=== PATIENT | male | born 1960 | race Caucasian/White ===

== ENCOUNTER 2021-06-02 09:05 | Emergency (ER) | payer OTHER, SELFPAY ==
[2021-06-02 09:35] VITALS: BP 129/78; PULSE 74; RESP 18; TEMP 37.1; O2SAT 99; BMI 26.1
[2021-06-02 09:57] LABS: UTC Strep Screen (Rapid) Positive (Negative)
--- NOTE | 2021-06-02 10:06 | HMH.EDUTC ---
[facility] [place] Clinical Impression: Strep throat Disposition: Home, Self-Care Condition on Discharge: Good Instructions: DI for Strep Throat, Strep Throat, Amoxicillin Additional Instructions: *Monitor Temp, Over the counter Motrin or Tylenol as directed/as needed Tylenol every 4 hours and Motrin every 6 hours (as long as your family doctor has told you that you can take it) for fever or pain. and straight to ER if unable to lower temp less than 101.0 after medication given *Warm salt water gargles may help to soothe the throat *Throat Lozenges *Warm fluids like tea with honey may help to soothe the throat *Sleep elevated *Humidifier/Vaporizer *If you did not take Penicillin shot or was unable to, start taking antibiotic immediately and make sure that you take it for the FULL length of time although you should start to feel better in 24-48 hours *change toothbrush and toothpaste 24-48 hours after starting to take antibiotics so you do not reinfect yourself Monitor Temp. Tylenol and/or Ibuprofen as needed. ER if fever is no less than 101 despite alternating Tylenol and Ibuprofen * Encourage fluids, water, Gatorade, powerade, pedialyte if /toddler/or child *Cold fluids, popsicles and ice cream may feel good on his throat Follow up IMMEDIATELY for new or worsening symptoms or no Noticeable improvement over the next 48-72 hours. 911 for difficulty breathing or swallowing Prescriptions: Amoxicillin [Amoxicillin 500mg Cap] 500 mg PO TID #30 cap Transmission Status: Pending to [facility] #[id number] Referrals: Provider,Referral, [Primary Care Provider] - As needed Time of Disposition: 10:14 Medical Decision Making - Constantin Inquiry Pt receiving controlled substance: No Constantin was queried for this patient: No Vital Signs: 06/02/21 09:35 Temperature 98.7 F Temperature Source Oral Pulse Rate [Right Brachial] 74 Respiratory Rate 18 Blood Pressure [Right Arm] 129/78 Blood Pressure Mean [Right Arm] 95 Blood Pressure Source [Right Arm] Automatic Cuff Blood Pressure Position [Right Arm] Sitting 02 Sat by Pulse Oximetry 99 Oxygen Delivery Method Room Air - Lab Data Lab results reviewed: Yes: I reviewed the patient's lab results. Lab Results 06/02/21 09:38: Strep Scn Rapid Clinic Positive A [facility] [place] HPI - General Stated complaint: possible strep throat Time Seen by Provider: 06/02/21 10:06 Mode of Arrival: Ambulatory Source of Information: Patient Limitations: No Limitations Description of Symptoms (Recalled from Triage Doc. by RN): PATIENT C/O SORE THROAT SINCE SATURDAY HEENT Symptoms (Recalled from RN notes): Yes Resp Symptoms (Recalled from RN notes): No Skin Symptoms (Recalled from RN notes): No MS Symptoms (Recalled from RN notes): No Functional Status (Recalled from RN notes): WNL - History of Present Illness Provider Complaint: Patient states that he has been having sore throat for several days State that he feels like he may have strep throat States that his throat hurts when he swallows and feels scratchy so he came in to get checked - Related Data Home Medications Medication Instructions Recorded Confirmed benazepril 40 mg tablet 40 mg PO ONCE 06/01/17 metformin 500 mg tablet 500 mg PO BID 06/01/17 ropinirole 0.25 mg tablet 0.25 mg PO TID 06/01/17 rosuvastatin 5 mg tablet 5 mg PO ONCE 06/01/17 sitagliptin 25 mg tablet 25 mg PO ONCE 06/01/17 Previous Rx's Medication Instructions Recorded azithromycin 250 mg tablet 250 mg PO QDAY #6 tab 06/01/17 benzonatate 100 mg capsule 100 mg PO TID PRN #30 cap 06/01/17 Amoxicillin [Amoxicillin 500mg 500 mg PO TID #30 cap 06/02/21 Cap] Allergies Allergy/AdvReac Type Severity Reaction Status Date / Time morphine [MORPHINE] Allergy Mild Verified 06/01/17 13:30 - Worker's Comp Is this a Worker's Comp case?: No [facility] History - Hepatitis A Screen Drug use history?: No High risk sexual behaviors?: No H
[2021-06-02 10:18] VITALS: BP 129/78; PULSE 74; RESP 18; TEMP 37.1; O2SAT 99
== END 2021-06-02 10:19 | disposition home or self-care (01) ==
PROVIDERS: Emergency Provider Nurse Practitioner
DX: J02.0 Streptococcal pharyngitis (principal); E11.9 Type 2 diabetes mellitus without complications; I10 Essential (primary) hypertension
CPT/HCPCS: 87880; 99202; G0463

== ENCOUNTER → 2022-06-06 13:54 | Outpatient (CLI) | payer OTHER, SELFPAY ==
--- NOTE | 2022-06-06 13:56 | XR_ITS ---
FINAL REPORT CLINICAL HISTORY: CHEST CONGESTION COMPARISON: none FINDINGS: Two views of the chest were obtained. The heart size and pulmonary vascularity are within normal limits. The mediastinum is normal. There is mild right basilar atelectasis or pneumonia. There is no pneumothorax. The bony thorax is intact. IMPRESSION: Mild right basilar atelectasis or pneumonia. Reviewed, Interpreted and Dictated by Santino Helton III, MD Transcribed by Clarita Kong Authenticated and [facility]
== END ==
PROVIDERS: PCP Nurse Practitioner Family; Visit Provider Nurse Practitioner Family
DX: R06.00 Dyspnea, unspecified (principal); R06.2 Wheezing
CPT/HCPCS: 71046

== ENCOUNTER → 2022-06-06 14:30 | Outpatient (CLI) | payer OTHER, SELFPAY ==
[2022-06-06 14:47] LABS: Adenovirus,PCR Not Detected (NotDetected); Bordetella Pertussis Not Detected (NotDetected); Chlamydophila Pneumoniae, PCR Not Detected (NotDetected); Coronavirus 19, PCR Not Detected (NotDetected); Coronavirus 229E Not Detected (NotDetected); Coronavirus NL63 Not Detected (NotDetected); Coronavirus OC43 Not Detected (NotDetected); Coronovirus HKU1,PCR Not Detected (NotDetected); Influenza A, PCR Not Detected (NotDetected); Influenza AH1, 2009 Not Detected (NotDetected); Influenza AH1, PCR Not Detected (NotDetected); Influenza AH3,PCR Not Detected (NotDetected); Influenza B, PCR Not Detected (NotDetected); Mycoplasma Pneumoniae, PCR Not Detected (NotDetected); Parainfluenza 1, PCR Not Detected (NotDetected); Parainfluenza 2, PCR Not Detected (NotDetected); Parainfluenza 3, PCR Not Detected (NotDetected); Parainfluenza 4, PCR Not Detected (NotDetected); Respiratory Syncytial Virus Not Detected (NotDetected); Rhinovirus/Enterovirus Not Detected (NotDetected)
[2022-06-06 18:18] LABS: Human Metapneumovirus Detected (NotDetected)
== END ==
PROVIDERS: PCP Nurse Practitioner Family; Visit Provider Nurse Practitioner Family
DX: J22 Unspecified acute lower respiratory infection (principal); R06.2 Wheezing; B97.81 Human metapneumovirus as the cause of diseases classified elsewhere
CPT/HCPCS: 87581; 87632; 87798; C9803; U0003; U0005

== ENCOUNTER → 2022-11-08 12:17 | Outpatient (CLI) | payer OTHER, SELFPAY ==
[2022-11-08 12:50] LABS: Alanine Aminotransferase 29 U/L (12-78); Albumin Level 4.7 g/dl (3.5-5.0); Albumin/Globulin Ratio 2.1 (1.1-1.8); Alkaline Phosphatase 114 U/L (38-126); Anion Gap 15.4 mEq/L (5-15); Aspartate Amino Transferase 29 U/L (17-59); Bilirubin,Total 0.6 mg/dl (0.2-1.3); Blood Urea Nitrogen 20 mg/dl (9-20); Calcium 9.4 mg/dl (8.4-10.2); Carbon Dioxide 26 mmol/L (22.0-30.0); Chloride 104 mmol/L (98-107); Estimated Glomerular Filt Rate 114 ml/min (>60); GFR (African American) 138 ML/MIN (>60); Globulin 2.2 g/dL (1.3-3.2); Glucose 133 mg/dl (74-100); Magnesium 1.5 mg/dl (1.6-2.3); Potassium 4.4 mmoL/L (3.5-5.1); Sodium 141 mmol/L (136-145); Total Protein,Serum 6.9 g/dl (6.3-8.2)
== END ==
PROVIDERS: PCP Nurse Practitioner Family; Visit Provider Nurse Practitioner Family
DX: R25.2 Cramp and spasm (principal)
CPT/HCPCS: 80053; 83735

== ENCOUNTER 2023-12-16 11:19 | Outpatient (CLI) | payer OTHER, SELFPAY ==
--- NOTE | 2023-12-16 11:29 | XR_ITS ---
FINAL REPORT CLINICAL HISTORY: Acute cough and congestion FINDINGS: Vague opacities within the left upper lobe are compatible with pneumonia. The right lung is clear. There is no evidence of effusion or other pleural disease. The mediastinum has a normal appearance. The cardiac silhouette is unremarkable. IMPRESSION: Probable left lung pneumonia. Reviewed, Interpreted and Dictated by Reggie Owusu MD Transcribed by Erika Salinas Authenticated and [facility]
[2023-12-16 12:15] LABS: Adenovirus,PCR Not Detected (NotDetected); Bordetella Pertussis Not Detected (NotDetected); Chlamydophila Pneumoniae, PCR Not Detected (NotDetected); Coronavirus 19, PCR Not Detected (NotDetected); Coronavirus 229E Not Detected (NotDetected); Coronavirus NL63 Not Detected (NotDetected); Coronavirus OC43 Not Detected (NotDetected); Coronovirus HKU1,PCR Not Detected (NotDetected); Human Metapneumovirus Not Detected (NotDetected); Influenza A, PCR Not Detected (NotDetected); Influenza AH1, 2009 Not Detected (NotDetected); Influenza AH1, PCR Not Detected (NotDetected); Influenza AH3,PCR Not Detected (NotDetected); Influenza B, PCR Not Detected (NotDetected); Mycoplasma Pneumoniae, PCR Not Detected (NotDetected); Parainfluenza 1, PCR Not Detected (NotDetected); Parainfluenza 2, PCR Not Detected (NotDetected); Parainfluenza 3, PCR Not Detected (NotDetected); Parainfluenza 4, PCR Not Detected (NotDetected); Respiratory Syncytial Virus Not Detected (NotDetected); Rhinovirus/Enterovirus Not Detected (NotDetected)
[2023-12-16 12:35] LABS: Basophils % 0.4 % (0.1-2.0); Eosinophils # 0.1 K/mm3 (0.0-0.4); Eosinophils % 1.3 % (0.1-12.0); Hematocrit 41.4 % (42.0-52.0); Lymphocytes # 1.9 K/mm3 (0.7-4.5); Lymphocytes % 24.4 % (10-50); Mean Corpuscular HGB Conc 33.9 g/dL (31.8-35.4); Mean Corpuscular Hemoglobin 30.5 pg (27.0-31.2); Mean Corpuscular Volume 89.9 fl (80-94); Mean Platelet Volume 8.1 fl (7.4-10.4); Monocytes # 0.4 K/mm3 (0.1-1.0); Monocytes % 5.1 % (1.7-9.3); Neutrophils # 5.5 K/mm3 (1.8-7.8); Neutrophils % 68.8 % (37.0-80.0); Platelet Count 217 K/mm3 (142-424); Red Cell Distribution Width 15.2 % (11.5-17.5)
[2023-12-16 12:56] LABS: Hemoglobin A1C 6.5 % (4.0-6.0)
[2023-12-16 12:58] LABS: Alanine Aminotransferase 29 U/L (12-78); Albumin Level 3.9 g/dl (3.5-5.0); Albumin/Globulin Ratio 1.8 (1.1-1.8); Alkaline Phosphatase 88 U/L (38-126); Anion Gap 15.1 mEq/L (5-15); Aspartate Amino Transferase 28 U/L (17-59); Blood Urea Nitrogen 20 mg/dl (9-20); Calcium 9.6 mg/dl (8.4-10.2); Carbon Dioxide 21 mmol/L (22.0-30.0); Chloride 100 mmol/L (98-107); Estimated Glomerular Filt Rate 114 ml/min (>60); GFR (African American) 137 ML/MIN (>60); Globulin 2.2 g/dL (1.3-3.2); Glucose 262 mg/dl (74-100); Potassium 4.1 mmoL/L (3.5-5.1); Sodium 132 mmol/L (136-145); Total Protein,Serum 6.1 g/dl (6.3-8.2)
== END 2023-12-16 23:59 | disposition home or self-care (01) ==
LOC: RAD 11:20
PROVIDERS: PCP Nurse Practitioner Family; Visit Provider Nurse Practitioner Family
DX: J06.9 Acute upper respiratory infection, unspecified (principal); R41.3 Other amnesia; R53.83 Other fatigue; E11.9 Type 2 diabetes mellitus without complications; Z79.84 Long term (current) use of oral hypoglycemic drugs
CPT/HCPCS: 71046; 80053; 83036; 85025; 87581; 87632; 87635; 87798

== ENCOUNTER 2024-01-10 11:35 | Outpatient (CLI) | payer OTHER, SELFPAY ==
[2024-01-10 17:53] LABS: Basophils # 0.1 K/mm3 (0-0.2); Basophils % 0.4 % (0.1-2.0); Eosinophils # 0.1 K/mm3 (0.0-0.4); Eosinophils % 0.9 % (0.1-12.0); Lymphocytes # 2.4 K/mm3 (0.7-4.5); Lymphocytes % 18.4 % (10-50); Mean Corpuscular HGB Conc 32.6 g/dL (31.8-35.4); Mean Corpuscular Hemoglobin 29.8 pg (27.0-31.2); Mean Corpuscular Volume 91.6 fl (80-94); Monocytes # 0.5 K/mm3 (0.1-1.0); Monocytes % 3.8 % (1.7-9.3); Neutrophils % 76.5 % (37.0-80.0); Platelet Count 187 K/mm3 (142-424); Red Blood Count 4.37 M/mm3 (4.60-6.20); Red Cell Distribution Width 15.6 % (11.5-17.5); White Blood Count 13.1 K/mm3 (4.8-10.8)
[2024-01-10 18:30] LABS: Alanine Aminotransferase 21 U/L (12-78); Albumin/Globulin Ratio 1.7 (1.1-1.8); Alkaline Phosphatase 77 U/L (38-126); Anion Gap 14.1 mEq/L (5-15); Aspartate Amino Transferase 20 U/L (17-59); Bilirubin,Total 1.8 mg/dl (0.2-1.3); Blood Urea Nitrogen 16 mg/dl (9-20); Calcium 9.3 mg/dl (8.4-10.2); Carbon Dioxide 20 mmol/L (22.0-30.0); Chloride 103 mmol/L (98-107); Estimated Glomerular Filt Rate 85 ml/min (>60); GFR (African American) 103 ML/MIN (>60); Globulin 2.3 g/dL (1.3-3.2); Glucose 213 mg/dl (74-100); Potassium 4.1 mmoL/L (3.5-5.1); Sodium 133 mmol/L (136-145); Total Protein,Serum 6.3 g/dl (6.3-8.2)
[2024-01-10 19:01] LABS: Prostate Specific Ag Screen 10.9 ng/ml (0.0-4.0)
== END 2024-01-10 23:59 | disposition home or self-care (01) ==
LOC: LAB.DROPOF 01-13 11:35
PROVIDERS: PCP Student in an Organized Health Care Education/Training Program; Visit Provider Student in an Organized Health Care Education/Training Program
DX: N39.0 Urinary tract infection, site not specified (principal); R39.198 Other difficulties with micturition; B96.89 Other specified bacterial agents as the cause of diseases classified elsewhere
CPT/HCPCS: 80053; 85025; 87086; 87088; 87186; G0103

== ENCOUNTER 2024-01-20 07:41 | Outpatient (CLI) | payer OTHER, SELFPAY ==
--- NOTE | 2024-01-20 07:42 | US_ITS ---
FINAL REPORT TECHNIQUE: Ultrasound images of the kidneys and bladder were obtained. CLINICAL HISTORY: .uti COMPARISON: None FINDINGS: The right kidney measures 12 cm in length. It is normal in echogenicity. There is no hydronephrosis. The left kidney measures 12.7 cm in length. It is normal in echogenicity. There is no hydronephrosis. There is a small 1.2 cm hypoechoic focus in the midportion of the left kidney, consistent with a small renal cyst. IMPRESSION: Small 1.2 cm hypoechoic focus midportion of the left kidney consistent with a small cyst. Otherwise unremarkable renal ultrasound. Reviewed, Interpreted and Dictated by Jesse Crews MD Transcribed by Maggie Casanova Authenticated and [facility]
--- NOTE | 2024-01-20 07:42 | US_ITS ---
FINAL REPORT CLINICAL HISTORY: UTI COMPARISON: None FINDINGS: ULTRASOUND PELVIS: Ultrasound examination of the pelvis was performed pre and post voiding. The bladder volume prior to voiding measured 8.23 cc. Postvoid there is a small residual, 13 cc left in the bladder. No definite focal bladder mass is identified. The prostate is prominent, measuring 5 cm in diameter with calcifications present. IMPRESSION: Small postvoid residual identified in the bladder. Enlarged prostate with calcifications present. Reviewed, Interpreted and Dictated by Jesse Crews MD Transcribed by Maggie Casanova Authenticated and [facility]
--- NOTE | 2024-01-20 07:42 | US_ITS ---
FINAL REPORT TECHNIQUE: Ultrasound images of the testicles were obtained bilaterally. Color Doppler images were obtained. CLINICAL HISTORY: .uti COMPARISON: None FINDINGS: The right testicle is normal in size and echotexture, measuring 5.9 cm in length. The left testicle has been surgically resected. Arterial flow is identified. There are several small hypoechoic foci in the epididymis on the right side that may represent spermatoceles versus epididymal cysts. A small hydrocele is present. IMPRESSION: No evidence of right testicular mass or torsion. The left testicle has been surgically resected. Reviewed, Interpreted and Dictated by Jesse Crews MD Transcribed by Maggie Casanova Authenticated and [facility]
--- NOTE | 2024-01-20 08:33 | XR_ITS ---
FINAL REPORT CLINICAL HISTORY: UTI COMPARISON: None FINDINGS: SINGLE VIEW ABDOMEN A single view of the abdomen was obtained. There is a nonobstructive bowel gas pattern. There are no abnormally dilated loops of small bowel. No abnormal calcifications are identified. IMPRESSION: Nonobstructive bowel gas pattern. Reviewed, Interpreted and Dictated by Jesse Crews MD Transcribed by Clarita Kong Authenticated and [facility]
[2024-01-20 12:53] LABS: Microscopic, Urine URINE MICROSCOPIC (MICROSCOPIC)
[2024-01-20 13:06] LABS: Appearance,Urine CLEAR (Clear); Bilirubin,Urine Negative (Negative); Blood, Urine Negative (Negative); Color,Urine YELLOW (Yellow); Glucose,Urine (UA) TRACE (Negative); Ketones,Urine Negative (Negative); Leukocyte Esterase,Urine Negative (Negative); Nitrate,Urine Negative (Negative); PH,Urine 6.5 (5.0-8.5); Protein,Urine Negative (Negative)
[2024-01-20 13:32] LABS: Squamous Epithelial Cell,Urine Occasional #/hpf (0-5)
[2024-01-20 14:34] LABS: Blood Urea Nitrogen 22 mg/dl (9-20); Estimated Glomerular Filt Rate 97 ml/min (>60); GFR (African American) 118 ML/MIN (>60)
[2024-01-22 12:15] LABS: Prostate Specific Ag 10.8 ng/mL (0.0-4.0)
== END 2024-01-20 23:59 | disposition home or self-care (01) ==
LOC: RAD 07:42
PROVIDERS: PCP Nurse Practitioner Family; Visit Provider Urology
DX: R97.20 Elevated prostate specific antigen [PSA] (principal); N40.1 Benign prostatic hyperplasia with lower urinary tract symptoms; N40.2 Nodular prostate without lower urinary tract symptoms; N39.0 Urinary tract infection, site not specified; R31.9 Hematuria, unspecified; R35.1 Nocturia
CPT/HCPCS: 36415; 74018; 76770; 76857; 76870; 81001; 82565; 84153; 84154; 84520; 87086

== ENCOUNTER 2024-02-10 09:00 | Outpatient (CLI) | payer OTHER, SELFPAY ==
[2024-02-10 15:39] LABS: Microscopic, Urine URINE MICROSCOPIC (MICROSCOPIC)
[2024-02-10 16:06] LABS: Appearance,Urine CLEAR (Clear); Bilirubin,Urine Negative (Negative); Blood, Urine 3+ (Negative); Color,Urine YELLOW (Yellow); Glucose,Urine (UA) 1+ (Negative); Ketones,Urine Negative (Negative); Leukocyte Esterase,Urine 1+ (Negative); Nitrate,Urine POSITIVE (Negative); Protein,Urine 1+ (Negative); Specific Gravity, Urine 1.025 (1.005-1.030); Urobilinogen,Urine 0.2 EU/dl (0.2)
[2024-02-10 16:54] LABS: WBC,Urine 20-50 #/hpf (0-3)
[2024-02-10 16:55] LABS: Bacteria,Urine 2+ /lpf
== END 2024-02-10 23:59 | disposition home or self-care (01) ==
LOC: LAB.DROPOF 02-11 10:14
PROVIDERS: PCP Urology; Visit Provider Urology
DX: R97.20 Elevated prostate specific antigen [PSA] (principal); N40.2 Nodular prostate without lower urinary tract symptoms; N39.0 Urinary tract infection, site not specified; B96.20 Unspecified Escherichia coli [E. coli] as the cause of diseases classified elsewhere
CPT/HCPCS: 81001; 87086; 87088; 87186

== ENCOUNTER 2024-02-25 07:14 | Outpatient (CLI) | payer OTHER, SELFPAY ==
--- NOTE | 2024-02-25 07:14 | CT_ITS ---
FINAL REPORT TECHNIQUE: Axial CT images of the abdomen and pelvis were obtained before and after the administration of IV contrast. This study was performed with techniques to keep radiation doses as low as reasonably achievable (ALARA). Individualized dose reduction techniques using automated exposure control or adjustment of mA and/or kV according to the patient'' size were employed. CLINICAL HISTORY: Elevated PSA, recent uti's COMPARISON: None FINDINGS: Abdomen: A small hiatal hernia is present. The lung bases are clear. The heart is normal in size. The liver has an unremarkable appearance, without evidence of mass or biliary duct dilatation. . The spleen is unremarkable. No adrenal masses present. The pancreas has an unremarkable appearance. The kidneys enhance normally. The aorta is normal in caliber. There is no free fluid or adenopathy. No mass or abnormal fluid collection is seen. Precontrast images demonstrate no evidence of nephrolithiasis. Pelvis: The appendix is not well visualized. The bladder is incompletely distended. No inflammatory process is seen. There is no evidence of mass or adenopathy. There is no evidence of bowel obstruction. There is a left inguinal hernia containing fat. IMPRESSION: No evidence of acute intra-abdominal process. Reviewed, Interpreted and Dictated by Jesse Crews MD Transcribed by Maggie Casanova Authenticated and [facility]
[2024-02-25 07:32] LABS: Microscopic, Urine URINE MICROSCOPIC (MICROSCOPIC)
[2024-02-25 07:52] LABS: Blood Urea Nitrogen 22 mg/dl (9-20); Estimated Glomerular Filt Rate 75 ml/min (>60); GFR (African American) 91 ML/MIN (>60)
[2024-02-25 07:59] LABS: Appearance,Urine CLEAR (Clear); Bilirubin,Urine Negative (Negative); Blood, Urine Negative (Negative); Color,Urine YELLOW (Yellow); Glucose,Urine (UA) Negative (Negative); Ketones,Urine Negative (Negative); Leukocyte Esterase,Urine Negative (Negative); Nitrate,Urine Negative (Negative); Protein,Urine Negative (Negative); Urobilinogen,Urine 0.2 EU/dl (0.2)
[2024-02-25 08:06] LABS: Bacteria,Urine Trace /lpf; Squamous Epithelial Cell,Urine Occasional #/hpf (0-5)
[2024-02-25] MEDS: IOPAMIDOL-370 (76%);100ML BOTTLE 75 ML IV (08:40)
[2024-02-25] MEDS: SODIUM CHLORIDE 0.9% 10ML SYR (RAD ONLY) 10 ML IV (08:40)
[2024-02-26 13:27] LABS: PSA, Free 0.51 ng/mL; Prostate Specific Ag 4.2 ng/mL (0.0-4.0)
== END 2024-02-25 23:59 | disposition home or self-care (01) ==
LOC: RAD 07:14
PROVIDERS: PCP Nurse Practitioner Family; Visit Provider Urology
DX: N39.0 Urinary tract infection, site not specified (principal); R97.20 Elevated prostate specific antigen [PSA]
CPT/HCPCS: 36415; 74178; 81001; 82565; 84153; 84154; 84520; 87086; Q9967

== ENCOUNTER 2024-10-22 12:29 | Outpatient (CLI) | payer MEDICARE, SELFPAY ==
[2024-10-22 13:27] LABS: Basophils # 0.1 K/mm3 (0-0.2); Basophils % 0.4 % (0.1-2.0); Eosinophils # 0.1 Kmm3 (0.0-0.4); Eosinophils % 0.8 % (0.1-12.0); Hemoglobin 11.7 g/dL (14.1-18.0); Immature Granulocytes # 0.15 10^3uL; Immature Granulocytes % 0.9 %; Lymphocytes # 4.3 K/mm3 (0.7-4.5); Lymphocytes % 25.8 % (10-50); Mean Corpuscular HGB Conc 33.4 g/dL (31.8-35.4); Mean Corpuscular Hemoglobin 28.5 pg (27.0-31.2); Mean Corpuscular Volume 85.2 fl (80-94); Monocytes # 0.8 K/mm3 (0.1-1.0); Monocytes % 4.6 % (1.7-9.3); Neutrophils # 11.2 K/mm3 (1.8-7.8); Neutrophils % 67.5 % (37.0-80.0); Nucleated Red Blood Cells # 0 10^3/uL; Nucleated Red Blood Cells % 0 %; Platelet Count 465 K/mm3 (142-424); Red Blood Count 4.11 M/mm3 (4.60-6.20); Red Cell Distribution Width 13.5 % (11.5-17.5); Red Cell Distribution Width-SD 41.9 fL; White Blood Count 16.6 K/mm3 (4.8-10.8)
[2024-10-22 13:52] LABS: Albumin Level 3.7 g/dl (3.5-5.0); Chloride 106 mmol/L (98-107); Potassium 4.7 mmoL/L (3.5-5.1); Sodium 139 mmol/L (136-145)
[2024-10-22 13:55] LABS: Alanine Aminotransferase 18 U/L (12-78); Albumin/Globulin Ratio 1.8 (1.1-1.8); Alkaline Phosphatase 103 U/L (38-126); Amylase 62 U/L (30-110); Anion Gap 15.7 mEq/L (5-15); Aspartate Amino Transferase 17 U/L (17-59); Bilirubin,Total 0.4 mg/dl (0.2-1.3); Blood Urea Nitrogen 20 mg/dl (9-20); Calcium 9.6 mg/dl (8.4-10.2); Carbon Dioxide 22 mmol/L (22.0-30.0); Estimated Glomerular Filt Rate 75 ml/min (>60); GFR (African American) 91 ML/MIN (>60); Globulin 2.1 g/dL (1.3-3.2); Glucose 182 mg/dl (74-100); Iron 28 ug/dL (49-181); Lipase 169 U/L (23-300); Total Protein,Serum 5.8 g/dl (6.3-8.2)
[2024-10-22 14:02] LABS: C-Reactive Protein 54.6 mg/L (0-4)
[2024-10-22 14:05] LABS: Total Iron Binding Capacity 293 ug/dL (261-462)
[2024-10-22 14:07] LABS: Erythrocyte Sedimentation Rate 102 mm/hr (0-20)
[2024-10-22 14:12] LABS: 25-OH Vitamin D, Total 26.1 ng/mL (30-100)
[2024-10-22 14:14] LABS: Free T4 (Free Thyroxine) 1.02 ng/dl (0.78-2.19)
[2024-10-22 14:34] LABS: Ferritin 113 ng/ml (17.9-464)
[2024-10-22 14:38] LABS: HIV Combo NEGATIVE (Negative)
[2024-10-22 14:41] LABS: Hemoglobin A1C 7.3 % (4.0-6.0)
[2024-10-22 14:47] LABS: Hepatitis C Ab Qual. W/ RFX NEGATIVE (Negative)
[2024-10-22 14:57] LABS: Uric Acid 4.4 mg/dl (3.5-8.5)
[2024-10-22 15:46] LABS: Vitamin B12 297 pg/mL (239-931)
[2024-10-23 12:13] LABS: Anti-Centromere B Antibodies <0.2 AI (0.0-0.9); Anti-DNA (DS) Ab Qn <1 IU/mL (0-9); Anti-Jo-1 <0.2 AI (0.0-0.9); Anti-Smith Antibody <0.2 AI (0.0-0.9); Antichromatin Antibodies <0.2 AI (0.0-0.9); Antiscleroderma-70 Antibodies <0.2 AI (0.0-0.9); Endomysial IgA Antibody Negative (Negative); RNP Antibodies <0.2 AI (0.0-0.9); Sjogren's Anti-SS-A <0.2 AI (0.0-0.9); Sjogren's Anti-SS-B <0.2 AI (0.0-0.9)
[2024-10-23 16:45] LABS: Deamidated Gliadin Abs, IgA 3 units (0-19); Deamidated Gliadin Abs, IgG 1 units (0-19); Tissue Transglutaminase IgA Ab <2 U/mL (0-3); Tissue Transglutaminase IgG Ab <2 U/mL (0-5)
[2024-10-24 09:17] LABS: Reticulin IgA Antibody Negative titer (Neg:<1:2.5)
[2024-10-27 15:17] LABS: Saccharomyces cerevisiae, IgA <20.0 Units (0.0-24.9); Saccharomyces cerevisiae, IgG 25.3 Units (0.0-24.9)
== END 2024-10-22 23:59 | disposition home or self-care (01) ==
LOC: LAB 12:30
PROVIDERS: PCP Nurse Practitioner Family; Visit Provider Nurse Practitioner Family
DX: D51.9 Vitamin B12 deficiency anemia, unspecified (principal); R53.83 Other fatigue; E11.9 Type 2 diabetes mellitus without complications
CPT/HCPCS: 36415; 80053; 82150; 82306; 82607; 82728; 83036; 83516; 83540; 83550; 83690; 83735; 84439; 84443; 84550; 85025; 85651; 86140; 86225; 86235; 86255; 86256; 86671; 86803; 87389

== ENCOUNTER 2024-10-22 16:24 | Emergency (ER) | payer MEDICARE, SELFPAY ==
--- NOTE | 2024-10-22 16:35 | CT_ITS ---
PROCEDURE INFORMATION: Exam: CT Abdomen And Pelvis With Contrast Exam date and time: 10/22/2024 4:54 PM Age: 64 years old Clinical indication: Abdominal pain; Epigastric; Additional info: Epigastric discomfort TECHNIQUE: Imaging protocol: Computed tomography of the abdomen and pelvis with contrast. Radiation optimization: All CT scans at this facility use at least one of these dose optimization techniques: automated exposure control; mA and/or kV adjustment per patient size (includes targeted exams where dose is matched to clinical indication); or iterative reconstruction. Contrast material: ISOVUE; Contrast volume: 75 ml; Contrast route: IV; COMPARISON: CR XR CHEST 2V 10/22/2024 4:46 PM FINDINGS: Lungs: Evidence for calcified lung granuloma in the right chest. Multifocal alveolar consolidation opacities within the lingula and left lower lobe. Linear interstitial and alveolar opacity to a lesser extent in the right lower lobe. Coronary arteries: Coronary arterial calcifications are demonstrated. Diaphragm: Questionable hiatal hernia identified. Liver: Indeterminate incidental hepatic lesion identified. Hepatic lesion measurement and location: Ill-defined heterogeneous hypodensity in the left hepatic lobe measures 10 mm on axial image 38. Gallbladder and biliary ducts: Unremarkable. No calcified stones. No ductal dilation. Pancreas: Unremarkable. Spleen: Unremarkable. No splenomegaly. Adrenal glands: Normal. No mass. Kidneys and ureters: Unremarkable. No hydronephrosis or calculi. Stomach and bowel: Slightly prominent fluid identified within the bowel, proximal colon, suggesting potential early developing diarrheal state. Possible nonspecific infectious or inflammatory gastroenteritis. The bowel appears otherwise unremarkable. Appendix: The visualized appendix appears unremarkable. Intraperitoneal space: No free air. No significant fluid collection. Vasculature: Mild atherosclerotic calcification demonstrated within the aorta. Mild atherosclerotic arterial vascular wall calcifications are demonstrated. Lymph nodes: No enlarged lymph nodes. Urinary bladder: Urinary bladder appears small in size, limiting further assessment. Reproductive: Unremarkable as visualized. Bones/joints: Mild to moderate generalized bony degenerative changes. Moderate to severe bony degenerative changes involving the posterior facet articulations of the lower lumbar spine and lumbar sacral junction. Disc and osteophyte complexes with moderate to severe central canal and foraminal narrowing within the lower lumbar spine and lumbar sacral junction. Bony structures appear otherwise unremarkable. Soft tissues: Unremarkable. Other findings: Limited study with motion artifact. IMPRESSION: 1. Bilateral pneumonia within the lower lungs, worse on the left side. Recommend close imaging followup until complete resolution. 2. Questionable early developing diarrheal state, possible nonspecific infectious or inflammatory gastroenteritis. See above details. 3. Indeterminate hepatic lesion, as described above. 4. Chronic findings.
--- NOTE | 2024-10-22 16:47 | XR_ITS ---
PROCEDURE INFORMATION: Exam: XR Chest Exam date and time: 10/22/2024 4:46 PM Age: 64 years old Clinical indication: Pain; Other: Tightness; Additional info: Chest tightness TECHNIQUE: Imaging protocol: Radiologic exam of the chest. Views: 2 views. PA and Lateral COMPARISON: No relevant prior studies available. FINDINGS: Tubes, catheters and devices: None. Lungs: Bilateral pulmonary linear interstitial and alveolar opacities are demonstrated within the lungs. The pulmonary opacities are demonstrated within bilateral upper and lower lungs. The pulmonary alveolar consolidation opacities are most prominent within left perihilar and basilar lung. Pleural spaces: No pleural effusion. No pneumothorax. Heart/Mediastinum: Mediastinum and rodney appear unremarkable. Bones/joints: No acute bony abnormality identified. IMPRESSION: Extensive bilateral pneumonia which appears most severe in the left mid to lower lung. Recommend close imaging followup until complete resolution.
--- NOTE | 2024-10-22 16:49 | HMH.EDGENADL ---
Discharge Plan Disposition Patient Disposition: Home, Self-Care Prescriptions Prescriptions: New amoxicillin-pot clavulanate 875-125 mg tablet 1 tab PO BID 7 Days Qty: 14 0RF azithromycin 250 mg tablet 250 mg PO DAILY 4 Days Qty: 4 0RF magnesium oxide 500 mg capsule 500 mg PO DAILY Qty: 30 0RF No Action amlodipine 10 mg tablet 10 mg PO DAILY Patient Comments: TAKE 1 TABLET BY MOUTH EVERY DAY IN THE MORNING glipizide 2.5 mg tablet extended release 24hr 5 mg PO DAILY Patient Comments: TAKE 2 TABLETS BY MOUTH EVERY DAY metformin 1,000 mg tablet 2,000 mg PO DAILY ezetimibe 10 mg tablet 10 mg PO DAILY Patient Comments: TAKE 1 TABLET BY MOUTH EVERY DAY pioglitazone 30 mg tablet 30 mg PO DAILY Patient Comments: TAKE 1 TABLET BY MOUTH EVERY DAY benazepril 40 mg tablet See Rx Instructions .ROUTE .COMPLEX Qty: 30 0RF Dose Instruction: TAKE 1 TABLET BY MOUTH DAILY Rx Instructions: TAKE 1 TABLET BY MOUTH DAILY allopurinol 300 mg tablet See Rx Instructions .ROUTE .COMPLEX Qty: 90 3RF Dose Instruction: TAKE 1 TABLET BY MOUTH DAILY Rx Instructions: TAKE 1 TABLET BY MOUTH DAILY Referrals Follow up/Referrals: Elvia Centeno APRN [Primary Care Provider, Family Practice] - See instructions Activity Restrictions/Add. Instructions Additional Instructions/Restrictions: Take magnesium supplement as prescribed. Take antibiotics for treatment of pneumonia. Follow-up with primary care doctor in the next 2 to 3 days. Please return to the ER with any new, concerning, worsening symptoms. Clinical Impressions Clinical Impression: Hypomagnesemia Bilateral pneumonia Qualifiers: Pneumonia type: due to unspecified organism Lung location: unspecified part of lung Qualified Code(s): J18.9 - Pneumonia, unspecified organism Print Language Print Language: Maltese Discharge ED Provider: Andreas Britt General Adult HPI General Chief complaint: Shortness of Breath/Dyspnea Stated complaint: Sent from Elvia Centeno's office Time Seen by Provider: 10/22/24 16:26 Mode of Arrival: Ambulatory Source of Information: Patient Limitations: No Limitations History of Present Illness HPI narrative: This is a 64-year-old male who presents from clinic with abnormal labs. States that he has had some epigastric discomfort going on for the last 2 weeks. Has also had an unintentional 10 pound weight loss despite eating and drinking a normal amount. States that he still has an appetite. States that he has had a lot of gas, bloating and flatulence. States that he presented to clinic and got laboratory workup today and got a call while he was mowing the lawn that he needed to present to the ER immediately due to some abnormal labs. States that he is now feeling anxious and having some chest tightness and shortness of breath which has been going on all day. Related Data Home Medications ?Medication ?Instructions ?Recorded ?Confirmed amlodipine 10 mg tablet 10 mg PO DAILY 06/06/22 10/22/24 ezetimibe 10 mg tablet 10 mg PO DAILY 08/23/22 10/22/24 glipizide 2.5 mg tablet, extended 5 mg PO DAILY 08/23/22 10/22/24 release 24 hr metformin 1,000 mg tablet 2,000 mg PO DAILY 11/08/22 10/22/24 pioglitazone 30 mg tablet 30 mg PO DAILY 05/11/24 10/22/24 Previous Rx's ?Medication ?Instructions ?Recorded benazepril 40 mg tablet See Rx Instructions .Route 11/17/23 .COMPLEX #30 tabs allopurinol 300 mg tablet See Rx Instructions .Route 12/16/23 .COMPLEX #90 tabs amoxicillin 875 mg-potassium 1 tab PO BID 7 days #14 tabs 10/22/24 clavulanate 125 mg tablet azithromycin 250 mg tablet 250 mg PO DAILY 4 days #4 tabs 10/22/24 magnesium oxide 500 mg capsule 500 mg PO DAILY #30 caps 10/22/24 Allergies Allergy/AdvReac Type Severity Reaction Status Date / Time morphine (MORPHINE) Allergy Mild Verified 10/22/24 08:54 rosuvastatin (From Crestor) Allergy Mild Verified 10/22/24 08:54 [facility] Disclaimer: The information contained in this section may have been updated after the patient was seen, as this information can be updated by other users. Medical History Muscle cramps URI (upper respiratory infection) Left lower lobe pneumonia UTI (urinary tract infection) Right lower lobe pneumonia Establishing care with new doctor, encounter for Injury of left shoulder previous work related injury in 2022, established with Dr. Garza @ 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 Jang) Surgical History H/O right knee surgery right meniscus repair, 2020, with Dr. Espinoza @ [facility] S/P ORIF (open reduction internal fixation) fracture right femur S/P rotator cuff repair right shoulder, 2014, Dr. Adi Gentile @ [facility] History of surgical removal of testicle left, age 12 Hx of tonsillectomy ~age 8 Family History Father Coronary artery disease Hyperlipidemia Mother Hyperlipidemia Diabetes Grandmother Coronary artery disease Hyperlipidemia Diabetes Social History Smoking Status: Never smoker alcohol intake: current alcohol intake frequency: holidays/special occasions only substance use type: denies use current occupational status: other Travel in the last 8 weeks?: None Have you lived/traveled outside [place] in past 30 days?: No Contact w/someone who lives/traveled outside [place] past 30 days?: No Exposure to someone with infectious disease in past 14 days?: No Do you have a fever (greater than 100.4 F or 38 C)?: No Have you tested positive for COVID-19?: No Exposed to someone with COVID-19 in past 14 days?: No Do you have a sore throat?: No Do you have a cough?: No Do you have any weakness?: No Do you have any diarrhea?: No Are you experiencing any unusual bleeding?: No Do you have any muscle aches/pain?: No Do you have any abdominal pain?: No Are you experiencing loss of taste or smell?: No Other Medical History Have you received the Flu Vaccine for this season: Yes Have you received the Pneumonia Vaccine: No ROS Obtained: Yes All systems reviewed & no additional complaints except as documented Physical Exam General General appearance: alert and in no apparent distress Head Head exam: atraumatic Eye Eye exam: Present normal appearance, PERRL and EOMI Neck Neck exam: Present normal inspection and full ROM Chest Chest inspection: Present symmetric chest wall rise Respiratory Respiratory exam: Present normal lung sounds bilaterally; Absent respiratory distress Cardiovascular Cardiovascular exam: Present regular rate and normal rhythm Abdominal Exam Abdominal exam: Present soft; Absent distention Extremities Exam Extremities exam: Present normal inspection Neurological Exam Neurological exam: Present alert and oriented X3 Psychiatric Psychiatric exam: Present normal affect and normal mood Skin Skin exam: Present warm and dry Medical Decision Making Medical Records Medical records reviewed: Yes I reviewed the patient's medical records. Screening: Per USPSTF and CDC recommendations, given the prevalence of disease in our region, it is our hospital?s policy to screen for HIV and viral Hepatitis for all patients aged 18 and over and those with ongoing risk factors. MR Comment: Outpatient laboratory workup that was performed this morning notable for white blood cell count of 16, hemoglobin of 11.7 with low iron, ESR of 102, CRP of 54, low magnesium at 1.0 [place] Inquiry Pt receiving controlled substance: No Vital Signs: 10/22/24 16:56 10/22/24 17:15 10/22/24 17:30 Temperature 98.1 F Temperature Source Oral Pulse Rate 84 76 Pulse Rate [Right] 95 H Respiratory Rate 16 Blood Pressure 135/83 143/85 H Blood Pressure [Right Arm] 132/86 Blood Pressure Mean 97 94 Blood Pressure Mean [Right Arm] 101 Blood Pressure Source [Right Arm] Automatic Cuff Blood Pressure Position [Right Arm] Sitting 02 Sat by Pulse Oximetry 95 94 L 94 L Oxygen Delivery Method Room Air Lab Data Lab Results 10/22/24 16:50: Troponin I < 0.01 Orders (Tests/Meds): ED MEDICATIONS Generic Name Dose Route Start Last Admin Trade Name Freq PRN Reason Stop Dose Admin Magnesium Oxide 400 mg 10/22/24 18:00 Magnesium Oxide 400mg Tablet PO 10/22/24 18:01 ONCE ONE Discontinued Medications Generic Name Dose Route Start Last Admin Trade Name Freq PRN Reason Stop Dose Admin Amoxicillin/Clavulanate Potassium 1 each 10/22/24 17:36 Amoxicillin/Clavulanate Potassium 875/125mg Tablet PO 10/22/24 17:37 ONCE ONE Azithromycin 500 mg 10/22/24 17:36 Azithromycin 250mg Tablet PO 10/22/24 17:37 ONCE ONE Lactated Ringer's 1,000 mls @ 999 mls/hr 10/22/24 16:35 10/22/24 17:12 Lactated Ringer's 1000 Ml Bag IV 10/22/24 17:35 999 mls/hr .Q1H1M ONE Administration Iopamidol 75 ml 10/22/24 17:00 10/22/24 17:00 Iopamidol-370 (76%);100ml Bottle IV 10/22/24 17:01 75 ml ONCE ONE Administration Sodium Chloride 10 ml 10/22/24 17:00 10/22/24 17:00 Sodium Chloride 0.9% 10ml Syr (Rad Only) IV 10/22/24 17:01 10 ml ONCE ONE Administration ORDERS Category Date Time Status CT abdomen pelvis w con Stat Cat Scan 10/22/24 16:35 Completed Chest XR 2 view (NOT portable) [XR chest 2V] Stat Exams 10/22/24 16:47 Completed Troponin I Q3H Lab 10/22/24 20:00 Ordered Troponin I Q3H Lab 10/22/24 23:00 Ordered Troponin I Stat Lab 10/22/24 16:50 Completed Blood Culture Stat Micro 10/22/24 17:54 Received ECG Data Tracing #1: I reviewed this ECG and interpreted as documented below: Normal sinus rhythm at a rate of 90, QTc 409, normal axis, right bundle branch block, no STEMI Medical Decision Narrative: In summary, this 64-year-old male with a past medical history of diabetes and hypertension presents to the emergency department today with abnormal labs and epigastric discomfort with an unintentional 10 pound weight loss over the last 2 weeks. On initial evaluation patient is afebrile, hemodynamically stable, nontoxic-appearing. No significant abdominal tenderness. Differential diagnosis includes but is not limited to electrolyte abnormality, malignancy, pancreatitis, ACS, pneumonia. Based on these concerns, I ordered EKG, troponin, lipase, chest x-ray, CT abdomen pelvis with IV contrast. No need to repeat CBC and CMP which were performed earlier.. ECG personally interpreted as noted above. Patient received 1 L of lactated Ringer's and magnesium for treatment. Labs personally reviewed demonstrate undetectable troponin, []. XR personally interpreted demonstrates patchy opacities in the bilateral lung sharif concerning for pneumonia. CT imaging personally interpreted demonstrates bilateral lower lobe pneumonia as demonstrated on chest x-ray and possible developing gastroenteritis however patient does not have any symptoms at this. PSI score 65 suggesting the patient should be amenable to outpatient management. Patient was not requiring oxygen and in no acute distress. Administered patient's initial doses of Augmentin and azithromycin here and wrote outpatient prescription. On reassessment was in no acute distress and in stable condition appropriate for outpatient management. Considered hospitalization. He is to follow-up with PCP over the next 2 to 3 days. Critical Care Critical Care Time Critical Care Time: No
[2024-10-22 16:56] VITALS: BP 132/86; PULSE 95; RESP 16; TEMP 36.7; O2SAT 95; BMI 26.5
[2024-10-22] MEDS: IOPAMIDOL-370 (76%);100ML BOTTLE 75 ML IV (17:00)
[2024-10-22] MEDS: SODIUM CHLORIDE 0.9% 10ML SYR (RAD ONLY) 10 ML IV (17:00)
--- NOTE | 2024-10-22 17:00 | ECG_ITS ---
APPROVED REPORT Exam: Resting ECG HR:90 bpm ECG Measurements Heart Rate 90 AXES IL 181 P 41 QRSd 157 QRS 60 QT 362 T 12 QTc 409 Conclusion SINUS RHYTHM RIGHT BUNDLE BRANCH BLOCK [120+ ms QRS DURATION, UPRIGHT V1, 40+ ms S IN I/aVL/V4/V5/V6] ABNORMAL ECG Electronically signed by : ARCELIA CHEW, 10/24/2024 12:40:24
[2024-10-22] MEDS: LACTATED RINGERS 1000ML 1,000 ML 999 ML IV (17:12)
[2024-10-22 17:15] VITALS: BP 135/83; PULSE 84; O2SAT 94
[2024-10-22 17:25] LABS: Troponin I < 0.01 ng/ml (0.00-0.034)
[2024-10-22 17:30] VITALS: BP 143/85; PULSE 76; O2SAT 94
[2024-10-22 17:45] VITALS: BP 142/79; PULSE 72; O2SAT 96
[2024-10-22 18:00] VITALS: BP 146/83; PULSE 73; O2SAT 94
[2024-10-22] MEDS: AMOXICILLIN/CLAVULANATE POTASSIUM 875/125MG TABLET 1 EACH PO (18:04)
[2024-10-22] MEDS: AZITHROMYCIN 250MG TABLET 500 MG PO (18:05)
[2024-10-22] MEDS: MAGNESIUM OXIDE 400MG TABLET 400 MG PO (18:07)
[2024-10-22 18:22] VITALS: BP 146/83; PULSE 68; RESP 16; TEMP 36.7; O2SAT 98
== END 2024-10-22 18:26 | disposition home or self-care (01) ==
PROVIDERS: Emergency Provider Student in an Organized Health Care Education/Training Program; PCP Nurse Practitioner Family
DX: J18.9 Pneumonia, unspecified organism (principal); E83.42 Hypomagnesemia; I10 Essential (primary) hypertension; E78.5 Hyperlipidemia, unspecified; D50.9 Iron deficiency anemia, unspecified
CPT/HCPCS: 71046; 74177; 84484; 87040; 93005; 96361; 96365; 99285; J7120; Q9967

== ENCOUNTER 2024-10-26 07:59 | Emergency (ER) | payer MEDICARE, SELFPAY ==
[2024-10-26] VITALS (12 sets, daily range): BP systolic 128–162; BP diastolic 70–89; PULSE 62–95; RESP 16–20; TEMP 36.6–36.7; O2SAT 90–96; BMI 25.6
--- NOTE | 2024-10-26 08:06 | ECG_ITS ---
APPROVED REPORT Exam: Resting ECG HR:95 bpm ECG Measurements Heart Rate 95 AXES MI 171 P 53 QRSd 148 QRS 133 QT 368 T 15 QTc 421 Conclusion ELECTRONIC VENTRICULAR PACEMAKER ABNORMAL RHYTHM ECG Electronically signed by : DOV WASHINGTON, 10/31/2024 03:59:39
--- NOTE | 2024-10-26 08:14 | XR_ITS ---
FINAL REPORT CLINICAL HISTORY: pneumonia, worsening weakness soa COMPARISON: 12/16/2023 FINDINGS: PA and lateral views of the chest were obtained. The cardiac and mediastinal silhouettes are within normal limits. Worsening patchy, left greater than right, airspace opacities are most consistent with pneumonia. There is no pleural effusion or pneumothorax. No acute osseous abnormality is identified. IMPRESSION: Worsening pneumonia Reviewed, Interpreted and Dictated by Zoe Alvarado MD Transcribed by Clarita Kong Authenticated and . [facility]
--- NOTE | 2024-10-26 08:17 | ED_ITS ---
Discharge Plan Disposition Patient Disposition: Home, Self-Care Prescriptions Prescriptions: No Action amlodipine 10 mg tablet 10 mg PO DAILY Patient Comments: TAKE 1 TABLET BY MOUTH EVERY DAY IN THE MORNING glipizide 2.5 mg tablet extended release 24hr 5 mg PO DAILY Patient Comments: TAKE 2 TABLETS BY MOUTH EVERY DAY metformin 1,000 mg tablet 2,000 mg PO DAILY ezetimibe 10 mg tablet 10 mg PO DAILY Patient Comments: TAKE 1 TABLET BY MOUTH EVERY DAY pioglitazone 30 mg tablet 30 mg PO DAILY Patient Comments: TAKE 1 TABLET BY MOUTH EVERY DAY benazepril 40 mg tablet See Rx Instructions .ROUTE .COMPLEX Qty: 30 0RF Dose Instruction: TAKE 1 TABLET BY MOUTH DAILY Rx Instructions: TAKE 1 TABLET BY MOUTH DAILY allopurinol 300 mg tablet See Rx Instructions .ROUTE .COMPLEX Qty: 90 3RF Dose Instruction: TAKE 1 TABLET BY MOUTH DAILY Rx Instructions: TAKE 1 TABLET BY MOUTH DAILY amoxicillin-pot clavulanate 875-125 mg tablet 1 tab PO BID 7 Days Qty: 14 0RF azithromycin 250 mg tablet 250 mg PO DAILY 4 Days Qty: 4 0RF magnesium oxide 500 mg capsule 500 mg PO DAILY Qty: 30 0RF Referrals Follow up/Referrals: Elvia Centeno APRN [Primary Care Provider, Family Practice] - See instructions Activity Restrictions/Add. Instructions Additional Instructions/Restrictions: At this time it was felt you are safe to be discharged home. If new or worsening symptoms please do not hesitate to return the emergency department. Please keep taking your antibiotics as they were originally prescribed. With respect to your ezetimibe please discontinue this. With respect to your metformin please hold it for 1 day, then subsequently take 500 mg once daily for 2 days followed by 500 mg twice daily for 2 days if symptoms are stable. At this point you should have followed up with your family doctor to see how they want to manage this over the long-term or change medications entirely. With respect to magnesium please take it at night as it can have more possible time to absorb and will also aid in sleep. Please follow-up with your family doctor before this weekend if at all possible so we can keep a close eye on all of this. Clinical Impressions Clinical Impression: Pneumonia, Hypomagnesemia, Diarrhea Print Language Print Language: Malay Discharge ED Provider: Samir Monae General Chief Complaint: Shortness of Breath/Dyspnea Stated Complaint: pnuemonia getting worse Time Seen by Provider: 06/02/25 08:02 Mode of Arrival: Ambulatory Source of Information: Patient Description of Symptoms (Recalled from ER Triage Doc. by RN): Pt presents to the ED with shortness of breathing and dizziness that started this morning around 05:00. pt was seen on 10/22 and was diagnosed with pneumonia. pt reports that when he got up to go to the bathroom this morning he felt like he had a drowning feeling and the room was spinning. no pain or nausea or vomiting noted. History of Present Illness HPI narrative: Patient is a 64-year-old male with past medical history of xlm-[id number] diabetes, epigastric discomfort pending outpatient evaluation, hyperlipidemia, hypertension who presents emergency department for evaluation of continued shortness of breath and weakness in the setting of recently diagnosed pneumonia. He has felt weak over the last 4 weeks however over the last 1 week he has had shortness of breath and cough and recently over the last 48 hours after he was diagnosed with pneumonia and sent home with double coverage therapy with Augmentin and azithromycin he felt like he had a drowning feeling causing him to come here for continued evaluation. Please note that above description of symptoms, in this electronic medical record under categorization of recalled from ER triage doctor by RN are reflective of an initial nursing assessment, however, is not reflective of my full history and physical exam that was personally taken and clarified. Consequentially, this preceding description of symptoms, which may include the patient's categorized chief complaint in the EMR, do not reflect my personal clinical impression, and the ultimate description of history of present illness and patient stated complaints should be deferred to this section of the note. Unless stated otherwise or congruent with this section of the note, additional signs, symptoms, or incongruence should be interpreted as inaccurate with my clinical impression. Related Data Home Medications ?Medication ?Instructions ?Recorded ?Confirmed amlodipine 10 mg tablet 10 mg PO DAILY 06/06/2209/25 ezetimibe 10 mg tablet 10 mg PO DAILY 08/23/2209/25 glipizide 2.5 mg tablet, extended 5 mg PO DAILY 10/22/24 release 24 hr metformin 1,000 mg tablet 2,000 mg PO DAILY 11/08/22 0 10/22/24 pioglitazone 30 mg tablet 30 mg PO DAILY 12/16/24 05/2 9/25 Previous Rx's ?Medication ?Instructions ?Recorded benazepril 40 mg tablet See Rx Instructions .Route 0 11/17/23 .COMPLEX #30 tabs allopurinol 300 mg tablet See Rx Instructions .Route 0 12/16/23 .COMPLEX #90 tabs amoxicillin 875 mg-potassium 1 tab PO BID 7 days #14 t abs 10/22/24 clavulanate 125 mg tablet azithromycin 250 mg tablet 250 mg PO DAILY 4 days #4 t abs 10/22/24 magnesium oxide 500 mg capsule 500 mg PO DAILY #30 cap s 10/22/24 Allergies Allergy/AdvReac Type Severity Reaction Status Date / Time morphine (MORPHINE) Allergy Mild Verified 10/22/24 08:54 rosuvastatin (From Crestor) Allergy Mild Verified 10/22/24 08:54 [facility] Disclaimer: The information contained in this section may have been updated after the patient was seen, as this information can be updated by other users. Medical History Muscle cramps URI (upper respiratory infection) Left lower lobe pneumonia UTI (urinary tract infection) Right lower lobe pneumonia Establishing care with new doctor, encounter for Injury of left shoulder previous work related injury in 2022, established with Dr. Garza @ [facility] BMI 27.0-27.9,adult BMI 26.0-26.9,adult Gout Diabetes mellitus Established with cpr ambulance driver @ [facility] (Dr. Chappell) Lower respiratory tract infection Wheezing Dyspnea HTN (hypertension) Established with consumer marketing manager @ [facility] (Dr. Jang) Surgical History H/O right knee surgery right meniscus repair, 2020, with Dr. Espinoza @ [facility] S/P ORIF (open reduction internal fixation) fracture right femur S/P rotator cuff repair right shoulder, 2014, Dr. Adi Gentile @ [facility] History of surgical removal of testicle left, age 12 Hx of tonsillectomy ~age 8 Family History Father Coronary artery disease Hyperlipidemia Mother Hyperlipidemia Diabetes Grandmother Coronary artery disease Hyperlipidemia Diabetes Social History Smoking Status: Never smoker alcohol intake: current alcohol intake frequency: holidays/special occasions only substance use type: denies use current occupational status: other Travel in the last 8 weeks?: None Have you lived/traveled outside US in past 30 days?: No Contact w/someone who lives/traveled outside US past 30 days?: No Exposure to someone with infectious disease in past 14 days?: No Do you have a fever (greater than 100.4 F or 38 C)?: No Have you tested positive for COVID-19?: No Exposed to someone with COVID-19 in past 14 days?: No Do you have a sore throat?: No Do you have a cough?: Yes Do you have any weakness?: Yes Do you have any diarrhea?: No Are you experiencing any unusual bleeding?: No Do you have any muscle aches/pain?: Yes Do you have any abdominal pain?: No Are you experiencing loss of taste or smell?: No Other Medical History Have you received the Flu Vaccine for this season: Yes Have you received the Pneumonia Vaccine: No ROS Obtained: Yes Systems reviewed as appropriate & no additional complaints except as documented Physical Exam General General appearance: alert and in no apparent distress Head Head exam: atraumatic and normocephalic Eye Eye exam: Present PERRL and EOMI ENT ENT exam: Present mucous membranes moist Neck Neck exam: Present normal inspection Chest Chest inspection: Present normal inspection and symmetric chest wall rise Respiratory Respiratory exam: Present normal lung sounds bilaterally and other (Mild tachypnea); Absent respiratory distress Cardiovascular Cardiovascular exam: Present regular rate and normal rhythm Abdominal Exam Abdominal exam: Present soft; Absent tenderness Extremities Exam Extremities exam: Present normal inspection Neurological Exam Neurological exam: Present alert; Absent motor sensory deficit Psychiatric Psychiatric exam: Present normal affect Skin Skin exam: Present warm and dry HEART Score HEART Score HEART Score assessment performed?: Yes History (anamnesis): Slightly suspicious ECG: Non-specific disturbance Age: 45-65 years Risk factors: 1-2 risk factors Troponin: </= normal limit HEART Score: 3 Critical Care Critical Care Time Critical Care Time: No Medical Decision Making Constantin Inquiry Pt receiving controlled substance: No Vital Signs Vital Signs: 10/26/24 08:09 10/26/24 08:16 10/26/24 08:46 Temperature 97.8 F 97.8 F Temperature Source Oral Oral Pulse Rate 95 H 71 Pulse Rate [Right] 95 H Respiratory Rate 20 20 Blood Pressure 162/87 H 128/70 Blood Pressure [Right Arm] 162/87 H Blood Pressure Mean [Right Arm] 112 Blood Pressure Source Automatic Cuff Blood Pressure Source [Right Arm] Automatic Cuff Blood Pressure Position Supine Blood Pressure Position [Right Arm] Supine 02 Sat by Pulse Oximetry 96 96 95 Oxygen Delivery Method Room Air Room Air Room Air 10/26/24 08:46 10/26/24 09:00 10/26/24 09:01 Temperature Temperature Source Pulse Rate 64 67 71 Pulse Rate [Right] Respiratory Rate 19 20 Blood Pressure 128/70 139/72 139/72 Blood Pressure [Right Arm] Blood Pressure Mean [Right Arm] Blood Pressure Source Automatic Cuff Automatic Cuff Blood Pressure Source [Right Arm] Blood Pressure Position Supine Supine Blood Pressure Position [Right Arm] 02 Sat by Pulse Oximetry 94 L 94 L 95 Oxygen Delivery Method Room Air Room Air Room Air 10/26/24 09:30 10/26/24 09:31 10/26/24 10:01 Temperature Temperature Source Pulse Rate 62 69 68 Pulse Rate [Right] Respiratory Rate 20 Blood Pressure 142/79 H 142/79 H 137/82 Blood Pressure [Right Arm] Blood Pressure Mean [Right Arm] Blood Pressure Source Automatic Cuff Blood Pressure Source [Right Arm] Blood Pressure Position Supine Blood Pressure Position [Right Arm] 02 Sat by Pulse Oximetry 93 L 95 95 Oxygen Delivery Method Room Air Room Air Room Air 10/26/24 10:31 Temperature Temperature Source Pulse Rate 75 Pulse Rate [Right] Respiratory Rate Blood Pressure 135/74 Blood Pressure [Right Arm] Blood Pressure Mean [Right Arm] Blood Pressure Source Blood Pressure Source [Right Arm] Blood Pressure Position Blood Pressure Position [Right Arm] 02 Sat by Pulse Oximetry 94 L Oxygen Delivery Method Room Air Lab Data Labs: Lab Results 10/26/24 08:14: VBG pH 7.40, VBG pCO2 36.6, VBG pO2 40.5 H, VBG HCO3 21.9 L, VBG Total CO2 23.0, VBG O2 Saturation 74.1 H, VBG Base Excess -3.0 L, VBG Lactic Acid 1.8 10/26/24 08:17: Chlamy pneumoniae PCR Not detected, Adenovirus (PCR) Not detected, B. pertussis DNA (PCR) Not detected, Coronavirus OC43 (PCR) Not detected, Coronavirus HKU1 (PCR) Not detected, Coronavirus 229E (PCR) Not detected, SARS-CoV-2 (PCR) Not detected, Coronavirus NL63 (PCR) Not detected, Human Metapneumovir PCR Not detected, Influenza A (H1) PCR Not detected, Influ A (H1N1/09) PCR Not detected, Influenza A (H3) PCR Not detected, Influenza Type A (PCR) Not detected, Influenza Type B (PCR) Not detected, M. pneumoniae (PCR) Not detected, Parainfluenza 1 (PCR) Not detected, Parainfluenza 2 (PCR) Not detected, Parainfluenza 3 (PCR) Not detected, Parainfluenza 4 (PCR) Not detected, RSV (PCR) Not detected, Entero/Rhino (PCR) Not detected 10/26/24 : WBC 17.6 H, RBC 4.30 L, Hgb 12.2 L, Hct 36.2 L, MCV 84.2, MCH 28.4, MCHC 33.7, RDW 13.5, Plt Count 506 H, MPV 9.1, Neut % (Auto) 66.9, Lymph % (Auto) 26.2, Kingfisher % (Auto) 4.1, Eos % (Auto) 1.5, Baso % (Auto) 0.4, Neut # (Auto) 11.8 H, Lymph # (Auto) 4.6 H, Kingfisher # (Auto) 0.7, Eos # (Auto) 0.3, Baso # (Auto) 0.1, Sodium 136, Potassium 4.2, Chloride 102, Carbon Dioxide 25, Anion Gap 13.2, BUN 16, Creatinine 0.90, Estimated Creat Clear 92, Estimated GFR 85, Est GFR ( Amer) 102, Glucose 276 H, Calcium 9.7, Magnesium 1.1 L, Total Bilirubin 0.8, AST 21, ALT 19, Alkaline Phosphatase 116, Troponin I < 0.01, NT-Pro-B Natriuret Pep 22.9, Total Protein 7.2, Albumin 4.3, Globulin 2.9, Albumin/Globulin Ratio 1.5 10/26/24 Unknown 10/26/24 Unknown Response Orders (Tests/Meds): ED MEDICATIONS Generic Name Dose Route Start Last Admin Trade Name Freq PRN Reason Stop Dose Admin Ceftriaxone Sodium 1 gm/ 50 mls @ 100 mls/hr 10/26/24 08:15 10/26/24 08:45 Sodium Chloride IV 11/05/24 08:14 100 mls/hr Q24H HENRIETTA Administration Discontinued Medications Generic Name Dose Route Start Last Admin Trade Name Bessie GRIDERN Reason Stop Dose Admin Dexamethasone Sodium Phosphate 10 mg 10/26/24 10:21 10/26/24 11:01 Dexamethasone 4mg/Ml 1ml Vial IV 10/26/24 10:22 10 mg ONCE ONE Administration Lactated Ringer's 1,000 mls @ 999 mls/hr 10/26/24 08:27 10/26/24 08:45 Lactated Ringer's 1000 Ml Bag IV 10/26/24 09:27 999 mls/hr .Q1H1M ONE Administration Magnesium Sulfate 2 gm in 50 mls @ 50 mls/hr 10/26/24 08:41 10/26/24 08:45 Magnesium Sulfate 2gm/50ml Premix IV 10/26/24 09:40 50 mls/hr ONCE ONE Administration Sodium Chloride 25 ml 10/26/24 11:04 10/26/24 11:05 Sodium Chloride 0.9% 25ml Bag IV 10/26/24 11:05 25 ml ONCE ONE Administration ORDERS Category Date Time Status CXR 2 view (NOT portable) [XR chest 2V] Stat Exams 10/26/24 08:14 Completed POCUS Point of Care (ER Only) Stat Exams 10/26/24 08:17 Completed BNP [NT Pro Brain Natriuretic Pep.] Stat Lab 10/26/24 Completed CBC w/Auto Diff [Complete Blood Count Auto Diff] Stat Lab 10/26/24 Completed CMP [Comprehensive Metabolic Panel] Stat Lab 10/26/24 Completed Full Resp Panel w/COVID ([facility]) Routine Lab 10/26/24 08:17 Completed MG [Magnesium] Stat Lab 10/26/24 Completed Trop I [Troponin I] Stat Lab 10/26/24 Completed Troponin I Q3H Lab 10/26/24 11:15 Ordered Troponin I Q3H Lab 10/26/24 14:15 Ordered Blood Culture Stat Micro 10/26/24 08:40 Received VBG [Venous Blood Gas] Stat RT 10/26/24 08:37 Ordered ECG Data Tracing #1: ECG Narrative: Independently interpreted by me rate is 95, rhythm is regular, axis is borderline, no ST elevation in anatomical contiguous leads, QTc 421, right bundle branch block. MDM Narrative Medical Decision Narrative: In summary patient is a 64-year-old male with past medical history described above who presents emergency department for evaluation of refractory weakness and shortness of breath in the setting of recently diagnosed pneumonia. Patient is hemodynamically stable and nontoxic-appearing upon arrival, afebrile. Clear to auscultation but appears dyspneic laying in bed. Differential includes worsening pneumonia, metabolic derangement, atypical ACS, among others. Workup will be conducted with hematologic labs, two-view chest x-ray, EKG, troponin, VBG. Initial inventions include IV ceftriaxone. Full respiratory panel will be obtained. He has taken his azithromycin this morning for atypical coverage already. Initial workup reviewed by me, leukocytosis of 17.6, platelet count 506, no transfusable anemia, compensated acid-base status, no LINDA or critical electrolyte abnormality glucose 276 likely reactive there is persistent hypomagnesemia which will be repleted IV 2 g magnesium sulfate. Initial troponin undetectably low BNP normal. X-ray informally interpreted by me, largely stable with slight worsening of interstitial opacities, formal read does show worsening opacities without pleural effusion. His hypomagnesemia is likely due to his chronic diarrhea secondary to metformin and ezetimibe. On multiple repeat evaluations he does not have an oxygen requirement no significant tachycardia, oxygen saturation in the mid 90s no significant tachypnea or respiratory distress. He was ambulatory at bedside in his evaluation. I had shared decision-making discussion with patient, at bedside as to the utility of admission versus outpatient management with expedited follow-up. I feel that both are reasonable. Discussed case with hospital medicine regarding management given that I feel his hypomagnesemia will not resolve over the long- term if he has persistent chronic diarrhea. Dr. Azevedo agrees with this and recommended medication modifications to stopping ezetimibe, holding metformin for 1 day and slowly ramping up to a modified dose as well as taking magnesium at night. After their discussion they elected to try outpatient management at this time. Medication modifications were made in discharge instructions and patient will follow-up with PCP this week to ensure things are headed in the right direction was given multiple return precautions. Procedure: Procedure performed was cardiac ultrasound performed by Samir Monae. Using the phased array probe parasternal long and apical four-chamber views were identified, no large pericardial effusion, normal ejection fraction, grossly normal cardiac function. Images were technically adequate and saved to a permanent archive and did not necessitate further imaging.
--- NOTE | 2024-10-26 08:17 | PC.NURSE ---
respiratory called for VBG. lab called and notified of VBG.
--- NOTE | 2024-10-26 08:21 | PC.NURSE ---
pt to ct via wheelchair
[2024-10-26 08:23] LABS: Adenovirus,PCR Not Detected (NotDetected); Bordetella Pertussis Not Detected (NotDetected); Chlamydophila Pneumoniae, PCR Not Detected (NotDetected); Coronavirus 19, PCR Not Detected (NotDetected); Coronavirus 229E Not Detected (NotDetected); Coronavirus NL63 Not Detected (NotDetected); Coronavirus OC43 Not Detected (NotDetected); Coronovirus HKU1,PCR Not Detected (NotDetected); Human Metapneumovirus Not Detected (NotDetected); Influenza A, PCR Not Detected (NotDetected); Influenza AH1, 2009 Not Detected (NotDetected); Influenza AH1, PCR Not Detected (NotDetected); Influenza AH3,PCR Not Detected (NotDetected); Influenza B, PCR Not Detected (NotDetected); Mycoplasma Pneumoniae, PCR Not Detected (NotDetected); Parainfluenza 1, PCR Not Detected (NotDetected); Parainfluenza 2, PCR Not Detected (NotDetected); Parainfluenza 3, PCR Not Detected (NotDetected); Parainfluenza 4, PCR Not Detected (NotDetected); Respiratory Syncytial Virus Not Detected (NotDetected); Rhinovirus/Enterovirus Not Detected (NotDetected)
--- NOTE | 2024-10-26 08:23 | PC.NURSE ---
pt to room via wheelchair
[2024-10-26 08:24] LABS: Lactate Venous 1.8 mmol/L (0.4-2.0); VBG HCO3 21.9 mmol/L (23-30); VBG Oxygen Saturation 74.1 % (50-70); VBG PCO2 36.6 mmol/L (35-51); VBG PO2 40.5 mmol/L (28-40)
[2024-10-26 08:26] LABS: Basophils # 0.1 K/mm3 (0-0.2); Basophils % 0.4 % (0.1-2.0); Eosinophils # 0.3 Kmm3 (0.0-0.4); Eosinophils % 1.5 % (0.1-12.0); Hematocrit 36.2 % (42.0-52.0); Hemoglobin 12.2 g/dL (14.1-18.0); Immature Granulocytes # 0.16 10^3uL; Immature Granulocytes % 0.9 %; Lymphocytes # 4.6 K/mm3 (0.7-4.5); Lymphocytes % 26.2 % (10-50); Mean Corpuscular HGB Conc 33.7 g/dL (31.8-35.4); Mean Corpuscular Hemoglobin 28.4 pg (27.0-31.2); Mean Corpuscular Volume 84.2 fl (80-94); Mean Platelet Volume 9.1 fl (7.4-10.4); Monocytes # 0.7 K/mm3 (0.1-1.0); Monocytes % 4.1 % (1.7-9.3); Neutrophils # 11.8 K/mm3 (1.8-7.8); Neutrophils % 66.9 % (37.0-80.0); Nucleated Red Blood Cells # 0 10^3/uL; Nucleated Red Blood Cells % 0 %; Platelet Count 506 K/mm3 (142-424); Red Cell Distribution Width 13.5 % (11.5-17.5); Red Cell Distribution Width-SD 41.1 fL; White Blood Count 17.6 K/mm3 (4.8-10.8)
[2024-10-26 08:27] LABS: Albumin Level 4.3 g/dl (3.5-5.0); Chloride 102 mmol/L (98-107); Potassium 4.2 mmoL/L (3.5-5.1); Sodium 136 mmol/L (136-145)
[2024-10-26 08:30] LABS: Alanine Aminotransferase 19 U/L (12-78); Albumin/Globulin Ratio 1.5 (1.1-1.8); Alkaline Phosphatase 116 U/L (38-126); Anion Gap 13.2 mEq/L (5-15); Aspartate Amino Transferase 21 U/L (17-59); Bilirubin,Total 0.8 mg/dl (0.2-1.3); Blood Urea Nitrogen 16 mg/dl (9-20); Calcium 9.7 mg/dl (8.4-10.2); Carbon Dioxide 25 mmol/L (22.0-30.0); Creatinine Clearance Estimated 92 mL/min (50-200); Estimated Glomerular Filt Rate 85 ml/min (>60); GFR (African American) 102 ML/MIN (>60); Globulin 2.9 g/dL (1.3-3.2); Glucose 276 mg/dl (74-100); Total Protein,Serum 7.2 g/dl (6.3-8.2)
[2024-10-26 08:31] LABS: Magnesium 1.1 mg/dl (1.6-2.3)
[2024-10-26 08:40] LABS: NT Pro Brain Natriuretic Pep. 22.9 pg/mL (0-125)
[2024-10-26 08:44] LABS: Troponin I < 0.01 ng/ml (0.00-0.034)
[2024-10-26] MEDS: LACTATED RINGERS 1000ML 1,000 ML 999 ML IV (08:45)
[2024-10-26] MEDS: CEFTRIAXONE 1 GM 1 GM in 0.9 % SODIUM CHLORIDE 50 ML IV (08:45)
[2024-10-26] MEDS: MAGNESIUM SULFATE IN WATER 2 GM/50 ML PIGGYBACK IV (08:45)
--- NOTE | 2024-10-26 09:50 | PC.NURSE ---
pt asked for saltines at this time. paged cafe for some
--- NOTE | 2024-10-26 10:21 | PC.NURSE ---
rounded on patient at this time. no complaints noted and updated on care plan.
[2024-10-26] MEDS: DEXAMETHASONE 4MG/ML 1ML VIAL 10 MG IV (11:01)
[2024-10-26] MEDS: SODIUM CHLORIDE 0.9% 25ML BAG 25 ML IV (11:05)
== END 2024-10-26 11:59 | disposition home or self-care (01) ==
PROVIDERS: Emergency Provider Emergency Medicine; PCP Nurse Practitioner Family
DX: R06.02 Shortness of breath (principal); J18.9 Pneumonia, unspecified organism; E83.42 Hypomagnesemia; I45.10 Unspecified right bundle-branch block; R19.7 Diarrhea, unspecified
CPT/HCPCS: 0223U; 71046; 80053; 82803; 83735; 83880; 84484; 85025; 87040; 87633; 93005; 96365; 96367; 96375; 99285; J0696; J1100; J3475; J7120

== ENCOUNTER 2024-11-09 09:57 | Day surgery (SDC) | payer MEDICARE, SELFPAY ==
[2024-11-06 11:05] VITALS: BMI 25.2
[2024-11-09 10:43] VITALS: BP 136/76; PULSE 84; RESP 16; TEMP 36.6; O2SAT 95; BMI 25.2
[2024-11-09] MEDS: LACTATED RINGERS 1000ML 1,000 ML 50 ML IV (11:01)
--- NOTE | 2024-11-09 11:07 | P.PNANES_ITS ---
[facility] Disclaimer: The information contained in this section may have been updated after the patient was seen, as this information can be updated by other users. Medical History Right lower lobe pneumonia UTI (urinary tract infection) Left lower lobe pneumonia URI (upper respiratory infection) Muscle cramps Injury of left shoulder Establishing care with new doctor, encounter for BMI 27.0-27.9,adult BMI 26.0-26.9,adult Gout Diabetes mellitus Lower respiratory tract infection Wheezing Dyspnea HTN (hypertension) Surgical History H/O cystoscopy H/O right knee surgery S/P ORIF (open reduction internal fixation) fracture S/P rotator cuff repair History of surgical removal of testicle Hx of tonsillectomy Family History Father Coronary artery disease Hyperlipidemia Mother Hyperlipidemia Diabetes Grandmother Coronary artery disease Hyperlipidemia Diabetes Social History (Updated 11/06/24 @ 11:03 by Caryn Ellington RN) Smoking Status: Never smoker alcohol intake: never substance use type: denies use current occupational status: retired Travel in the last 8 weeks?: None Have you lived/traveled outside US in past 30 days?: No Contact w/someone who lives/traveled outside US past 30 days?: No Exposure to someone with infectious disease in past 14 days?: No Do you have a fever (greater than 100.4 F or 38 C)?: No Have you tested positive for COVID-19?: No Exposed to someone with COVID-19 in past 14 days?: No Do you have a sore throat?: No Do you have a cough?: No Do you have any weakness?: No Are you experiencing any nausea/vomitting?: No Do you have any diarrhea?: No Are you experiencing any unusual bleeding?: No Do you have any muscle aches/pain?: No Do you have any abdominal pain?: No Are you experiencing loss of taste or smell?: No [facility] Anesthesia Checklist Patient Identification Patient Identification: Arm Band and Verbal (Name & ) Structural Data Admitted From: Home Planned Operative Procedure/s: EGD/Colonoscopy Verified Documents: Surgical Consent NPO Status Verified Time NPO: 00:00 Chart Verification Results Verified: ECG Additional verifications Anesthesia Reactions: No Airway Assessment Mallampati Score:: Class II TMJ Mobility Assessed: Yes Dentition: Good Dentition Neurological Assessment Level of Consciousness: Awake, Alert and Appropriate Hx Seizures: No Numbness or tingling in extremities: No Anesthesia Plan Anesthesia Risk discussed: Yes Anesthesia Plan: Verified ASA Class: II Anesthesia Type: MAC
--- NOTE | 2024-11-09 11:28 | EXP.HP ---
History of Present Illness *Admission Date: 11/09/24 *Reason for visit:: Unintentional weight loss *History of present illness: Mr. Amado is a 64-year-old gentleman who is here for diagnostic EGD and colonoscopy. The patient has had unintentional weight loss of 25 to 30 pounds in the last 5 weeks. He does report fullness, early satiety, epigastric abdominal discomfort, nausea and belching. The examination is deemed medically necessary for diagnostic EGD and colonoscopy. The patient has been seen, interviewed and examined prior to the procedure by both myself and the anesthesia provider. [facility] Disclaimer: The information contained in this section may have been updated after the patient was seen, as this information can be updated by other users. Medical History (Updated 11/09/24 @ 11:45 by Jevon Singleton II, MD) Right lower lobe pneumonia UTI (urinary tract infection) Left lower lobe pneumonia URI (upper respiratory infection) Muscle cramps Injury of left shoulder Establishing care with new doctor, encounter for BMI 27.0-27.9,adult BMI 26.0-26.9,adult Gout Diabetes mellitus Lower respiratory tract infection Wheezing Dyspnea HTN (hypertension) Surgical History H/O cystoscopy H/O right knee surgery S/P ORIF (open reduction internal fixation) fracture S/P rotator cuff repair History of surgical removal of testicle Hx of tonsillectomy Family History Father Coronary artery disease Hyperlipidemia Mother Hyperlipidemia Diabetes Grandmother Coronary artery disease Hyperlipidemia Diabetes Social History (Updated 11/06/24 @ 11:03 by Caryn Ellington RN) Smoking Status: Never smoker alcohol intake: never substance use type: denies use current occupational status: retired Travel in the last 8 weeks?: None Have you lived/traveled outside US in past 30 days?: No Contact w/someone who lives/traveled outside US past 30 days?: No Exposure to someone with infectious disease in past 14 days?: No Do you have a fever (greater than 100.4 F or 38 C)?: No Have you tested positive for COVID-19?: No Exposed to someone with COVID-19 in past 14 days?: No Do you have a sore throat?: No Do you have a cough?: No Do you have any weakness?: No Are you experiencing any nausea/vomitting?: No Do you have any diarrhea?: No Are you experiencing any unusual bleeding?: No Do you have any muscle aches/pain?: No Do you have any abdominal pain?: No Are you experiencing loss of taste or smell?: No Other Medical History Have you received the Flu Vaccine for this season: Yes Have you received the Pneumonia Vaccine: No Review of Systems Review of Systems Review of systems (narrative): Negative *Cardiovascular Comments: Negative *Gastrointestinal Comments: Negative *Genitourinary Comments: Negative *Musculoskeletal Comments: Negative *Neurologic Comments: Negative Meds Home Medications and Allergies Home Medications ?Medication ?Instructions ?Recorded ?Confirmed ?Type amlodipine 10 mg tablet 10 mg PO DAILY 06/06/22 11/09/24 History ezetimibe 10 mg tablet 10 mg PO DAILY 08/23/22 11/06/24 History glipizide 2.5 mg tablet, extended 10 mg PO BID 08/23/22 11/09/24 History release 24 hr metformin 1,000 mg tablet 1,000 mg PO BID 11/08/22 11/09/24 History benazepril 40 mg tablet See Rx Instructions .Route 11/17/23 11/09/24 Rx .COMPLEX #30 tabs allopurinol 300 mg tablet See Rx Instructions .Route 12/16/23 11/09/24 Rx .COMPLEX #90 tabs pioglitazone 30 mg tablet 30 mg PO DAILY 05/11/24 11/09/24 History magnesium oxide 500 mg capsule 500 mg PO DAILY #30 caps 10/22/24 11/09/24 Rx sodium,potassium,mag sulfates 17.5 See Rx Instructions PO .COMPLEX 10/30/24 11/09/24 Rx gram-3.13 gram-1.6 gram oral soln #354 mL (Suprep Bowel Prep Kit) sodium sul 1.479 gram-potas ch See Rx Instructions PO PER PKG DIR 11/04/24 11/09/24 Rx 0.188 gram-magnes sul 0.225 gram colonscopy #24 tabs tablet (Sutab) New Prescriptions to Start Prescriptions: Allergies Allergy/AdvReac Type Severity Reaction Status Date / Time morphine (MORPHINE) Allergy Mild Unknown Verified 11/06/24 10:56 allergy reaction rosuvastatin (From Crestor) Allergy Mild LEG CRAMPS Verified 11/06/24 10:56 Exam Data for Last 24 hours Vital signs and Labs for Last 24 Hours: Temp Pulse Resp BP Pulse Ox O2 Del Method 97.9 F 84 16 136/76 95 Room Air 11/09/24 10:43 11/09/24 10:43 11/09/24 10:43 11/09/24 10:43 11/09/24 10:43 11/09/24 10:43 I & O for Last 24 hours: Intake & Output 11/06/24 11/07/24 11/08/24 11/09/24 23:59 23:59 23:59 23:59 Weight 191 lb 191 lb *Routine HEENT Exam Head: Present normocephalic Eye: Present EOMI and PERRL ENT: Present mucous membranes moist *Routine Neck Exam Neck: Present supple *Routine Respiratory Exam Respiratory: Present CTA bilaterally *Routine Cardiovascular Exam Cardiovascular: Present RRR *Routine Abdominal Exam Abdominal: Present soft and normoactive bowel sounds; Absent tenderness *Routine Rectal Exam Rectal:: deferred *Routine Genitalia Exam Genitalia:: deferred *Routine Extremities Exam Extremities: Absent cyanosis, clubbing or edema *Routine Skin Exam Skin: Present warm; Absent rash *Routine Neurological Exam Neurological: Present alert and oriented X3 Assessment and Plan *Assessment and plan (1) Unintentional weight loss: Status: Acute Category: Medical Code(s): R63.4 - Abnormal weight loss (2) Epigastric discomfort: Status: Acute Category: Medical Code(s): R10.13 - Epigastric pain (3) Belching: Status: Acute Category: Medical Code(s): R14.2 - Eructation (4) Early satiety: Status: Acute Category: Medical Code(s): R68.81 - Early satiety (5) Nausea: Status: Acute Category: Medical Code(s): R11.0 - Nausea Plan A/P: 1. Epigastric abdominal discomfort, early satiety, belching, nausea and unintentional weight loss of 25 to 30 pounds is the preprocedural diagnosis. The patient will be anesthetized/sedated using MAC sedation. The patient has been seen and examined. Cardiac and lung assessment prior to the examination is stable. Proceed with planned diagnostic EGD and colonoscopy.
--- NOTE | 2024-11-09 11:46 | P.PCN_ITS ---
[facility] Procedure Note Date: 11/09/24 Time: 11:54 Procedure Note:: Upper Endoscopy Procedure Report: Esophagogastroduodenoscopy with cold biopsies Endoscopost: Jevon Singleton II, MD Referring Physician: KYLE Agustin Date of Procedure: November 09, 2024 Equipment: Olympus GIF 190 standard upper endoscope Sedation: MAC sedation Indications: Mr. Amado is a 64-year-old gentleman who is here for diagnostic EGD and colonoscopy secondary to unintentional weight loss of 25 to 30 pounds in the last 4 to 6 weeks. He reports a good appetite but does report moderate early satiety. He does get epigastric abdominal discomfort and intermittent nausea. He has had a lot of gassiness and belching. He reports no heartburn, reflux or dysphagia. Lab work in the ED recently showed hemoglobin and hematocrit decline of 12.2 and 36.2. The patient's liver and pancreatic chemistries were normal. His B12 level was 297. His vitamin D level was 26.1. His celiac testing was normal. He did have CT imaging and his CAT scan showed bilateral pneumonia. There was also slightly prominent fluid identified within the bowel suggestive of diarrheal state. He reports regular bowel function presently. He reports no melena, hematochezia or bright red blood per rectum. He reports no family history of esophageal, gastric or colon cancer. He has never had a colonoscopy (or upper endoscopy) and had a normal Cologuard test 3 years ago. Procedure: Prior to the procedure, a history and physical exam was performed, and patient's medications and allergies were reviewed. The risks, benefits and alternatives of the sedation and procedure were discussed with the patient. All questions were answered and informed consent was obtained. The patient was brought to the procedure room. Patient identification and proposed procedure were verified by the physician and the nurse. The patient was placed in a left lateral decubitus position and the scope was passed under direct vision. Throughout the procedure, the patient's blood pressure, pulse, and oxygen saturations were monitored continuously. The upper GI endoscopy was accomplished without difficulty. The patient tolerated the procedure well. Findings: The scope was passed directly into the upper esophagus and advanced to the fourth portion of duodenum and proximal jejunum. A cold biopsy was taken from the proximal jejunum for disaccharidase assay. The proximal jejunum, post bulbar duodenum, ampulla and duodenal bulb were normal with normal mucosa and conniventes. The scope was withdrawn through a normal duodenal bulb and pylorus into the stomach. There was bile reflux with mild linear reactive gastropathy of the antrum. Cold biopsies were taken from the antrum. The body and fundus of the stomach were grossly normal. Upon retroflexion there was a 3 cm hiatal hernia. The scope was then withdrawn into the esophagus. There were 3 short tongues of salmon-colored mucosa that were biopsied to rule out intestinal metaplasia/Marr's. There was no evidence of reflux esophagitis and the remainder of the esophageal mucosa was normal. Impression: 1. Nonerosive GERD with 3 cm hiatal hernia 2. Bile reflux with mild linear antral reactive gastropathy Plan: I will follow-up the biopsies and discussed the findings with the patient and family. Most of his symptoms of dyspepsia, belching and early satiety are related to and driven by lower intestinal gas pressure gradients/high gas pressure buildup resulting in backflow of bile and peptic fluid from the duodenum into the stomach (duodenal reflux). This gas production (carbon dioxide, hydrogen, methane, etc.) from the lower intestinal tract is the byproduct of colonic bacterial fermentation. This colonic fermentation occurs when there is more carbohydrate (dietary starches, sugars and high residue plant fiber) substrate that does not get digested (in the middle or small intestine) or occurs when there is colonic fecal buildup and colonic bacterial overgrowth. This indeed leads to bloating and the gas pressure buildup with gas pressure gradients that do drive backflow and dyspepsia.
--- NOTE | 2024-11-09 11:56 | HMH.PROCNOTE ---
[facility] Procedure Note Date: 11/09/24 Time: 12:11 Procedure Note:: Colonoscopy Procedure Report: Colonoscopy with cold snare polypectomy Endoscopist: Jevon Singleton II, MD Referring physician: KYLE Agustin Date of Procedure: November 09, 2024 Equipment: Olympus 190 variable stiffness pediatric colonoscope Sedation: MAC sedation Indication: Mr. Amado is a 64-year-old gentleman who is here for diagnostic EGD and colonoscopy secondary to unintentional weight loss of 25 to 30 pounds in the last 4 to 6 weeks. He reports a good appetite but does report moderate early satiety. He does get epigastric abdominal discomfort and intermittent nausea. He has had a lot of gassiness and belching. He reports no heartburn, reflux or dysphagia. Lab work in the ED recently showed hemoglobin and hematocrit decline of 12.2 and 36.2. The patient's liver and pancreatic chemistries were normal. His B12 level was 297. His vitamin D level was 26.1. His celiac testing was normal. He did have CT imaging and his CAT scan showed bilateral pneumonia. There was also slightly prominent fluid identified within the bowel suggestive of diarrheal state. He reports regular bowel function presently. He reports no melena, hematochezia or bright red blood per rectum. He reports no family history of esophageal, gastric or colon cancer. He has never had a colonoscopy (or upper endoscopy) and had a normal Cologuard test 3 years ago. Procedure: Prior to the procedure, a history and physical exam was performed, and patient's medications and allergies were reviewed. The risks, benefits and alternatives of the sedation and procedure were discussed with the patient. All questions were answered and informed consent was obtained. The patient was brought to the procedure room. Patient identification and proposed procedure were verified by the physician and the nurse. The patient was placed in a left lateral decubitus position and the scope was passed under direct vision. Throughout the procedure, the patient's blood pressure, pulse, and oxygen saturations were monitored continuously. The colonoscopy was accomplished without difficulty. The patient tolerated the procedure well. Findings: On digital rectal examination there was normal rectal tone. There were no external hemorrhoids. The prostate was 2+, smooth, soft, symmetric without nodules. The colonoscope was introduced through the anal canal to the rectum and advanced to the cecum. The ileocecal valve and appendiceal orifice were identified. The scope was advanced a short distance into the ileum which appeared grossly normal. There was a small nodule in the ileum removed via cold biopsy. The scope was then withdrawn into the colon. There was a single 3 to 4 mm sigmoid polyp removed via cold snare polypectomy. The remaining cecum, ascending, transverse, descending, sigmoid and rectum were grossly normal. There were no other mucosal abnormalities identified. Upon retroflexion within the rectum there were grade 2 internal hemorrhoids. The preparation was excellent throughout with Decker Preparation Score of 9. The cecal time was 12 minutes. Impression: 1. Diminutive 3 to 4 mm sigmoid polyp Plan: I will follow-up the biopsy and polyp histology. There was no clear source for his dyspepsia and weight loss. On review of his scan, there was abundant stool burden. We will discuss additional diagnostic and treatment options.
[2024-11-09 12:16] VITALS: BP 99/55; PULSE 61; RESP 20; TEMP 36.9; O2SAT 94
[2024-11-09 12:26] VITALS: BP 113/61; PULSE 58; RESP 20; O2SAT 93
[2024-11-09 12:36] VITALS: BP 113/68; PULSE 67; RESP 20; O2SAT 94
[2024-11-09 12:46] VITALS: BP 114/67; PULSE 61; RESP 18; O2SAT 94
[2024-11-11 10:10] LABS: POC Glucose,Bedside 170 (70-110)
[2024-11-13 14:11] LABS: Disclaimer Notes (.); Interpretation Notes (.); Lactase 142.01 (>/= 14.0); Maltase 264.8 (>/= 110.0); Palatinase 42.95 (>/= 8.5); Reference Notes (.); Sucrase 184.02 (>/= 25.0)
== END 2024-11-09 12:57 | disposition home or self-care (01) ==
PROVIDERS: PCP Nurse Practitioner Family; Visit Provider Internal Medicine Gastroenterology
PROC: 0DJ08ZZ Inspection of Upper Intestinal Tract, Via Natural or Artificial Opening Endoscopic (ICD-10-PCS; CPT 45378; principal; 2024-11-09 11:30)
DX: K63.5 Polyp of colon (principal); K21.9 Gastro-esophageal reflux disease without esophagitis; K44.9 Diaphragmatic hernia without obstruction or gangrene; K31.9 Disease of stomach and duodenum, unspecified; I10 Essential (primary) hypertension; E11.9 Type 2 diabetes mellitus without complications; Z88.5 Allergy status to narcotic agent; Z88.8 Allergy status to other drugs, medicaments and biological substances; Z79.899 Other long term (current) drug therapy; Z79.84 Long term (current) use of oral hypoglycemic drugs
CPT/HCPCS: 43239; 45385; 82657; 82962; J2003; J2704; J7120

== ENCOUNTER 2024-11-19 10:59 | Outpatient (CLI) | payer MEDICARE, SELFPAY ==
--- NOTE | 2024-11-19 11:01 | XR_ITS ---
FINAL REPORT CLINICAL HISTORY: Shortness of breath COMPARISON: 10/26/2024 FINDINGS: PA and lateral views of the chest were obtained. There are multifocal airspace opacities which are improved on the left and worse in the right perihilar region. There is no evidence of effusion or other pleural disease. The mediastinum has a normal appearance. The cardiac silhouette is unremarkable. IMPRESSION: Mixed response with improved left lung pneumonia but worsening right lung pneumonia. Continued follow-up recommended. Reviewed, Interpreted and Dictated by Reggie Owusu MD Transcribed by Clarita Kong Authenticated and [facility]
--- OUTSIDE RECORDS SUMMARY | 2024-11-19 11:10 | XMS_ITS | Encounter Summary ---
Author Organization [employer] Address [address] [address] Care Team Providers Care [employer] Name Role Phone Unavailable Primary Care Provider Unavailabl e Encounter Details Date Type Department Care Team (Late st Contact Info) Description 12/02/2019 Transcribed Document [facility] [address] [place] [address] Provider, patel Naranjo MD Social History Tobacco Use Types Packs/Day Years Used Date Smoking Tobacco: Never Assessed Sex and Gender Information Value Date Recorded Sex Assigned at Not on file Legal Sex Male 7:33 PM CDT Gender Identity Not on file Sexual Orientation Not on file documented as of this encounter Miscellaneous Notes * Cerner Conversion Note - [facility] Jose A Reese MD - 12/02/2019 12:08 PM EDT ANTOINE Main OR PostOp Summary Primary Physician: JACKELIN SELF JR, JR, MD-ORT Finalized Date/Time: 12/02/19 13:24:35 Pt. Name: JEFF CARSON.O.B./Sex: 1960 Male Med Rec #: [id number] Physician: JACKELIN SELF JR, JR, MD-ORT Financial #: [id number] Pt. Type: O Room/Bed: Admit/Disch: 12/02/19 09:17:00 - Institution: [facility] [place] [facility] Main OR PostOp Case Times Entry 1 In PACU II 12/02/19 12:50:00 Ready for PACU II 12/02/19 13:19:00 Discharge Discharge from PACU 12/02/19 13:19:00 II Last Modified By: Carli Palomo RN 12/02/19 13:24:26 [facility] Main OR PostOp Case Times Audit 12/02/19 13:24:26 [place] Measurer: SXPOWERS Modifier: SXPOWERS <+> 1 Ready for PACU II Discharge <+> 1 Discharge from PACU II Finalized By: Carli Palomo RN Document Signatures Signed By: Carli Palomo RN 12/02/19 13:24 documented in this encounter Plan of Treatment Not on file documented as of this encounter Visit Diagnoses Not on filedocumented in this encounter
--- OUTSIDE RECORDS SUMMARY | 2024-11-19 11:10 | XMS_ITS | Encounter Summary ---
Author Organization [employer] Address [address] [address] Care Team Providers Care Creative Writing Professor Name Role Phone Unavailable Primary Care Provider Unavailabl e Encounter Details Date Type Department Care Team (Late st Contact Info) Description 12/02/2019 Transcribed Document [facility] [address] [place] [address] Provider, patel Naranjo MD Social History Tobacco Use Types Packs/Day Years Used Date Smoking Tobacco: Never Assessed Sex and Gender Information Value Date Recorded Sex Assigned at Not on file Legal Sex Male 7:33 PM CDT Gender Identity Not on file Sexual Orientation Not on file documented as of this encounter Miscellaneous Notes * Cerner Conversion Note - [facility] Jose A ProviderMD - 12/02/2019 12:08 PM EDT Jillian Main OR PACU Summary Primary Physician: JACKELIN SELF JR, JR, MD-ORT Finalized Date/Time: 12/02/19 12:51:19 Pt. Name: JEFF CARSONO.B./Sex: 1960 Male Med Rec #: [id number] Physician: JACKELIN SELF JR, JR, MD-ORT Financial #: [id number] Pt. Type: O Room/Bed: Admit/Disch: 12/02/19 09:17:00 - Institution: [facility] [place] [place] Main OR PACU Case Times Entry 1 In PACU I 12/02/19 11:38:00 Ready for PACU 12/02/19 12:45:00 Discharge Discharge from PACU 12/02/19 12:45:00 I Last Modified By: EARL Berger 12/02/19 12:51:10 [facility] Main OR PACU Case Times Audit 12/02/19 12:51:10 Family Engagement Specialist: SHABNAM Modifier: SHABNAM 1 <*> Ready for PACU Discharge 12/02/19 12:08:00 1 <+> Discharge from PACU I Finalized By: EARL Berger Document Signatures Signed By: EARL Berger 12/02/19 12:51 documented in this encounter Plan of Treatment Not on file documented as of this encounter Visit Diagnoses Not on filedocumented in this encounter
--- OUTSIDE RECORDS SUMMARY | 2024-11-19 11:10 | XMS_ITS | Encounter Summary ---
Author Organization [employer] Address [address] [address] Care Team Providers Care Spray Unit Feeder Name Role Phone Unavailable Primary Care Provider Unavailabl e Reason for Referral * MRI (Routine) - New Request Specialty Diagnoses / Procedures Referred By Contac t Referred To Contact Radiology Diagnoses Elevated prostate specific antigen (PSA) Procedures MR pelvis without & with IV contrast Rosas, Provider Not In The System, [place] [address] Referral ID Status Reason Start Date Expiration Date V isits Requested Visits Authorized [id number] New Request 01/22/2024 01/21/2025 1 1 Encounter Details Date Type Department Care Team (Late st Contact Info) Description 01/22/2024 Outside Orders [facility] Central Scheduling [address] [place] [id number] Rosas, Provider Not In The System, [place] [address] Elevated prostate specific antigen (PSA) (Primary Dx) Social History Tobacco Use Types Packs/Day Years Used Date Smoking Tobacco: Never Assessed Interpersonal Safety Answer Date Record ed Family or friends hurt you Not on file 01/22 Family or friends insult you Not on file Family or friends threaten you Not on file 0 01/23/2024 Family or friends scream or curse at you Not on file 01/23/2024 Food Insecurity Answer Date Recorded Food run out past 12 months Not on file 12/26 Food did not last past 12 months Not on file 01/23/2024 Employment Answer Date Recorded Help finding and keeping a job Not on file 0 01/23/2024 Family and Community Support Answer Percy e Recorded Help with Day to Day Activities Not on file 01/23/2024 Feeling Lonely or Isolated Not on file 01/22 Educational Attainment Answer Date Scott rded Speak language other than Divehi at home Not on file 01/23/2024 Want help with school or training Not on file 01/23/2024 Depression Answer Date Recorded PHQ-2 Risk Not on file 01/23/2024 Disabilities Answer Date Recorded Difficulty concentrating Not on file 024 Difficulty doing errands alone Not on file 0 01/23/2024 Substance Use Answer Date Recorded Used prescription meds for non-medical reasons N ot on file 01/23/2024 Used illegal drugs past 12 months Not on file 01/23/2024 Sex and Gender Information Value Date Recorded Sex Assigned at Not on file Legal Sex Male 7:33 PM CDT Gender Identity Not on file Sexual Orientation Not on file documented as of this encounter Plan of Treatment Scheduled Orders Name Type Priority Associated Diagnoses Orde r Schedule MR pelvis without & with IV contrast Imaging Routine Elevated prostate specific antigen (PSA) Expected: 01/22/2024, Expires: 02/21/2025 documented as of this encounter Visit Diagnoses Diagnosis Elevated prostate specific antigen (PSA)- Primary documented in this encounter
--- OUTSIDE RECORDS SUMMARY | 2024-11-19 11:10 | XMS_ITS | Encounter Summary ---
Author Organization [employer] Address [address] [place] [address] Care Team Providers Care Certified Solid Waste Facility Operator Name Role Phone Unavailable Primary Care Provider Unavailabl e Encounter Details Date Type Department Care Team (Late st Contact Info) Description 12/02/2019 Transcribed Document [facility] [address] [place] [address] Provider, Rosas Naranjo MD Social History Tobacco Use Types Packs/Day Years Used Date Smoking Tobacco: Never Assessed Sex and Gender Information Value Date Recorded Sex Assigned at Not on file Legal Sex Male 7:33 PM CDT Gender Identity Not on file Sexual Orientation Not on file documented as of this encounter Miscellaneous Notes * Cerner Conversion Note - Rosas Reese MD - 12/02/2019 1:56 PM EDT Patient Education Materials Follows: General Anesthesia, Adult, Care After This sheet gives you information about how to care for yourself after your procedure. Your health care provider may also give you more specific instructions. If you have problems or questions, contact your health care provider. What can I expect after the procedure? After the procedure, the following side effects are common: ??? Pain or discomfort at the IV site. ??? Nausea. ??? Vomiting. ??? Sore throat. ??? Trouble concentrating. ??? Feeling cold or chills. ??? Weak or tired. ??? Sleepiness and fatigue. ??? Soreness and body aches. These side effects can affect parts of the body that were not involved in surgery. Follow these instructions at home: For at least 24 hours after the procedure: ??? Have a responsible adult stay with you. It is important to have someone help care for you until you are awake and alert. ??? Rest as needed. ??? Do not: ? Participate in activities in which you could fall or become injured. ? Drive. ? Use heavy machinery. ? Drink alcohol. ? Take sleeping pills or medicines that cause drowsiness. ? Make important decisions or sign legal documents. ? Take care of children on your own. Eating and drinking ??? Follow any instructions from your health care provider about eating or drinking restrictions. ??? When you feel hungry, start by eating small amounts of foods that are soft and easy to digest (bland), such as toast. Gradually return to your regular diet. ??? Drink enough fluid to keep your urine pale yellow. ??? If you vomit, rehydrate by drinking water, juice, or clear broth. General instructions ??? If you have sleep apnea, surgery and certain medicines can increase your risk for breathing problems. Follow instructions from your health care provider about wearing your sleep device: ? Anytime you are sleeping, including during daytime naps. ? While taking prescription pain medicines, sleeping medicines, or medicines that make you drowsy. ??? Return to your normal activities as told by your health care provider. Ask your health care provider what activities are safe for you. ??? Take aybb-gej-qlunnqq and prescription medicines only as told by your health care provider. ??? If you smoke, do not smoke without supervision. ??? Keep all follow-up visits as told by your health care provider. This is important. Contact a health care provider if: ??? You have nausea or vomiting that does not get better with medicine. ??? You cannot eat or drink without vomiting. ??? You have pain that does not get better with medicine. ??? You are unable to pass urine. ??? You develop a skin rash. ??? You have a fever. ??? You have redness around your IV site that gets worse. Get help right away if: ??? You have difficulty breathing. ??? You have chest pain. ??? You have blood in your urine or stool, or you vomit blood. Summary ??? After the procedure, it is common to have a sore throat or nausea. It is also common to feel tired. ??? Have a responsible adult stay with you for the first 24 hours after general anesthesia. It is important to have someone help care for you until you are awake and alert. ??? When you feel hungry, start by eating small amounts of foods that are soft and easy to digest (bland), such as toast. Gradually return to your regular diet. ??? Drink enough fluid to keep your urine pale yellow. ??? Return to your normal activities as told by your health care provider. Ask your health care provider what activities are safe for you. This information is not intended to replace advice given to you by your health care provider. Make sure you discuss any questions you have with your health care provider. Document Released: 08/19/2001 Document Revised: 12/27/2017 Document Reviewed: 12/27/2017 [employer] Patient Education ? 2020 [employer]. General Anesthesia, Adult, Care After This sheet gives you information about how to care for yourself after your procedure. Your health care provider may also give you more specific instructions. If you have problems or questions, contact your health care provider. What can I expect after the procedure? After the procedure, the following side effects are common: ??? Pain or discomfort at the IV site. ??? Nausea. ??? Vomiting. ??? Sore throat. ??? Trouble concentrating. ??? Feeling cold or chills. ??? Weak or tired. ??? Sleepiness and fatigue. ??? Soreness and body aches. These side effects can affect parts of the body that were not involved in surgery. Follow these instructions at home: For at least 24 hours after the procedure: ??? Have a responsible adult stay with you. It is important to have someone help care for you until you are awake and alert. ??? Rest as needed. ??? Do not: ? Participate in activities in which you could fall or become injured. ? Drive. ? Use heavy machinery. ? Drink alcohol. ? Take sleeping pills or medicines that cause drowsiness. ? Make important decisions or sign legal documents. ? Take care of children on your own. Eating and drinking ??? Follow any instructions from your health care provider about eating or drinking restrictions. ??? When you feel hungry, start by eating small amounts of foods that are soft and easy to digest (bland), such as toast. Gradually return to your regular diet. ??? Drink enough fluid to keep your urine pale yellow. ??? If you vomit, rehydrate by drinking water, juice, or clear broth. General instructions ??? If you have sleep apnea, surgery and certain medicines can increase your risk for breathing problems. Follow instructions from your health care provider about wearing your sleep device: ? Anytime you are sleeping, including during daytime naps. ? While taking prescription pain medicines, sleeping medicines, or medicines that make you drowsy. ??? Return to your normal activities as told by your health care provider. Ask your health care provider what activities are safe for you. ??? Take udey-lcc-oaalhfq and prescription medicines only as told by your health care provider. ??? If you smoke, do not smoke without supervision. ??? Keep all follow-up visits as told by your health care provider. This is important. Contact a health care provider if: ??? You have nausea or vomiting that does not get better with medicine. ??? You cannot eat or drink without vomiting. ??? You have pain that does not get better with medicine. ??? You are unable to pass urine. ??? You develop a skin rash. ??? You have a fever. ??? You have redness around your IV site that gets worse. Get help right away if: ??? You have difficulty breathing. ??? You have chest pain. ??? You have blood in your urine or stool, or you vomit blood. Summary ??? After the procedure, it is common to have a sore throat or nausea. It is also common to feel tired. ??? Have a responsible adult stay with you for the first 24 hours after general anesthesia. It is important to have someone help care for you until you are awake and alert. ??? When you feel hungry, start by eating small amounts of foods that are soft and easy to digest (bland), such as toast. Gradually return to your regular diet. ??? Drink enough fluid to keep your urine pale yellow. ??? Return to your normal activities as told by your health care provider. Ask your health care provider what activities are safe for you. This information is not intended to replace advice given to you by your health care provider. Make sure you discuss any questions you have with your health care provider. Document Released: 08/19/2001 Document Revised: 12/27/2017 Document Reviewed: 12/27/2017 [employer] Patient Education ? 2020 [employer]. Knee Arthroscopy, Care After This sheet gives you information about how to care for yourself after your procedure. Your health care provider may also give you more specific instructions. If you have problems or questions, contact your health care provider. What can I expect after the procedure? After the procedure, it is common to have: ??? Soreness. ??? Swelling. ??? Pain that can be relieved by taking pain medicine. Follow these instructions at home: Incision care ??? Follow instructions from your health care provider about how to take care of your incisions. Make sure you: ? Wash your hands with soap and water before you change your bandage (dressing). If soap and water are not available, use hand blade worker. ? Change your dressing as told by your health care provider. ? Leave stitches (sutures), pepe, skin glue, or adhesive strips in place. These skin closures may need to stay in place for 2 weeks or longer. If adhesive strip edges start to loosen and curl up, you may trim the loose edges. Do not remove adhesive strips completely unless your health care provider tells you to do that. ??? Check your incision areas every day for signs of infection. Check for: ? Redness. ? More swelling or pain. ? Fluid or blood. ? Warmth. ? Pus or a bad smell. Bathing ??? Do not take baths, swim, or use a hot tub until your health care provider approves. Ask your health care provider if you may take showers. You may only be allowed to take sponge baths. Activity ??? Do not use your knee to support your body weight until your health care provider says that you can. Follow weight-bearing restrictions as told. Use crutches or other devices to help you move around (assistive devices) as directed. ??? Ask your health care provider what activities are safe for you during recovery, and what activities you need to avoid. ??? If physical therapy was prescribed, do exercises as directed. Doing exercises may help improve knee movement and flexibility (range of motion). ??? Do not lift anything that is heavier than 10 lb (4.5 kg), or the limit that you are told, until your health care provider says that it is safe. Driving ??? Do not drive until your health care provider approves. You may be able to drive after 1?3 weeks. ??? Do not drive or use heavy machinery while taking prescription pain medicine. Managing pain, stiffness, and swelling ??? If directed, put ice on the injured area: ? Put ice in a plastic bag or use the icing device (cold therapy unit) that you were given. Follow instructions from your health care provider about how to use the icing device. ? Place a towel between your skin and the bag or between your skin and the icing device. ? Leave the ice on for 20 minutes, 2?3 times a day. ??? Move your toes often to avoid stiffness and to lessen swelling. ??? Raise (elevate) the injured area above the level of your heart while you are sitting or lying down. If you are taking blood thinners: ??? Before you take any medicines that contain aspirin or NSAIDs, talk with your health care provider. These medicines increase your risk for dangerous bleeding. ??? Take your medicine exactly as told, at the same time every day. ??? Avoid activities that could cause injury or bruising, and follow instructions about how to prevent falls. ??? Wear a medical alert bracelet or carry a card that lists what medicines you take. General instructions ??? Take mosa-vug-nzvzdhv and prescription medicines only as told by your health care provider. ??? If you are taking prescription pain medicine, take actions to prevent or treat constipation. Your health care provider may recommend that you: ? Drink enough fluid to keep your urine pale yellow. ? Eat foods that are high in fiber, such as fresh fruits and vegetables, whole grains, and beans. ? Limit foods that are high in fat and processed sugars, such as fried or sweet foods. ? Take an jjao-btk-rebvhnf or prescription medicines for constipation. ??? Do not use any products that contain nicotine or tobacco, such as cigarettes and e-cigarettes. These can delay incision or bone healing. If you need help quitting, ask your health care provider. ??? Wear compression stockings as told by your health care provider. These stockings help to prevent blood clots and reduce swelling in your legs. ??? Keep all follow-up visits as told by your health care provider. This is important. Contact a health care provider if you: ??? Have a fever. ??? Have severe pain. ??? Have redness around an incision. ??? Have more swelling. ??? Have fluid or blood coming from an incision. ??? Notice that an incision feels warm to the touch. ??? Notice pus or a bad smell coming from an incision. ??? Notice that an incision opens up. ??? Develop a rash. Get help right away if you: ??? Have difficulty breathing. ??? Have shortness of breath. ??? Have chest pain. ??? Develop pain in your lower leg or at the back of your knee. ??? Have numbness or tingling in your lower leg or your foot. Summary ??? Raise (elevate) the injured area above the level of your heart while you are sitting or lying down. ??? To help relieve pain and swelling, put ice on your leg for 20 minutes at a time, 2?3 times a day. ??? If you were prescribed a blood thinner, avoid activities that could cause injury or bruising, and follow instructions about how to prevent falls. ??? If physical therapy was prescribed, do exercises as directed. Doing exercises may help improve range of motion. This information is not intended to replace advice given to you by your health care provider. Make sure you discuss any questions you have with your health care provider. Document Released: 11/30/2005 Document Revised: 03/26/2018 Document Reviewed: 03/26/2018 [employer] Patient Education ? 2020 [employer]. documented in this encounter Plan of Treatment Not on file documented as of this encounter Visit Diagnoses Not on filedocumented in this encounter
--- OUTSIDE RECORDS SUMMARY | 2024-11-19 11:10 | XMS_ITS | Encounter Summary ---
Author Organization [employer] Address [address] [place] [address] Care Team Providers Care Marketing And Public Relations Manager Name Role Phone Unavailable Primary Care Provider Unavailabl e Encounter Details Date Type Department Care Team (Late st Contact Info) Description 12/02/2019 Transcribed Document [facility] [address] [place] [address] Provider, patel Naranjo MD Social History Tobacco Use Types Packs/Day Years Used Date Smoking Tobacco: Never Assessed Sex and Gender Information Value Date Recorded Sex Assigned at Not on file Legal Sex Male 7:33 PM CDT Gender Identity Not on file Sexual Orientation Not on file documented as of this encounter Miscellaneous Notes * Cerner Conversion Note - [facility] Jose A Reese MD - 12/02/2019 12:08 PM EDT [facility] Main OR PreOp Summary Primary Physician: JACKELIN SELF JR, JR, MD-ORT Finalized Date/Time: 12/03/19 10:55:36 Pt. Name: JEFF CARSON.O.B./Sex: 1960 Male Med Rec #: [id number] Physician: JACKELIN SELF JR, JR, MD-ORT Financial #: [id number] Pt. Type: O Room/Bed: Admit/Disch: 12/02/19 09:17:00 - 12/02/19 13:19:00 Institution: [facility] PreOp Case Times Entry 1 In Preop 12/02/19 09:30:00 Ready for Holding n/a Room Patient Ready for 12/02/19 10:14:00 Surgery Patient Out of Preop 12/02/19 10:50:00 Patient Out of n/a Holding Room Last Modified By: OLVIN SYED 12/03/19 10:55:35 ANTOINE PreOp Case Times Audit 12/03/19 10:55:35 Circuit Breaker Supervisor: [id number] Modifier: [email or web address] <+> 1 Patient Out of Preop Finalized By: OLVIN SYED Document Signatures Signed By: OLVIN SYED 12/03/19 10:55 documented in this encounter Plan of Treatment Not on file documented as of this encounter Visit Diagnoses Not on filedocumented in this encounter
--- OUTSIDE RECORDS SUMMARY | 2024-11-19 11:10 | XMS_ITS | Encounter Summary ---
Author Organization [employer] Address [address] [place] [address] Care Team Providers Care Slider Assembler Name Role Phone Unavailable Primary Care Provider Unavailabl e Reason for Referral * MRI (Routine) - Closed Specialty Diagnoses / Procedures Referred By Waldo bell Referred To Contact Radiology Diagnoses Elevated prostate specific antigen (PSA) Procedures MR prostate without & with IV contrast Aurelio Herrera MD [address] [place] [address] Phone: tel: fax: Referral ID Status Reason Start Date Expiration Date Visits Re quested Visits Authorized [id number] Closed 01/23/2024 01/22/2025 1 1 Encounter Details Date Type Department Care Team (Late st Contact Info) Description 01/23/2024 Outside Orders [facility] Central Scheduling [address] [place] [address] Aurelio Herrera MD [address] [place] [address] Elevated prostate specific antigen (PSA) (Primary Dx) [...] Date Scott rded Speak language other than Greenlandic at home Not on file 01/23/2024 Want [...] as of this encounter Plan of Treatment Not on file documented as of this encounter Results * MR prostate without & with IV contrast (02/03/2024 11:10 AM EDT) Anatomical Region Laterality Modality Magnetic Resonan ce (MRI) 02/03/2024 5:05 PM EDT Impressions 02/03/2024 5:08 PM EDT Enlarged prostate with BPH. Indeterminate foci in the bilateral posterior peripheral zone and anterior transition zone at the mid gland. PI-RADS 3 - Intermediate (the presence of clinically significant cancer is equivocal). Images reviewed, interpreted, and dictated by Santino Helton MD Narrative 02/03/2024 5:08 PM EDT MR PELVIS WITHOUT AND WITH CONTRAST HISTORY: Elevated PSA COMPARISON: None FINDINGS: Multiplanar MR imaging of the pelvis was performed without and with contrast using the prostate MRI protocol. The images were reviewed on the [employer] CAD workstation. The prostate measures 5.2 x 3.9 x 3.9 cm. This corresponds to a volume of 39 cc. PERIPHERAL ZONE: Multiple wedge-shaped areas of decreased T2 signal are seen in the peripheral zone consistent with sequela of prostatitis. There is an 18 x 6 mm focus of decreased T2 signal in the right posterior peripheral zone at the mid gland with moderate restricted diffusion. There is also an 18 x 8 mm focus of decreased T2 signal in the left posterior peripheral zone at the mid gland with moderate restricted diffusion. These are both consistent with PI-RADS 3 lesions and were localized on the [employer] CAD software. TRANSITION ZONE: The transition zone is nodular consistent with BPH. There is a 10 x 6 mm focus of decreased T2 signal in the anterior transition zone at the mid gland with significant restricted diffusion. This is consistent with a PI-RADS 3 lesion and was localized on the [employer] CAD software. Review of the remainder of the pelvis reveals no evidence of mass or adenopathy. No abnormal fluid collection is seen. A left inguinal hernia is seen containing fat only. Procedure Note Santino Helton MD - 02/03/2024 MR PELVIS WITHOUT AND WITH CONTRAST HISTORY: Elevated PSA COMPARISON: None FINDINGS: Multiplanar MR imaging of the pelvis was performed without and with contrast using the prostate MRI protocol. The images were reviewed on the [employer] CAD workstation. The prostate measures 5.2 x 3.9 x 3.9 cm. This corresponds to a volume of 39 cc. PERIPHERAL ZONE: Multiple wedge-shaped areas of decreased T2 signal are seen in the peripheral zone consistent with sequela of prostatitis. There is an 18 x 6 mm focus of decreased T2 signal in the right posterior peripheral zone at the mid gland with moderate restricted diffusion. There is also an 18 x 8 mm focus of decreased T2 signal in the left posterior peripheral zone at the mid gland with moderate restricted diffusion. These are both consistent with PI-RADS 3 lesions and were localized on the [employer] CAD software. TRANSITION ZONE: The transition zone is nodular consistent with BPH. There is a 10 x 6 mm focus of decreased T2 signal in the anterior transition zone at the mid gland with significant restricted diffusion. This is consistent with a PI-RADS 3 lesion and was localized on the [employer] CAD software. Review of the remainder of the pelvis reveals no evidence of mass or adenopathy. No abnormal fluid collection is seen. A left inguinal hernia is seen containing fat only. IMPRESSION: Enlarged prostate with BPH. Indeterminate foci in the bilateral posterior peripheral zone and anterior transition zone at the mid gland. PI-RADS 3 - Intermediate (the presence of clinically significant cancer is equivocal). Images reviewed, interpreted, and dictated by Santino Helton MD us Aurelio Herrera MD IMG MRI ORDERABLES Final Result documented in this encounter Visit Diagnoses Diagnosis Elevated prostate specific antigen (PSA)- Primary Elevated prostate specific antigen (PSA) documented in this encounter
--- OUTSIDE RECORDS SUMMARY | 2024-11-19 11:10 | XMS_ITS | Referral Summary ---
Author Organization [employer] Address [address] [address] Care Team Providers Care Swinging Cut Off Saw Operator Name Role Phone Unavailable Primary Care Provider Unavailabl e Allergies No known active allergies Social History Tobacco Use Types Packs/Day Years [...] Date Scott rded Speak language other than Bulgarian at home Not on file 01/23/2024 Want [...] on file Sexual Orientation Not on file Plan of Treatment Not on file Insurance [facility] CHOICE PLUS
--- OUTSIDE RECORDS SUMMARY | 2024-11-19 11:10 | XMS_ITS | Encounter Summary ---
Author Organization [employer] Address [address] [place] [address] Care Team Providers Care [employer] Name Role Phone Unavailable Primary Care Provider Unavailabl e Encounter Details Date Type Department Care Team (Late st Contact Info) Description 12/02/2019 Transcribed Document [facility] [address] [place] [address] Provider, [facility] MD Jose A Social History Tobacco Use Types Packs/Day Years Used Date Smoking Tobacco: Never Assessed Sex and Gender Information Value Date Recorded Sex Assigned at Not on file Legal Sex Male 7:33 PM CDT Gender Identity Not on file Sexual Orientation Not on file documented as of this encounter Miscellaneous Notes * Cerner Conversion Note - [facility] Jose A Reese MD - 12/02/2019 1:54 PM EDT [address] [address] JEFF CARSON :1960 Visit Time:12/02/2019 What to do next Your Diagnosis Other tear of medial meniscus, current injury, right knee, initial encounter, Other tear of medial meniscus, current injury, right knee, initial encounter Instructions From Your Care Team May shower 3 days post op Do not get surgical site wet If covered with a mepilex, leave on for 7 days, then open to air Regular diet as tolerated Weight bearing as tolerated and use walker if needed Discharge Follow Up Instructions: F/U in office in 7 to 10 days or call office Follow-Up Appointments Follow Up with JACKELIN SELF JR, JR, MD-ORT When 12/15/2019 09:45 AM EDT Comments follow up in [place] office Where: [facility] Medications What How Much When Instructions Next Dose benazepril (benazepril 20 mg oral tablet) 1 Tablet(s) Oral Every Day fenofibrate (fenofibrate 145 mg oral tablet) 1 Tablet(s) Oral At Bedtime fexofenadine (Salud) 15 Milligram(s) Oral metFORMIN (metFORMIN 500 mg oral tablet, extended release) 1 Tablet(s) Oral At Bedtime naproxen 500 Milligram(s) Oral Two Times A Day pioglitazone (pioglitazone 15 mg oral tablet) 1 Tablet(s) Oral At Bedtime rOPINIRole (rOPINIRole 0.25 mg oral tablet) 3 Tablet(s) Oral At Bedtime as needed for as needed rosuvastatin (Crestor) 10 Milligram(s) Oral At Bedtime sitaGLIPtin (Januvia 25 mg oral tablet) 1 Tablet(s) Oral Every Day oxycodone 5mg - 1 tablet every 4 hours as needed; May take next dose of pain medication at 5pm today ultram 50mg 1-2 tablets every 4-6 hours as needed Take your medications faithfully. Do NOT skip medication. Do NOT stop taking medications without the direction of a physician. Carry a list of your medications with you at all times, and take this medication list with you to your first follow up visit. Report any side effects. Avoid herbal remedies unless discussed with your physician. As part of your treatment plan, your physician may have prescribed a limited course of a controlled substance. This medication may be given to help people with moderate or severe pain or for other medical conditions, but there are risks involved with treatment. Common side effects may include nausea, constipation, drowsiness, sweating, itching, dry mouth, and rash. More serious side effects may include cognitive and motor impairment, like problems with thinking, concentrating, alertness, and movement (e.g. slowed reflexes), and driving and operating heavy machinery can be dangerous. It is important for you to talk to your physician if you have these side effects or questions. These controlled substances can produce physical dependence and be habit-forming if taken for an extended period of time, which means that the body has gotten used to them and may experience withdrawal symptoms if they are abruptly stopped. Withdrawal symptoms can include runny nose, sweating, goose bumps, diarrhea, abdominal cramping, rapid heartbeat, difficulty sleeping, and nervousness. Please dispose of unused and medications per pharmacy guidance. Education Materials General Anesthesia, Adult, Care After This sheet [...] activities are safe for you. ??? Take zjor-ngs-ecsdlmh and prescription medicines only as told by [...] 08/19/2001 Document Revised: 12/27/2017 Document Reviewed: 12/27/2017 [email or web address] Interactive Patient Education ?? 2020 [employer]. General Anesthesia, Adult, Care After This sheet [...] activities are safe for you. ??? Take ctfr-tzx-niywikw and prescription medicines only as told by [...] 08/19/2001 Document Revised: 12/27/2017 Document Reviewed: 12/27/2017 [email or web address] Interactive Patient Education ?? 2020 [employer]. Knee Arthroscopy, Care After This sheet gives [...] and water are not available, use hand indexer. ? Change your dressing as told by [...] You may be able to drive after 1???3 weeks. ??? Do not drive or use [...] Leave the ice on for 20 minutes, 2???3 times a day. ??? Move your toes [...] medicines you take. General instructions ??? Take hehh-hih-xgngmjd and prescription medicines only as told by [...] fried or sweet foods. ? Take an toaz-yng-mcyqrph or prescription medicines for constipation. ??? Do [...] leg for 20 minutes at a time, 2???3 times a day. ??? If you were [...] 11/30/2005 Document Revised: 03/26/2018 Document Reviewed: 03/26/2018 [email or web address] Interactive Patient Education ?? 2020 [employer]. tramadol (TRAM a dol) Ness, Ultram, Ultram ER What is the most important information I should know about tramadol? MISUSE OF THIS MEDICINE CAN CAUSE ADDICTION, OVERDOSE, OR . Keep the medication in a place where others cannot get to it. Tramadol should not be given to a child younger than 12 years old. Ultram ER should not be given to anyone younger than 18 years old. Taking tramadol during may cause life-threatening withdrawal symptoms in the . Fatal side effects can occur if you use tramadol with alcohol, or with other drugs that cause drowsiness or slow your breathing. What is tramadol? Tramadol is an pain medicine similar to an opioid (sometimes called, a narcotic). Tramadol is used to treat moderate to severe pain. The extended-release form of this medicine is for admynf-vtc-woapl treatment of pain. This form of tramadol is not for use on an as-needed basis for pain. Tramadol may also be used for purposes not listed in this medication guide. What should I discuss with my healthcare provider before taking tramadol? You should not take tramadol if you are allergic to it, or if you have: ?? severe asthma or breathing problems; ?? a blockage in your stomach or intestines; ?? if you have recently used alcohol, sedatives, tranquilizers, or narcotic medications; or ?? if you have used an MAO inhibitor in the past 14 days (such as isocarboxazid, linezolid, methylene blue injection, phenelzine, rasagiline, selegiline, or tranylcypromine). Tramadol should not be given to a child younger than 12 years old. Ultram ER should not be given to anyone younger than 18 years old. Do not give tramadol to anyone younger than 18 years old who recently had surgery to remove the tonsils or adenoids. Seizures have occurred in some people taking tramadol. Talk with your doctor about your seizure risk, which may be higher if you have ever had: ?? a head injury, epilepsy or other seizure disorder; ?? drug or alcohol addiction; or ?? a metabolic disorder. Tell your doctor if you have ever had: ?? breathing problems, sleep apnea; ?? liver or kidney disease; ?? urination problems; ?? problems with your gallbladder, pancreas, or thyroid; ?? a stomach disorder; or ?? mental illness, or suicide attempt. If you use tramadol while you are , your baby could become dependent on the drug. This can cause life-threatening withdrawal symptoms in the baby after it is born. Babies born dependent on habit-forming medicine may need medical treatment for several weeks. Do not breast-feed. Tramadol can pass into breast milk and cause drowsiness, breathing problems, or in a nursing baby. How should I take tramadol? Follow the directions on your prescription label and read all medication guides. Never use tramadol in larger amounts, or for longer than prescribed. Tell your doctor if you feel an increased urge to take more of this medicine. Never share this medicine with another person, especially someone with a history of drug abuse or addiction. MISUSE CAN CAUSE ADDICTION, OVERDOSE, OR . Keep the medicine in a place where others cannot get to it. Selling or giving away tramadol is against the law. Stop taking all other nddrat-xgz-uqbkt narcotic pain medications when you start taking tramadol. Tramadol can be taken with or without food, but take it the same way each time. Swallow the capsule or tablet whole to avoid exposure to a potentially fatal overdose. Do not crush, chew, break, open, or dissolve. Never crush or break a tramadol pill to inhale the powder or mix it into a liquid to inject the drug into your vein. This practice has resulted in . Do not stop using tramadol suddenly, or you could have unpleasant withdrawal symptoms. Ask your doctor how to safely stop using tramadol. Store at room temperature away from moisture and heat. Keep track of your medicine. You should be aware if anyone is using it improperly or without a prescription. Do not keep leftover opioid medication. Just one dose can cause in someone using this medicine accidentally or improperly. Ask your pharmacist where to locate a drug take-back disposal program. If there is no take-back program, mix the leftover medicine with cat litter or coffee grounds in a sealed plastic bag throw the bag in the trash. What happens if I miss a dose? Since tramadol is used for pain, you are not likely to miss a dose. Skip any missed dose if it is almost time for your next dose. Do not use two doses at one time. What happens if I overdose? Seek emergency medical attention or call the Poison Help line at . A tramadol overdose can be fatal, especially in a child or other person using the medicine without a prescription. Overdose symptoms may include slow heart rate, severe drowsiness, cold and clammy skin, very slow breathing, or coma. What should I avoid while taking tramadol? Do not drink alcohol. Dangerous side effects or could occur. Avoid driving or hazardous activity until you know how this medicine will affect you. Dizziness or drowsiness can cause falls, accidents, or severe injuries. What are the possible side effects of tramadol? Get emergency medical help if you have signs of an allergic reaction (hives, difficult breathing, swelling in your face or throat) or a severe skin reaction (fever, sore throat, burning in your eyes, skin pain, red or purple skin rash that spreads and causes blistering and peeling). This medicine can slow or stop your breathing, and may occur. A person caring for you should seek emergency medical attention if you have slow breathing with long pauses, blue colored lips, or if you are hard to wake up. Call your doctor at once if you have: ?? noisy breathing, sighing, shallow breathing, breathing that stops during sleep; ?? a slow heart rate or weak pulse; ?? a light-headed feeling, like you might pass out; ?? seizure (convulsions); or ?? low cortisol levels--nausea, vomiting, loss of appetite, dizziness, worsening tiredness or weakness. Seek medical attention right away if you have symptoms of serotonin syndrome, such as: agitation, hallucinations, fever, sweating, shivering, fast heart rate, muscle stiffness, twitching, loss of coordination, nausea, vomiting, or diarrhea. Serious side effects may be more likely in older adults and those who are overweight, malnourished, or debilitated. Long-term use of opioid medication may affect fertility (ability to have children) in men or women. It is not known whether opioid effects on fertility are permanent. Common side effects may include: ?? constipation, nausea, vomiting, stomach pain; ?? dizziness, drowsiness, tiredness; ?? headache; or ?? itching. This is not a complete list of side effects and others may occur. Call your doctor for medical advice about side effects. You may report side effects to FDA at 2-589-MQI-9130. What other drugs will affect tramadol? You may have breathing problems or withdrawal symptoms if you start or stop taking certain other medicines. Tell your doctor if you also use an antibiotic, antifungal medication, heart or blood pressure medication, seizure medication, or medicine to treat HIV or hepatitis C. Opioid medication can interact with many other drugs and cause dangerous side effects or . Be sure your doctor knows if you also use: ?? cold or allergy medicines, bronchodilator asthma/COPD medication, or a diuretic ('water pill'); ?? medicines for motion sickness, irritable bowel syndrome, or overactive bladder; ?? other narcotic medications--opioid pain medicine or prescription cough medicine; ?? a sedative like Valium--diazepam, alprazolam, lorazepam, Xanax, Klonopin, Versed, and others; ?? drugs that make you sleepy or slow your breathing--a sleeping pill, muscle relaxer, medicine to treat mood disorders or mental illness; or ?? drugs that affect serotonin levels in your body--a stimulant, or medicine for depression, Parkinson's disease, migraine headaches, serious infections, or nausea and vomiting. This list is not complete and many other drugs may affect tramadol. This includes prescription and kqzr-uiz-qtbadgf medicines, vitamins, and herbal products. Not all possible drug interactions are listed here. Where can I get more information? Your doctor or pharmacist can provide more information about tramadol. Remember, keep this and all other medicines out of the reach of children, never share your medicines with others, and use this medication only for the indication prescribed. Every effort has been made to ensure that the information provided by [employer] is accurate, up-to-date, and complete, but no guarantee is made to that effect. Drug information contained herein may be time sensitive. [employer] information has been compiled for use by healthcare practitioners and consumers in the [place] and therefore [employer] does not warrant that uses outside of the [place] are appropriate, unless specifically indicated otherwise. [employer] drug information does not endorse drugs, diagnose patients or recommend therapy. [employer] drug information is an informational resource designed to assist licensed healthcare practitioners in caring for their patients and/or to serve consumers viewing this service as a supplement to, and not a substitute for, the expertise, skill, knowledge and judgment of healthcare practitioners. The absence of a warning for a given drug or drug combination in no way should be construed to indicate that the drug or drug combination is safe, effective or appropriate for any given patient. [facility] does not assume any responsibility for any aspect of healthcare administered with the aid of information [employer] provides. The information contained herein is not intended to cover all possible uses, directions, precautions, warnings, drug interactions, allergic reactions, or adverse effects. If you have questions about the drugs you are taking, check with your doctor, nurse or pharmacist. Copyright 50[address] [facility]. Version: 20.03. Revision Date: 07/10/2019. oxycodone (ox i KOE done) Oxaydo, OxyCONTIN, Oxyfast, Roxicodone, Xtampza ER What is the most important information I should know about oxycodone? MISUSE OF OPIOID MEDICINE CAN CAUSE ADDICTION, OVERDOSE, OR . Keep the medication in a place where others cannot get to it. Taking opioid medicine during may cause life-threatening withdrawal symptoms in the . Fatal side effects can occur if you use opioid medicine with alcohol, or with other drugs that cause drowsiness or slow your breathing. What is oxycodone? Oxycodone is an opioid pain medication used to treat moderate to severe pain. The extended-release form of oxycodone is for trmwdb-cwb-mfjou treatment of pain and should not be used on an as-needed basis for pain. Oxycodone may also be used for purposes not listed in this medication guide. What should I discuss with my healthcare provider before using oxycodone? You should not use oxycodone if you are allergic to it, or if you have: ?? severe asthma or breathing problems; or ?? a blockage in your stomach or intestines. You should not use oxycodone unless you are already using a similar opioid medicine and are tolerant to it. Most brands of oxycodone are not approved for use in people under 18. OxyContin should not be given to a child younger than 11 years old. Tell your doctor if you have ever had: ?? breathing problems, sleep apnea; ?? a head injury, or seizures; ?? drug or alcohol addiction, or mental illness; ?? liver or kidney disease; ?? urination problems; or ?? problems with your gallbladder, pancreas, or thyroid. If you use opioid medicine while you are , your baby could become dependent on the drug. This can cause life-threatening withdrawal symptoms in the baby after it is born. Babies born dependent on opioids may need medical treatment for several weeks. Do not breast-feed. Oxycodone can pass into breast milk and may cause drowsiness, breathing problems, or in a nursing baby. How should I use oxycodone? Follow the directions on your prescription label and read all medication guides. Never use oxycodone in larger amounts, or for longer than prescribed. Tell your doctor if you feel an increased urge to take more of this medicine. Never share opioid medicine with another person, especially someone with a history of drug abuse or addiction. MISUSE CAN CAUSE ADDICTION, OVERDOSE, OR . Keep the medication in a place where others cannot get to it. Selling or giving away opioid medicine is against the law. Stop taking all other udgqun-stu-oaqks narcotic pain medicines when you start taking extended-release oxycodone. Take oxycodone with food. Swallow the capsule or tablet whole to avoid exposure to a potentially fatal overdose. Do not crush, chew, break, open, or dissolve. Never crush or break an oxycodone pill to inhale the powder or mix it into a liquid to inject the drug into your vein. This can cause in . Measure liquid medicine carefully. Use the dosing syringe provided, or use a medicine dose-measuring device (not a kitchen spoon). You should not stop using oxycodone suddenly. Follow your doctor's instructions about tapering your dose. Store at room temperature, away from heat, moisture, and light. Keep track of your medicine. Oxycodone is a drug of abuse and you should be aware if anyone is using your medicine improperly or without a prescription. Do not keep leftover opioid medication. Just one dose can cause in someone using this medicine accidentally or improperly. Ask your pharmacist where to locate a drug take-back disposal program. If there is no take-back program, flush the unused medicine down the toilet. What happens if I miss a dose? Since oxycodone is used for pain, you are not likely to miss a dose. Skip any missed dose if it is almost time for your next dose. Do not use two doses at one time. What happens if I overdose? Seek emergency medical attention or call the Poison Help line at . An oxycodone overdose can be fatal, especially in a child or other person using the medicine without a prescription. Overdose can cause severe muscle weakness, pinpoint pupils, very slow breathing, extreme drowsiness, or coma. What should I avoid while using oxycodone? Do not drink alcohol. Dangerous side effects or could occur. Avoid driving or operating machinery until you know how oxycodone will affect you. Dizziness or severe drowsiness can cause falls or other accidents. Avoid medication errors. Always check the brand and strength of oxycodone you get from the pharmacy. What are the possible side effects of oxycodone? Get emergency medical help if you have signs of an allergic reaction: hives; difficult breathing; swelling of your face, lips, tongue, or throat. Opioid medicine can slow or stop your breathing, and may occur. A person caring for you should seek emergency medical attention if you have slow breathing with long pauses, blue colored lips, or if you are hard to wake up. Call your doctor at once if you have: ?? noisy breathing, sighing, shallow breathing, breathing that stops during sleep; ?? a slow heart rate or weak pulse; ?? a light-headed feeling, like you might pass out; ?? confusion, unusual thoughts or behavior; ?? seizure (convulsions); or ?? low cortisol levels-- nausea, vomiting, loss of appetite, dizziness, worsening tiredness or weakness. Seek medical attention right away if you have symptoms of serotonin syndrome, such as: agitation, confusion, fever, sweating, fast heart rate, chest pain, feeling short of breath, muscle stiffness, trouble walking, or feeling faint. Serious side effects may be more likely in older adults and those who are malnourished or debilitated. Long-term use of opioid medication may affect fertility (ability to have children) in men or women. It is not known whether opioid effects on fertility are permanent. Common side effects may include: ?? drowsiness, headache, dizziness, tiredness; or ?? constipation, stomach pain, nausea, vomiting. This is not a complete list of side effects and others may occur. Call your doctor for medical advice about side effects. You may report side effects to FDA at 8-642-HMW-8114. What other drugs will affect oxycodone? You may have breathing problems or withdrawal symptoms if you start or stop taking certain other medicines. Tell your doctor if you also use an antibiotic, antifungal medication, heart or blood pressure medication, seizure medication, or medicine to treat HIV or hepatitis C. Opioid medication can interact with many other drugs and cause dangerous side effects or . Be sure your doctor knows if you also use: ?? cold or allergy medicines, bronchodilator asthma/COPD medication, or a diuretic ('water pill'); ?? medicines for motion sickness, irritable bowel syndrome, or overactive bladder; ?? other narcotic medications--opioid pain medicine or prescription cough medicine; ?? a sedative like Valium--diazepam, alprazolam, lorazepam, Xanax, Klonopin, Versed, and others; ?? drugs that make you sleepy or slow your breathing--a sleeping pill, muscle relaxer, medicine to treat mood disorders or mental illness; or ?? drugs that affect serotonin levels in your body--a stimulant, or medicine for depression, Parkinson's disease, migraine headaches, serious infections, or nausea and vomiting. This list is not complete and many other drugs may affect oxycodone. This includes prescription and orct-vyx-ujdgkfm medicines, vitamins, and herbal products. Not all possible drug interactions are listed here. Where can I get more information? Your pharmacist can provide more information about oxycodone. Remember, keep this and all other medicines out of the reach of children, never share your medicines with others, and use this medication only for the indication prescribed. Every effort has been made to ensure that the information provided by [employer] is accurate, up-to-date, and complete, but no guarantee is made to that effect. Drug information contained herein may be time sensitive. [employer] information has been compiled for use by healthcare practitioners and consumers in the [place] and therefore [employer] does not warrant that uses outside of the [place] are appropriate, unless specifically indicated otherwise. [employer] drug information does not endorse drugs, diagnose patients or recommend therapy. [employer] drug information is an informational resource designed to assist licensed healthcare practitioners in caring for their patients and/or to serve consumers viewing this service as a supplement to, and not a substitute for, the expertise, skill, knowledge and judgment of healthcare practitioners. The absence of a warning for a given drug or drug combination in no way should be construed to indicate that the drug or drug combination is safe, effective or appropriate for any given patient. [employer] does not assume any responsibility for any aspect of healthcare administered with the aid of information [employer] provides. The information contained herein is not intended to cover all possible uses, directions, precautions, warnings, drug interactions, allergic reactions, or adverse effects. If you have questions about the drugs you are taking, check with your doctor, nurse or pharmacist. Copyright 4873-9189 [employer] Version: 13.03. Revision Date: 03/09/2019. oxycodone (ox i KOE done) Oxaydo, OxyCONTIN, Oxyfast, Roxicodone, Xtampza ER What is the most important information I should know about oxycodone? MISUSE OF OPIOID MEDICINE CAN CAUSE ADDICTION, OVERDOSE, OR . Keep the medication in a place where others cannot get to it. Taking opioid medicine during may cause life-threatening withdrawal symptoms in the . Fatal side effects can occur if you use opioid medicine with alcohol, or with other drugs that cause drowsiness or slow your breathing. What is oxycodone? Oxycodone is an opioid pain medication used to treat moderate to severe pain. The extended-release form of oxycodone is for yrgbnj-zcz-dzwmv treatment of pain and should not be used on an as-needed basis for pain. Oxycodone may also be used for purposes not listed in this medication guide. What should I discuss with my healthcare provider before using oxycodone? You should not use oxycodone if you are allergic to it, or if you have: ?? severe asthma or breathing problems; or ?? a blockage in your stomach or intestines. You should not use oxycodone unless you are already using a similar opioid medicine and are tolerant to it. Most brands of oxycodone are not approved for use in people under 18. OxyContin should not be given to a child younger than 11 years old. Tell your doctor if you have ever had: ?? breathing problems, sleep apnea; ?? a head injury, or seizures; ?? drug or alcohol addiction, or mental illness; ?? liver or kidney disease; ?? urination problems; or ?? problems with your gallbladder, pancreas, or thyroid. If you use opioid medicine while you are , your baby could become dependent on the drug. This can cause life-threatening withdrawal symptoms in the baby after it is born. Babies born dependent on opioids may need medical treatment for several weeks. Do not breast-feed. Oxycodone can pass into breast milk and may cause drowsiness, breathing problems, or in a nursing baby. How should I use oxycodone? Follow the directions on your prescription label and read all medication guides. Never use oxycodone in larger amounts, or for longer than prescribed. Tell your doctor if you feel an increased urge to take more of this medicine. Never share opioid medicine with another person, especially someone with a history of drug abuse or addiction. MISUSE CAN CAUSE ADDICTION, OVERDOSE, OR . Keep the medication in a place where others cannot get to it. Selling or giving away opioid medicine is against the law. Stop taking all other yxacws-cnx-xevlq narcotic pain medicines when you start taking extended-release oxycodone. Take oxycodone with food. Swallow the capsule or tablet whole to avoid exposure to a potentially fatal overdose. Do not crush, chew, break, open, or dissolve. Never crush or break an oxycodone pill to inhale the powder or mix it into a liquid to inject the drug into your vein. This can cause in . Measure liquid medicine carefully. Use the dosing syringe provided, or use a medicine dose-measuring device (not a kitchen spoon). You should not stop using oxycodone suddenly. Follow your doctor's instructions about tapering your dose. Store at room temperature, away from heat, moisture, and light. Keep track of your medicine. Oxycodone is a drug of abuse and you should be aware if anyone is using your medicine improperly or without a prescription. Do not keep leftover opioid medication. Just one dose can cause in someone using this medicine accidentally or improperly. Ask your pharmacist where to locate a drug take-back disposal program. If there is no take-back program, flush the unused medicine down the toilet. What happens if I miss a dose? Since oxycodone is used for pain, you are not likely to miss a dose. Skip any missed dose if it is almost time for your next dose. Do not use two doses at one time. What happens if I overdose? Seek emergency medical attention or call the Poison Help line at . An oxycodone overdose can be fatal, especially in a child or other person using the medicine without a prescription. Overdose can cause severe muscle weakness, pinpoint pupils, very slow breathing, extreme drowsiness, or coma. What should I avoid while using oxycodone? Do not drink alcohol. Dangerous side effects or could occur. Avoid driving or operating machinery until you know how oxycodone will affect you. Dizziness or severe drowsiness can cause falls or other accidents. Avoid medication errors. Always check the brand and strength of oxycodone you get from the pharmacy. What are the possible side effects of oxycodone? Get emergency medical help if you have signs of an allergic reaction: hives; difficult breathing; swelling of your face, lips, tongue, or throat. Opioid medicine can slow or stop your breathing, and may occur. A person caring for you should seek emergency medical attention if you have slow breathing with long pauses, blue colored lips, or if you are hard to wake up. Call your doctor at once if you have: ?? noisy breathing, sighing, shallow breathing, breathing that stops during sleep; ?? a slow heart rate or weak pulse; ?? a light-headed feeling, like you might pass out; ?? confusion, unusual thoughts or behavior; ?? seizure (convulsions); or ?? low cortisol levels-- nausea, vomiting, loss of appetite, dizziness, worsening tiredness or weakness. Seek medical attention right away if you have symptoms of serotonin syndrome, such as: agitation, confusion, fever, sweating, fast heart rate, chest pain, feeling short of breath, muscle stiffness, trouble walking, or feeling faint. Serious side effects may be more likely in older adults and those who are malnourished or debilitated. Long-term use of opioid medication may affect fertility (ability to have children) in men or women. It is not known whether opioid effects on fertility are permanent. Common side effects may include: ?? drowsiness, headache, dizziness, tiredness; or ?? constipation, stomach pain, nausea, vomiting. This is not a complete list of side effects and others may occur. Call your doctor for medical advice about side effects. You may report side effects to FDA at 3-587-SBE-2941. What other drugs will affect oxycodone? You may have breathing problems or withdrawal symptoms if you start or stop taking certain other medicines. Tell your doctor if you also use an antibiotic, antifungal medication, heart or blood pressure medication, seizure medication, or medicine to treat HIV or hepatitis C. Opioid medication can interact with many other drugs and cause dangerous side effects or . Be sure your doctor knows if you also use: ?? cold or allergy medicines, bronchodilator asthma/COPD medication, or a diuretic ('water pill'); ?? medicines for motion sickness, irritable bowel syndrome, or overactive bladder; ?? other narcotic medications--opioid pain medicine or prescription cough medicine; ?? a sedative like Valium--diazepam, alprazolam, lorazepam, Xanax, Klonopin, Versed, and others; ?? drugs that make you sleepy or slow your breathing--a sleeping pill, muscle relaxer, medicine to treat mood disorders or mental illness; or ?? drugs that affect serotonin levels in your body--a stimulant, or medicine for depression, Parkinson's disease, migraine headaches, serious infections, or nausea and vomiting. This list is not complete and many other drugs may affect oxycodone. This includes prescription and agak-mxx-ajjuzlb medicines, vitamins, and herbal products. Not all possible drug interactions are listed here. Where can I get more information? Your pharmacist can provide more information about oxycodone. Remember, keep this and all other medicines out of the reach of children, never share your medicines with others, and use this medication only for the indication prescribed. Every effort has been made to ensure that the information provided by [employer] is accurate, up-to-date, and complete, but no guarantee is made to that effect. Drug information contained herein may be time sensitive. [employer] information has been compiled for use by healthcare practitioners and consumers in the [place] and therefore [employer] does not warrant that uses outside of the [place] are appropriate, unless specifically indicated otherwise. [employer] drug information does not endorse drugs, diagnose patients or recommend therapy. [employer] drug information is an informational resource designed to assist licensed healthcare practitioners in caring for their patients and/or to serve consumers viewing this service as a supplement to, and not a substitute for, the expertise, skill, knowledge and judgment of healthcare practitioners. The absence of a warning for a given drug or drug combination in no way should be construed to indicate that the drug or drug combination is safe, effective or appropriate for any given patient. [employer] does not assume any responsibility for any aspect of healthcare administered with the aid of information [employer] provides. The information contained herein is not intended to cover all possible uses, directions, precautions, warnings, drug interactions, allergic reactions, or adverse effects. If you have questions about the drugs you are taking, check with your doctor, nurse or pharmacist. Copyright 6036-9317 [employer] Version: 13.03. Revision Date: 03/09/2019. tramadol (TRAM a dol) Ness, Ultram, Ultram ER What is the most important information I should know about tramadol? MISUSE OF THIS MEDICINE CAN CAUSE ADDICTION, OVERDOSE, OR . Keep the medication in a place where others cannot get to it. Tramadol should not be given to a child younger than 12 years old. Ultram ER should not be given to anyone younger than 18 years old. Taking tramadol during may cause life-threatening withdrawal symptoms in the . Fatal side effects can occur if you use tramadol with alcohol, or with other drugs that cause drowsiness or slow your breathing. What is tramadol? Tramadol is an pain medicine similar to an opioid (sometimes called, a narcotic). Tramadol is used to treat moderate to severe pain. The extended-release form of this medicine is for bfwstg-ioh-vuian treatment of pain. This form of tramadol is not for use on an as-needed basis for pain. Tramadol may also be used for purposes not listed in this medication guide. What should I discuss with my healthcare provider before taking tramadol? You should not take tramadol if you are allergic to it, or if you have: ?? severe asthma or breathing problems; ?? a blockage in your stomach or intestines; ?? if you have recently used alcohol, sedatives, tranquilizers, or narcotic medications; or ?? if you have used an MAO inhibitor in the past 14 days (such as isocarboxazid, linezolid, methylene blue injection, phenelzine, rasagiline, selegiline, or tranylcypromine). Tramadol should not be given to a child younger than 12 years old. Ultram ER should not be given to anyone younger than 18 years old. Do not give tramadol to anyone younger than 18 years old who recently had surgery to remove the tonsils or adenoids. Seizures have occurred in some people taking tramadol. Talk with your doctor about your seizure risk, which may be higher if you have ever had: ?? a head injury, epilepsy or other seizure disorder; ?? drug or alcohol addiction; or ?? a metabolic disorder. Tell your doctor if you have ever had: ?? breathing problems, sleep apnea; ?? liver or kidney disease; ?? urination problems; ?? problems with your gallbladder, pancreas, or thyroid; ?? a stomach disorder; or ?? mental illness, or suicide attempt. If you use tramadol while you are , your baby could become dependent on the drug. This can cause life-threatening withdrawal symptoms in the baby after it is born. Babies born dependent on habit-forming medicine may need medical treatment for several weeks. Do not breast-feed. Tramadol can pass into breast milk and cause drowsiness, breathing problems, or in a nursing baby. How should I take tramadol? Follow the directions on your prescription label and read all medication guides. Never use tramadol in larger amounts, or for longer than prescribed. Tell your doctor if you feel an increased urge to take more of this medicine. Never share this medicine with another person, especially someone with a history of drug abuse or addiction. MISUSE CAN CAUSE ADDICTION, OVERDOSE, OR . Keep the medicine in a place where others cannot get to it. Selling or giving away tramadol is against the law. Stop taking all other cvkzbc-eai-sgavd narcotic pain medications when you start taking tramadol. Tramadol can be taken with or without food, but take it the same way each time. Swallow the capsule or tablet whole to avoid exposure to a potentially fatal overdose. Do not crush, chew, break, open, or dissolve. Never crush or break a tramadol pill to inhale the powder or mix it into a liquid to inject the drug into your vein. This practice has resulted in . Do not stop using tramadol suddenly, or you could have unpleasant withdrawal symptoms. Ask your doctor how to safely stop using tramadol. Store at room temperature away from moisture and heat. Keep track of your medicine. You should be aware if anyone is using it improperly or without a prescription. Do not keep leftover opioid medication. Just one dose can cause in someone using this medicine accidentally or improperly. Ask your pharmacist where to locate a drug take-back disposal program. If there is no take-back program, mix the leftover medicine with cat litter or coffee grounds in a sealed plastic bag throw the bag in the trash. What happens if I miss a dose? Since tramadol is used for pain, you are not likely to miss a dose. Skip any missed dose if it is almost time for your next dose. Do not use two doses at one time. What happens if I overdose? Seek emergency medical attention or call the Poison Help line at . A tramadol overdose can be fatal, especially in a child or other person using the medicine without a prescription. Overdose symptoms may include slow heart rate, severe drowsiness, cold and clammy skin, very slow breathing, or coma. What should I avoid while taking tramadol? Do not drink alcohol. Dangerous side effects or could occur. Avoid driving or hazardous activity until you know how this medicine will affect you. Dizziness or drowsiness can cause falls, accidents, or severe injuries. What are the possible side effects of tramadol? Get emergency medical help if you have signs of an allergic reaction (hives, difficult breathing, swelling in your face or throat) or a severe skin reaction (fever, sore throat, burning in your eyes, skin pain, red or purple skin rash that spreads and causes blistering and peeling). This medicine can slow or stop your breathing, and may occur. A person caring for you should seek emergency medical attention if you have slow breathing with long pauses, blue colored lips, or if you are hard to wake up. Call your doctor at once if you have: ?? noisy breathing, sighing, shallow breathing, breathing that stops during sleep; ?? a slow heart rate or weak pulse; ?? a light-headed feeling, like you might pass out; ?? seizure (convulsions); or ?? low cortisol levels--nausea, vomiting, loss of appetite, dizziness, worsening tiredness or weakness. Seek medical attention right away if you have symptoms of serotonin syndrome, such as: agitation, hallucinations, fever, sweating, shivering, fast heart rate, muscle stiffness, twitching, loss of coordination, nausea, vomiting, or diarrhea. Serious side effects may be more likely in older adults and those who are overweight, malnourished, or debilitated. Long-term use of opioid medication may affect fertility (ability to have children) in men or women. It is not known whether opioid effects on fertility are permanent. Common side effects may include: ?? constipation, nausea, vomiting, stomach pain; ?? dizziness, drowsiness, tiredness; ?? headache; or ?? itching. This is not a complete list of side effects and others may occur. Call your doctor for medical advice about side effects. You may report side effects to FDA at 5-126-LRR-7743. What other drugs will affect tramadol? You may have breathing problems or withdrawal symptoms if you start or stop taking certain other medicines. Tell your doctor if you also use an antibiotic, antifungal medication, heart or blood pressure medication, seizure medication, or medicine to treat HIV or hepatitis C. Opioid medication can interact with many other drugs and cause dangerous side effects or . Be sure your doctor knows if you also use: ?? cold or allergy medicines, bronchodilator asthma/COPD medication, or a diuretic ('water pill'); ?? medicines for motion sickness, irritable bowel syndrome, or overactive bladder; ?? other narcotic medications--opioid pain medicine or prescription cough medicine; ?? a sedative like Valium--diazepam, alprazolam, lorazepam, Xanax, Klonopin, Versed, and others; ?? drugs that make you sleepy or slow your breathing--a sleeping pill, muscle relaxer, medicine to treat mood disorders or mental illness; or ?? drugs that affect serotonin levels in your body--a stimulant, or medicine for depression, Parkinson's disease, migraine headaches, serious infections, or nausea and vomiting. This list is not complete and many other drugs may affect tramadol. This includes prescription and lsrw-mxy-uniktdj medicines, vitamins, and herbal products. Not all possible drug interactions are listed here. Where can I get more information? Your doctor or pharmacist can provide more information about tramadol. Remember, keep this and all other medicines out of the reach of children, never share your medicines with others, and use this medication only for the indication prescribed. Every effort has been made to ensure that the information provided by [employer] is accurate, up-to-date, and complete, but no guarantee is made to that effect. Drug information contained herein may be time sensitive. [employer] information has been compiled for use by healthcare practitioners and consumers in the [place] and therefore [employer] does not warrant that uses outside of the [place] are appropriate, unless specifically indicated otherwise. [employer] drug information does not endorse drugs, diagnose patients or recommend therapy. [employer] drug information is an informational resource designed to assist licensed healthcare practitioners in caring for their patients and/or to serve consumers viewing this service as a supplement to, and not a substitute for, the expertise, skill, knowledge and judgment of healthcare practitioners. The absence of a warning for a given drug or drug combination in no way should be construed to indicate that the drug or drug combination is safe, effective or appropriate for any given patient. [employer] does not assume any responsibility for any aspect of healthcare administered with the aid of information [employer] provides. The information contained herein is not intended to cover all possible uses, directions, precautions, warnings, drug interactions, allergic reactions, or adverse effects. If you have questions about the drugs you are taking, check with your doctor, nurse or pharmacist. Copyright 5157-4411 [employer] Version: 20.03. Revision Date: 07/10/2019. Emergency Awareness and Preventative Care STROKE is an EMERGENCY Every Minute Counts Act FAST and Check for these signs: FACE Does the face look uneven? ARM Does one arm drift down? SPEECH Does their speech sound strange? TIME Call at any sign of stroke Stroke Risk Factors Atrial Fibrillation (irregular heartbeat) Diabetes Family history of stroke Heart Disease Heavy alcohol use High Blood Pressure High Cholesterol Physical inactivity and obesity Smoking Cigarette Smoking The facts are clear, cigarette smoking will shorten your life. Smoking can cause many illnesses along the way. As a healthcare provider, we recommend that you stop smoking. Assistance with quitting is available by contacting 0-567-BJVNNOW. This is a free resource providing counseling, support, and referral. Or you may contact your personal physician. [facility]: The National Suicide Prevention Lifeline is a national network of local crisis centers that provides free and confidential emotional support to people in suicidal crisis or emotional distress 24 hours a day, 7 days a week. Don't Wait! Stop a Heart Attack Before it Starts What is a heart attack? A heart attack is damage or to a part of the heart from severely decreased or lack of blood flow to the heart. Over time, arteries can become narrow from the buildup of fat and cholesterol, which is called plaque. The plaque can rupture causing a blood clot to form. When the blood clot forms, the artery can become severely narrowed or completely blocked, causing a heart attack. Heart attack is the leading cause of in the [place]. 85% of muscle damage occurs within the first 2 hours. Delay in the recognition of heart attack symptoms increases the chances of . Know the early symptoms of a heart attack: Nausea Feeling of fullness in chest Jaw Pain Pain that travels down one or both arms Fatigue/being tired Anxiety Back Pain Chest pressure, squeezing, or discomfort Shortness of breath Sweating, or a cold sweat Feeling of impending doom There are unusual signs of a heart attack, too! Women, the elderly, and diabetics may present with atypical symptoms: Fainting/dizziness Weakness Confusion Risk Factors for a Heart Attack Some heart disease risk factors, such as age and family history, cannot be changed. Others, like smoking and lack of exercise, can be changed. Smoking High Cholesterol High Blood Pressure Family History Obesity Age Gender (Males are at higher risk) Lack of Exercise Diabetes Diet Stress Excessive Alcohol Intake If you or someone you know is experiencing the signs and symptoms of a heart attack, DON???T DELAY. Call immediately and seek help. If someone collapses, perform CPR! Do not attempt to drive if you are having symptoms of heart attack. Hands-Only CPR Why Hands-Only CPR? Hands-Only CPR has been shown to be as effective as conventional CPR for cardiac arrests that occur outside of a hospital. Survival depends on immediately receiving CPR from someone nearby. How do you perform Hands-Only CPR? There are two easy steps: Call 9-1-1 if you see a teen or adult collapse Push hard and fast in the center of the chest at a beat of 100 beats per minute. Save a life! 4 WAYS TO GET AHEAD OF SEPSIS SEPSIS is a MEDICAL EMERGENCY. Time matters! Infections put you and your family at risk for a life-threatening condition called sepsis. documented in this encounter Plan of Treatment Not on file documented as of this encounter Visit Diagnoses Not on filedocumented in this encounter
--- OUTSIDE RECORDS SUMMARY | 2024-11-19 11:10 | XMS_ITS | Encounter Summary ---
Author Organization [employer] Address [address] [address] Care Team Providers Care Principal Statistical Programmer Name Role Phone Unavailable Primary Care Provider Unavailabl e Encounter Details Date Type Department Care Team (Late st Contact Info) Description 12/02/2019 Transcribed Document [facility] [address] [place] [address] Provider, patel Naranjo MD Social History Tobacco Use Types Packs/Day Years Used Date Smoking Tobacco: Never Assessed Sex and Gender Information Value Date Recorded Sex Assigned at Not on file Legal Sex Male 7:33 PM CDT Gender Identity Not on file Sexual Orientation Not on file documented as of this encounter Miscellaneous Notes * Cerner Conversion Note - [facility] Jose A Reese MD - 12/02/2019 12:08 PM EDT ANTOINE Main OR IntraOp Summary Primary Physician: JACKELIN SELF JR, JR, MD-ORT Finalized Date/Time: 12/02/19 11:36:58 Pt. Name: DANAE CARSON SHANKAR Ruelas.O.B./Sex: 1960 Male Med Rec #: [id number] Physician: JACKELIN SELF JR, JR, MD-ORT Financial #: [id number] Pt. Type: O Room/Bed: Admit/Disch: 12/02/19 09:17:00 - Institution: [facility] IntraOp Case Attendance Entry 1 Entry 2 Entry 3 Case Attendee JACKELIN SELF JR, JR, WICKER, KAREN KIM, SPECIALTY SALES CONSULTANT LONGSWORTH, JACKSON, RN MD-ORT Role Performed Surgeon/Proceduralist, SPECIALTY SALES CONSULTANT/Nurse Brand Manager Manager Hiv, First First Time In 12/02/19 10:50:00 12/02/19 10:50:00 12/02/19 10:50:00 Time Out 12/02/19 11:27:00 12/02/19 11:36:00 12/02/19 11:36:00 Procedure Knee Arthroscopy Knee Arthroscopy Knee Arthroscopy Other Attendee Superficial Wound Closed By: Last Modified By: JACKSON CERRATO, JACKSON REARDON, JACKSON REARDON, CHARLIE 12/02/19 11:36:54 12/02/19 11:36:54 12/02/19 11:36:54 Entry 4 Entry 5 Entry 6 Case Attendee Barry Boggs, ATTENDEE #1 CLAUDIA MIRANDA Role Performed Scrub, First Vendor Repatcher Time In 12/02/19 10:50:00 12/02/19 10:50:00 12/02/19 11:05:00 Time Out 12/02/19 11:36:00 12/02/19 11:36:00 12/02/19 11:36:00 Procedure Knee Arthroscopy Knee Arthroscopy Knee Arthroscopy Other Attendee TRINT UNDERWOOD Superficial Wound Closed By: Last Modified By: JACKSON CERRATO, JACKSON REARDON, JACKSON REARDON, CHARLIE 12/02/19 11:36:54 12/02/19 11:36:54 12/02/19 11:36:54 Entry 7 Entry 8 Case Attendee Jerry Cheek, SAL/MARCIE HACKETT, WAYNE, SPECIALTY SALES CONSULTANT-ANS Role Performed English Language Arts Teacher, First SPECIALTY SALES CONSULTANT/Nurse Brand Manager Time In 12/02/19 10:50:00 12/02/19 11:20:00 Time Out 12/02/19 11:36:00 12/02/19 11:36:00 Procedure Knee Arthroscopy Knee Arthroscopy Other Attendee Superficial Wound Closed By: Last Modified By: JACKSON CERRATO, JACKSON REARDON, CHARLIE 12/02/19 11:36:54 12/02/19 11:36:54 [facility] IntraOp Case Attendance Audit 12/02/19 11:36:54 Forming Department End Finder: LONGGA Modifier: LONGGA 1 <*> Procedure Knee Arthroscopy 2 <+> Time Out 2 <*> Procedure Knee Arthroscopy 3 <+> Time Out 3 <*> Procedure Knee Arthroscopy 4 <+> Time Out 4 <*> Procedure Knee Arthroscopy 5 <+> Time Out 5 <*> Procedure Knee Arthroscopy 6 <+> Time Out 6 <*> Procedure Knee Arthroscopy 7 <+> Time Out 7 <*> Procedure Knee Arthroscopy 8 <+> Time Out 8 <*> Procedure Knee Arthroscopy 12/02/19 11:27:18 Forming Department End Finder: LONGGA Modifier: LONGGA 1 <+> Time Out 1 <*> Procedure Knee Arthroscopy 12/02/19 11:23:46 Forming Department End Finder: LONGGA Modifier: LONGGA <+> 8 Case Attendee <+> 8 Role Performed <+> 8 Time In <+> 8 Procedure 12/02/19 11:17:15 Forming Department End Finder: LONGGA Modifier: LONGGA <+> 7 Case Attendee <+> 7 Role Performed <+> 7 Time In <+> 7 Procedure 12/02/19 11:15:35 Forming Department End Finder: LONGGA Modifier: LONGGA 1 <+> Time In 1 <*> Procedure Knee Arthroscopy 2 <+> Time In 2 <*> Procedure Knee Arthroscopy 3 <+> Time In 3 <*> Procedure Knee Arthroscopy 4 <+> Time In 4 <*> Procedure Knee Arthroscopy 5 <+> Case Attendee 5 <+> Time In 5 <*> Procedure Knee Arthroscopy <+> 6 Case Attendee <+> 6 Role Performed <+> 6 Time In <+> 6 Procedure 12/02/19 10:50:53 Forming Department End Finder: LONGGA Modifier: LONGGA <+> 5 Role Performed <+> 5 Procedure <+> 5 Other Attendee 12/02/19 10:40:53 Forming Department End Finder: LONGGA Modifier: LONGGA <+> 1 Procedure 2 <*> Procedure Knee Arthroscopy 3 <*> Procedure Knee Arthroscopy 4 <*> Procedure Knee Arthroscopy [facility] IntraOp Case Times Entry 1 Patient In Room Time 12/02/19 10:50:00 Out Room Time 12/02/19 11:36:00 Anesthesia Start Time 12/02/19 10:50:00 Stop Time 12/02/19 11:36:00 Anesthesia Ready 12/02/19 10:50:00 Surgery / Procedure Times Start Time 12/02/19 11:08:00 Stop Time 12/02/19 11:32:00 Last Modified By: JACKSON CERRATO RN 12/02/19 11:36:53 [facility] IntraOp Case Times Audit 12/02/19 11:36:53 Forming Department End Finder: LONGGA Modifier: LONGGA <+> 1 Out Room Time <+> 1 Stop Time 12/02/19 11:31:33 Forming Department End Finder: LONGGA Modifier: LONGGA <+> 1 Stop Time 12/02/19 11:12:41 Forming Department End Finder: LONGGA Modifier: LONGGA <+> 1 Start Time <+> 1 Start Time <+> 1 Anesthesia Ready [facility] IntraOp Communication Entry 1 Communication To Family/Significant other Communication By JACKELIN SELF JR, JR, MD-ORT Last Modified By: JACKSON CERRATO RN 12/02/19 11:36:21 [facility] IntraOp Counts Verification Entry 1 Procedure Knee Arthroscopy Count Info Count Type Sponge, Sharps Counts Verification Baseline/pre-procedure Sequence Count Results Correct, surgeon notified Counts Performed By Count Performed By Barry Boggs (Scrub) Count Performed By JACKSON CERRATO RN (RN) Last Modified By: JACKSON CERRATO RN 12/02/19 10:42:40 [facility] IntraOp Counts Final Entry 1 Procedure Knee Arthroscopy Final Count Info Count Type Sponge, Sharps Counts Verification Skin Closure/end of Sequence procedure Count Results Correct, surgeon notified Counts Performed By Count Performed By Barry Boggs (Scrub) Count Performed By JACKSON CERRATO, RN (RN) Last Modified By: JACKSON CERRATO RN 12/02/19 11:36:12 [facility] IntraOp Departure from OR Entry 1 Integumentary Assessment Integumentary WDL Assessment WDL Skin Description Dry (WDL with exeptions) Transfer/Handoff Transfer to PACU Phase I Handoff Method Bedside/Face to face Post-op Transport Stretcher/Gurney Via Patient Transport JACKSON CERRATO, CHARLIE, Accompanied by MARCIE RUIZ, BALANCE WEIGHER, SPECIALTY SALES CONSULTANT-ANS Last Modified By: JACKSON CERRATO RN 12/02/19 11:27:33 [facility] IntraOp Dressing and Packing Entry 1 Type Dressing Location RIGHT KNEE Wound Dressing Item 4x4's, Xeroform, Chad, Webril Supplemental Cold pack Applications Applied By Jerry Cheek, AIR CONDITIONING SHEET METAL INSTALLER/DIRECTOR OF MEDICAL REVIEW Last Modified By: JACKSON CERRATO RN 12/02/19 11:24:35 [facility] IntraOp Fire Risk Assessment Entry 1 Fire Info Surgical Site or 0- No Incision Above the Xyphoid Open O2 Source 0- No (Mask or Cannula) Available Ignition 1- Yes (ESU, Laser, Light Source) Fire Risk 1 Assessment Score Fire Score Fire Risk Yes Assessment Complete Fire Risk JACKSON CERRATO RN Assessment Verified By Fire Risk 12/02/19 10:42:00 Assessment Verified Date/Time Fire Risk High Risk Protocol Yes Implemented Standard Fire Yes Safety Precautions Followed Last Modified By: JACKSON CERRATO RN 12/02/19 10:42:11 [facility] IntraOp General Case Survey Methodologist 1 Case Information OR OR 10 [facility] Case Level 1 Room Verified Yes Wound Class I - Clean Specialty SN Orthopedic Anesthesia Type General ASA Class 3 Diagnosis Preop Diagnosis MEDIAL FEMORAL CHONDYLE INSUFFICIENCY, RIGHT KNEE Postop Same As Preop No Postop Diagnosis DICTATED BY Ever Last Modified By: JACKSON CERRATO RN 12/02/19 11:23:53 [facility] IntraOp General Case Data Audit 12/02/19 11:23:53 Forming Department End Finder: LONGGA Modifier: LONGGA <+> 1 ASA Class 12/02/19 11:09:57 Forming Department End Finder: LONGGA Modifier: LONGGA <+> 1 Anesthesia Type <+> 1 Postop Same As Preop <+> 1 Preop Diagnosis <+> 1 Postop Diagnosis <+> 1 Room Verified [facility] IntraOp Implant Log Entry 1 Type Implant (Synthetic) Implant Log Implant Type Other Implant [facility] [id number] Identification Description Implant Quantity 1 Implant Site RIGHT KNEE Implant [id number] Identification Lot Number Implant Knee Creations Identification Tipple Supervisor Name: Implant [id number] Identification Catalog Number Implant Has an Yes Expiration Date Implant Expiration 06/30/22 Date Tissue Implant Last Modified By: JACKSON CERRATO RN 12/02/19 11:25:20 [facility] IntraOp Intraoperative Assessment Entry 1 Valid History / Yes Physical in Chart Preoperative Yes Checklist Reviewed/Evaluated Allergies Reviewed Yes Patient is Latex No Sensitive Level of WDL Consciousness (WDL = Alert, Oriented to Person, Place, and Time) Skin Assessment Yes Verified Present Upon IVs Arrival to OR Last Modified By: JACKSON CERRATO RN 12/02/19 11:02:09 [facility] IntraOp Intraoperative Equipment Entry 1 Type Equipment Equipment Equipment Sumaya Suction System ID Number [id number] Setting HIGH Intraop Monitoring Antiembolic Devices Scopes Photo/Video Documentation Last Modified By: JACKSON CERRATO RN 12/02/19 11:20:23 [facility] IntraOp Medication Admin Entry 1 Medication/Irrigant Marcaine 0.25% 10ml vial - [id number] Route of LOCAL Administration Dose Dose 10 Unit of Measure ml Administered By JACKELIN SELF JR, JR, MD-ORT Procedure Irrigation Last Modified By: JACKSON CERRATO RN 12/02/19 11:21:33 [facility] IntraOp Patient Positioning Entry 1 Procedure Knee Arthroscopy Body Position Supine Left Arm Position Secured on padded arm board Right Arm Position Secured on padded arm board Left Leg Position Uncrossed, parallel Right Leg Position Held on field Feet Uncrossed Yes Pressure Points Yes Checked Positioning Devices Arm Board, Safety Strap, Chest Device Position LATERAL POST FOR RIGHT THIGH Positioned By JACKSON CERRATO, CHARLIE, SHERYL SMITH, FARHEEN, JACKELIN SELF JR, JR, MD-ORT, Jerry Cheek, AIR CONDITIONING SHEET METAL INSTALLER/DIRECTOR OF MEDICAL REVIEW Position Verified Positioning Yes Verified by Anesthesia Positioning Yes Verified by Surgeon Last Modified By: JACKSON CERRATO RN 12/02/19 11:19:31 [facility] IntraOp Sign In Entry 1 Patient, Site, Yes Procedure Identified Surgical Consent Yes Confirmed Relevant Surgical Yes Documents Available Surgical Site Yes Marked by person performing procedure Anesthesia Machine Yes Check Completed Medication Checks Yes Completed Allergies Yes Airway Difficult Yes Airway/Aspiration Risk Difficult Yes Airway/Aspiration Intervention Equipment Available Blood Loss Risk No Blood Loss No Intervention Equipment Prepared and Ready Blood Identifiers Not applicable Verified Per Policy Hypothermia Risk No Warming Measures Yes Taken Last Modified By: JACKSON CERRATO RN 12/02/19 11:18:49 [facility] Intra Op Sign Out Entry 1 RN Confirmation Surgical Yes Procedure(s) Identified Instrument, Sponge Yes and Sharps Counts Correct/Documented Equipment Problems N/A Documented Specimen Labeled N/A Correctly Urinary Catheter N/A Documented in IView Castro Patient Yes Recovery Concerns Reviewed with Anesthesia Provider, Surgeon and RN Castro Patient Yes Management Concerns Reviewed with Anesthesia Provider, Surgeon and RN Safety Checklist Yes Elements Complete? RN Sign Out JACKSON CERRATO RN Signature RN Sign Out 12/02/19 11:36:00 Signature Date/Time Plan of Care Outcome - Fire Risk OUTCOME STATEMENT: Goal met Patient is free from injury related to surgical fire Plan of Care Outcome - Pt Positioning OUTCOME STATEMENT: Goal met Absence of signs and symptoms of positioning injury. Plan of Care Outcome - Skin Prep OUTCOME STATEMENT: Goal met Intraoperative care is consistent with measures to prevent infection Plan of Care Outcome - Xray/Images OUTCOME STATEMENT: Goal met Absence of observable signs or symptoms of radiation injury Plan of Care Outcome - Counts OUTCOME STATEMENT: Goal met Absence of signs and symptoms of injury related to extraneous objects Last Modified By: JACKSON CERRATO RN 12/02/19 11:36:38 [facility] Intra Op Sign Out Audit 12/02/19 11:36:38 Forming Department End Finder: LONGGA Modifier: LONGGA <+> 1 RN Sign Out Signature Date/Time [facility] IntraOp Skin Prep Entry 1 Procedure Knee Arthroscopy Prescribed Yes Pre-Surgical Prep Completed Prep Area RIGHT LEG Intraop Prep Integumentary WDL Assessment WDL Prep Agents Chloraprep Prep by JACKSON CERRATO RN Hair Removal Methods No hair removal performed Last Modified By: JACKSON CERRATO RN 12/02/19 10:43:22 [facility] IntraOp Surgical Procedures Entry 1 Procedure Knee Arthroscopy Additional RIGHT KNEE ARTHROSCOPY Procedure WITH PARTIAL MEDIAL Description MENISECTOMY; PERCUTANEOUS FIXACTION MEDIAL FEMORAL CONDYLE Primary Procedure Yes Primary Surgeon JACKELIN SELF JR, JR, MD-ORT Start 12/02/19 11:08:00 Stop 12/02/19 11:32:00 Anesthesia Type General Specialty SN Orthopedic Wound Class I - Clean Last Modified By: JACKSON CERRATO RN 12/02/19 11:35:51 [facility] IntraOp Surgical Procedures Audit 12/02/19 11:35:51 Forming Department End Finder: LONGGA Modifier: LONGGA <+> 1 Stop 12/02/19 11:12:47 Forming Department End Finder: LONGGA Modifier: LONGGA <+> 1 Start [facility] IntraOp Temp Regulation Devices Entry 1 Temp Regulation Temperature Warm blankets Regulation Device Temperature Upper body Regulation Site Temperature JACKSON CERRATO RN Regulation Device Applied by Last Modified By: JACKSON CERRATO RN 12/02/19 11:18:32 [facility] IntraOp Time Out Entry 1 Procedure to be Knee Arthroscopy Performed Time Out Time Out Pause Time 12/02/19 11:08:00 All activity Yes suspended (unless life threatening emergency) Team Verbally Correct patient Confirms Information identity, Correct side and site are marked, Consent form is present and accurate, Agreement on the procedure to be done, Correct patient position, Relevant images/results properly labeled/appropriately displayed, Confirm antibiotics have been administered, Confirm the skin prep has dried, Confirm prosthesis/implant/devic e is present, Performed in location of procedure after prepped/draped, Performed before each procedure if multiple procedures Antibiotic Yes Prophylaxis Administered Or In Progress Within the Last 60 Minutes Beta Yash N/A Administered Venous N/A Thromboembolism Prophylaxis Required Anticipated Critical Events Surgeon None expected Anesthesia Provider Patient specific concerns Nursing Assures Sterility of instruments, Equipment concerns or issues, Implant Availability Essential Imaging Yes Labeled and Displayed Last Modified By: JACKSON CERRATO RN 12/02/19 11:18:14 [facility] IntraOp Tourniquet Entry 1 Type Pneumatic Serial/Unit Number [id number] Setting 300 mmHg Pheumatic Yes Tourniquet Checked Per Protocol Size 34 inches Placement Thigh, right upper Skin Protection - Yes Padded Under Cuff Applied By Jerry Cheek, AIR CONDITIONING SHEET METAL INSTALLER/DIRECTOR OF MEDICAL REVIEW Removed By Jrery Cheek AIR CONDITIONING SHEET METAL INSTALLER/DIRECTOR OF MEDICAL REVIEW Times Start Time 12/02/19 11:15:00 Stop Time 12/02/19 11:30:00 Last Modified By: JACKSON CERRATO RN 12/02/19 11:30:25 [facility] IntraOp Tourniquet Audit 12/02/19 11:30:25 Forming Department End Finder: ELEUTERIO Modifier: LONGGA <+> 1 Stop Time [facility] IntraOp X-Ray and Images Entry 1 X-Ray/Imaging Type Fluoroscopy Site RIGHT KNEE Cardiac Care Nurse Name CLAUDIA MIRANDA Last Modified By: JACKSON CERRATO RN 12/02/19 11:14:42 Case Comments <None> Finalized By: JACKSON CERRATO, RN Document Signatures Signed By: JACKSON CERRATO RN 12/02/19 11:36 documented in this encounter Plan of Treatment Not on file documented as of this encounter Visit Diagnoses Not on filedocumented in this encounter
--- OUTSIDE RECORDS SUMMARY | 2024-11-19 11:11 | XMS_ITS | Encounter Summary ---
Author Organization [employer] Address [address] [place] [address] Care Team Providers Care Hydroelectric Component Machinist Name Role Phone Unavailable Primary Care Provider Unavailabl e Encounter Details Date Type Department Care Team (Late st Contact Info) Description 12/02/2019 Transcribed Document [facility] [address] [place] [address] Provider [facility] MD Jose A Social History Tobacco Use Types Packs/Day Years Used Date Smoking Tobacco: Never Assessed Sex and Gender Information Value Date Recorded Sex Assigned at Not on file Legal Sex Male 7:33 PM CDT Gender Identity Not on file Sexual Orientation Not on file documented as of this encounter Miscellaneous Notes * Cerner Conversion Note - [facility] Jose A Reese MD - 12/02/2019 2:04 PM EDT Event Note Entered On: 12/02/2019 13:05 EDT Performed On: 12/02/2019 13:04 EDT by Jamia Burnett RN Event Note Event Date/Time : 12/02/2019 13:04 EDT Description of Event : Pt was given crutches for use at home per request. Jamia Burnett RN - 12/02/2019 13:04 EDT documented in this encounter Plan of Treatment Not on file documented as of this encounter Visit Diagnoses Not on filedocumented in this encounter
--- OUTSIDE RECORDS SUMMARY | 2024-11-19 11:11 | XMS_ITS | Encounter Summary ---
Author Organization [employer] Address [address] [address] Care Team Providers Care Wheelman Name Role Phone Unavailable Primary Care Provider Unavailabl e Encounter Details Date Type Department Care Team (Late st Contact Info) Description 12/02/2019 Transcribed Document [facility] [address] [place] [address] Provider, patel Naranjo MD Social History Tobacco Use Types Packs/Day Years Used Date Smoking Tobacco: Never Assessed Sex and Gender Information Value Date Recorded Sex Assigned at Not on file Legal Sex Male 7:33 PM CDT Gender Identity Not on file Sexual Orientation Not on file documented as of this encounter Miscellaneous Notes * Cerner Conversion Note - [facility] Jose A Reese MD - 12/02/2019 11:00 AM EDT Pre Procedure Adult Entered On: 12/02/2019 10:07 EDT Performed On: 12/02/2019 10:00 EDT by Juju Kirkland RN Height and Weight, Clinical Dosing Height Source : Stated Height Entry Format : [place] Height, Feet : 6 ft(Converted to: 183 cm, 72 Inch) Height, Inches : 1 Inch(Converted to: 0 ft 1 Inch, 2.54 cm) Clinical Height : 185.42 cm Weight Source : Standing scale Weight Entry Format : [place] Clinical Dosing Weight : 89 kg Weight, Pounds : 195.8 lb Body Surface Area (BSA) : 2.13 m2 Body Mass Index : 25.9 kg/m2 (HI) [place] Body Weight : 79 kg Juju Kirkland RN - 12/02/2019 10:00 EDT Health Histories Smoking Status : Never (less than 100 in lifetime; none in last 30 days) Smokeless Tobacco Status : Never Juju Kirkland RN - 12/02/2019 10:00 EDT Social History (As Of: 12/02/2019 10:07:40 EDT) Tobacco: Smoking Status Never smoker. No Smokeless Tobacco Use in Last 30 Days. (Last Updated: 09/13/2015 06:26:51 EDT by Lulu Self RN) Alcohol: Alcohol Use History Yes. Alcohol Use Comment beer/wine ocassionally. (Last Updated: 09/12/2015 08:32:29 EDT by BARRY JEAN RN) Substance Abuse: Drug Use Hx: No. Use in Last 12 Months: No. (Last Updated: 09/12/2015 08:33:30 EDT by BARRY JEAN RN) Home/Environment: Lives with Spouse. (Last Updated: 09/12/2015 08:33:01 EDT by BARRY JEAN RN) Infectious Disease History Has the patient ever been tested for COVID-19? : Yes, Patient stated results Negative COVID19 Screening : Unknown Experiencing Infectious Disease Symptoms : No symptoms Physical contact outside [place] in the last 30 days : No Infectious Disease Symptoms Score : 0 Infectious Disease History : Chicken pox/Shingles, Influenza Tuberculosis Symptoms : None Juju Kirkland RN - 12/02/2019 10:00 EDT COVID19 PreProcedure Screening Is this an Emergent or Add on Procedure? : No Has patient been isolated since the test : Yes Exposed to COVID19 symptoms since test? : No Juju Kirkland RN - 12/02/2019 10:00 EDT Anesthesia/Transfusion History Family History of Anesthesia Reaction : No prior transfusion(s) Transfusion History : Prior anesthesia without reaction Family History of Anesthesia Reaction : Other: Patients mother had LINDA after taking morphine. Juju Kirkland RN - 12/02/2019 10:00 EDT Functional Assessment Living Situation : Home Patient Lives With : Spouse PAMELA Hx Falls Immediate/Within 3 Months : No Current Home Treatments : Blood glucose monitoring Juju Kirkland RN - 12/02/2019 10:00 EDT [place] Suicide Severity Rating Scale (C-SSRS) CSSRS Past Month Wish to be : No CSSRS Past Month Suicidal Thoughts : No CSSRS Lifetime Suicide Behavior : No Suicide Severity Rating Score : 0 Suicide Severity Rating : No Additional Care Required at this time Juju Kirkland RN - 12/02/2019 10:00 EDT Psychosocial History Do You Have a History of the Following? : Patient denies history Currently in Unsafe Situation : No Juju Kirkland RN - 12/02/2019 10:00 EDT Advance Directive Patient has Advance Directive *Q : No, patient refuses Advance Directive information Juju Kirkland RN - 12/02/2019 10:00 EDT Spiritual/Cultural Needs Any Spiritual/Cultural Needs or Requests : Juju Baumann RN - 12/02/2019 10:00 EDT Teaching/Learning Assessment Barriers To Learning : None evident Individuals Taught : Patient Readiness to Learn : Cooperative Baseline Knowledge of Topic : Good Readiness to Learn : Explanation Learning Style Preferences Patient : Verbal explanation Learning Style Preferences Family : Verbal explanation Juju Kirkland RN - 12/02/2019 10:00 EDT Education Topics, Periop Preadmission Perioperative Education Grid Infection Control : Verbalizes understanding IV's : Verbalizes understanding NPO Status/Directions : Verbalizes understanding Pain Management : Verbalizes understanding Postoperative Care Preparations : Verbalizes understanding Juju Kirkland RN - 12/02/2019 10:00 EDT General Info Preferred Name : evangelina Meza Family/Rep/Phys Notified of Admit : No Emergency Contact #1 : Marty Emergency Contact #1 Emergency Contact #1 Relationship : Emergency Contact #2 : . Emergency Contact #2 Phone Number : . Emergency Contact #2 Relationship : . Primary Language : Lao Communication Barrier : None Street Light Inspector Needed : Juju Baumann RN - 12/02/2019 10:00 EDT Vital Measurements Temperature Source : Temporal artery scanning Temperature, Fahrenheit : 97.4 Deg F Clinical Temperature, C : 36.3 Deg C Peripheral Pulse Rate : 51 bpm (LOW) Pulse Rhythm : Regular Respiratory Rate : 16 Breaths/Min Systolic Blood Pressure : 159 mmHg (HI) Diastolic Blood Pressure : 86 mmHg Oxygen Saturation : 100 % Oxygen Therapy Mode : Room air Juju Kirkland RN - 12/02/2019 10:00 EDT Sleep Apnea Risk Assmt Hx of Obstructive Sleep Apnea Diagnosis : No Snore Loudly : No Tired, Fatigued, or Sleepy During Day : No Observed Stopping Breathing During Sleep : No Have/Are Being Treated for Hypertension : Yes BMI Greater Than 35 kg/m2 : No Age over 50 Years Old : Yes Neck Circumference Greater Than 40 cm : No Gender Male : Yes STOP-BANG Sleep Apnea Risk Level Score : 3 Juju Kirkland RN - 12/02/2019 10:00 EDT Lorenzo Scale Lorenzo Sensory Perception : No impairment Lorenzo Moisture : Rarely moist Lorenzo Activity : Walks frequently Lorenzo Mobility : No limitation Lorenzo Nutrition : Excellent Lorenzo Friction and Shear : No apparent problem Lorenzo Score : 23 Juju Kirkland RN - 12/02/2019 10:00 EDT Oxygen Therapy Oxygen Therapy Mode : Room air Juju Kirkland RN - 12/02/2019 10:00 EDT Pain Assessment Pain Assessment : Initial assessment Pain Scale Used : 0-10 Scale Juuj Kirkland RN - 12/02/2019 10:00 EDT Fall Risk Scales ABCs Fall Injury Risk Identification : None SANTIAGO Hx Falls Immediate/Within 3 Months : No Santiago Secondary Diagnosis : No SANTIAGO Use of Ambulatory Aid : None SANTIAGO IV Therapy or IV Access : Yes Pamela Gait/Transferring : Normal, bedrest, immobile Santiago Mental Status : Oriented to own ability Santiago Fall Risk Score : 20 SANTIAGO Fall Scale Risk Level : 0-24 Low Risk [place] Fall Interventions : Assistive devices within reach, Call device within reach, Frequent orientation to call device, Frequent orientation to surroundings Juju Kirkland RN - 12/02/2019 10:00 EDT Education Topics, Day of Surgery DayofSurgery Education Grid Incentive Spirometry : Verbalizes understanding Infection Control : Verbalizes understanding Infection Risks : Verbalizes understanding IV's : Verbalizes understanding Medication Instructions : Verbalizes understanding Juju Kirkland RN - 12/02/2019 10:00 EDT Valuables and Belongings Valuables and Belongings : Clothing, Personal devices, Personal items Clothing : Common streetwear Clothing Disposition : Sent to locker Personal Device Disposition : Sent to locker Personal Devices : Glasses Personal Items : Cell phone, Wallet Personal Items Disposition : Sent to locker Juju Kirkland RN - 12/02/2019 10:00 EDT Pain Scale Intensity : 0 Juju Kirkland RN - 12/02/2019 10:00 EDT Image 4 - Images currently included in the form version of this document have not been included in the text rendition version of the form. Shiraz Coma [place] Best Motor Response : Obey commands [place] Best Verbal Response : Oriented [place] Eye Opening Response : Spontaneous [place] Coma Score : 15 Juju Kirkland RN - 12/02/2019 10:00 EDT documented in this encounter Plan of Treatment Not on file documented as of this encounter Visit Diagnoses Not on filedocumented in this encounter
--- OUTSIDE RECORDS SUMMARY | 2024-11-19 11:11 | XMS_ITS | Encounter Summary ---
Author Organization [email or web address] Address [address] [address] Care Team Providers Care Mail Delivery Supervisor Name Role Phone Unavailable Primary Care Provider Unavailabl e Encounter Details Date Type Department Care Team (Late st Contact Info) Description 12/03/2019 Transcribed Document [facility] [address] [place] [address] Provider, patel Naranjo MD Social History Tobacco Use Types Packs/Day Years Used Date Smoking Tobacco: Never Assessed Sex and Gender Information Value Date Recorded Sex Assigned at Not on file Legal Sex Male 7:33 PM CDT Gender Identity Not on file Sexual Orientation Not on file documented as of this encounter Miscellaneous Notes * Cerner Conversion Note - [facility] [place] Jose A Reese MD - 12/03/2019 8:56 AM EDT DATE OF PROCEDURE: 12/02/2019 SURGEON: Clement Espinoza Jr, MD PREOPERATIVE DIAGNOSES: 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 OPERATION: Right knee arthroscopy, partial medial meniscectomy with chondroplasty of the patellofemoral joint and medial femoral condyle. Primary procedure is percutaneous fixation of medial condylar insufficiency fracture with 3.5 mL of calcium phosphate implant percutaneously under fluoro control. ANESTHESIA: General, regional. COMPLICATIONS: None. BLOOD LOSS: Minimal. DESCRIPTION OF PROCEDURE: Patient was taken to the operating room, placed in supine position. General anesthesia was obtained. IV antibiotics given. Time-out observed. After elevation of the tourniquet, fluoro was brought into position and based on the patient's preoperative MRI, which was reviewed in the case to identify the location of the insufficiency fracture of the medial femoral condyle. We placed the cannula under fluoro control into the area of the insufficiency fracture in the midpoint of the condyle both in AP and lateral projections. We then placed a 3.5 mL calcium phosphate to fill the condyle and provide fixation to the fracture, was allowed to harden for 8 minutes and then the cannula removed. We then placed a medial and lateral portals at the joint line and a complete arthroscopic examination showed no extravasation of calcium phosphate into the joint. We did note advanced chondromalacia of the patellofemoral joint grade 3 changes over about 60% of the articular surface area. These were debrided to a smooth surface with the shaver. The ACL and PCL were normal. The lateral compartment showed normal articular cartilage. The medial compartment showed fairly advanced anterior medial wear and the cartilage flaps were debrided to smooth surface with the shaver posteriorly. There was a small meniscus tear, but the articular cartilage and meniscus posterior horn was otherwise in good condition. Most of the cartilage wear in the medial femoral condyle was located anteromedially with a small area of full-thickness cartilage loss noted about 1 x 1 cm. After debridement was completed, the knee was irrigated. Portals were closed with nylon suture. Sterile dressing, ice pack, and transferred the patient to recovery in good condition. Postop protocol will be full weightbearing. Full range of motion. PT will start 2 times a week for the 1st week postop. /[id number] MD VANGIE Ríos Jr/DONNY / VANGIE / MODL /[id number] documented in this encounter Plan of Treatment Not on file documented as of this encounter Visit Diagnoses Not on filedocumented in this encounter
--- OUTSIDE RECORDS SUMMARY | 2024-11-19 11:11 | XMS_ITS | Clinical Summary ---
Author Organization [facility] Address [address] [place] [address] Phone Care Team Providers Care Resaw Machine Operator Name Role Phone Unavailable Primary Care Provider Unavailabl e Allergies Active Allergy Reactions Criticality Noted Date Comments Morphine 08/08/2014 Medications BENAZEPRIL HCL (LOTENSIN ORAL) Take by mouth. Active METFORMIN HCL (METFORMIN ORAL) Take by mouth. Active SITAGLIPTIN PHOSPHATE (JANUVIA ORAL) Take by mouth. Active PIOGLITAZONE HCL (ACTOS ORAL) Take by mouth. Active ROSUVASTATIN CALCIUM (CRESTOR ORAL) Take by mouth. Active Social History Tobacco Use Types Packs/Day Years Used Date Smoking Tobacco: Never Sex and Gender Information Value Date Recorded Sex Assigned at Not on file Legal Sex Male 11:47 AM EDT Gender Identity Not on file Sexual Orientation Not on file Obstetrics History Last Filed Vital Signs Vital Sign Reading Time Taken Comments Blood Pressure 139/85 08/08/2014 12:02 PM EDT Pulse 87 08/08/2014 12:02 PM EDT Temperature 36.6 C (97.9 F) 08/08/2014 12:02 PM EDT Respiratory Rate 21 08/08/2014 12:02 PM EDT Oxygen Saturation 95% 08/08/2014 12:02 PM EDT Inhaled Oxygen Concentration - - Weight - - Height - - Body Mass Index - - Plan of Treatment Health Maintenance Due Date Last Done Comments Annual Wellness Exam 1962 Hepatitis C Screening 1977 DTaP/TDaP/Td (1 - Tdap) 1978 Cologuard 2004 Colon Cancer Screening 2004 Colonoscopy 2004 FIT 2004 Sigmoidoscopy 2004 Virtual Colonography 2004 Pneumococcal Vaccine 50+ (1 of 1 - PCV) 2009 Zoster (1 of 2) 2009 COVID-19 Vaccine (1 - 2023-2 5 season) 2024 Influenza Vaccine (Season Ended) 2025 Hepatitis B Vaccine Aged Out No longe r eligible based on patient's age to complete this topic Meningococcal B Vaccine Aged Out No l onger eligible based on patient's age to complete this topic Insurance ANTHEM PPO [facility] [place], [place] [id number] [employer]
--- OUTSIDE RECORDS SUMMARY | 2024-11-19 11:11 | XMS_ITS | Clinical Summary ---
Author Organization [employer] Address [address] [address] Care Team Providers Care Group Account Director Name Role Phone Unavailable Primary Care Provider [...] Date Scott rded Speak language other than [place] at home Not on file 01/23/2024 Want [...] Orientation Not on file Plan of Treatment Health Maintenance Due Date Last Done Comments CT Colonography 1959 Colonoscopy 1959 Colorectal Cancer Screening 1959 FOBT/FIT 1959 Fit-DNA (Cologuard) 1959 Sigmoidoscopy 1959 Depression Screening (12+) 1971 Tobacco Cessation Counseling and Screening (12+) 1971 HIV Screening 1974 Hepatitis C Screening 1977 Lipid Panel 1994 Pneumococcal 50+ years (2 of 2 - PCV) 06/19/2022 06/19/2021, 05/23/2017 COVID-19 VACCINE (5 - 2023-2 5 season) 2024 05/30/2022, 04/27/2021, 08/19/2020, Additional history exists Falls Risk Screening 05/27/2024 Influenza Vaccine (Season Ended) 2025 05/30/19 23, 05/23/2017 DTAP/TDAP/TD VACCINES (4 - T d or Tdap) 01/25/2029 01/25/2019, 11/12/2018, 06/27/2011 Respiratory Syncytial Virus (RSV) Adult or (1 - 1-dose 75+ series) 2034 Shingles Vaccine (Zoster) Completed 06/19/2021, 04/2021 Insurance [facility] CHOICE PLUS
[2024-11-19 11:30] LABS: Basophils # 0.1 K/mm3 (0-0.2); Basophils % 0.4 % (0.1-2.0); Eosinophils # 0.2 Kmm3 (0.0-0.4); Eosinophils % 1.7 % (0.1-12.0); Hemoglobin 11.9 g/dL (14.1-18.0); Immature Granulocytes # 0.05 10^3uL; Immature Granulocytes % 0.4 %; Lymphocytes # 4.1 K/mm3 (0.7-4.5); Lymphocytes % 32.7 % (10-50); Mean Corpuscular HGB Conc 32.2 g/dL (31.8-35.4); Mean Corpuscular Volume 83.9 fl (80-94); Monocytes # 0.6 K/mm3 (0.1-1.0); Monocytes % 4.5 % (1.7-9.3); Neutrophils # 7.6 K/mm3 (1.8-7.8); Neutrophils % 60.3 % (37.0-80.0); Nucleated Red Blood Cells # 0 10^3/uL; Nucleated Red Blood Cells % 0 %; Platelet Count 463 K/mm3 (142-424); Red Blood Count 4.41 M/mm3 (4.60-6.20); Red Cell Distribution Width 14.5 % (11.5-17.5); White Blood Count 12.6 K/mm3 (4.8-10.8)
[2024-11-19 11:42] LABS: D-Dimer 0.65 ug/mL (0.0-0.5)
[2024-11-19 12:30] LABS: Magnesium 1.4 mg/dl (1.6-2.3)
== END 2024-11-19 23:59 | disposition home or self-care (01) ==
LOC: LAB 11:00
PROVIDERS: PCP Nurse Practitioner Family; Visit Provider Nurse Practitioner Family
DX: E83.42 Hypomagnesemia (principal); I49.9 Cardiac arrhythmia, unspecified; R06.00 Dyspnea, unspecified
CPT/HCPCS: 36415; 71046; 83735; 85025; 85378

== ENCOUNTER 2024-11-23 07:27 | Outpatient (CLI) | payer MEDICARE, SELFPAY ==
--- OUTSIDE RECORDS SUMMARY | 2024-11-23 07:30 | XMS_ITS | Encounter Summary ---
Author Organization [employer] Address [address] [address] Care Team Providers Care Director Staffing Name Role Phone Unavailable Primary Care Provider Unavailabl e Encounter Details Date Type Department Care Team (Late st Contact Info) Description 12/02/2019 Transcribed Document [facility] 1 [place] [address] Provider, [facility] MD Jose A Social History Tobacco Use Types Packs/Day Years Used Date Smoking Tobacco: Never Assessed Sex and Gender Information Value Date Recorded Sex Assigned at Not on file Legal Sex Male 7:33 PM CDT Gender Identity Not on file Sexual Orientation Not on file documented as of this encounter Miscellaneous Notes * Cerner Conversion Note - [facility] Jose A Reese MD - 12/02/2019 1:54 PM EDT [address] [address] JEFF CARSON :1960 Visit Time:12/02/2019 [...] 09:45 AM EDT Comments follow up in [place] office Where: richard Herzog Medications What How [...] activities are safe for you. ??? Take eqhr-tyx-ufxbsyf and prescription medicines only as told by [...] 08/19/2001 Document Revised: 12/27/2017 Document Reviewed: 12/27/2017 Free & Clear Interactive Patient Education ?? 2020 Whatever. General Anesthesia, Adult, Care After This sheet [...] activities are safe for you. ??? Take tzkx-foi-syditoh and prescription medicines only as told by [...] 08/19/2001 Document Revised: 12/27/2017 Document Reviewed: 12/27/2017 Free & Clear Interactive Patient Education ?? 2020 Whatever. Knee Arthroscopy, Care After This sheet gives [...] and water are not available, use hand jewelry engraver. ? Change your dressing as told by [...] medicines you take. General instructions ??? Take azwr-tgv-fnaupwk and prescription medicines only as told by [...] fried or sweet foods. ? Take an aoeq-aei-isbupop or prescription medicines for constipation. ??? Do [...] 11/30/2005 Document Revised: 03/26/2018 Document Reviewed: 03/26/2018 Free & Clear Interactive Patient Education ?? 2020 Whatever. tramadol (TRAM a dol) Ness, Ultram, Ultram [...] extended-release form of this medicine is for wstmce-aro-hpgpc treatment of pain. This form of tramadol [...] against the law. Stop taking all other pxgrbg-nsw-eplvs narcotic pain medications when you start taking [...] may report side effects to FDA at 9-423-VJM-4709. What other drugs will affect tramadol? You [...] may affect tramadol. This includes prescription and vuls-yvz-duufuln medicines, vitamins, and herbal products. Not all [...] to ensure that the information provided by [employer]. ('[employer]') is accurate, up-to-date, and complete, but no guarantee is made to that effect. Drug information contained herein may be time sensitive. [employer] information has been compiled for use by healthcare practitioners and consumers in the [place] and therefore [employer] does not warrant that uses outside of the [place] are appropriate, unless specifically indicated otherwise. [employer] drug information does not endorse drugs, diagnose patients or recommend therapy. [employer] drug information is an informational resource designed [...] effective or appropriate for any given patient. [facility] does not assume any responsibility for any aspect of healthcare administered with the aid of information [employer] provides. The information contained herein is not intended to cover all possible uses, directions, precautions, warnings, drug interactions, allergic reactions, or adverse effects. If you have questions about the drugs you are taking, check with your doctor, nurse or pharmacist. Copyright 8869-0818 [employer]. Version: 20.03. Revision Date: 07/10/2019. oxycodone (ox [...] The extended-release form of oxycodone is for qmwkft-wec-lbscg treatment of pain and should not be [...] against the law. Stop taking all other hnczfs-ygg-zcvvy narcotic pain medicines when you start taking [...] may report side effects to FDA at 8-283-ZTM-3398. What other drugs will affect oxycodone? You [...] may affect oxycodone. This includes prescription and ogbs-dlw-hpmnaab medicines, vitamins, and herbal products. Not all [...] to ensure that the information provided by [employer]. ('[employer]') is accurate, up-to-date, and complete, but no guarantee is made to that effect. Drug information contained herein may be time sensitive. [employer] information has been compiled for use by healthcare practitioners and consumers in the [place] and therefore [employer] does not warrant that uses outside of the [place] are appropriate, unless specifically indicated otherwise. [employer] drug information does not endorse drugs, diagnose patients or recommend therapy. [employer] drug information is an informational resource designed [...] effective or appropriate for any given patient. [employer] [facility] does not assume any responsibility for any aspect of healthcare administered with the aid of information [employer] provides. The information contained herein is not intended to cover all possible uses, directions, precautions, warnings, drug interactions, allergic reactions, or adverse effects. If you have questions about the drugs you are taking, check with your doctor, nurse or pharmacist. Copyright 7222-7402 [employer]. Version: 13.03. Revision Date: 03/09/2019. oxycodone (ox [...] The extended-release form of oxycodone is for jpihxb-mzn-tpawb treatment of pain and should not be [...] against the law. Stop taking all other znilns-yab-bdqub narcotic pain medicines when you start taking [...] may report side effects to FDA at 7-977-QPZ-4278. What other drugs will affect oxycodone? You [...] may affect oxycodone. This includes prescription and larv-oca-tacxjqs medicines, vitamins, and herbal products. Not all [...] to ensure that the information provided by [employer]. ('[employer]') is accurate, up-to-date, and complete, but no guarantee is made to that effect. Drug information contained herein may be time sensitive. [employer] information has been compiled for use by healthcare practitioners and consumers in the [place] and therefore [employer] does not warrant that uses outside of the [place] are appropriate, unless specifically indicated otherwise. [employer] drug information does not endorse drugs, diagnose patients or recommend therapy. [employer] drug information is an informational resource designed [...] effective or appropriate for any given patient. [employer] does not assume any responsibility for any aspect of healthcare administered with the aid of information [employer] provides. The information contained herein is not intended to cover all possible uses, directions, precautions, warnings, drug interactions, allergic reactions, or adverse effects. If you have questions about the drugs you are taking, check with your doctor, nurse or pharmacist. Copyright 3473-8101 [employer]. Version: 13.03. Revision Date: 03/09/2019. tramadol (TRAM [...] extended-release form of this medicine is for bkxrze-mnm-hjvih treatment of pain. This form of tramadol [...] against the law. Stop taking all other hbfbld-uyf-ayzvi narcotic pain medications when you start taking [...] may report side effects to FDA at 7-592-KQI-7151. What other drugs will affect tramadol? You [...] may affect tramadol. This includes prescription and exnc-xzi-iobioei medicines, vitamins, and herbal products. Not all [...] to ensure that the information provided by [employer]. ('[employer]') is accurate, up-to-date, and complete, but no guarantee is made to that effect. Drug information contained herein may be time sensitive. [employer] information has been compiled for use by healthcare practitioners and consumers in the [place] and therefore [employer] does not warrant that uses outside of the [place] are appropriate, unless specifically indicated otherwise. [employer] drug information does not endorse drugs, diagnose patients or recommend therapy. [employer] drug information is an informational resource designed [...] effective or appropriate for any given patient. [employer] [facility] does not assume any responsibility for any aspect of healthcare administered with the aid of information [employer] provides. The information contained herein is not intended to cover all possible uses, directions, precautions, warnings, drug interactions, allergic reactions, or adverse effects. If you have questions about the drugs you are taking, check with your doctor, nurse or pharmacist. Copyright 6345-7577 [employer]. Version: 20.03. Revision Date: 07/10/2019. Emergency Awareness [...] Assistance with quitting is available by contacting 5-106-KTVUNOW. This is a free resource providing counseling, support, and referral. Or you may contact your personal physician. [facility]: The National Suicide Prevention Lifeline is [...]
--- OUTSIDE RECORDS SUMMARY | 2024-11-23 07:30 | XMS_ITS | Encounter Summary ---
Author Organization [employer] Address [address] [address] Care Team Providers Care Elementary Principal Name Role Phone Unavailable Primary Care Provider Unavailabl e Reason for Referral * MRI (Routine) - New Request Specialty Diagnoses / Procedures Referred By Contac t Referred To Contact Radiology Diagnoses Elevated prostate specific antigen (PSA) Procedures MR pelvis without & with IV contrast Rosas, Provider Not In The System, [place] [address] Referral ID Status Reason Start Date Expiration Date V isits Requested Visits Authorized [id number] New Request 01/22/2024 01/21/2025 1 1 Encounter Details Date Type Department Care Team (Late st Contact Info) Description 01/22/2024 Outside Orders [facility] Central Scheduling 1 [place] [id number] Rosas, Provider Not In The System, [place] [address] Elevated prostate specific antigen (PSA) (Primary Dx) Social History Tobacco Use Types Packs/Day Years Used Date Smoking Tobacco: Never Assessed Food Insecurity Answer Date Recorded Food run [...] Date Scott rded Speak language other than French at home Not on file 01/23/2024 Want help with school or training Not on file 01/23/2024 Substance Use Answer Date Recorded Used [...]
--- OUTSIDE RECORDS SUMMARY | 2024-11-23 07:30 | XMS_ITS | Encounter Summary ---
Author Organization [employer] Address [address] [address] Care Team Providers Care Airplane Dispatcher Name Role Phone Unavailable Primary Care Provider Unavailabl e Encounter Details Date Type Department Care Team (Late st Contact Info) Description 12/02/2019 Transcribed Document [facility] 1 [place] [address] Provider, patel Naranjo MD Social History Tobacco Use Types Packs/Day Years Used Date Smoking Tobacco: Never Assessed Sex and Gender Information Value Date Recorded Sex Assigned at Not on file Legal Sex Male 7:33 PM CDT Gender Identity Not on file Sexual Orientation Not on file documented as of this encounter Miscellaneous Notes * Cerner Conversion Note - [facility] Jose A ProviderMD - 12/02/2019 12:08 PM EDT Jillian Main OR PACU Summary Primary Physician: JACKELIN SELF JR, JR, MD-ORT Finalized Date/Time: 12/02/19 12:51:19 Pt. Name: JEFF CARSONO.B./Sex: 1960 Male Med Rec #: [id number] Physician: JACKELIN SELF JR, JR, MD-ORT Financial #: [id number] Pt. Type: O Room/Bed: Admit/Disch: 12/02/19 09:17:00 - Institution: [facility] [place] Main OR PACU Case Times Entry 1 In PACU I 12/02/19 11:38:00 Ready for PACU 12/02/19 12:45:00 Discharge Discharge from PACU 12/02/19 12:45:00 I Last Modified By: EARL Berger 12/02/19 12:51:10 [facility] Main OR PACU Case Times Audit 12/02/19 12:51:10 Superintendent Generating Plant: SHABNAM Modifier: SHABNAM 1 <*> Ready for PACU Discharge 12/02/19 12:08:00 1 <+> Discharge from PACU I Finalized By: EARL Berger Document Signatures Signed By: EARL Berger 12/02/19 12:51 Electronically signed by Juan Francisco Miller Conversion Supervisor [employer] at 10/17/2022 12:35 PM CDT documented in this encounter Plan of Treatment Not on file documented as of this encounter Visit Diagnoses Not on filedocumented in this encounter
--- OUTSIDE RECORDS SUMMARY | 2024-11-23 07:30 | XMS_ITS | Encounter Summary ---
Author Organization [employer] Address [address] [address] Care Team Providers Care Skin Installer Name Role Phone Unavailable Primary Care Provider Unavailabl e Reason for Referral * MRI (Routine) - Closed Specialty Diagnoses / Procedures Referred By Waldo bell Referred To Contact Radiology Diagnoses Elevated prostate specific antigen (PSA) Procedures MR prostate without & with IV contrast Aurelio Herrera MD [address] [place] [address] Phone: tel: fax: Referral ID Status Reason Start Date Expiration Date Visits Re quested Visits Authorized [id number] Closed 01/23/2024 01/22/2025 1 1 Encounter Details Date Type Department Care Team (Late st Contact Info) Description 01/23/2024 Outside Orders [facility] Central Scheduling 1 [place] [address] Aurelio Herrera MD [address] [place] [address] Elevated prostate specific antigen (PSA) [...] Date Scott rded Speak language other than Northern Irish at home Not on file 01/23/2024 Want [...] protocol. The images were reviewed on the [employer] CAD workstation. The prostate measures 5.2 x [...] 3 lesions and were localized on the [employer] CAD software. TRANSITION ZONE: The transition zone [...] protocol. The images were reviewed on the [employer] CAD workstation. The prostate measures 5.2 x [...] interpreted, and dictated by Santino Helton MD Aurelio Herrera MD IMG MRI ORDERABLES Final Result documented in this encounter Visit Diagnoses Diagnosis Elevated prostate specific antigen (PSA)- Primary Elevated prostate specific antigen (PSA) documented in this encounter
--- OUTSIDE RECORDS SUMMARY | 2024-11-23 07:30 | XMS_ITS | Referral Summary ---
Author Organization [employer] Address [address] [address] Care Team Providers Care Ultrasound Applications Specialist Name Role Phone Unavailable Primary Care Provider [...] Date Scott rded Speak language other than Bahraini at home Not on file 01/23/2024 Want [...] Plan of Treatment Not on file Insurance [facility] CHOICE PLUS
--- OUTSIDE RECORDS SUMMARY | 2024-11-23 07:31 | XMS_ITS | Encounter Summary ---
Author Organization [employer] Address [address] [address] Care Team Providers Care Fabricator Assembler Metal Products Name Role Phone Unavailable Primary Care Provider Unavailabl e Encounter Details Date Type Department Care Team (Late st Contact Info) Description 12/02/2019 Transcribed Document [facility] 1 [place] [address] Provider, patel Naranjo MD Social [...] Joseph Jose A Reese MD - 12/02/2019 11:00 AM EDT Pre Procedure Adult Entered On: 12/02/2019 10:07 EDT Performed On: 12/02/2019 10:00 EDT by Juju Kirkland RN Height and Weight, Clinical Dosing Height Source : Stated Height Entry Format : [place] Height, Feet : 6 ft(Converted to: 183 cm, 72 Inch) Height, Inches : 1 Inch(Converted to: 0 ft 1 Inch, 2.54 cm) Clinical Height : 185.42 cm Weight Source : Standing scale Weight Entry Format : [place] Clinical Dosing Weight : 89 kg Weight, Pounds : 195.8 lb Body Surface Area (BSA) : 2.13 m2 Body Mass Index : 25.9 kg/m2 (HI) [place] Body Weight : 79 kg Juju Kirkland [...] Juju Kirkland RN - 12/02/2019 10:00 EDT [place] Suicide Severity Rating Scale (C-SSRS) CSSRS Past [...] #2 Relationship : . Primary Language : Syrian Communication Barrier : None Staff Occupational Therapist Needed : Juju Baumann RN - 12/02/2019 [...] assessment Pain Scale Used : 0-10 Scale Juju Kirkland RN - 12/02/2019 10:00 EDT Fall [...] Scale Risk Level : 0-24 Low Risk [place] Fall Interventions : Assistive devices within reach, [...] rendition version of the form. Shiraz Coma Mamou Best Motor Response : Obey commands Shiraz Best Verbal Response : Oriented Mamou Eye Opening Response : Spontaneous Shiraz Coma Score : 15 Juju Kirkland RN - 12/02/2019 10:00 EDT documented in this encounter Plan of Treatment Not on file documented as of this encounter Visit Diagnoses Not on filedocumented in this encounter
--- OUTSIDE RECORDS SUMMARY | 2024-11-23 07:31 | XMS_ITS | Clinical Summary ---
Author Organization [facility] Address [address] [place] [address] Phone Care Team Providers Care Crib Tender Name Role Phone Unavailable Primary Care Provider [...] to complete this topic Insurance ANTHEM PPO [facility] [place], [place] [id number] GENERIC WORK[employer]' COMP
--- OUTSIDE RECORDS SUMMARY | 2024-11-23 07:31 | XMS_ITS | Encounter Summary ---
Author Organization [employer] Address [address] [address] Care Team Providers Care Shovel Logger Name Role Phone Unavailable Primary Care Provider Unavailabl e Encounter Details Date Type Department Care Team (Late st Contact Info) Description 12/02/2019 Transcribed Document [facility] 1 [place] [address] Provider, patel Naranjo MD Social History Tobacco Use Types Packs/Day Years Used Date Smoking Tobacco: Never Assessed Sex and Gender Information Value Date Recorded Sex Assigned at Not on file Legal Sex Male 7:33 PM CDT Gender Identity Not on file Sexual Orientation Not on file documented as of this encounter Miscellaneous Notes * Cerner Conversion Note - [facility] Jose A Reese MD - 12/02/2019 12:08 PM EDT ANTO[facility] Main OR PostOp Summary Primary Physician: JACKELIN SELF JR, JR, MD-ORT Finalized Date/Time: 12/02/19 13:24:35 Pt. Name: JEFF CARSON.O.B./Sex: 1960 Male Med Rec #: [id number] Physician: JACKELIN SELF JR, JR, MD-ORT Financial #: [id number] Pt. Type: O Room/Bed: Admit/Disch: 12/02/19 09:17:00 - Institution: [facility] [place] Main OR PostOp Case Times Entry 1 In PACU II 12/02/19 12:50:00 Ready for PACU II 12/02/19 13:19:00 Discharge Discharge from PACU 12/02/19 13:19:00 II Last Modified By: Carli Palomo RN 12/02/19 13:24:26 [facility] Main OR PostOp Case Times Audit 12/02/19 13:24:26 Business Excellence Manager: SXPOWERS Modifier: SXPOWERS <+> 1 Ready for PACU II Discharge <+> 1 Discharge from PACU II Finalized By: Carli Palomo RN Document Signatures Signed By: Carli Palomo RN 12/02/19 13:24 documented in this encounter Plan of Treatment Not on file documented as of this encounter Visit Diagnoses Not on filedocumented in this encounter
--- OUTSIDE RECORDS SUMMARY | 2024-11-23 07:31 | XMS_ITS | Encounter Summary ---
Author Organization [employer] Address [address] [address] Care Team Providers Care Wood Filler Name Role Phone Unavailable Primary Care Provider Unavailabl e Encounter Details Date Type Department Care Team (Late st Contact Info) Description 12/02/2019 Transcribed Document [facility] 1 [place] [address] Provider, Rosas Naranjo MD Social [...] activities are safe for you. ??? Take fvkc-jfu-uhcstwp and prescription medicines only as told by [...] 08/19/2001 Document Revised: 12/27/2017 Document Reviewed: 12/27/2017 [employer] Interactive Patient Education ? 2020 Legend[employer]D. General Anesthesia, Adult, Care After This sheet [...] activities are safe for you. ??? Take wvnv-ocq-zaoukzf and prescription medicines only as told by [...] 08/19/2001 Document Revised: 12/27/2017 Document Reviewed: 12/27/2017 [employer] Interactive Patient Education ? 2020 [employer]. Knee Arthroscopy, Care After This sheet gives [...] and water are not available, use hand collection systems administrator. ? Change your dressing as told by [...] medicines you take. General instructions ??? Take seyp-puf-lzonnol and prescription medicines only as told by [...] fried or sweet foods. ? Take an kcup-dir-uatjavv or prescription medicines for constipation. ??? Do [...] 11/30/2005 Document Revised: 03/26/2018 Document Reviewed: 03/26/2018 [employer] Interactive Patient Education ? 2020 Legend[employer]D. documented in this encounter Plan of Treatment Not on file documented as of this encounter Visit Diagnoses Not on filedocumented in this encounter
--- OUTSIDE RECORDS SUMMARY | 2024-11-23 07:31 | XMS_ITS | Clinical Summary ---
Author Organization [employer] Address [address] [address] Care Team Providers Care Balance Truing Inspector Name Role Phone Unavailable Primary Care Provider [...] Date Scott rded Speak language other than Bangladeshi at home Not on file 01/23/2024 Want [...] Shingles Vaccine (Zoster) Completed 06/19/2021, 04/2021 Insurance [facility] CHOICE PLUS
--- OUTSIDE RECORDS SUMMARY | 2024-11-23 07:31 | XMS_ITS | Encounter Summary ---
Author Organization [employer] Address [address] [address] Care Team Providers Care Feeder Worker Power Unit Operator Name Role Phone Unavailable Primary Care Provider Unavailabl e Encounter Details Date Type Department Care Team (Late st Contact Info) Description 12/02/2019 Transcribed Document [facility] 1 [place] [address] Provider [facility] MD Jose A Social History Tobacco Use Types Packs/Day Years Used Date Smoking Tobacco: Never Assessed Sex and Gender Information Value Date Recorded Sex Assigned at Not on file Legal Sex Male 7:33 PM CDT Gender Identity Not on file Sexual Orientation Not on file documented as of this encounter Miscellaneous Notes * Cerner Conversion Note - [facility] Jose A Reese MD - 12/02/2019 2:04 [...]
--- OUTSIDE RECORDS SUMMARY | 2024-11-23 07:31 | XMS_ITS | Encounter Summary ---
Author Organization [facility] [facility] [employer] Address [address] [address] Care Team Providers Care Translator Name Role Phone Unavailable Primary Care Provider Unavailabl e Encounter Details Date Type Department Care Team (Late st Contact Info) Description 12/02/2019 Transcribed Document [facility] [address] [place] [address] Provider, patel Naranjo MD Social History Tobacco Use Types Packs/Day Years Used Date Smoking Tobacco: Never Assessed Sex and Gender Information Value Date Recorded Sex Assigned at Not on file Legal Sex Male 7:33 PM CDT Gender Identity Not on file Sexual Orientation Not on file documented as of this encounter Miscellaneous Notes * Cerner Conversion Note - [facility] Jose A Reese MD - 12/02/2019 12:08 PM EDT [facility] Main OR IntraOp Summary Primary Physician: JACKELIN SELF JR, JR, MD-ORT Finalized Date/Time: 12/02/19 11:36:58 Pt. Name: DANAE CARSON SHANKAR Ruelas.O.B./Sex: 1960 Male Med Rec #: [id number] Physician: JACKELIN SELF JR, JR, MD-ORT Financial #: [id number] Pt. Type: O Room/Bed: Admit/Disch: 12/02/19 09:17:00 - Institution: [facility] IntraOp Case Attendance Entry 1 Entry 2 Entry 3 Case Attendee JACKELIN SELF JR, JR, WICKER, KAREN KIM, DEVELOPMENT ENGINEER LONGSWORTH, JACKSON, RN MD-ORT Role Performed Surgeon/Proceduralist, DEVELOPMENT ENGINEER/Nurse Tools And Parts Attendant Whizzer Hand, First First Time In 12/02/19 10:50:00 12/02/19 [...] CLAUDIA MIRANDA Role Performed Scrub, First Vendor Coreroom Foundry Laborer Time In 12/02/19 10:50:00 12/02/19 10:50:00 12/02/19 11:05:00 Time Out 12/02/19 11:36:00 12/02/19 11:36:00 12/02/19 11:36:00 Procedure Knee Arthroscopy Knee Arthroscopy Knee Arthroscopy Other Attendee TRINT UNDERWOOD Superficial Wound Closed By: Last Modified By: JACKSON CERRATO, JACKSON REARDON, JACKSON REARDON, CHARLIE 12/02/19 11:36:54 12/02/19 11:36:54 12/02/19 11:36:54 Entry 7 Entry 8 Case Attendee Jerry Cheek, SAL/MARCIE HACKETT, WAYNE, DEVELOPMENT ENGINEER-ANS Role Performed Solution Designer, First DEVELOPMENT ENGINEER/Nurse Tools And Parts Attendant Time In 12/02/19 10:50:00 12/02/19 11:20:00 Time Out 12/02/19 11:36:00 12/02/19 11:36:00 Procedure Knee Arthroscopy Knee Arthroscopy Other Attendee Superficial Wound Closed By: Last Modified By: JACKSON CERRATO, JACKSON REARDON, CHARLIE 12/02/19 11:36:54 12/02/19 11:36:54 [facility] IntraOp Case Attendance Audit 12/02/19 11:36:54 Supervisor Film Processing: LONGGA Modifier: LONGGA 1 <*> Procedure Knee [...] 8 <*> Procedure Knee Arthroscopy 12/02/19 11:27:18 Supervisor Film Processing: LONGGA Modifier: LONGGA 1 <+> Time Out 1 <*> Procedure Knee Arthroscopy 12/02/19 11:23:46 Supervisor Film Processing: LONGGA Modifier: LONGGA <+> 8 Case Attendee <+> 8 Role Performed <+> 8 Time In <+> 8 Procedure 12/02/19 11:17:15 Supervisor Film Processing: LONGGA Modifier: LONGGA <+> 7 Case Attendee <+> 7 Role Performed <+> 7 Time In <+> 7 Procedure 12/02/19 11:15:35 Supervisor Film Processing: LONGGA Modifier: LONGGA 1 <+> Time In [...] Time In <+> 6 Procedure 12/02/19 10:50:53 Supervisor Film Processing: LONGGA Modifier: LONGGA <+> 5 Role Performed <+> 5 Procedure <+> 5 Other Attendee 12/02/19 10:40:53 Supervisor Film Processing: LONGGA Modifier: LONGGA <+> 1 Procedure 2 [...] [facility] IntraOp Case Times Audit 12/02/19 11:36:53 Supervisor Film Processing: LONGGA Modifier: LONGGA <+> 1 Out Room Time <+> 1 Stop Time 12/02/19 11:31:33 Supervisor Film Processing: LONGGA Modifier: LONGGA <+> 1 Stop Time 12/02/19 11:12:41 Supervisor Film Processing: LONGGA Modifier: LONGGA <+> 1 Start Time [...] JACKSON CERRATO, CHARLIE, Accompanied by MARCIE RUIZ, KING MAKER, DEVELOPMENT ENGINEER-ANS Last Modified By: JACKSON CERRATO RN 12/02/19 11:27:33 [facility] IntraOp Dressing and Packing Entry 1 Type Dressing Location RIGHT KNEE Wound Dressing Item 4x4's, Xeroform, Chad, Webril Supplemental Cold pack Applications Applied By Jerry Cheek, INTERNATIONAL MARKETING MANAGER/WOUND/OSTOMY NURSE Last Modified By: JACKSON CERRATO RN 12/02/19 [...] RN 12/02/19 10:42:11 [facility] IntraOp General Case Mammographer 1 Case Information OR OR 10 [facility] Case Level 1 Room Verified Yes Wound Class I - Clean Specialty SN Orthopedic Anesthesia Type General ASA Class 3 Diagnosis Preop Diagnosis MEDIAL FEMORAL CHONDYLE INSUFFICIENCY, RIGHT KNEE Postop Same As Preop No Postop Diagnosis DICTATED BY Ever Last Modified By: JACKSON CERRATO RN 12/02/19 11:23:53 [facility] IntraOp General Case Data Audit 12/02/19 11:23:53 Supervisor Film Processing: LONGGA Modifier: LONGGA <+> 1 ASA Class 12/02/19 11:09:57 Supervisor Film Processing: LONGGA Modifier: LONGGA <+> 1 Anesthesia Type <+> 1 Postop Same As Preop <+> 1 Preop Diagnosis <+> 1 Postop Diagnosis <+> 1 Room Verified [facility] IntraOp Implant Log Entry 1 Type Implant (Synthetic) Implant Log Implant Type Other Implant [facility] [id number] Identification Description Implant Quantity 1 Implant Site RIGHT KNEE Implant [id number] Identification Lot Number Implant Knee Creations Identification Junior Software Engineer Name: Implant [id number] Identification Catalog Number Implant [...] 1 Medication/Irrigant Marcaine 0.25% 10ml vial - [id number] Route of LOCAL Administration Dose Dose 10 [...] JACKELIN SELF JR, JR, MD-ORT, Jerry Cheek, INTERNATIONAL MARKETING MANAGER/WOUND/OSTOMY NURSE Position Verified Positioning Yes Verified by Anesthesia [...] Intra Op Sign Out Audit 12/02/19 11:36:38 Supervisor Film Processing: LONGGA Modifier: LONGGA <+> 1 RN Sign [...] [facility] IntraOp Surgical Procedures Audit 12/02/19 11:35:51 Supervisor Film Processing: LONGGA Modifier: LONGGA <+> 1 Stop 12/02/19 11:12:47 Supervisor Film Processing: LONGGA Modifier: LONGGA <+> 1 Start [facility] [...] Padded Under Cuff Applied By Jerry Cheek, INTERNATIONAL MARKETING MANAGER/WOUND/OSTOMY NURSE Removed By Jerry Cheek INTERNATIONAL MARKETING MANAGER/WOUND/OSTOMY NURSE Times Start Time 12/02/19 11:15:00 Stop Time 12/02/19 11:30:00 Last Modified By: JACKSON CERRATO RN 12/02/19 11:30:25 [facility] IntraOp Tourniquet Audit 12/02/19 11:30:25 Supervisor Film Processing: ELEUTERIO Modifier: LONGGA <+> 1 Stop Time [facility] IntraOp X-Ray and Images Entry 1 X-Ray/Imaging Type Fluoroscopy Site RIGHT KNEE Cardiac Cath Lab Radiology Technologist Name CLAUDIA MIRANDA Last Modified By: JACKSON CERRATO RN 12/02/19 11:14:42 Case Comments <None> Finalized By: JACKSON CERRATO, RN Document Signatures Signed By: JACKSON CERRATO RN 12/02/19 11:36 documented in this encounter Plan of Treatment Not on file documented as of this encounter Visit Diagnoses Not on filedocumented in this encounter
--- OUTSIDE RECORDS SUMMARY | 2024-11-23 07:31 | XMS_ITS | Encounter Summary ---
Author Organization [employer] Address [address] [address] Care Team Providers Care Curing Press Operator Name Role Phone Unavailable Primary Care Provider Unavailabl e Encounter Details Date Type Department Care Team (Late st Contact Info) Description 12/02/2019 Transcribed Document [facility] [address] [place] [address] Provider, patel Naranjo MD Social History Tobacco Use Types Packs/Day Years Used Date Smoking Tobacco: Never Assessed Sex and Gender Information Value Date Recorded Sex Assigned at Not on file Legal Sex Male 7:33 PM CDT Gender Identity Not on file Sexual Orientation Not on file documented as of this encounter Miscellaneous Notes * Cerner Conversion Note - [facility] Jose A Reese MD - 12/02/2019 12:08 PM EDT [facility] Main OR PreOp Summary Primary Physician: JACKELIN SELF JR, JR, MD-ORT Finalized Date/Time: 12/03/19 10:55:36 Pt. Name: ALLI JEFF SHANKAR Ruelas.O.B./Sex: 1960 Male Med Rec #: [id number] Physician: JACKELIN SELF JR, JR, MD-ORT Financial #: [id number] Pt. Type: O Room/Bed: Admit/Disch: 12/02/19 09:17:00 - 12/02/19 13:19:00 Institution: [facility] [place] PreOp Case Times Entry 1 In Preop 12/02/19 09:30:00 Ready for Holding n/a Room Patient Ready for 12/02/19 10:14:00 Surgery Patient Out of Preop 12/02/19 10:50:00 Patient Out of n/a Holding Room Last Modified By: OLVIN SYED 12/03/19 10:55:35 [facility] PreOp Case Times Audit 12/03/19 10:55:35 Geophysical Prospecting Surveyor: [id number] Modifier: [email or web address] <+> 1 Patient Out of Preop Finalized By: OLVIN SYED Document Signatures Signed By: OLVIN SYED 12/03/19 10:55 documented in this encounter Plan of Treatment Not on file documented as of this encounter Visit Diagnoses Not on filedocumented in this encounter
--- OUTSIDE RECORDS SUMMARY | 2024-11-23 07:31 | XMS_ITS | Continuity of Care Document ---
Author Organization [facility], ENDOCRINOLOGY [place] Address [address] [place] [id number] Care Team Providers Care Crester Name Role Phone BELKYS ESTRELLA Transportation Coordinator TANI CARR Primary Care Provider QIANA CHAPPELL Referring Provider Assessment No assessment recorded. Plan of Treatment Reminders Order Date Submit Date Provider Last Modified By Organization Details Last Modified Time Details Appointments RECHECK 2024 10:00A Hetal CHAPPELL MD Not available Not available Not available RECHECK 2024 09:15A Hetal GARIBAY MD Not available Not available Not available Lab Chary arangoN, serum or plasma 2024 025 [facility], [address] [place] [address], [phone], 10/29/2024 12:02:11 BMP, serum or plasma 2024 025 [facility], [address] [place] [address], [phone], 10/29/2024 12:02:13 PTH (parathy roid hormone) , intact + calcium, serum or plasma 2024 025 [facility], [address] [place] [address], [phone], 10/29/2024 12:11:17 vitamin D, 25-hydro xy, total, serum 2024 025 [facility], [address] [place], [phone], 10/29/2024 12:37:06 Referral None recorded . Procedures None recorded . Surgeries None recorded . Imaging None recorded . Medication Orders None recorded . Patient TargetsNo targets recorded. Patient InstructionsNo instructions recorded. Reason for Referral None Reported. Problems Name Problem SNOMED Code Status Onset Date Resolution Date Notes Provider Name and Address Organization Details Recorded Time Right bundle branch block 00397339 Completed 201903/07/2020 RAUL SHERMAN DO [address] [place], [address] , [facility] 0 09:08:41 Dyslipide steven 914334999 Active 2019 Not Available [facility] 4 05:36:14 Right bundle branch block 05265351 Active 2019 Not Available [facility] 4 05:36:14 Hypertens jason disorder 36240900 Active 2019 Not Available [facility] 4 05:36:14 Type 2 diabetes mellitus without complicat ion 224326918 Completed 201906/07/2020 RAUL SHERMAN DO [address] [place], [address] , [facility] 1 07:46:02 Gout 22595243 Active 2020 Not Available [facility] 4 05:36:14 Periphera l neuropath y due to type 2 diabetes mellitus 29028924605 07 Active 2020 Not Available [facility] 4 05:36:14 Restless legs 14622304 Active 2020 Not Available [facility] 4 05:36:14 Left inguinal hernia 362161067 Active 2021 Not Available [facility] 4 05:36:14 Overweigh t 261048137 Active 2021 Not Available [facility] 4 05:36:14 Multiple complicat ions due to type 2 diabetes mellitus Active 2022 Not Available [facility] 4 05:36:14 Chronic prostatit is 98428690 Active 2024 JOE GARIBAY JR, MD [address] [place] [address], [phone] , [facility] 5 11:17:43 Yuli bravo 277933233 Active 2024 YURI JACOB APRN [address] [place] [phone] [place] [address] 5 08:24:15 Notes:Some problems listed i n Documents: #[id number], #[id number], #[id number], #[id number], #[id number] could not be added to this patient's chart. Please review these documents and add these problems to the patient's chart manually as needed. Problem Notes None recorded. Procedures Surgical History Date Name Laterality Status Provider Name and Address Organization Details Recorded Time 07/01/19 25 Post Void Residual; Ultrasound completed Jocelyne Toribio [facility] 07/01/2024 11:27:34 04/25/20 22 Echocardiogram completed BELKYS ESTRELLA MD [address] [place] [address], [phone] [place] [address] 04/25/2022 12:20:28 04/10/20 22 EKG completed Radha Salazar [facility] 04/10/2022 12:43:51 05/27/18 62 Removal of testis completed RAUL SHERMAN DO [address] [place] [address], [phone] [place] [address] 06/07/2020 08:37:41 Removal of tonsils completed Radha Salazar [facility] 02/25/2020 09:04:57 Other completed [facility] 02/25/2020 09:05:20 repair of meniscus completed RAUL SHERMAN DO [address] [place] [address], [phone] 03/07/2020 09:24:32 Imaging Results None recorded. Procedure Notes None recorded. Medical Equipment None Reported. Allergies Allergen ID Allergen Name Allergen Category Reaction Reaction Severity Criticality Documentation Date Start Date Code Code System Note Provider Name and Address Organization Details Recorded Time 881963 Product containin g 3-hydroxy -3-methyl glutaryl- coenzyme A reductase inhibitor (product) medicatio n myalgias (muscle pain) Not available Not available 04/19/20162013 53860 009 SNOMED React ion: MYALG IA; Comme nt: MUSCL E ACHES ;Crea indio By: Cortez parr;C reate d Date: 9:15: 45 AM; Not Available [facility] 6 11:11:56 156467 morphine sulfate medicatio n Not available Not available Not available 04/19/20162013 29560 RxNorm Comme nt: FAMIL Y HISTO RY;Cr eated By: Cortez parr;C reate d Date: 9:16: 39 AM; Not Available [facility] 6 11:39:42 Medications Name Sig Start Date Stop Date Status Note LastModified by Organization Details LastModified Time pioglitaz one 15 mg tablet TAKE 1 TABLET BY MOUTH DAILY 05/10 completed 01/10/23- 05/10/23 Not Available Not Available Not Available ropinirol e 1 mg tablet Take 1 tablet(s ) every day by oral route. 2021 active Not Available Not Available Not Avai lable atorvasta tin 10 mg tablet Take 1 daily at bedtime. NEEDS APPT/LAB S FOR FURTHER REFILLS 02/27 completed pt stopped Not Available Not Available Not Available oxybutyni n chloride ER 10 mg tablet,ex tended release 24 hr Take 1 tablet every day by oral route. active Not Available Not Available No t Available Medrol (Narinder) 4 mg tablets in a dose pack Take by oral route. 03/25 completed 10 days Not Available Not Available Not Available glipizide ER 5 mg tablet, extended release 24 hr Take 2 tablets twice a day by oral route with meal(s) for 90 days. 2024 active Not Available Not Available Not Avai lable amlodipin e 5 mg tablet Take 1 tablet every day by oral route for 90 days. 01/23 completed Not Available Not Available Not Available pravastat in 10 mg tablet Take 1 tablet every day by oral route. 03/07 completed Not Available Not Available Not Available tamsulosi n 0.4 mg capsule Take 1 capsule every day by oral route. active Not Available Not Available No t Available ropinirol e 0.25 mg tablet Take 4 tablets every day by oral route at bedtime. 06/07 completed Not Available Not Available Not Available amlodipin e 10 mg tablet TAKE 1 TABLET BY MOUTH EVERY DAY IN THE MORNING 2024 active 06/25/24- 08/26/24 Not Available Not Available Not Available doxycycli ne monohydra te 100 mg capsule Take 1 capsule twice a day by oral route. 2024 active Not Available Not Available Not Avai lable glipizide ER 2.5 mg tablet, extended release 24 hr TAKE 2 TABLETS BY MOUTH ONCE DAILY 09/05 completed 01/10/23 - 3 Not Available Not Available Not Available metformin 1,000 mg tablet Take 1 tablet twice a day by oral route with meals for 90 days. 2024 active 09/06/23- 12/20/23 Not Available Not Available Not Available triamcino lone acetonide 0.1 % topical ointment APPLY A THIN LAYER TO THE AFFECTED EAR(S) BY TOPICAL ROUTE 2 TIMES PER DAY for 10 days 04/29 completed Not Available Not Available Not Available Valtrex 1 gram tablet Take 2 tablet(s ) every day by oral route as needed for 1 day. active Not Available Not Available No t Available allopurin ol 300 mg tablet Take 1 tablet(s ) every day by oral route 2022 active Not Available Not Available Not Avai lable Viagra 100 mg tablet As needed 02/24 completed Duration : 30 days;Ky quency: prn;Medi cation Descript ion: sildenaf il; Dosage:1 /2-1; Route:or al; refills: 1; Quantity :30 tablet Not Available Not Available Not Available benazepri l 40 mg tablet TAKE 1 TABLET BY MOUTH EVERY DAY IN THE MORNING 2024 active 06/25/23- 09/15/24 Not Available Not Available Not Available pioglitaz one 30 mg tablet Take 1 tablet every day by oral route for 90 days. 2024 active Not Available Not Available Not Avai lable metformin ER 500 mg tablet,ex tended release 24 hr Daily 02/24 completed Frequenc y: daily;Al t Frequenc y: with food;Med ication Descript ion: metformi n; Dosage:1 ; Route:or al; refills: 1; Quantity :90 tablet, extended release Not Available Not Available Not Available Lotensin 20 mg tablet Daily 02/24 completed Frequenc y: daily;Me dication Descript ion: benazepr il; Dosage:1 ; Route:or al; refills: 1; Quantity :90 tablet Not Available Not Available Not Available Fenofibra te 134 mg capsule Daily 02/24 completed Duration : 30 days;Ky quency: daily;Me dication Descript ion: fenofibr ate; Dosage:1 ; Route:or al; refills: 1; Quantity :90 capsule Not Available Not Available Not Available ezetimibe 10 mg tablet Take 1 tablet every day by oral route at bedtime. 2023 active 01/10/23- 09/21/22 Not Available Not Available Not Available Ciprodex 0.3 %-0.1 % ear drops,amarilis pension INSTILL 3 DROPS INTO AFFECTED EAR(S) BY OTIC ROUTE 2 TIMES PER DAY FOR 7 DAYS 01/25 completed prn Not Available Not Available Not Available Crestor 10 mg tablet Daily 02/24 completed Duration : 90 days;Ins truction s: TAKE 1 TABLET DAILY;Fr equency: daily;Me dication Descript ion: rosuvast atin; Dosage:1 ; Route:or al; refills: 1; Quantity :90 tablet Not Available Not Available Not Available Cialis 20 mg tablet Daily 02/24 completed Frequenc y: daily;Al t Frequenc y: prn;Medi cation Descript ion: tadalafi l; Dosage:1 ; Route:or al; refills: 5; Quantity :5 tablet Not Available Not Available Not Available duloxetin e 60 mg capsule,d elayed release Take 1 capsule every day by oral route in the evening for 30 days. 06/07 completed Not Available Not Available Not Available metformin ER 1,000 mg tablet,ex tended release 24 hr Take 1 tablet(s ) every day by oral route at dinner. 04/10 completed Not Available Not Available Not Available azithromy long 03/25 completed Not Available Not Available Not Available Salud prn 04/10 completed Not Available Not Available Not Available metformin ER 500 mg 24 hr tablet,ex tended release (gastric retention ) Take 1 tablet twice a day by oral route. 02/06 completed Not Available Not Available Not Available Januvia 25 mg tablet Daily 02/24 completed Duration : 90 days;Ins truction s: TAKE 1 TABLET DAILY;Fr equency: daily;Me dication Descript ion: sitaglip tin; Dosage:1 ; Route:or al; refills: 0; Quantity :90 tablet Not Available Not Available Not Available Januvia 100 mg tablet -- active Not Available Not Available Not Available FreeStyle Lite Meter kit one meter active Not Available Not Available No t Available FreeStyle Lite Strips USE DIRECTED TO TEST ONCE DAILY 2024 active Not Available Not Available Not Avai lable Bystolic 5 mg tablet Daily 02/24 completed Frequenc y: daily;Me dication Descript ion: nebivolo l; Dosage:1 ; Route:or al; refills: 1; Quantity :90 tablet Not Available Not Available Not Available glipizide ER 2.5 mg 24 hr tablet,ex tended release Take 1 tablet every day by oral route. 09/06 completed Not Available Not Available Not Available Slow-Mag 71.5 mg tablet,de layed release Take 1 tablet twice a day by oral route for 7 days. 11/12 completed Not Available Not Available Not Available Paxlovid 300 mg (150 mg x 2)-100 mg tablets in a dose pack 1 dose PO bid x5 daysInfo : 1 dose = 300 mg nirmatre lvir + 100 mg ritonavi r 04/10 completed Not Available Not Available Not Available Ozempic 0.25 mg or 0.5 mg (2 mg/3 mL) subcutane ous pen injector Inject 0.5 mg every week by subcutan eous route in the evening for 28 days. 12/19 completed Not Available Not Available Not Available Vitals Date Recorded Body height Body mass index (BMI) Body weight Heart rate Systolic blood pressure Diastolic blood pressure Provider Name and Address Organization Details Last Updated DateTime 5 185.42 cm 26.1 kg/m2 38469.2 9 g 87 /min 110 mm[Hg] 65 mm[Hg] Fransisca Talib [facility] 5 10:46:54 Social History Question Answer Notes LastModified by Organizat ion Details LastModified Time Tobacco Smoking Status [facility] 07:45:19 What Is Your Level Of Caffeine Consumption? Moderate [email or web address] Information not available 02/01/2021 Marital Status [email or web address] Informatio n not available 02/25/2020 What Was The Date Of Your Most Recent Tobacco Screening? 07/01/2024 [email or web address] Information not available 07/01/2024 What Is Your Relationship Status? [email or web address] Information not available 04/25/2022 Do You Have Smoke And Carbon Monoxide Detectors In Your Home? Yes [email or web address] Information not available 02/01/2021 Has Tobacco Cessation Counseling Been Provided? No Information not available 04/10/2022 Have You Recently Traveled Abroad? No [email or web address] Information not available 04/25/2022 Sex: Male Functional Status Question Answer Note LastModified by Organizat ion Details LastModified Time Do you use any illicit or recreational drugs? No Information not available 02/01/2021 Do you or have you ever used any other forms of tobacco or nicotine? No [email or web address] Information not available 02/01/2021 What is your level of alcohol consumption? None Information not available 02/01/2021 Do you or have you ever used smokeless tobacco? Never used smokeless tobacco Information not available 02/25/2020 Are you currently employed? 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 Never used electronic cigarettes [email or web address] Information not available 02/25/2020 Mental Status None recorded. Family History Relationship Description Onset Age of this Age Resolved Age Notes LastModified by Organization Details LastModified Time Mother Diabetes mellitus [email or web address] Not available 2024 10:26:30 Mother Kidney disease renal failur e after morphi ne? [email or web address] Not available 03/07/2020 09:55:52 Mother Type 2 diabetes mellitus [email or web address] Not available 2024 10:26:30 Brother Diabetes mellitus [email or web address] Not available 2024 10:26:30 Brother Coronary artery bypass graft [email or web address] Not available 09/2024 10:26:30 Brother Type 2 diabetes mellitus [email or web address] Not available 2024 10:26:30 Unspecified Relation Heart disease [email or web address] Not available 2024 10:26:30 Unspecified Relation Hypertensive disorder [email or web address] Not available 2024 10:26:30 Father Cerebrovascu lar accident [email or web address] Not available 09/2024 10:26:30 Medical History Condition Response Diabetes Y Hyperlipidemia Y Hypertension Y Immunizations Vaccine Type Date Status Note Provider Nam e and Address Organization Details Recorded Time Influenza, split virus, quadrivalent, PF 0 completed RAUL SHERMAN, [address] [place], [address], [facility] 03/07/2020 09:47:38 Hep A, adult 1 completed Hallie Richard [facility] 06/07/2020 08:46:44 zoster recombinant 1 [facility] 08:47:10 zoster recombinant 2 completed Caryn Linares [facility], [facility] 06/19/2021 11:38:33 pneumococcal polysaccharide PPV23 2 completed Caryn Linares [facility], [facility] 06/19/2021 11:38:33 Tdap 9 completed Not Available [facility] 06/23/2023 05:36:14 Hep A, adult 9 completed Not Available [facility] 06/23/2023 05:36:14 SARS-COV-2 (COVID-19) vaccine, UNSPECIFIED 1 completed Not Available [facility] 06/23/2023 05:36:14 SARS-COV-2 (COVID-19) vaccine, UNSPECIFIED 1 completed Not Available [facility] 06/23/2023 05:36:14 Past Encounters Encounter ID Performer Location Encounter Start Date Encounter Closed Date Diagnosis/Indication Diagnosis SNOMED-CT Code Diagnosis ICD10 Code Diagnosis Note [id number] YURI JACOB APRN [facility]CR[facility] [address] [place] [address] 10/29/2024 10:30:52 10/29/2024 11:10:09 Hypomagnesemia 871098136 E83.42 -Last lab from 10/26/24Mag 1.1-Repeat labs as ordered today. May consider slow-mag.- Will consult with Dr. Chappell on Saturday as well.-Furt her recommenda tions once results received.- Patient verbalized understand ing and agreed with plan. All questions answered. Health Concerns Section Related Observation LastModified by Organization Detai ls LastModified Time None Recorded Concern Status LastModified by Organization Details LastModified Time None Recorded Payers Encounter Date Sequence Insurance Name Policy Number Policy Alarcon Covered Member ID Alarcon Member ID Guarantor Name 10/29/2024 1 [place] Jeff Ruelas Aneudy [id number] Jeff Amado 10/29/2024 2 [employer] (MEDICARE SUPPLEMENT) Jeff Amado [id number] Jeff Amado Notes Date Note Type Note Provider Name and Address Organization Details Recorded Time 10/29/2024 text/html 64-year-old male patient with a past medical history as detailed in the prominent significant for hypertension, hyperlipidemia on statin therapy, type 2 diabetes on oral therapy seen in the office today for evaluation of hypomagnesemia. Patient reports 2 recent visits to the ER. First, he was diagnosed with pneumonia and treated with abx, also had low mag. He was told that immune system was suppressed because of low magnesium. He started magnesium oxide 500mg daily since 10/22/24. Then he returned to ER for feeling of drowning. He was given Magnesium through IV 10/26/24, felt significantly better. Continued 500mg daily. History: Last year enlarged prostate, biopsy was benign. Went to Dr. Garibay, started tamsulosin, issues with orthostatic hypotension. Stopped for 1 month BP and diarrhea improved. Restarted, BP issues restarted. Reports diarrhea since March. Improved off the medication. Denies seizures, choreiform movements, heart arrhythmias.Reports more frequent muscle cramps in thighs, sometimes calves, relieved with walking around/hot tub. Reports extreme fatigue.Received IV steroid in hospital. BG was up to 400's. Yesterday, BG was back to normal 120. This AM he was around 220. He was told to hold metformin for 2 days, then restart 500mg BID for 2 days, then normal dose.Diarrhea and gas worse than usual, no vomiting.Upcoming appt 11/09 for EGD and colonoscopyNo new meds/supplements prior to event. YURI JACOB, CUSTOMER PRICING MANAGER [address] [place], [address], [place] [facility] 10/29/2024 11:38:06
--- OUTSIDE RECORDS SUMMARY | 2024-11-23 07:31 | XMS_ITS | Encounter Summary ---
Author Organization [facility] Address [address] [place] [address] Care Team Providers Care Software Test Specialist Name Role Phone Unavailable Primary Care Provider Unavailabl e Encounter Details Date Type Department Care Team (Late st Contact Info) Description 12/03/2019 Transcribed Document [facility] [address] [place] [address] Provider, patel Naranjo MD Social History Tobacco Use Types Packs/Day Years Used Date Smoking Tobacco: Never Assessed Sex and Gender Information Value Date Recorded Sex Assigned at Not on file Legal Sex Male 7:33 PM CDT Gender Identity Not on file Sexual Orientation Not on file documented as of this encounter Miscellaneous Notes * Cerner Conversion Note - [facility] Jose A Reese MD - 12/03/2019 8:56 [...] a week for the 1st week postop. /[id number] MD VANGIE Ríos Jr/DONNY / VANGIE / MODL /[id number] documented in this encounter Plan of Treatment Not on file documented as of this encounter Visit Diagnoses Not on filedocumented in this encounter
--- OUTSIDE RECORDS SUMMARY | 2024-11-23 07:31 | XMS_ITS | Data Portability ---
Author Organization [facility] Rashaadi c, CKS BAKER CLOSED Address [address] [place] [address] Care Team Providers Care Yoga Coordinator Name Role Phone BELKYS ETSRELLA Permanent Mold Supervisor TANI CARR Primary Care Provider QIANA CHAPPELL Referring Provider Assessment Encounter Date Assessment Date Assessment LastModified by Organization Details LastModified Time 07/01/2024 07/01/2024 64-year-old male with a history of elevated PSA presenting with persistent lower back pain and perineal discomfort suggestive of prostatitis. Despite an elevated PSA and PI-RADS 3 lesion, previous MRI-guided biopsy was benign. Differential includes chronic prostatitis contributing to symptoms. The smooth and nontender prostate on examination supports this diagnosis. Consideration of further diagnostic intervention based on symptom persistence and progression is warranted. Lower Back Pain: Symptomatic management of chronic lower back pain to include advice on posture, physical therapy, or pharmacological management as required. Benign Prostate Biopsy: Continued observation with no immediate intervention required due to benign biopsy results. [email or web address] Not available 07/01/2024 18:52:51 09/17/2024 09/17/2024 64-year-old male with a history of chronic prostatitis presenting for follow-up of elevated PSA evaluation. A category 3 prostate lesion was noted on MRI. Symptoms improved with antibiotics. Previous biopsy was negative. Repeat PSA today is important for evaluation. Continued BPH management is ongoing. Follow-up in six months is scheduled. Chronic Prostatitis: Plan involves monitoring resolution post-antibiotic treatment. No further antibiotics unless symptoms return. Elevated Prostate-Specific Antigen Psa: Plan includes repeating PSA today post-prostatitis treatment to assess persistence. Benign Prostatic Hyperplasia Bph: Plan maintains Tamsulosin use. Monitor symptoms for any changes. Category 3 Prostate Lesion On Mri: Plan to continue monitoring due to previous negative biopsy. Follow-up PSA evaluation will guide further steps. [email or web address] Not available 09/17/2024 09:22:23 Plan of Treatment Reminders Order Date Submit Date Provider Last Modified By Organization Details Last Modified Time Details Appointments RECHECK 2024 10:00A Hetal CHAPPELL MD Not available Not available Not available RECHECK 2024 09:15A Hetal GARIBAY MD Not available Not available Not available Lab magnesiu m, QN, serum or plasma 2024 025 [facility], [address] [place] [address], [address], 10/29/2024 12:02:11 BMP, serum or plasma 2024 025 [facility], [address] [place] [address], [address], 10/29/2024 12:02:13 PTH (parathy roid hormone) , intact + calcium, serum or plasma 2024 025 [facility], [address] [place] [address], [address], 10/29/2024 12:11:17 vitamin D, 25-hydro xy, total, serum 2024 025 [facility], [address] [place] [address], [address], 10/29/2024 12:37:06 urinalys is panel, auto 2024 025 [facility], [address], [address], [place], [address], 09/20/2024 16:36:28 PSA, serum or plasma 2024 025 [facility], [address], [address], [place], [address], 09/20/2024 16:36:28 glucose, fingerst ick, blood 2024 025 [facility], [address] [place] [address], [address], 09/15/2024 12:55:00 hemoglob in A1C, fingerst ick 2024 025 [facility], [address] [place] [address], [address], 09/15/2024 12:55:00 urinalys is panel, auto 2024 025 [facility], [address], [address], [place], [address], 07/01/2024 11:18:14 glucose, fingerst ick, blood 2024 025 [facility], [address] [place] [address], [address], 06/25/2024 12:09:33 hemoglob in A1C, fingerst ick 2024 025 [facility], [address] [place] [address], [address], 06/25/2024 12:09:33 Referral urologis t referral 2024 025 JOSE EDUARDO Garibay Jr, MD, [address], [address], [place], [address], 07/02/2024 08:01:55 Procedures None recorded . Surgeries None recorded . Imaging None recorded . Medication Orders glipizid e ER 5 mg tablet, extended release 24 hr 2024 [id number], [address], [place], [phone], 09/15/2024 12:55:36 metformi n 1,000 mg tablet 2024 [facility] #85252, [address] [address] [address], [place], [phone], 09/15/2024 12:55:34 pioglita zone 30 mg tablet 2024 [facility] #53365, [address] [address] [address], [place], [phone], 09/15/2024 12:55:40 doxycycl ine monohydr ate 100 mg capsule 2024 [facility] #40950, [address] [address] [address], [place], [phone], 07/02/2024 07:59:38 glipizid e ER 5 mg tablet, extended release 24 hr 2024 [facility] #79695, [address] [address] [address], [place], [id number], 06/25/2024 12:09:39 metformi n 1,000 mg tablet 2024 [facility] #86499, [address] [address] [address], [place], [phone], 06/25/2024 12:09:40 Patient TargetsNo targets recorded. Patient Instructions Encounter Date Encounter Id Patient Instructions Last Modified By Organization Details Last Modified Time 07/01/2024 [id number] - Stop taking oxybutynin as advised. - Start antibiotics as prescribed for three weeks. - Monitor symptoms and report any changes or worsening. - Schedule follow-up in a few months for PSA re-evaluation. - Seek medical care sooner if symptoms significantly worsen. [email or web address] Not available 07/01/2024 18:52:54 09/17/2024 [id number] - Repeat PSA abiodun t today as discussed to check levels. - Continue taking Tamsulosin as prescribed for BPH. - Report any recurrence of urinary symptoms like burning or discomfort. - Follow up in six months or sooner if symptoms worsen or new symptoms arise. [email or web address] Not available 09/17/2024 09:22:26 Reason for Referral Urologist Referral for Prost ate specific antigen above reference range Referring Physician: Qiana Chappell, Endocrinology, Encounter Date: 06/25/2024 Results Created Date Observation Date Name Description Value Unit Range Abnormal Flag Note LastModifiedBy Organization Detail LastModifiedTime 06/25/1906/25/2024 hemog lobin A1C, finge rstic k hemoglobin A1C % 7.2 % 4.0 - 5.6 Not Available [facility] [address] [place] [address], [address], 06/25/2024 10:54:52 06/25/19 25 06/25/2024 gluco se, finge rstic k, blood glucose, fingerstick 138 mg/dL 70 - 100 Not Available [facility] [place] [address] [place] [address], [address], 06/25/2024 10:51:31 07/01/19 25 07/01/2024 urina lysis panel , auto Unknown Analyte Clean Catch Not Available [facility] [address], [place], [address], 07/01/2024 11:00:58 07/01/19 25 07/01/2024 urina lysis panel , auto Unknown Analyte Yellow Not Available [facility] [address], [place], [address], 07/01/2024 11:00:58 07/01/19 25 07/01/2024 urina lysis panel , auto Unknown Analyte Clear Not Available [facility] [address], [place], [address], 07/01/2024 11:00:58 07/01/19 25 07/01/2024 urina lysis panel , auto Unknown Analyte 1.020 Not Available [facility] [address] [place] [address] [address], [place], [address], 07/01/2024 11:00:58 07/01/19 25 07/01/2024 urina lysis panel , auto Unknown Analyte 1.003- 1.035 Not Available [facility] [address], [place], [address], 07/01/2024 11:00:58 07/01/19 25 07/01/2024 urina lysis panel , auto Unknown Analyte 5.0 Not Available [facility] [address], [place], [address], 07/01/2024 11:00:58 07/01/19 25 07/01/2024 urina lysis panel , auto Unknown Analyte 5.0-8. 0 Not Available [facility] [address], [place], [address], 07/01/2024 11:00:58 07/01/19 25 07/01/2024 urina lysis panel , auto Unknown Analyte Negati ve Not Available [facility] [address], [place], [address], 07/01/2024 11:00:58 07/01/19 25 07/01/2024 urina lysis panel , auto Unknown Analyte Negati ve Not Available [facility] [address], [place], [address], 07/01/2024 11:00:58 07/01/19 25 07/01/2024 urina lysis panel , auto Unknown Analyte Negati ve Not Available [facility] [address], [place], [address], 07/01/2024 11:00:58 07/01/19 25 07/01/2024 urina lysis panel , auto Unknown Analyte Negati ve Not Available [facility] [address], [place], [address], 07/01/2024 11:00:58 07/01/19 25 07/01/2024 urina lysis panel , auto Unknown Analyte Negati ve Not Available [facility] [address], [place], [address], 07/01/2024 11:00:58 07/01/19 25 07/01/2024 urina lysis panel , auto Unknown Analyte Negati ve Not Available [facility] [address], [place], [address], 07/01/2024 11:00:58 07/01/19 25 07/01/2024 urina lysis panel , auto Unknown Analyte Normal Not Available [facility] [address], [place], [address], 07/01/2024 11:00:58 07/01/19 25 07/01/2024 urina lysis panel , auto Unknown Analyte Normal Not Available [facility] [address], [place], [address], 07/01/2024 11:00:58 07/01/19 25 07/01/2024 urina lysis panel , auto Unknown Analyte Negati ve Not Available [facility] [address], [place], [address], 07/01/2024 11:00:58 07/01/19 25 07/01/2024 urina lysis panel , auto Unknown Analyte Negati ve Not Available [facility] [address], [place], [address], 07/01/2024 11:00:58 07/01/19 25 07/01/2024 urina lysis panel , auto Unknown Analyte Normal Not Available [facility] [address], [place], [address], 07/01/2024 11:00:58 07/01/19 25 07/01/2024 urina lysis panel , auto Unknown Analyte Normal 1 mg/dl Not Available [facility] [address], [place], [address], 07/01/2024 11:00:58 07/01/19 25 07/01/2024 urina lysis panel , auto Unknown Analyte Negati ve Not Available [facility] [address], [place], [address], 07/01/2024 11:00:58 07/01/19 25 07/01/2024 urina lysis panel , auto Unknown Analyte Negati ve Not Available [facility] [address], [place], [address], 07/01/2024 11:00:58 07/01/19 25 07/01/2024 urina lysis panel , auto Unknown Analyte Negati ve Not Available [facility] [address], [place], [address], 07/01/2024 11:00:58 07/01/19 25 07/01/2024 urina lysis panel , auto Unknown Analyte Negati ve Not Available [facility] [address], [place], [address], 07/01/2024 11:00:58 09/16/19 25 09/15/2024 hemog lobin A1C, finge rstic k hemoglobin A1C % 6.7 % 4.0 - 5.6 Not Available [facility] [address] [place], [address], 09/15/2024 12:01:15 09/16/1909/15/2024 gluco se, finge rstic k, blood glucose, fingerstick 127 mg/dL 70 - 100 Not Available [facility] [address] [place], [address], 09/15/2024 11:57:05 09/18/19 25 09/17/2024 PSA, serum or plasm a PSA 2.6 NG/mL 0.0 - 4.0 Not Available [facility] [address], [place], [address], 09/17/2024 09:49:47 09/18/19 25 09/17/2024 urina lysis panel , auto Unknown Analyte Clean Catch Not Available [facility] [address], [place], [address], 09/17/2024 09:06:24 09/18/19 25 09/17/2024 urina lysis panel , auto Unknown Analyte Yellow Not Available [facility] [address], [place], [address], 09/17/2024 09:06:24 09/18/19 25 09/17/2024 urina lysis panel , auto Unknown Analyte Clear Not Available [facility] [address], [place], [address], 09/17/2024 09:06:24 09/18/19 25 09/17/2024 urina lysis panel , auto Unknown Analyte 1.025 Not Available [facility] [address], [place], [address], 09/17/2024 09:06:24 09/18/19 25 09/17/2024 urina lysis panel , auto Unknown Analyte 1.003 - 1.030 Not Available [facility] [address], [place], [address], 09/17/2024 09:06:24 09/18/19 25 09/17/2024 urina lysis panel , auto Unknown Analyte 5.0 Not Available [facility] [address], [place], [address], 09/17/2024 09:06:24 09/18/19 25 09/17/2024 urina lysis panel , auto Unknown Analyte 5.0 - 8.0 Not Available [facility] [address], [place], [address], 09/17/2024 09:06:24 09/18/19 25 09/17/2024 urina lysis panel , auto Unknown Analyte Negati ve Not Available [facility] [address], [place], [address], 09/17/2024 09:06:24 09/18/1909/17/2024 urina lysis panel , auto Unknown Analyte Negati ve Not Available [facility] [address], [place], [address], 09/17/2024 09:06:24 09/18/19 25 09/17/2024 urina lysis panel , auto Unknown Analyte Negati ve Not Available [facility] [address], [place], [address], 09/17/2024 09:06:24 09/18/1909/17/2024 urina lysis panel , auto Unknown Analyte Negati ve Not Available [facility] [address], [place], [address], 09/17/2024 09:06:24 09/18/1909/17/2024 urina lysis panel , auto Unknown Analyte Negati ve Not Available [facility] [address], [place], [address], 09/17/2024 09:06:24 09/18/19 25 09/17/2024 urina lysis panel , auto Unknown Analyte Negati ve Not Available [facility] [address], [place], [address], 09/17/2024 09:06:24 09/18/19 25 09/17/2024 urina lysis panel , auto Unknown Analyte 50 mg/dL Not Available [facility] [address], [place], [address], 09/17/2024 09:06:24 09/18/19 25 09/17/2024 urina lysis panel , auto Unknown Analyte Normal Not Available [facility] [address], [place], [address], 09/17/2024 09:06:24 09/18/19 25 09/17/2024 urina lysis panel , auto Unknown Analyte Negati ve Not Available [facility] [address], [place], [address], 09/17/2024 09:06:24 09/18/19 25 09/17/2024 urina lysis panel , auto Unknown Analyte Negati ve Not Available [facility] [address], [place], [address], 09/17/2024 09:06:24 09/18/19 25 09/17/2024 urina lysis panel , auto Unknown Analyte Normal Not Available [facility] [address], [place], [address], 09/17/2024 09:06:24 09/18/19 25 09/17/2024 urina lysis panel , auto Unknown Analyte Normal Not Available [facility] [address], [place], [address], 09/17/2024 09:06:24 09/18/19 25 09/17/2024 urina lysis panel , auto Unknown Analyte 1 mg/dL Not Available [facility] [address], [place], [address], 09/17/2024 09:06:24 09/18/19 25 09/17/2024 urina lysis panel , auto Unknown Analyte Negati ve Not Available [facility] [address] [facility] [address], [place], [address], 09/17/2024 09:06:24 09/18/19 25 09/17/2024 urina lysis panel , auto Unknown Analyte Negati ve Not Available [facility] [address] [facility] [address], [place], [address], 09/17/2024 09:06:24 09/18/19 25 09/17/2024 urina lysis panel , auto Unknown Analyte Negati ve Not Available [facility] [address] [facility] [address], [place], [address], 09/17/2024 09:06:24 10/30/19 25 10/29/2024 MAGNE SIUM magnesium 1.3 mg/dL 1.6-2. 6 low Not Available [facility] [address] [place], [address], 10/29/2024 12:02:11 10/30/19 25 10/29/2024 BASIC METAB OLIC PANEL glucose 222 mg/dL 74-100 high Not Available [facility] [address] [place], [address], 10/29/2024 12:02:13 10/30/19 25 10/29/2024 BASIC METAB OLIC PANEL blood urea nitrogen 20 mg/dL 6-20 normal Not Available [facility] [address] [place] [address], [address], 10/29/2024 12:02:13 10/30/19 25 10/29/2024 BASIC METAB OLIC PANEL creatinine 1.05 mg/dL 0.70-1 .20 normal Not Available [facility] [address] [place] [address], [address], 10/29/2024 12:02:13 10/30/19 25 10/29/2024 BASIC METAB OLIC PANEL BUN/creatini ne ratio 19 (calc ) 10-20 normal Not Available [facility] [address] [place] [address], [address], 10/29/2024 12:02:13 10/30/19 25 10/29/2024 BASIC METAB OLIC PANEL sodium 137 mmol/ L 136-14 5 normal Not Available [facility] [address] [place] [address], [address], 10/29/2024 12:02:13 10/30/19 25 10/29/2024 BASIC METAB OLIC PANEL potassium 4.1 mmol/ L 3.4-5. 0 normal Not Available [facility] [address] [place] [address], [address], 10/29/2024 12:02:13 10/30/19 25 10/29/2024 BASIC METAB OLIC PANEL chloride 101 mmol/ L 98-107 normal Not Available [facility] [address] [place] [address], [address], 10/29/2024 12:02:13 10/30/19 25 10/29/2024 BASIC METAB OLIC PANEL carbon dioxide 23 mmol/ L 22-31 normal Not Available [facility] [address] [place] [address], [address], 10/29/2024 12:02:13 10/30/19 25 10/29/2024 BASIC METAB OLIC PANEL anion gap 13 (calc ) 7-25 normal Not Available [facility] [address] [place], [address], 10/29/2024 12:02:13 10/30/19 25 10/29/2024 BASIC METAB OLIC PANEL calcium 9.7 mg/dL 8.6-10 .2 normal Not Available [facility] [address] [place], [address], 10/29/2024 12:02:13 10/30/19 25 10/29/2024 BASIC METAB OLIC PANEL eGFR 78 >= 60 normal NOT E New calcu latio n for GFR (CKD- EPI 2020) is formu lated witho ut race adjus tment facto rs at the recom menda tion of the Nat katie Lehman y Found atviktoria and Amtomasz Ramireze ty of Nephr ology . This calcu latio n has not been valid ated in pregn ant women . For pedia tric patie nts refer to https ://nixon pelaez.tyson benjamin.o rg/pr ofess ional s/KDO QI/gf r_cal culat orPed Not Available [facility] [address] [place], [address], 10/29/2024 12:02:13 10/30/19 25 10/29/2024 PTH, INTAC T WITH CA PTH, intact 22.0 pg/mL 15.0-6 5.0 normal INTER PRETI VE GUIDE ===== ===== ===== ===== ===== ===== ===== ===== ===== ===== ===== === PTH CALCI UM CONDI TION ===== ===== ===== ===== ===== ===== ===== ===== ===== ===== ===== = Sara l Sara l Sara l Parat hyroi d _ Low or Low Hypop aida yroid ism Low Sara l _ Sara l or High Prima ry Hyper parat hyroi dism High __ High Sara l or Secon josse Hyper parat hyroi dism Low __ High High Terti shana Hyper parat hyroi dism __ Low or High Non-P aida yroid Hyper calce steven Low Sara l ===== ===== ===== ===== ===== ===== ===== ===== ===== ===== ===== ==== Not Available [facility] [address] [place] [address], [address], 10/29/2024 12:37:04 10/30/19 25 10/29/2024 PTH, INTAC T WITH CA calcium 9.7 mg/dL 8.6-10 .2 normal Not Available [facility] [address] [place], [address], 10/29/2024 12:37:04 10/30/19 25 10/29/2024 VITAM IN D 25-OH vitamin D 25-oh, total 24 NG/mL >=30 NG/mL abnormal Not Available [facility] [address] [place], [address], 10/29/2024 12:37:06 07/02/19 25 02/03/2024 MRI, prost ate, w/wo contr ast No observ ation record ed. BARCODE Not Available 2024 09:56:02 07/02/1902/25/2024 CT, abdom en + pelvi s, w/wo contr ast No observ ation record ed. BARCODE Not Available 2024 09:56:03 07/02/19 25 01/20/2024 US, kidne y No observ ation record ed. BARCODE Not Available 2024 09:56:03 07/02/19 25 01/20/2024 US, testi maryse No observ ation record ed. BARCODE Not Available 2024 09:56:03 Result Notes None recorded. Problems Name Problem SNOMED Code Status Onset Date Resolution Date Notes Provider Name and Address Organization Details Recorded Time Right bundle branch block 96532951 Completed 201903/07/2020 RAUL SHERMAN DO [address] [place], [address] , [facility] 0 09:08:41 Dyslipide steven 661817667 Active 2019 Not Available [facility] 4 05:36:14 Right bundle branch block 59035653 Active 2019 Not Available [facility] 4 05:36:14 Hypertens jason disorder 89586917 Active 2019 Not Available [facility] 4 05:36:14 Type 2 diabetes mellitus without complicat ion 885317836 Completed 201906/07/2020 RAUL SHERMAN DO [facility] [place], [address] , [facility] 1 07:46:02 Gout 27010156 Active 2020 Not Available [facility] 4 05:36:14 Periphera l neuropath y due to type 2 diabetes mellitus 12257632991 07 Active 2020 Not Available [facility] 4 05:36:14 Restless legs 82458856 Active 2020 Not Available [facility] 4 05:36:14 Left inguinal hernia 706715835 Active 2021 Not Available [facility] 4 05:36:14 Overweigh t 349366241 Active 2021 Not Available [facility] 4 05:36:14 Multiple complicat ions due to type 2 diabetes mellitus Active 2022 Not Available [facility] 4 05:36:14 Chronic prostatit is 80973327 Active 2024 JOE GARIBAY JR, MD [address] [place] [address], [address] [place] [address] 5 11:17:43 Hypomagne semia 269528700 Active 2024 YURI NOLAN APRN [address] [place] [address], [address] [place] [address] 5 08:24:15 Notes:Some problems listed i n Documents: #[id number], #[id number], #[id number], #[id number], #[id number] could not be added to this patient's chart. Please review these documents and add these problems to the patient's chart manually as needed. Problem Notes Documentation Provider Name and Address Organization Details Recorded Time Urologist Consult Note : [facility] [address], [facility] [id number], David D (Legal name: Jeff Carson) (id #[id number], : 1960) [facility]LY [facility] [address] [place] [address] Date: 07/02/2024RE: Jeff Carson, : 1960, PT ID #[id number] Chappell MD, I would like to thank you for referring Jeff Carson to our practice for consultation and evaluation. I have enclosed a copy of the office evaluation for your records. Sincerely, Electronically Signed by: JOE GARIBAY JR, MDUniversity Hospitals Elyria Medical Centerer Reason/DateTransition of Care Encounter Elevated PSA 07/01/2024 - 10:15AM - [facility] History of Present IllnessThe patient is a 64-year-old male presenting with discomfort related to chronic prostatitis. The conversation indicates the patient has been experiencing lower urinary tract symptoms, including inflammation and infection of the prostate, which are attributed to benign prostatic hyperplasia and prostatitis. He mentioned previously being treated with antibiotics last fall; however, the symptoms seem to persist. The current concerns include discomfort in the perineal region. In reference to a recent evaluation, the conversation notes a post void residual of 25 cc. Symptom resolution has not yet occurred, and consideration of stopping oxybutynin in favor of antibiotic treatment was discussed. Patient is on tamsulosin and oxybutynin at this point. Patient also has a history of elevated PSA and actually underwent MRI directed prostate biopsy which was negative with another urologist. MRI results are reviewed today.Review of SystemsAdditionally reports:Allergic/Immunologic Confirms:Other Allergies Denies: Food Allergy, Hay Fever Hematologic/Lymphatic Confirms: None Denies: Anemia, Bleed Easily, Bruise Easily, Swollen Glands Cardiovascular Confirms:Leg Cramps Denies: Angina, Chest Pain, Irregular Heartbeat, Palpitations (heart fluttering/racing), Swollen Ankles, Varicose Veins Constitutional Confirms: None Denies: Chills, Fever, Headaches, Weight Loss ENMT Confirms: None Denies: Hearing Loss, Hoarse Voice, Sinus Problems, Sore Throat Endocrine Confirms: None Denies: Excessive Thirst, Tired/Sluggish, Too Cold, Too Hot Eyes Confirms: None Denies: Blurred Vision, Double Vision, Eye Pain, Loss of Night Vision Gastrointestinal Confirms: None Denies: Abdominal Pain, Bloody Stools, Constipation, Diarrhea, Indigestion, Nausea, Stomach Ulcers, Vomiting Genitourinary Confirms: None Denies: Bladder Trouble, Blood in Urine, Catheter, Childhood Urinary Problem, Dialysis, Kidney Disease, Kidney Failure, Kidney Stones, Nephritis, Nocturia, Painful Urination, Slow Urination, Urinary Incontinence, Urinary Infection, Urinary Surgey, Urinate Too Often, UTI Integumentary Confirms: None Denies: Boils, Dry Skin, Moles/Abnormal Freckles, Rash Musculoskeletal Confirms:Arthritis, Back Pain Denies: Joint Pain, Neck Pain Neurologic Confirms: None Denies: Dizziness, Numbness, Passing Out, Seizures Psychiatric Confirms: None Denies: Depression, Forgetful, Nervous Respiratory Confirms: None Denies: Coughing Up Blood, Excessive Snoring, Frequent Cough, Must sleep sitting up, Shortness of Breath, Wheezing - Genitourinary: Reports perineal discomfort. - Musculoskeletal: Reports lower back pain. Physical ExamConstitutional:General Appearance: healthy-appearing and well-nourished. Level of Distress: no acute distress. Abdomen:Inspection and Palpation: no masses or CVA tenderness and soft. Hernia: none palpable. Skin:General Appearance of extremities: no edema. - Genitourinary- Prostate exam reveals 55 to 60 g smooth prostate, nontender. Procedure DocumentationPost Void Residual; Ultrasound:Post Void Residual Source: Ultrasound Volume: 25mlAssessment/[id number] d male with a history of elevated PSA presenting with persistent lower back pain and perineal discomfort suggestive of prostatitis. Despite an elevated PSA and PI-RADS 3 lesion, previous MRI-guided biopsy was benign. Differential includes chronic prostatitis contributing to symptoms. The smooth and nontender prostate on examination supports this diagnosis. Consideration of further diagnostic intervention based on symptom persistence and progression is warranted. Lower Back Pain: Symptomatic management of chronic lower back pain to include advice on posture, physical therapy, or pharmacological management as required. Benign Prostate Biopsy: Continued observation with no immediate intervention required due to benign biopsy results. 1. Lower urinary tract symptoms due to benign prostatic hypertrophy- Continue monitoring urinary symptoms. Consider stopping oxybutynin to evaluate if it impacts symptom relief. Further interventions might include evaluating prostate health through imaging or direct examination for any potential surgical requirements if medications are ineffective. N40.1: Benign prostatic hyperplasia with lower urinary tract symptoms URINALYSIS PANEL, AUTO - Specimen source: Urine 2. Chronic prostatitis- Initiate antibiotic therapy for a duration of three weeks to address suspected bacterial prostatitis. Regular follow-up needed to assess symptom improvement and consider PSA re-evaluation. If symptoms do not improve, further diagnostic evaluation including possible surgical considerations might be warranted. N41.1: Chronic prostatitis doxycycline monohydrate 100 mg capsule - To be submitted on or around 07/02/2024 Take 1 capsule(s) twice a day by oral route. Qty: (42) capsule Refills: 0 Pharmacy: [facility] #[id number] 3. Prostatitis- Consideration of antibiotic therapy based on symptomatology and potential prostatitis diagnosis. Empirical treatment with antibiotics discussed as per clinical guidelines.N41.9: Inflammatory disease of prostate, unspecified 4. Prostate specific antigen above reference range- Continued monitoring of PSA levels due to previous elevated results and PI-RADS 3 lesion. Future PSA evaluations recommended to assess trend and potential rebiopsy if clinically indicated.R97.20: Elevated prostate specific antigen [PSA] URINALYSIS PANEL, AUTO UA Auto/Manual RESULT REFERENCE RANGE SOURCE Clean Catch COLOR Yellow APPEARANCE Clear SPECIFIC GRAVITY 1.020 1.003-1.035 pH 5.0 5.0-8.0 LEUKOCYTE ESTERACE Negative Negative NITRITE Negative Negative PROTEIN Negative Negative GLUCOSE Normal Normal KETONES Negative Negative UROBILINOGEN Normal Normal 1 mg/dl BILIRUBIN Negative Negative BLOOD Negative Negative Patient Instructions- Stop taking oxybutynin as advised. - Start antibiotics as prescribed for three weeks. - Monitor symptoms and report any changes or worsening. - Schedule follow-up in a few months for PSA re-evaluation. - Seek medical care sooner if symptoms significantly worsen. Return to Office QIANA CHAPPELL MD for RECHECK at [facility] on 09/15/2024 at 11:45 AM JOE GARIBAY JR, MD for RECHECK at [facility] on 09/17/2024 at 09:00 AM QIANA CHAPPELL MD [address] [place] [address], [id number], [facility] 07/02/2024 14:09:30 Urology Note : [facility] [address] , [facility] [address]UQIWWN, David D (Legal name: Jeff Carson) (id #[id number], : 1960) [facility] [address] [place] [address] Encounter Summary - Progress Note Date Printed: 09/20/2024 Documents sent via fax will include the followingmessage: This fax may contain sensitive and confidential personal health information that is being sent for the sole use of the intended recipient. Unintended recipients are directed to securely destroy any materials received. You are hereby notified that the unauthorized disclosure or other unlawful use of this fax or any personal health information is prohibited. To the extent patient information contained in this fax is subject to 42 CFR Part 2, this regulation prohibits unauthorized disclosure of these records. If you received this fax in error, please visit [email or web address] to notify the sender and confirm that the information will be destroyed. If you do not have internet access, please call to notify the sender and confirm that the information will be destroyed. Thank you for your attention and cooperation. [ID:[id number]] Patient Jeff Carson (64yo, M) #[id number] 1960 Patient Demographics: Address [address] [place] [address] [place] [phone] Encounter Notes: Encounter Reason/Date 2-3 month fup w/ psa 09/17/2024 - 09:00AM - [facility] History of Present IllnessThe patient is a 64-year-old male presenting with follow-up for chronic prostatitis and elevated PSA evaluation. Chronic prostatitis was diagnosed and treated with antibiotics, improving urinary symptoms. The elevated PSA prompted MRI, showing a category 3 prostate lesion. An MRI-directed prostate biopsy in February 2024 was negative. The patient uses Tamsulosin for BPH. A repeat PSA today is necessary for ongoing management. Follow-up is planned in six months to monitor PSA trends and prostate health. Review of SystemsAdditionally reports:Allergic/Immunologic Confirms:Other Allergies Denies: Food Allergy, Hay Fever Hematologic/Lymphatic Confirms: None Denies: Anemia, Bleed Easily, Bruise Easily, Swollen Glands Cardiovascular Confirms:Leg Cramps Denies: Angina, Chest Pain, Irregular Heartbeat, Palpitations (heart fluttering/racing), Swollen Ankles, Varicose Veins Constitutional Confirms: None Denies: Chills, Fever, Headaches, Weight Loss ENMT Confirms: None Denies: Hearing Loss, Hoarse Voice, Sinus Problems, Sore Throat Endocrine Confirms: None Denies: Excessive Thirst, Tired/Sluggish, Too Cold, Too Hot Eyes Confirms: None Denies: Blurred Vision, Double Vision, Eye Pain, Loss of Night Vision Gastrointestinal Confirms: None Denies: Abdominal Pain, Bloody Stools, Constipation, Diarrhea, Indigestion, Nausea, Stomach Ulcers, Vomiting Genitourinary Confirms: None Denies: Bladder Trouble, Blood in Urine, Catheter, Childhood Urinary Problem, Dialysis, Kidney Disease, Kidney Failure, Kidney Stones, Nephritis, Nocturia, Painful Urination, Slow Urination, Urinary Incontinence, Urinary Infection, Urinary Surgey, Urinate Too Often, UTI Integumentary Confirms: None Denies: Boils, Dry Skin, Moles/Abnormal Freckles, Rash Musculoskeletal Confirms:Arthritis, Back Pain Denies: Joint Pain, Neck Pain Neurologic Confirms: None Denies: Dizziness, Numbness, Passing Out, Seizures Psychiatric Confirms: None Denies: Depression, Forgetful, Nervous Respiratory Confirms: None Denies: Coughing Up Blood, Excessive Snoring, Frequent Cough, Must sleep sitting up, Shortness of Breath, Wheezing - Genitourinary: Reports perineal discomfort. - Musculoskeletal: Reports lower back pain. - Genitourinary: Reports no burning sensation, improved urination. - General: Denies other systemic complaints. Vitals Ht: 6 ft 1 in09/17/2024 08:58 am Wt: 210 lbs09/17/2024 08:59 am BMI: 27.704 08:59 am Results/Interpretations URINALYSIS PANEL, AUTO UA Panel Auto Result Reference Range Source Clean Catch Color Yellow Clarity Clear Specific Camp 1.025 1.003 - 1.030 pH 5.0 5.0 - 8.0 Leukocytes Negative Negative Nitrite Negative Negative Protein Negative Negative Glucose 50 mg/dL Normal Ketones Negative Negative Urobilinogen Normal Normal Bilirubin 1 mg/dL Negative Blood Negative Negative PSA, SERUM OR PLASMA Result: -PSA: 2.6ng/ml Physical ExamConstitutional:General Appearance: healthy-appearing and well-nourished. Level of Distress: no acute distress. Abdomen:Inspection and Palpation: no masses or CVA tenderness and soft. Hernia: none palpable. Skin:General Appearance of extremities: no edema. Procedure DocumentationNone recorded Assessment and [id number] male with a history of chronic prostatitis presenting for follow-up of elevated PSA evaluation. A category 3 prostate lesion was noted on MRI. Symptoms improved with antibiotics. Previous biopsy was negative. Repeat PSA today is important for evaluation. Continued BPH management is ongoing. Follow-up in six months is scheduled. Chronic Prostatitis: Plan involves monitoring resolution post-antibiotic treatment. No further antibiotics unless symptoms return. Elevated Prostate-Specific Antigen Psa: Plan includes repeating PSA today post-prostatitis treatment to assess persistence. Benign Prostatic Hyperplasia Bph: Plan maintains Tamsulosin use. Monitor symptoms for any changes. Category 3 Prostate Lesion On Mri: Plan to continue monitoring due to previous negative biopsy. Follow-up PSA evaluation will guide further steps. 1. Chronic mkrvlafqddjZ68.1: Chronic prostatitis 2.High prostate specific antigen (PSA)Continued monitoring of PSA levels due to previous elevated results and PI-RADS 3 lesion. Future PSA evaluations recommended to assess trend and potential rebiopsy if clinically indicated.R97.20: Elevated prostate specific antigen [PSA] URINALYSIS PANEL, AUTO - Specimen source: Urine PSA, SERUM OR PLASMA - Specimen source: Blood venous URINALYSIS PANEL, AUTO UA Panel Auto Result Reference Range Source Clean Catch Color Yellow Clarity Clear Specific Camp 1.025 1.003 - 1.030 pH 5.0 5.0 - 8.0 Leukocytes Negative Negative Nitrite Negative Negative Protein Negative Negative Glucose 50 mg/dL Normal Ketones Negative Negative Urobilinogen Normal Normal Bilirubin 1 mg/dL Negative Blood Negative Negative PSA, SERUM OR PLASMA Result: -PSA: 2.6ng/ml Patient Instructions- Repeat PSA test today as discussed to check levels. - Continue taking Tamsulosin as prescribed for BPH. - Report any recurrence of urinary symptoms like burning or discomfort. - Follow up in six months or sooner if symptoms worsen or new symptoms arise. Return to Office QIANA CHAPPELL MD for RECHECK at [facility] on 12/17/2024 at 10:00 AM JOE GARIBAY JR, MD for RECHECK at [facility] on 03/18/2025 at 09:15 AM Patient Medical History: Allergies List Allergies not reviewed (last reviewed 09/15/2024) MORPHINE: - Comment: FAMILY HISTORY;Created By: Kathleen Velasquez;Created Date: 10/30/2013 9:16:39 AM; [id number] REDUCTASE INHIBITORS: Myalgias (muscle pain) - Reaction: MYALGIA; Comment: MUSCLE ACHES;Created By: Kathleen Velasquez;Created Date: 10/30/2013 9:15:45 AM; Some allergies listed in Documents: #[id number], #[id number], #[id number], #[id number], #[id number] could not be added to this patient's chart. Please review these documents and add these allergies to the patient's chart manually as needed. Medications Reviewed Medications NameDate Source allopurinoL 300 mg tabletTake 1 tablet(s) every day by oral route06/11/22 changed RAUL SHERMAN DO amLODIPine 10 mg tabletTAKE 1 TABLET BY MOUTH EVERY DAY IN THE MORNING Internal Note:06/25/24-08/27/2503 renewed QIANA CHAPPELL MD benazepriL 40 mg tabletTAKE 1 TABLET BY MOUTH EVERY DAY IN THE MORNING Internal Note:06/25/23-09/15/2502 renewed QIANA CHAPPELL MD doxycycline monohydrate 100 mg capsuleTake 1 capsule(s) twice a day by oral route.07/01/24 prescribed JOE GARIBAY JR, MD ezetimibe 10 mg tabletTake 1 tablet(s) every day by oral route at bedtime. Internal Note:01/10/23-09/21/2306 prescribed QIANA CHAPPELL MD FreeStyle Lite Meter kitone meter04/06/20 entered kontoblickaustin FreeStyle Lite StripsUSE DIRECTED TO TEST ONCE DAILY Internal Note:09/06/23-12/19/2404 renewed MICHAEL MCLEAN APRN glipiZIDE ER 5 mg tablet, extended release 24 hrTake 2 tablet(s) twice a day by oral route with meal(s) for 90 days.09/15/24 prescribed QIANA CHAPPELL MD metFORMIN 1,000 mg tabletTake 1 tablet(s) twice a day by oral route with meals for 90 days. Internal Note:09/06/23-12/20/2403 prescribed QIANA CHAPPELL MD oxyBUTYnin chloride ER 10 mg tablet,extended release 24 hrTake 1 tablet(s) every day by oral route.03/25/24 entered Eva Rosario pioglitazone 30 mg tabletTake 1 tablet(s) every day by oral route for 90 days.09/15/24 prescribed QIANA CHAPPELL MD rOPINIRole 1 mg tabletTake 1 tablet(s) every day by oral route.03/16/22 renewed RAUL SHERMAN DO tamsulosin 0.4 mg capsuleTake 1 capsule(s) every day by oral route.03/25/24 entered Eva Rosario Valtrex 1 gram tabletTake 2 tablet(s) every day by oral route as needed for 1 day.02/14/22 renewed RAUL SHERMAN DO Family HistoryFamily History not reviewed (last reviewed 07/01/2024) Mother - Diabetes mellitus - Kidney disease - renal failure after morphine? - Type 2 diabetes mellitus Brother - Diabetes mellitus - Coronary artery bypass graft - Type 2 diabetes mellitus Unspecified Relation - Heart disease - Hypertensive disorder Father - Cerebrovascular accident Past Medical HistoryPast Medical History not reviewed (last reviewed 07/01/2024) Diabetes:Y Hypertension:Y Vaccine HistoryVaccines not reviewed (last reviewed 07/01/2024) Vaccine Type Date Amt. Route Site [facility] Lot # Mfr. Exp. 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 COVID-19 COVID-19 (SARS-COV-2) vaccine, unspecified 08/19/20 COVID-19 (SARS-COV-2) vaccine, unspecified 07/28/20 Diphtheria, Tetanus, Pertussis Tdap 01/25/19 Hepatitis A Hep A, adult 06/07/20 Intramuscular Deltoid, Left [id number] [employer] 11/10/21 Hepatitis A 12/22/2019 06/07/20 Hallie Richard Hep A, adult 10/25/18 Influenza influenza, injectable, quadrivalent, preservative free 03/07/20 0.5 mL Intramuscular Deltoid, Left [id number] Sanofi Pasteur 11/23/20 Inactivated Influenza 01/08/2019 03/07/20 Hallie Richard Pneumococcal pneumococcal polysaccharide PPV23 06/19/21 0.5 mL Intramuscular Deltoid, Left [id number] [employer]ck and Co[employer] Inc[employer] 06/08/22 PPSV23 03/25/2019 06/19/21 Caryn Linares Zoster zoster recombinant 06/19/21 0.5 mL Intramuscular Deltoid, Right [id number] [employer]axoSmith[employer]line 10/12/22 Recombinant Zoster 03/25/2019 06/19/21 Caryn Linares zoster recombinant 06/07/20 Intramuscular Deltoid, Right [id number] [employer] 03/09/22 Recombinant Zoster 03/25/2019 06/07/20 Hallie Richard completed covid booster ~03/2021 Electronically Signed by: JOE GARIBAY JR, MD QIANA CHAPPELL MD [address] [place], [address], [facility] 09/21/2024 08:13:17 Procedures Surgical History Date Name Laterality Status Provider Name and Address Organization Details Recorded Time 07/01/19 25 Post Void Residual; Ultrasound completed Jocelyne Toribio [facility] 07/01/2024 11:27:34 04/25/20 22 Echocardiogram completed BELKYS ESTRELLA MD [address] [place], [address], [facility] 04/25/2022 12:20:28 04/10/20 22 EKG completed Radha Salazar [facility] 04/10/2022 12:43:51 05/27/18 62 Removal of testis completed RAUL SHERMAN DO [address] [place], [address], [facility] 06/07/2020 08:37:41 Removal of tonsils completed Radha Salazar [facility] 02/25/2020 09:04:57 Other completed Radha [facility] 02/25/2020 09:05:20 repair of meniscus completed RAUL SHERMAN DO [address] [place], [address], [facility] 03/07/2020 09:24:32 Imaging Results None recorded. Procedure Notes None recorded. Medical Equipment None Reported. Allergies Allergen ID Allergen Name Allergen Category Reaction Reaction Severity Criticality Documentation Date Start Date Code Code System Note Provider Name and Address Organization Details Recorded Time 809833 Product containin g 3-hydroxy -3-methyl glutaryl- coenzyme A reductase inhibitor (product) medicatio n myalgias (muscle pain) Not available Not available 04/19/20162013 92804 009 SNOMED React ion: MYALG IA; Comme nt: MUSCL E ACHES ;Crea indio By: Cortez parr;C reate d Date: 9:15: 45 AM; Not Available [facility] 6 11:11:56 246218 morphine sulfate medicatio n Not available Not available Not available 04/19/20162013 56576 RxNorm Comme nt: FAMIL Y HISTO RY;Cr eated By: Cortez parr;C reate d Date: 9:16: 39 AM; Not Available [facility] 6 11:39:42 Medications Name Sig Start Date [...] height Body mass index (BMI) Body weight Systolic blood pressure Diastolic blood pressure Provider Name and Address Organization Details Last Updated DateTime 06/25/2024 185.42 cm 27.8 kg/m2 51235.99 g 124 mm[Hg] 70 mm[Hg] [facility] [place] 10:52:41 Date Recorded Body height Body mass index (BMI) Body weight Provider Name and Address Organization Details Last Updated DateTime 07/01/2024 185.42 cm 27.7 kg/m2 71852.4 g Jocelyne Toribio [facility] 07/01/2024 11:17:21 Date Recorded Body height Body mass index (BMI) Body weight Heart rate Systolic blood pressure Diastolic blood pressure Provider Name and Address Organization Details Last Updated DateTime 185.42 cm 27.7 kg/m2 14326.4 g 54 /min 118 mm[Hg] 64 mm[Hg] Ave Nolan [facility] 11:56:32 Date Recorded Body height Body mass index (BMI) Body weight Provider Name and Address Organization Details Last Updated DateTime 09/17/2024 185.42 cm 27.7 kg/m2 27480.4 g Jocelyne Toribio [facility] 09/17/2024 08:59:02 Date Recorded Body height Body mass index (BMI) Body weight Heart rate Systolic blood pressure Diastolic blood pressure Provider Name and Address Organization Details Last Updated DateTime 185.42 cm 26.1 kg/m2 36257.2 9 g 87 /min 110 mm[Hg] 65 mm[Hg] Fransisca Mayers [facility] 10:46:54 Social History Question Answer Notes LastModified by Organizat ion Details LastModified Time Tobacco Smoking Status Never [facility]oker [facility] 02/25/2020 07:45:19 What Is Your Level Of Caffeine Consumption? Moderate [email or web address] Information not available 02/01/2021 Marital Status [email or web address] Informatio n not available 02/25/2020 What Was The Date Of Your Most Recent Tobacco Screening? 07/01/2024 Information not available 07/01/2024 What Is Your Relationship Status? [email or web address] Information not available 04/25/2022 Do You Have Smoke And Carbon Monoxide Detectors In Your Home? Yes [email or web address] Information not available 02/01/2021 Has Tobacco Cessation Counseling Been Provided? No [email or web address] Information not available 04/10/2022 Have You Recently Traveled Abroad? No [email or web address] Information not available 04/25/2022 Sex: Male Functional Status Question Answer Note LastModified by Organizat ion Details LastModified Time Do you use any illicit or recreational drugs? No [email or web address] Information not available 02/01/2021 Do you or have you ever used any other forms of tobacco or nicotine? No [email or web address] Information not available 02/01/2021 What is your level of alcohol consumption? None [email or web address] Information not available 02/01/2021 Do you or have you ever used smokeless tobacco? Never used smokeless tobacco [email or web address] Information not available 02/25/2020 Are you currently employed? 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 Never used electronic cigarettes [email or web address] Information not available 02/25/2020 Mental Status None [...] split virus, quadrivalent, PF 0 completed RAUL SHERMAN DO [address] [place] [address], [phone], [facility] 03/07/2020 09:47:38 Hep A, adult 1 completed Hallie Richard [facility] 06/07/2020 08:46:44 zoster recombinant 1 [facility] 08:47:10 zoster recombinant 2 completed Caryn Linares [facility] [facility] 06/19/2021 11:38:33 pneumococcal polysaccharide PPV23 2 completed Caryn Linares [facility] 06/19/2021 11:38:33 Tdap 9 completed Not Available [facility] 06/23/2023 05:36:14 Hep A, adult 9 completed Not Available [facility] 06/23/2023 05:36:14 SARS-COV-2 (COVID-19) vaccine, UNSPECIFIED 1 completed Not Available [facility] 06/23/2023 05:36:14 SARS-COV-2 (COVID-19) vaccine, UNSPECIFIED 1 completed Not Available [facility] 06/23/2023 05:36:14 Past Encounters Encounter ID Performer Location Encounter Start Date Encounter Closed Date Diagnosis/Indication Diagnosis SNOMED-CT Code Diagnosis ICD10 Code Diagnosis Note [id number] GILMER PRATT MD CARDIOLOG Y [address] ,[address] [place] [address] 02/25/2020 08:39:23 02/25/2020 13:48:24 Hypertensive disorder 87100897 I10 I discussed the importance of salt restrictio n. Per FDA recommenda tions, I advise limit of 2000 -2400 mg daily of sodium. Increase sodium intake is often associated with worsening of hypertensi on and or heart failure.DA SH diet given. 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 Normal echocardio gram no further testing indicated Dyslipidemia 138537754 E 78.5 Statin myalgia. I advised discontinu ing pravastati n and we'll recheck lipids on follow-up. Patient has statin induced myalgia. Patient is advised to take statins one night per week since it takes 3 days for statin buildup to cause myalgias. If LDL cholestero l is still not at target, suggest adding ezetimibe 10 mg daily. If still not effective, consider PCS K-9 inhibitors . This was discussed in detail with the patient. [id number] RAUL SHERMAN DO FAMILY MEDICINE [address] [place] [address] 03/07/2020 09:07:19 03/07/2020 09:43:43 Hypertensive disorder 83288986 I10 Remains borderline , patient previously advised to monitor BP nightly. On most checks running 130-140/70 -80 but admits he needs to be more regular about checking. Goal <140/90. Continue current regimen and monitoring . Weight loss to return to his pre-knee surgery weight will be helpful. Continue daily cardiovasc ular exercise. Type 2 juan carlos betes mellitus without complication 422588327 E11.9 Reports a1c last month 7.1. Continue current regimen and moderation of carbohydra abiodun. UTD on DM eye exam. Has been referred to Dr. Chappell. No hx of hypoglycem ia but would consider stopping combinatio n of glipizide + actos. Dyslipidemia 136131083 E 78.5 History of statin intoleranc e, continue follow-up with Dr. Pratt, we will be considerin g once weekly statin trial and if he remains intolerant alternativ es will be discussed. Administra tion of influenza vaccine 76556433 Z23 Risks and benefits of influenza vaccinatio n reviewed, patient agreeable to receiving. [id number] GILMER PRATT MD CARDIOLOG Y EAST [address] [place] [address] ,[address] [place] [address] 03/28/2020 08:17:10 03/28/2020 09:01:20 Hypertensive disorder 44818217 I10 I discussed the importance of salt restrictio n. Per FDA recommenda tions, I advise limit of 2000 -2400 mg daily of sodium. Increase sodium intake is often associated with worsening of hypertensi on and or heart failure.DA SH diet given. Right bund le branch block 61423682 I45.0 Confirmed on electrocar diogram. Normal echocardio gram no further testing indicated Dyslipidemia 013276131 E 78.5 Statin myalgia. I advised discontinu ing pravastati n and we'll recheck lipids on follow-up. Patient has statin induced myalgia. Recommend ezetimibe 10 mg nightly with atorvastat in one night per week. [id number] QIANA CHAPPELL MD ENDOCRINO LOGY [address] [place] [address] 04/06/2020 10:27:54 04/06/2020 11:04:44 Multiple complications due to type 2 diabetes mellitus 404441228 E11.8 A1c 6.2 on 03/21/2020 Random point-of-c are blood glucose 187 Goal A1c less than 7% I had a discussion with patient about the deleteriou s consequenc es of uncontroll ed hyperglyce steven in the form of microvascu lar complicati ons such as diabetic retinopath y, diabetic nephropath y, diabetic neuropathy and macrovascu lar complicati ons such as coronary artery disease, peripheral arterial disease and stroke. I had a lengthy discussion with patient about the importance of dietary carbohydra te consistenc y and restrictio n and not exceed 60 g of carbohydra te per meal and 15 30 grams per snack if needed. I commended patient on achieving and maintainin g goal glycemic control Continue current diabetes regimen 10 g monofilame nt testing is bilaterall y intact in the office today Obtain diabetic dilated [facility] exam from [facility] Peripheral neuropathy due to type 2 diabetes mellitus 3137982025 107 E11.42 Reported bilateral lower extremity aching Bilateral feet tingling and numbness Known diagnosis of restless leg syndrome 10 gram monofilame nt testing his bilateral intact in the office today EKG in 2013 was negative for diabetic neuropathy consistent with restless leg syndrome. Differenti al diagnosis could be either restless leg syndrome or a combinatio n of restless leg syndrome and peripheral neuropathy Patient verbalized understand ing and agreed with the above mentioned plan of care. I would like to thank Dr. Pratt for the opportunit y to participat e in the care of this patient. [id number] RAUL SHERMAN, DO FAMILY MEDICINE [address] [place] [address] 06/07/2020 08:04:13 06/07/2020 08:55:01 Adult health examination 420675520 Z00.00 Reviewed healthy diet, lifestyle and exercise habits. Cologuard negative in 2019, due next year for follow-up Screening for malignant neoplasm of prostate 687991310 Z12.5 No personal or family history of prostate cancer, continue annual screening Hypertensive disorder 38 990677 I10 Goal <140/90. Continue current regimen and monitoring . Weight loss to return to his pre-knee surgery weight will be helpful. Continue daily cardiovasc ular exercise. Dyslipidemia 187891268 E 78.5 History of statin intoleranc e, now on once weekly lipitor and daily zetia and tolerating well Peripheral neuropathy due to type 2 diabetes mellitus 0804293977 107 E11.42 Continue current regimen and moderation of carbohydra abiodun. UTD on DM eye exam. Cont follow up with Dr Mojica Gout 65157222 M10.9 Stable Restless legs 07189776 G 25.81 Stable on 1 mg nightly Requires a hepatitis A vaccination 427462247 Z28.3 Completed series today Immunization due 4771582 08 Z28.3 First dose today Left inguinal hernia 236 817095 K40.90 Watching for several years, no pain, not enlarging. To f/u if worsening [id number] QIANA CHAPPELL MD ENDOCRINO [facility] [address] [place] [address] 09/14/2020 08:41:37 09/14/2020 09:25:52 Multiple complications due to type 2 diabetes mellitus 022112793 E11.8 A1c 6.2 unchanged from 6.2 on 03/21/2020 Random point-of-c are blood glucose 176 Goal A1c less than 7% I commended patient on achieving and maintainin g goal glycemic control Continue current diabetes regimen 10 g monofilame nt testing is bilaterall y intact in the office today Reschedule diabetic dilated eye exam from [facility]. In the office today he reported episodes of feeling jittery, normal villalpando that happens after meals. I recommende d further evaluation by checking his blood glucose during episodes and treat himself with 15 g of carbohydra te if blood glucose is less than 15 g and call our office back. I also recommende d to check his blood pressure during those episodes. He has restless leg syndrome and differenti al diagnosis as I explained to him could include hypoglycem ia, hypertensi on, restless leg syndrome and others. He will call our office back Hyperlipidemia 53930027 E78.5 LDL of 120 Continue current atorvastat in 10 mg every bedtime Currently on Zetia Essential hypertension 08173674 I10 Blood pressure at goal of less than 140/90 Continue current regimen Patient verbalized understand ing and agreed with the above mentioned plan of care. [id number] RAUL SHERMAN, FAMILY MEDICINE [address] [place] [place] [address] 12/07/2020 07:59:32 12/07/2020 08:54:27 Hypertensive disorder 17644525 I10 Goal <140/90. Continue current regimen and monitoring . Weight loss to return to his pre-knee surgery weight will be helpful. Continue daily cardiovasc ular exercise. Peripheral neuropathy due to type 2 diabetes mellitus 2834301877 107 E11.42 Recent a1c 6.2. Continue current regimen and moderation of carbohydra abiodun. UTD on DM eye exam. Cont follow up with Dr Mojica Gout 89142664 M10.9 Stable Dyslipidemia 746399258 E 78.5 History of statin intoleranc e, now on once weekly lipitor and daily zetia and tolerating well Type 2 juan carlos betes mellitus without complication 944795794 E11.9 Continue current regimen and moderation of carbohydra abiodun. UTD on DM eye exam. Has been referred to Dr. Chappell. Restless legs 25006894 G 25.81 Will trial increase to 2mg nightly. Herpes labialis 9540965 B00.1 1-2 outbreaks annually, requests valtrex refill. Lesion of skin of left ear [id number] 4363929 H93.8X2 Appears to be AK, would rec dermatolog y evaluation [id number] ANDERS HAZEL PA-C [facility] [address] [place] [id number] 02/01/2021 08:05:13 02/01/2021 08:35:45 Acute otitis externa of right ear 0540229811 337694 H60.501 stop polymyxin Sulfa eardrops and start Ciprodex as directed in both the ears 7 days. Follow-up if symptoms persist or worsen. I think patient needs the addition of the steroid in this ear drop to help with swelling in the ear canal at present. No signs of inner ear infection on exam. Acute left otitis media 528341777 H66.92 see above instructio ns. [id number] MADHURI DEL CASTILLO MD ENT SB [address] [place], [place] [address] 03/07/2021 14:42:47 03/07/2021 16:40:55 Dermatitis of external auditory canal 073630803 H60.593 Causing recurrent episodes of acute external otitis. Kenalog ointment and fluocinolo ne oil. f/u 3-4 weeks. 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 Continue current diabetes regimen Up-to-date with diabetic dilated eye exam [facility] in [place] in October. 10 g monofilame nt testing is bilaterall y intact [id number] RAUL SHERMAN, FAMILY MED[facility]INE [address] [place] [address] 06/19/2021 10:19:18 06/19/2021 11:57:10 Adult health examination 941857822 Z00.00 Reviewed healthy diet, lifestyle and exercise habits. Cologuard negative in 2019, due this year for follow-up. Elects to continue Cologuard screening Screening for malignant neoplasm of prostate 131489308 Z12.5 No personal or family history of prostate cancer, continue annual screening Hypertensive disorder 38 417461 I10 BP elevated of late, today in due to stress but typically better at home when checked.Go al <130/80 with DM.Recomme nd monitoring blood pressure at home. Healthy diet and cardiovasc ular exercise encouraged with goal 150 minutes weekly. Sodium moderation recommenda tions reviewed. Dyslipidemia 894231753 E 78.5 History of statin intoleranc e, now on once weekly lipitor and daily zetia and tolerating well Peripheral neuropathy due to type 2 diabetes mellitus 1214691125 107 E11.42 A1c stable at goal, continue follow-up with endocrinol ogy Gout 18500708 M10.9 Stable Restless legs 62549202 G 25.81 Stable on 1 mg nightly Immunization due 6675992 08 Z28.3 Completed today Left inguinal hernia 236 604358 K40.90 Watching for several years, no pain, not enlarging. To f/u if worsening Multiple complications due to type 2 diabetes mellitus 813036840 E11.8 Screening for malignant neoplasm of colon 353225592 Z12.11 His colonoscop y, Cologuard -2019, due follow-up. Elects to continue Cologuard screening, agreeable to colonoscop y if indicated Administra tion of pneumococcal vaccine 39718256 Z23 Pneumovax updated today [id number] QIANA CHAPPELL MD ENDOCRINO [facility] [address] [place] [address] 10/04/2021 08:34:14 10/04/2021 09:17:42 Multiple complications due to type 2 diabetes mellitus 731787772 E11.8 A1c in the office today of 6.6 from a prior A1c of 6.4% Random point-of-c are blood glucose of 152 Goal A1c less than 7% Commended patient on achieving and maintainin g goal glycemic control. Continue current diabetes regimen Changing metformin 500 mg twice daily to metformin extended release 500 mg 2 tablets every bedtime Up-to-date with diabetic dilated eye exam [facility] [place] in October. 10 g monofilame nt testing is bilaterall y intact. Instructed to schedule his diabetic dilated eye exam Essential hypertension 11781035 I10 Blood pressure elevated at 142/68 Further increase amantadine to 10 mg Check blood pressure once daily for 1 week and call our office back Patient verbalized understand ing and agreed with the above mentioned plan of care. [id number] BOBBI MUELLER PA-C FAMILY [address] [place] [address] 02/06/2022 15:10:00 02/06/2022 15:33:58 COVID-19 818261264 U07.1 stable symptoms at present. Discussed natural course of this condition and recommend supportive care including rest and maintainin g adequate hydration. Understand s that despite feeling stable now, s()he could have worsening symptoms in future. Advised if so (s)he should, proceed to ED Continue to monitor closely and call if any concerns or questions. advised patient to quarantine for 5 days with day 0 being day of symptom onset. return to public wearing a mask after 5 days if fever is not present. contact the office if he/she begins to have worsening symptoms of COVID-19 such as shortness of air, high fever, chest pain. Advised:zi nc 100mg qd x 4 weeksvitam in d 2000iu qd x 4 weeksvitam in c 500mg bid x 4 weeks tylenol for fever, aches prn Prescribed :Paxlovid as belowpatie nt understand to stop atorvastat in, flonase while taking this medication . Also his understand s to closely monitor blood pressure, blood sugar. Side effects risk benefits of the medication discussed with patient. Advised medication such as Mucinex, Flonase and saline nasal rinses might be efficaciou s in sinus congestion relief and would be okay to try. obtain pulse ox and begin watching saturation at home. this should be above 90 at all times. if below 90 go to ER. Guille 28267907 M6 2.831 most likely Secondary to dehydratio n. Increase intake of electrolyt e water, Pedialyte. Try to reach a goal of 64 to 80 ounces of clear liquids daily. [id number] BELKYS ESTRELLA MD CARDIOLOG Y [address] [place] [address] 04/10/2022 12:41:29 04/10/2022 14:39:32 Hypertensive disorder 01237011 I10 Right bund le branch block 57399712 I45.0 Dyslipidemia 532421049 E 78.5 Overweight 039545699 E66 .3 Premature atrial contraction 907513614 I49.1 [id number] QIANA CHAPPELL MD ENDOCRINO [facility] [address] [place] [address] 04/10/2022 12:42:02 04/10/2022 15:07:11 Multiple complications due to type 2 diabetes mellitus 154532067 E11.8 A1c in the office today of 7% up from 6.6 from a prior A1c of 6.4% Random point-of-c are blood glucose of 162 Goal A1c less than 7% Commended patient on achieving and maintainin g goal glycemic control. Continue current diabetes regimen He will finish up his current supplies of Januvia [has about 3 months] and discontinu ed due to cost. Reevaluate next office visit which is going to be 3 months after discontinu ing Januvia Intensify his regimen as appropriat e next office visit if his A1c is above 7. Up-to-date with diabetic dilated eye exam [facility] in [place] in October. 10 g monofilame nt testing is bilaterall y intact. [id number] BELKYS ESTRELLA MD CARDIOLOG Y [place] [address] [place] [phone] 04/25/2022 10:37:31 04/25/2022 11:59:17 Hypertensive disorder 48385847 I10 Right bund le branch block 28910127 I45.0 Dyslipidemia 877814800 E 78.5 Overweight 737903435 E66 .3 Premature atrial contraction 634737709 I49.1 [id number] BELKYS ESTRELLA MD ECHO VASCULAR LAB [facility] [place] [address] [place] [address] 04/25/2022 10:36:52 04/25/2022 15:46:54 Ventricular premature complex 292059016 I49.3 [id number] MICHAEL MCLEAN APRN ENDOCRINO [facility] [address] [place] [address] 09/21/2022 10:46:38 09/21/2022 11:34:29 Multiple complications due to type 2 diabetes mellitus 495809201 E11.8 A1c 7.7% increased from 7Random Glucose: 185 I had a discussion with patient about the deleteriou s consequenc es of uncontroll ed hyperglyce steven in the form of microvascu lar complicati ons such as diabetic retinopath y, worsening of diabetic nephropath y, diabetic neuropathy and macrovascu lar complicati ons such as coronary artery disease, peripheral arterial disease and stroke. - Monitor blood glucose at least times per day and any time you feel low. -Navjot l our office in 1 week with your blood glucose logs , or send them directly through the patient portal. Blood glucose goals :Fasting (before breakfast) 80-1302 hours after meal <180 Low = <70 (Treat by drinking 6oz juice and recheck in 15 min, repeat if still <70) - Restrict carbohydra abiodun (Men: less than 60g per meal and less than 15g per snack; Women: less than 45g/meal and less than 15g/snack) . Eat three meals per day. - Try to be more active as weight loss will help with insulin sensitizat ion. Goal: 30 minutes per day, at least 5 days per week. -Check your feet daily. Wear comfortabl e shoes and socks that fit. A yearly foot exam by a provider is recommende d. -Recommend annual dilated eye exam. Please have results faxed to our office . -Recommend annual flu shot. *Please bring your glucometer to every endocrinol ogy justina t. Sign up for the patient portal: [email or web address] Pioglitazo ne 30mg dayContinu e Glipizide 5mg dayContinu e Metformin 1000mg BIDf/u in 3 months [id number] QIANA CHAPPELL MD ENDOCRINO [facility] [address] [place] [address] 01/10/2023 10:59:42 01/10/2023 12:08:35 Uncontrolled type 2 diabetes mellitus 121559269 E11.65 A1c is down to 7.1 from 7.7Random point-of-c are blood glucose of 154Goal A1c less than 7% I had a lengthy discussion with patient about the deleteriou s consequenc es of uncontroll ed hyperglyce steven in the form of microvascu lar complicati ons such as diabetic retinopath y, diabetic nephropath y, diabetic neuropathy and macrovascu lar complicati ons such as coronary artery disease, peripheral arterial disease and stroke. I had a lengthy discussion with patient about the importance of dietary carbohydra te consistenc y and restrictio n and not exceed 60 g of carbohydra te per meal and 15 30 grams per snack if needed. Recommenda tions: Continue current pioglitazo ne, glipizide and metformin therapyUp- to-date with diabetic eye exam, 10 g of almond testing and urinary ACR. [id number] BELKYS ESTRELLA MD CARDIOLOG Y [address] [place],[address] [place] [id number] 01/25/2023 09:50:44 01/25/2023 10:35:33 Hypertensive disorder 85022699 I10 Right bund le branch block 25460045 I45.0 Dyslipidemia 098108509 E 78.5 Overweight 930857804 E66 .3 Premature atrial contraction 439778173 I49.1 [id number] BELKYS ESTRELLA MD CARDIOLOG Y [address] [place],[address] [place] [address] 04/29/2023 09:11:46 04/29/2023 10:11:14 Hypertensive disorder 93983183 I10 Right bund le branch block 31095094 I45.0 Dyslipidemia 365964285 E 78.5 Overweight 103804165 E66 .3 Premature atrial contraction 737813561 I49.1 Pain in bi lateral legs 1380557534 6928641 M79.605 M79.604 [id number] QIANA CHAPPELL MD ENDOCRINO [facility] [address] [place] [address] 05/10/2023 10:57:17 05/10/2023 11:36:53 Uncontrolled type 2 diabetes mellitus 650605355 E11.65 A1c in the office today of 7.9 up from 7.1 Random point-of-c are blood glucose of 173 Goal A1c less than 7%Worsenin g glycemic control. Dietary indiscreti on I had a discussion with patient about the deleteriou s consequenc es of uncontroll ed hyperglyce steven in the form of microvascu lar complicati ons such as diabetic retinopath y, worsening of diabetic nephropath y, diabetic neuropathy and macrovascu lar complicati ons such as coronary artery disease, peripheral arterial disease and stroke. I had a lengthy discussion with patient about the importance of dietary carbohydra te consistenc y and restrictio n and not exceed 60 g of carbohydra te per meal and 15 30 grams per snack if needed.Con tinue current diabetes regimen Increase glipizide ER to 5 mg twice daily before meals Continue metformin 1000 mg 2 tablets daily and pioglitazo ne 30 mg daily.Up-t o-date with diabetic dilated eye exam [no diabetic retinopath y per last diabetic dilated eye exam on 05/09/2023 Dr. Regina Fischer OD [facility] [place] 10 g monofilame nt testing is bilaterall y intact. Hyperlipidemia 19412307 E78.5 LDL of 93 on 04/29/2023 Discontinu e atorvastat in 10 mg every bedtime Currently on Zetia Liver function test Essential hypertension 74166440 I10 Blood pressure 131/65Cont inue amlodipine 10 mg every a.m. Continue current benazepril 40 mgBMP and urinary ACR todayPatie nt verbalized understand ing and agreed with the above mentioned plan of care. [id number] QIANA CHAPPELL MD [facility]CRINO [facility] [address] [place] [address] 09/06/2023 12:55:42 09/06/2023 14:01:11 Uncontrolled type 2 diabetes mellitus 818188100 E11.65 A1c in the office today of 7.8 down from 7.9 up from 7.1 Random point-of-c are blood glucose of 238 Goal A1c less than 7%Mildly improved but is still above goal glycemic control I had a discussion with patient about the deleteriou s consequenc es of uncontroll ed hyperglyce steven in the form of microvascu lar complicati ons such as diabetic retinopath y, worsening of diabetic nephropath y, diabetic neuropathy and macrovascu lar complicati ons such as coronary artery disease, peripheral arterial disease and stroke. I had a discussion with patient about the importance of dietary carbohydra te consistenc y and restrictio n and not exceed 60 g of carbohydra te per meal and 15 30 grams per snack if needed.Con tinue current diabetes regimenSta rt Ozempic 0.25 mg subcu weekly for 4 weeks to be increased to higher dose of 0.5 mg subcu weekly thereafter Benefits and side effects including but not limited to increased risk of acute cancer intestinal side effects such as nausea vomiting constipati on/diarrhe a discussed with patient. As well as rare side effects such as acute pancreatit is. No personal or family history of medullary thyroid cancer or multiple endocrine neoplasia type 2Verbalize d understand ing and agreed to start therapy Provided with a 6-week free medical sampleCont inue glipizide ER to 5 mg twice daily before mealsConti nue metformin 1000 mg 2 tablets daily and pioglitazo ne 30 mg daily.Up-t o-date with diabetic dilated eye exam [no diabetic retinopath y per last diabetic dilated eye exam on 05/09/2023 Dr. Regina Fischer OD [facility] [place] Foot exam done in our office todayFootc are discussed with [id number] g monofilame nt testing is bilaterall y intact.Miranda knott verbalized understand ing and agreed with the above mentioned plan of care. Hyperlipidemia 16073225 E78.5 LDL of 93 on 04/29/2023 iscontinue d atorvastat in 10 mg every bedtimeCon tinue current Zetia 10 mg daily Essential hypertension 66069486 I10 Blood pressure 128/76Cont inue amlodipine 10 mg every a.m.Contin ue current benazepril 40 mgBMP and urinary ACR are up-to-date Patient verbalized understand ing and agreed with the above mentioned plan of care. [id number] QIANA CHAPPELL MD [address] [address] [address] [place] [address] 12/20/2023 12:56:05 12/20/2023 14:45:44 Uncontrolled type 2 diabetes mellitus [id number] E11.65 A1c in the office today of 7.6 down from 7.8 down from 7.9 up from 7.1 Random point-of-c are blood glucose of 218 Goal A1c less than 7%Improved but is still above goal glycemic control I had a rediscussi on with patient about the deleteriou s consequenc es of uncontroll ed hyperglyce steven in the form of microvascu lar complicati ons such as diabetic retinopath y, worsening of diabetic nephropath y, diabetic neuropathy and macrovascu lar complicati ons such as coronary artery disease, peripheral arterial disease and stroke. I had a rediscussi on with patient about the importance of dietary carbohydra te consistenc y and restrictio n and not exceed 60 g of carbohydra te per meal and 15 30 grams per snack if needed.Con tinue current diabetes regimenInc rease glipizide ER to 5 mg twice daily before mealsConti nue metformin 1000 mg 2 tablets daily and pioglitazo ne 30 mg daily.Up-t o-date with diabetic dilated eye exam [no diabetic retinopath y per last diabetic dilated eye exam on 05/09/2023 Dr. Regina Fischer [facility] doctors of optometry [place] exam is up-to-date [facility] discussed with g monofilame nt testing is bilaterall y intact. Essential hypertension 70137028 I10 Blood pressure 124/78Cont inue amlodipine 10 mg every a.m.Contin ue current benazepril 40 mgBMP and urinary ACR are up-to-date Hyperlipidemia 14011770 E78.5 LDL of 93 on 04/29/2023 iscontinue d atorvastat in 10 mg every bedtimeCon tinue current Zetia 10 mg daily Labs from outside facility reviewed on 12/16/2023 which showed creatinine of 0.7 and GFR of 114. Patient verbalized understand ing and agreed with the above mentioned plan of care. [id number] QIANA CHAPPELL MD [facility] [address] [place] [address] 03/25/2024 10:25:37 03/25/2024 11:17:22 Essential hypertension 23962914 I10 Blood pressure 124/76Cont inue amlodipine 10 mg every a.m.Contin ue current benazepril 40 mgBMP and urinary ACR Hyperlipidemia 54495153 E78.5 LDL of 93 on 04/29/2023 iscontinue d atorvastat in 10 mg every bedtimeCon tinue current Zetia 10 mg dailyLipid panel today Patient verbalized understand ing and agreed with the above mentioned plan of care. Type 2 juan carlos betes mellitus 54526759 E11.8 A1c in the office today of 6.8 % down from 7.6 down from 7.8 down from 7.9 up from 7.1 Random point-of-c are blood glucose of 153 Goal A1c less than 7%Commende d patient on achieving goal glycemic control. He will continue dietary carbohydra te consistenc y and restrictio n and not exceed 60 g of carbohydra te per meal and 15 30 grams per snack if needed.Con tinue current diabetes regimenCon tinue glipizide ER to 5 mg twice daily before mealsConti nue metformin 1000 mg 2 tablets daily and pioglitazo ne 30 mg daily.Up-t o-date with diabetic dilated eye exam [no diabetic retinopath y per last diabetic dilated eye exam on 05/09/2023 Dr. Regina Fischer [facility] doctors of optometry [place] exam is up-to-date [facility] discussed with [id number] g monofilame nt testing is bilaterall y intact. [id number] QIANA CHAPPELL MD [facility] [address] [place] [address] 06/25/2024 10:44:14 06/25/2024 12:46:54 Uncontrolled type 2 diabetes mellitus [id number] E11.65 A1c in the office today of 7.2 up from 6.8 % down from 7.6 down from 7.8 down from 7.9 up from 7.1 Random point-of-c are blood glucose of 138 Goal A1c less than 7%Mildly worsening glycemic control. He will continue dietary carbohydra te consistenc y and restrictio n and not exceed 60 g of carbohydra te per meal and 15 30 grams per snack if needed.I initially recommende d to intensify his regimen but he would like to optimize lifestyle interventi on for another 3 months.Con tinue glipizide ER 2.5 mg 2 tabs twice daily before mealsConti nue metformin 1000 mg 2 tablets daily and pioglitazo ne 30 mg daily.Up-t o-date with diabetic dilated eye exam [no diabetic retinopath y per last diabetic dilated eye exam on 05/09/2023 Dr. Regina Fischer [place] [facility] [place] exam is up-to-date [facility] discussed with [id number] g monofilame nt testing is bilaterall y intact. Prostate s pecific antigen above reference range [id number] R97.20 Reported having elevated PSA of uncertain etiology Seen by an outside urologist Requested referral to [facility] urology for further evaluation Patient verbalized understand ing and agreed with the above mentioned plan of care. [id number] JOE GARIBAY JR, MD [facility] [address] [place] [address] 07/01/2024 10:26:28 07/01/2024 11:21:27 Lower urinary tract symptoms due to benign prostatic hypertrophy [id number] 9101 N40.1 Continue monitoring urinary symptoms. Consider stopping oxybutynin to evaluate if it impacts symptom relief. Further interventi ons might include evaluating prostate health through imaging or direct examinatio n for any potential surgical requiremen ts if medication s are ineffectiv e. Chronic prostatitis 1989 5009 N41.1 Initiate antibiotic therapy for a duration of three weeks to address suspected bacterial prostatiti s. Regular follow-up needed to assess symptom improvemen t and consider PSA re-evaluat ion. If symptoms do not improve, further diagnostic evaluation including possible surgical considerat ions might be warranted. Prostatitis 3799821 N41. 9 Considerat ion of antibiotic therapy based on symptomato logy and potential prostatiti s diagnosis. Empirical treatment with antibiotic s discussed as per clinical guidelines . Prostate s pecific antigen above reference range 024751014 R97.20 Continued monitoring of PSA levels due to previous elevated results and PI-RADS 3 lesion. Future PSA evaluation s recommende d to assess trend and potential rebiopsy if clinically indicated. [id number] QIANA CHAPPELL MD [address] [address] [place] [address] 09/15/2024 11:23:22 09/15/2024 12:58:41 Type 2 diabetes mellitus 05159211 E11.8 Z79.84 A1c in the office today of 6.7% down from 7.2 up from 6.8 % down from 7.6 down from 7.8 down from 7.9 up from 7.1 Random point-of-c are blood glucose of 127 Goal A1c less than 7%Commende d patient on achieving goal glycemic control. He will continue dietary carbohydra te consistenc y and restrictio n and not exceed 60 g of carbohydra te per meal and 15 30 grams per snack if needed.I initially recommende d to intensify his regimen but he would like to optimize lifestyle interventi on for another 3 months.Con tinue glipizide ER 2.5 mg 2 tabs twice daily before mealsConti nue metformin 1000 mg 2 tablets daily and pioglitazo ne 30 mg daily.Up-t o-date with diabetic dilated eye exam [no diabetic retinopath y per last diabetic dilated eye exam on 05/09/2023 Dr. Regina Fischer [place] [facility] [place] exam is up-to-date [facility] discussed with [id number] g monofilame nt testing is bilaterall y intact. [id number] JOE GARIBAY JR, MD [facility] [address] [place] [address] 09/17/2024 08:51:40 09/17/2024 09:28:04 Chronic prostatitis 32945298 N41.1 Prostate s pecific antigen above reference range 387536347 R97.20 Continued monitoring of PSA levels due to previous elevated results and PI-RADS 3 lesion. Future PSA evaluation s recommende d to assess trend and potential rebiopsy if clinically indicated. [id number] YURI NOLAN APRN [facility] [address] [address] [place] [address] 10/29/2024 10:30:52 10/29/2024 11:10:09 Hypomagnesemia 518700455 E83.42 -Last lab from 10/26/24Mag 1.1-Repeat labs as ordered today. May consider slow-mag.- Will consult with Dr. Chappell on Saturday as well.-Furt her recommenda tions once results received.- Patient verbalized understand ing and agreed with plan. All questions answered. Health Concerns Section Related Observation LastModified by Organization Detai ls LastModified Time None Recorded Concern Status LastModified by Organization Details LastModified Time None Recorded Advance Directives Directive None Recorded Payers Insurance Date Sequence Insurance Name Policy Number Policy Alarcon Covered Member ID Alarcon Member ID Guarantor Name 06/24/2024 1 [facility] [id number] Jeff Carson [id number] Jeff Carson 10/27/2024 1 [place] Jeff Carson [id number] Jeff Carson 11/07/2024 2 [employer] (MEDICARE SUPPLEMENT) Jeff Carson [id number] Jeff Carson Notes Date Note Type Note Provider Name and Address Organization Details Recorded Time 06/25/2024 text/html 64-year-old Cauc male patient with a past medical history as detailed in the prominent significant for hypertension, hyperlipidemia on statin therapy, type 2 diabetes on oral therapy seen in the office today for 6 months follow-up uncontrolled type 2 diabetes, hypertension/ Summary of history: Onset of diabetes: 2004PCP currently Tani Carr APRN [[facility]]Current regimen: Metformin 1000 g twice a day. Glipizide extended release 2.5 mg ER 2 tablets twice daily before meal Pioglitazone 30 mg every Self monitoring of blood glucose readingsFreestyle lite7-day average 78790-prt average 04136-dgp average 151Blood glucose readings: 163, 159, 163, 167, 146, 155, 163, 127, 165, 134, 137, 131, 147, 122, 155, 127, 144, 167, 205, 156, 149, 142, 148, 138, 107 No hypoglycemia by history History of statin induced myalgia. Currently on Zetia Currently on amlodipine 10 mg and benazepril 40 mg. QIANA CHAPPELL MD [address] [place] [address], [phone], [facility] 06/25/2024 12:09:52 07/01/2024 text/html The patient is a 64-year-old male presenting with discomfort related to chronic prostatitis. The conversation indicates the patient has been experiencing lower urinary tract symptoms, including inflammation and infection of the prostate, which are attributed to benign prostatic hyperplasia and prostatitis. He mentioned previously being treated with antibiotics last fall; however, the symptoms seem to persist. The current concerns include discomfort in the perineal region. In reference to a recent evaluation, the conversation notes a post void residual of 25 cc. Symptom resolution has not yet occurred, and consideration of stopping oxybutynin in favor of antibiotic treatment was discussed. Patient is on tamsulosin and oxybutynin at this point. Patient also has a history of elevated PSA and actually underwent MRI directed prostate biopsy which was negative with another urologist. MRI results are reviewed today. JOE GARIBAY JR, MD [address] [place] [address], [id number], [facility] 07/02/2024 08:01:11 09/15/2024 text/html 64-year-old Cauc male patient with a past medical history as detailed in the prominent significant for hypertension, hyperlipidemia on statin therapy, type 2 diabetes on oral therapy seen in the office today for 6 months follow-up uncontrolled type 2 diabetes, hypertension/ Summary of history: Onset of diabetes: 2004PCP currently Tani Carr APRN [[facility]]Current regimen: Metformin 1000 g twice a day. Glipizide extended release 2.5 mg ER 2 tablets twice daily before meal Pioglitazone 30 mg everyOzempic prescribed last office visit but were discontinued due to significant anorexia and stomach upsetSelf monitoring of blood glucose readingsFreestyle lite7-day average [3 readings]: 148 14-day average [5 readings]: 160 30-day average [12 reading]: 153 Blood glucose readings: 138, 155, 146, 149, 242, 152, 158, 162, 121, 167, 131, 128, 119, 148,No hypoglycemia by history History of statin induced myalgia. Currently on Zetia Currently on amlodipine 10 mg and benazepril 40 mg. QIANA CHAPPELL MD [address] [place] [address], [phone], [facility] 09/15/2024 12:56:51 09/17/2024 text/html The patient is a 64-year-old male presenting with follow-up for chronic prostatitis and elevated PSA evaluation. Chronic prostatitis was diagnosed and treated with antibiotics, improving urinary symptoms. The elevated PSA prompted MRI, showing a category 3 prostate lesion. An MRI-directed prostate biopsy in February 2024 was negative. The patient uses Tamsulosin for BPH. A repeat PSA today is necessary for ongoing management. Follow-up is planned in six months to monitor PSA trends and prostate health. JOE GARIBAY JR, MD [address] [place], [address], [facility] 09/20/2024 16:36:31 10/29/2024 text/html 64-year-old Cauc male patient with a past medical history [...] colonoscopyNo new meds/supplements prior to event. YURI NOLAN APRN [address] [place], [address], [facility] 10/29/2024 11:38:06
[2024-11-23] MEDS: 0.9 % SODIUM CHLORIDE 50 ML VIAL 40 ML IV (07:54)
[2024-11-23] MEDS: SODIUM CHLORIDE 0.9% 10ML SYR (RAD ONLY) 10 ML IV (07:54)
[2024-11-23] MEDS: IOPAMIDOL-370 (76%);100ML BOTTLE 70 ML IV (07:54)
--- NOTE | 2024-11-23 08:00 | CT_ITS ---
FINAL REPORT TECHNIQUE: The patient was injected with IV contrast. Axial images were obtained through the chest in a PE protocol. 3-D reconstruction images were also performed. Individualized dose reduction techniques using automated exposure control or adjustment of the MA and/or KV according to patient's size were employed. CLINICAL HISTORY: elevated d-dimer, dyspnea, sob COMPARISON: None FINDINGS: Mediastinal vasculature is adequately opacified. No pulmonary artery filling defects are identified to suggest PE. There is no aortic dissection. There are a few small axillary lymph nodes, likely reactive. There is no hilar or mediastinal adenopathy. The heart size is normal. There is no pericardial or pleural effusion. Limited images of the upper abdomen are unremarkable. Airspace opacities are present in the lung bases, greater on the left than on the right, with associated linear densities consistent with scar. IMPRESSION: No pulmonary embolus or dissection. Airspace opacities in the lung bases, greater on the left than on the right. Reviewed, Interpreted and Dictated by Jesse Crews MD Transcribed by Maggie Casanova Authenticated and [facility]
== END 2024-11-23 23:59 | disposition home or self-care (01) ==
LOC: RAD 07:28
PROVIDERS: PCP Nurse Practitioner Family; Visit Provider Nurse Practitioner Family
DX: R91.8 Other nonspecific abnormal finding of lung field (principal); R06.00 Dyspnea, unspecified; R79.89 Other specified abnormal findings of blood chemistry
CPT/HCPCS: 71275; Q9967

== ENCOUNTER 2024-11-30 07:50 | Outpatient (CLI) | payer MEDICARE, SELFPAY ==
--- OUTSIDE RECORDS SUMMARY | 2024-11-30 07:52 | XMS_ITS | Encounter Summary ---
Author Organization [employer] ([place], [place], [place], [place]) Address [address] [address] Care Team Providers Care Tumbler Plater Name Role Phone Unavailable Primary Care Provider Unavailabl e Reason for Referral * MRI (Routine) - Closed Specialty Diagnoses / Procedures Referred By Contac t Referred To Contact Radiology Diagnoses Elevated prostate specific antigen (PSA) Procedures MR prostate without & with IV contrast Aurelio Herrera MD [address] [place] [address] Phone: tel: fax: Referral ID Status Reason Start Date Expiration Date Visits Re quested Visits Authorized [id number] Closed 01/23/2024 01/22/2025 1 1 Encounter Details Date Type Department Care Team (Late st Contact Info) Description 01/23/2024 Outside Orders [facility] Central Scheduling 1 [place] [address] Aurelio Herrera MD [address] [place] [address] Elevated prostate specific antigen (PSA) [...] Date Scott rded Speak language other than Scottish at home Not on file 01/23/2024 Want [...] protocol. The images were reviewed on the [employer] CAD workstation. The prostate measures 5.2 x [...] 3 lesions and were localized on the [employer] CAD software. TRANSITION ZONE: The transition zone [...] protocol. The images were reviewed on the [employer] CAD workstation. The prostate measures 5.2 x [...]
--- OUTSIDE RECORDS SUMMARY | 2024-11-30 07:52 | XMS_ITS | Referral Summary ---
Author Organization [employer] ([place], [place], [place], [place]) Address [address] [address] Care Team Providers Care Clinical Nurse Name Role Phone Unavailable Primary Care Provider [...] Date Scott rded Speak language other than [place] at home Not on file 01/23/2024 Want [...] Plan of Treatment Not on file Insurance [facility] CHOICE PLUS
--- OUTSIDE RECORDS SUMMARY | 2024-11-30 07:52 | XMS_ITS | Encounter Summary ---
Author Organization [employer] ([place], [place], [place], [place]) Address [address] [address] Care Team Providers Care Rerolling Machine Operator Name Role Phone Unavailable Primary Care Provider Unavailabl e Encounter Details Date Type Department Care Team (Late st Contact Info) Description 12/02/2019 Transcribed Document [facility] Radiology [address] [place] [address] Provider, Rosas Naranjo MD Social History Tobacco Use Types Packs/Day Years Used Date Smoking Tobacco: Never Assessed Sex and Gender Information Value Date Recorded Sex Assigned at Not on file Legal Sex Male 7:33 PM CDT Gender Identity Not on file Sexual Orientation Not on file documented as of this encounter Miscellaneous Notes * Cerner Conversion Note - [facility] Jose A ProviderMD - 12/02/2019 12:08 PM EDT [facility] OR PACU Summary Primary Physician: JACKELIN SELF JR, JR, MD-ORT Finalized Date/Time: 12/02/19 12:51:19 Pt. Name: JEFF CARSON.O.B./Sex: 1960 Male Med Rec #: [id number] Physician: JACKELIN SELF JR, JR, MD-ORT Financial #: [id number] Pt. Type: O Room/Bed: Admit/Disch: 12/02/19 09:17:00 - Institution: [facility] [place] PACU Case Times Entry 1 In PACU I 12/02/19 11:38:00 Ready for PACU 12/02/19 12:45:00 Discharge Discharge from PACU 12/02/19 12:45:00 I Last Modified By: EARL Berger 12/02/19 12:51:10 [facility] OR PACU Case Times Audit 12/02/19 12:51:10 Talent Development Manager: SHABNAM Modifier: SHABNAM 1 <*> Ready for PACU Discharge 12/02/19 12:08:00 1 <+> Discharge from PACU I Finalized By: EARL Berger Document Signatures Signed By: EARL Berger 12/02/19 12:51 documented in this encounter Plan of Treatment Not on file documented as of this encounter Visit Diagnoses Not on filedocumented in this encounter
--- OUTSIDE RECORDS SUMMARY | 2024-11-30 07:52 | XMS_ITS | Encounter Summary ---
Author Organization [employer] ([place], [place], [place], [place]) Address [address] [address] Care Team Providers Care Light Fixture Servicer Name Role Phone Unavailable Primary Care Provider Unavailabl e Reason for Referral * MRI (Routine) - New Request Specialty Diagnoses / Procedures Referred By Contac t Referred To Contact Radiology Diagnoses Elevated prostate specific antigen (PSA) Procedures MR pelvis without & with IV contrast Rosas, Provider Not In The System, [place] [address] Referral ID Status Reason Start Date Expiration Date V isits Requested Visits Authorized [id number] New Request 01/22/2024 01/21/2025 1 1 Encounter Details Date Type Department Care Team (Late st Contact Info) Description 01/22/2024 Outside Orders [facility] Central Scheduling 1 [place] [id number] Rosas, [place] [address] Elevated prostate specific antigen (PSA) (Primary Dx) [...] Date Scott rded Speak language other than Spanish at home Not on file 01/23/2024 Want [...]
--- OUTSIDE RECORDS SUMMARY | 2024-11-30 07:52 | XMS_ITS | Encounter Summary ---
Author Organization [employer] ([place], [place], [place], [place]) Address [address] [place] [address] Care Team Providers Care Algorithm Design Engineer Name Role Phone Unavailable Primary Care Provider Unavailabl e Encounter Details Date Type Department Care Team (Late st Contact Info) Description 12/02/2019 Transcribed Document [facility] Radiology [address] [place] [address] Provider, patel Naranjo MD Social History Tobacco Use Types Packs/Day Years Used Date Smoking Tobacco: Never Assessed Sex and Gender Information Value Date Recorded Sex Assigned at Not on file Legal Sex Male 7:33 PM CDT Gender Identity Not on file Sexual Orientation Not on file documented as of this encounter Miscellaneous Notes * Cerner Conversion Note - [facility] Jose A ProviderMD - 12/02/2019 1:54 PM EDT [address] [address] JEFF CARSON :1960 Visit Time:12/02/2019 [...] 09:45 AM EDT Comments follow up in [place] office Where: [facility] Medications What How [...] activities are safe for you. ??? Take yfbl-owc-gecdhoj and prescription medicines only as told by [...] 08/19/2001 Document Revised: 12/27/2017 Document Reviewed: 12/27/2017 [employer] Interactive Patient Education ?? 2020 [employer]. General Anesthesia, Adult, Care After This sheet [...] activities are safe for you. ??? Take naph-byr-jswpfbr and prescription medicines only as told by [...] 08/19/2001 Document Revised: 12/27/2017 Document Reviewed: 12/27/2017 [employer] Interactive Patient Education ?? 2020 [employer]. Knee Arthroscopy, Care After This sheet gives [...] and water are not available, use hand manager requirements. ? Change your dressing as told by [...] medicines you take. General instructions ??? Take ywqi-yeb-aqskjnf and prescription medicines only as told by [...] fried or sweet foods. ? Take an fwgf-hdc-rkxatrg or prescription medicines for constipation. ??? Do [...] 11/30/2005 Document Revised: 03/26/2018 Document Reviewed: 03/26/2018 [employer] Interactive Patient Education ?? 2020 [employer]. tramadol (TRAM a dol) ConZip, Ultram, Ultram ER What is the most [...] extended-release form of this medicine is for hvjfpz-mpp-lvvdv treatment of pain. This form of tramadol [...] against the law. Stop taking all other gubdtr-dwy-sydmn narcotic pain medications when you start taking [...] may report side effects to FDA at 1-945-IMJ-3799. What other drugs will affect tramadol? You [...] may affect tramadol. This includes prescription and szpk-opo-lloprvw medicines, vitamins, and herbal products. Not all [...] to ensure that the information provided by [employer]. ('[employer]') is accurate, up-to-date, and complete, but no guarantee is made to that effect. Drug information contained herein may be time sensitive. [employer] information has been compiled for use by healthcare practitioners and consumers in the [place] and therefore [employer] does not warrant that uses outside of the [place] are appropriate, unless specifically indicated otherwise. [employer] drug information does not endorse drugs, diagnose patients or recommend therapy. [employer] drug information is an informational resource designed [...] effective or appropriate for any given patient. [employer] does not assume any responsibility for any aspect of healthcare administered with the aid of information [employer] provides. The information contained herein is not intended to cover all possible uses, directions, precautions, warnings, drug interactions, allergic reactions, or adverse effects. If you have questions about the drugs you are taking, check with your doctor, nurse or pharmacist. Copyright 9051-4959 [employer]. Version: 20.03. Revision Date: 07/10/2019. oxycodone (ox [...] The extended-release form of oxycodone is for xvmkzs-cko-egkqo treatment of pain and should not be [...] against the law. Stop taking all other ylpyac-rlk-mhvlv narcotic pain medicines when you start taking [...] may report side effects to FDA at 8-552-VDW-2387. What other drugs will affect oxycodone? You [...] may affect oxycodone. This includes prescription and yecb-jbp-hvysrbe medicines, vitamins, and herbal products. Not all [...] to ensure that the information provided by [employer]. ('[employer]') is accurate, up-to-date, and complete, but no guarantee is made to that effect. Drug information contained herein may be time sensitive. [employer] information has been compiled for use by healthcare practitioners and consumers in the [place] and therefore [employer] does not warrant that uses outside of the [place] are appropriate, unless specifically indicated otherwise. [employer] drug information does not endorse drugs, diagnose patients or recommend therapy. [employer] drug information is an informational resource designed [...] effective or appropriate for any given patient. [employer] does not assume any responsibility for any aspect of healthcare administered with the aid of information [employer] provides. The information contained herein is not intended to cover all possible uses, directions, precautions, warnings, drug interactions, allergic reactions, or adverse effects. If you have questions about the drugs you are taking, check with your doctor, nurse or pharmacist. Copyright 1304-2442 [employer]. Version: 13.03. Revision Date: 03/09/2019. oxycodone (ox [...] The extended-release form of oxycodone is for xkbond-hry-mgchm treatment of pain and should not be [...] against the law. Stop taking all other nujonl-jcw-ugsin narcotic pain medicines when you start taking [...] may report side effects to FDA at 7-275-KOZ-7254. What other drugs will affect oxycodone? You [...] may affect oxycodone. This includes prescription and zqvh-jxu-tllkveq medicines, vitamins, and herbal products. Not all [...] to ensure that the information provided by [employer]. ('[employer]') is accurate, up-to-date, and complete, but no guarantee is made to that effect. Drug information contained herein may be time sensitive. [employer] information has been compiled for use by healthcare practitioners and consumers in the [place] and therefore [employer] does not warrant that uses outside of the [place] are appropriate, unless specifically indicated otherwise. [employer] drug information does not endorse drugs, diagnose patients or recommend therapy. [employer] drug information is an informational resource designed [...] effective or appropriate for any given patient. [employer] does not assume any responsibility for any aspect of healthcare administered with the aid of information [employer] provides. The information contained herein is not intended to cover all possible uses, directions, precautions, warnings, drug interactions, allergic reactions, or adverse effects. If you have questions about the drugs you are taking, check with your doctor, nurse or pharmacist. Copyright 3449-8692 [employer]. Version: 13.03. Revision Date: 03/09/2019. tramadol (TRAM a dol) Shiva Arzolam, Ultram ER What is the most important [...] extended-release form of this medicine is for szdxem-mka-qgscu treatment of pain. This form of tramadol [...] against the law. Stop taking all other efoawf-zvd-bypcx narcotic pain medications when you start taking [...] may report side effects to FDA at 6-815-RQP-9188. What other drugs will affect tramadol? You [...] may affect tramadol. This includes prescription and xvpn-lls-dlzkgrh medicines, vitamins, and herbal products. Not all [...] to ensure that the information provided by [employer]. ('[employer]') is accurate, up-to-date, and complete, but no guarantee is made to that effect. Drug information contained herein may be time sensitive. [employer] information has been compiled for use by healthcare practitioners and consumers in the [place] and therefore [employer] does not warrant that uses outside of the [place] are appropriate, unless specifically indicated otherwise. [employer] drug information does not endorse drugs, diagnose patients or recommend therapy. [employer] drug information is an informational resource designed [...] effective or appropriate for any given patient. [employer] does not assume any responsibility for any aspect of healthcare administered with the aid of information [employer] provides. The information contained herein is not intended to cover all possible uses, directions, precautions, warnings, drug interactions, allergic reactions, or adverse effects. If you have questions about the drugs you are taking, check with your doctor, nurse or pharmacist. Copyright 6574-9154 [employer]. Version: 20.03. Revision Date: 07/10/2019. Emergency Awareness [...] Assistance with quitting is available by contacting 2-151-IQFBNOW. This is a free resource providing counseling, support, and referral. Or you may contact your personal physician. [place] Suicide Prevention Lifeline: The National Suicide Prevention Lifeline is a [...] risk for a life-threatening condition called sepsis. Electronically signed by Rosas Miller Conversion Senior Design Engineering Specialist Cerner at 10/17/2022 12:35 PM CDT documented in this encounter Plan of Treatment Not on file documented as of this encounter Visit Diagnoses Not on filedocumented in this encounter
--- OUTSIDE RECORDS SUMMARY | 2024-11-30 07:53 | XMS_ITS | Encounter Summary ---
Author Organization [employer] ([place], [place], [place], [place]) Address [address] [address] Care Team Providers Care Community Resource Consultant Name Role Phone Unavailable Primary Care Provider Unavailabl e Encounter Details Date Type Department Care Team (Late st Contact Info) Description 12/02/2019 Transcribed Document [facility] Radiology [address] [place] [address] Provider, Rosas Naranjo MD Social [...] activities are safe for you. ??? Take kwhi-gvd-tutxnyr and prescription medicines only as told by [...] 08/19/2001 Document Revised: 12/27/2017 Document Reviewed: 12/27/2017 [employer] Interactive Patient Education ? 2020 [employer] ([employer]). General Anesthesia, Adult, Care After This sheet [...] activities are safe for you. ??? Take ynus-mux-snahknf and prescription medicines only as told by [...] 08/19/2001 Document Revised: 12/27/2017 Document Reviewed: 12/27/2017 [employer] Interactive Patient Education ? 2020 [employer] ([employer]). Knee Arthroscopy, Care After This sheet gives [...] and water are not available, use hand tax map technician. ? Change your dressing as told by [...] medicines you take. General instructions ??? Take dhsw-tsm-nsrdlnx and prescription medicines only as told by [...] fried or sweet foods. ? Take an rloz-fjq-wjafuei or prescription medicines for constipation. ??? Do [...] 11/30/2005 Document Revised: 03/26/2018 Document Reviewed: 03/26/2018 [employer] Interactive Patient Education ? 2020 [employer] ([employer]). documented in this encounter Plan of Treatment Not on file documented as of this encounter Visit Diagnoses Not on filedocumented in this encounter
--- OUTSIDE RECORDS SUMMARY | 2024-11-30 07:53 | XMS_ITS | Data Portability ---
Author Organization [facility] Rashaadi c, CKS KNOB LICK CLOSED Address [address] [place] [address] Care Team Providers Care House Father Name Role Phone BELKYS ESTRELLA Cereal Supervisor TANI CARR Primary Care Provider QIANA [...] m, QN, serum or plasma 2024 025 [facility], [address] [place] [address], [address], 10/29/2024 12:02:11 BMP, serum or plasma 2024 025 [facility], [address] [place] [address], [address], 10/29/2024 12:02:13 PTH (parathy roid hormone) , intact + calcium, serum or plasma 2024 025 [facility], [address] [place] [address], [address], 10/29/2024 12:11:17 vitamin D, 25-hydro xy, total, serum 2024 025 [facility], [address] [place] [address], [address], 10/29/2024 12:37:06 urinalys is panel, auto 2024 025 [facility], [address], [place], [address], 09/20/2024 16:36:28 PSA, serum or plasma 2024 025 [facility], [address], [address], [place], [address], 09/20/2024 16:36:28 glucose, fingerst ick, blood 2024 025 [facility], [address] [place] [address], [address], 09/15/2024 12:55:00 hemoglob in A1C, fingerst ick 2024 025 [facility], [address] [place] [address], [address], 09/15/2024 12:55:00 urinalys is panel, auto 2024 025 [facility], [address], [address], [place], [address], 07/01/2024 11:18:14 glucose, fingerst ick, blood 2024 025 [facility], [address] [place] [address], [address], 06/25/2024 12:09:33 hemoglob in A1C, fingerst ick 2024 025 [facility], [address] [place] [address], [address], 06/25/2024 12:09:33 Referral urologis t referral 2024 025 JOSE EDUARDO Garibay Jr, MD, [address], [address], [address], 07/02/2024 08:01:55 Procedures None recorded . Surgeries None recorded . Imaging None recorded . Medication Orders glipizid e ER 5 mg tablet, extended release 24 hr 2024 [id number], [address], [place], [id number], 09/15/2024 12:55:36 metformi n 1,000 mg tablet 2024 [facility][id number], [address] [address] [address], [place], [phone], 09/15/2024 12:55:34 pioglita zone 30 mg tablet 2024 [facility] #42935, [address] [address] [address], [place] [phone], 09/15/2024 12:55:40 doxycycl ine monohydr ate 100 mg capsule 2024 [facility][id number], [address] [address] [address], [place], [phone], 07/02/2024 07:59:38 glipizid e ER 5 mg tablet, extended release 24 hr 2024 [facility], [address] [address] [address], [place], [phone], 06/25/2024 12:09:39 metformi n 1,000 mg tablet 2024 [facility]89402, [address] [address] [address], [place], [phone], 06/25/2024 12:09:40 Patient TargetsNo targets recorded. Patient Instructions Encounter Date Encounter Id Patient Instructions Last Modified By Organization Details Last Modified Time 07/01/2024 [id number] - Stop taking oxybutynin as advised. - Start antibiotics as prescribed for three weeks. - Monitor symptoms and report any changes or worsening. - Schedule follow-up in a few months for PSA re-evaluation. - Seek medical care sooner if symptoms significantly worsen. [email or web address] Not available 07/01/2024 18:52:54 09/17/2024 [id number] - Repeat PSA abiodun t today as [...] 7.2 % 4.0 - 5.6 Not Available [facility] [address] [place] [address], [address], 06/25/2024 10:54:52 06/25/19 25 06/25/2024 gluco se, finge rstic k, blood glucose, fingerstick 138 mg/dL 70 - 100 Not Available [facility] [place] [address] [place] [address], [address], 06/25/2024 10:51:31 07/01/19 25 07/01/2024 urina lysis panel , auto Unknown Analyte Clean Catch Not Available [facility] [address], [place], [address], 07/01/2024 11:00:58 07/01/19 25 07/01/2024 urina lysis panel , auto Unknown Analyte Yellow Not Available [facility] [address], [place], [address], 07/01/2024 11:00:58 07/01/19 25 07/01/2024 urina lysis panel , auto Unknown Analyte Clear Not Available [facility] [address], [place], [address], 07/01/2024 11:00:58 07/01/19 25 07/01/2024 urina lysis panel , auto Unknown Analyte 1.020 Not Available [facility] [address] [place] [address] [address], [place], [address], 07/01/2024 11:00:58 07/01/19 25 07/01/2024 urina lysis panel , auto Unknown Analyte 1.003- 1.035 Not Available [facility] [address], [place], [address], 07/01/2024 11:00:58 07/01/19 25 07/01/2024 urina lysis panel , auto Unknown Analyte 5.0 Not Available [facility] [address], [place], [address], 07/01/2024 11:00:58 07/01/19 25 07/01/2024 urina lysis panel , auto Unknown Analyte 5.0-8. 0 Not Available [facility] [address], [place], [address], 07/01/2024 11:00:58 07/01/19 25 07/01/2024 urina lysis panel , auto Unknown Analyte Negati ve Not Available [facility] [address], [place], [address], 07/01/2024 11:00:58 07/01/19 25 07/01/2024 urina lysis panel , auto Unknown Analyte Negati ve Not Available [facility] [address], [place], [address], 07/01/2024 11:00:58 07/01/19 25 07/01/2024 urina lysis panel , auto Unknown Analyte Negati ve Not Available [facility] [address], [place], [address], 07/01/2024 11:00:58 07/01/19 25 07/01/2024 urina lysis panel , auto Unknown Analyte Negati ve Not Available [facility] [address], [place], [address], 07/01/2024 11:00:58 07/01/19 25 07/01/2024 urina lysis panel , auto Unknown Analyte Negati ve Not Available [facility] [address], [place], [address], 07/01/2024 11:00:58 07/01/19 25 07/01/2024 urina lysis panel , auto Unknown Analyte Negati ve Not Available [facility] [address], [place], [address], 07/01/2024 11:00:58 07/01/19 25 07/01/2024 urina lysis panel , auto Unknown Analyte Normal Not Available [facility] [address], [place], [address], 07/01/2024 11:00:58 07/01/19 25 07/01/2024 urina lysis panel , auto Unknown Analyte Normal Not Available [facility] [address], [place], [address], 07/01/2024 11:00:58 07/01/19 25 07/01/2024 urina lysis panel , auto Unknown Analyte Negati ve Not Available [facility] [address], [place], [address], 07/01/2024 11:00:58 07/01/19 25 07/01/2024 urina lysis panel , auto Unknown Analyte Negati ve Not Available [facility] [address], [place], [address], 07/01/2024 11:00:58 07/01/19 25 07/01/2024 urina lysis panel , auto Unknown Analyte Normal Not Available [facility] [address], [place], [address], 07/01/2024 11:00:58 07/01/19 25 07/01/2024 urina lysis panel , auto Unknown Analyte Normal 1 mg/dl Not Available [facility] [address], [place], [address], 07/01/2024 11:00:58 07/01/19 25 07/01/2024 urina lysis panel , auto Unknown Analyte Negati ve Not Available [facility] [address], [place], [address], 07/01/2024 11:00:58 07/01/19 25 07/01/2024 urina lysis panel , auto Unknown Analyte Negati ve Not Available [facility] [address], [place], [address], 07/01/2024 11:00:58 07/01/19 25 07/01/2024 urina lysis panel , auto Unknown Analyte Negati ve Not Available [facility] [address], [place], [address], 07/01/2024 11:00:58 07/01/19 25 07/01/2024 urina lysis panel , auto Unknown Analyte Negati ve Not Available [facility] [address], [place], [address], 07/01/2024 11:00:58 09/16/19 25 09/15/2024 hemog lobin A1C, finge rstic k hemoglobin A1C % 6.7 % 4.0 - 5.6 Not Available [facility] [address] [place], [address], 09/15/2024 12:01:15 09/16/1909/15/2024 gluco se, finge rstic k, blood glucose, fingerstick 127 mg/dL 70 - 100 Not Available [facility] [address] [place], [address], 09/15/2024 11:57:05 09/18/19 25 09/17/2024 PSA, serum or plasm a PSA 2.6 NG/mL 0.0 - 4.0 Not Available [facility] [address], [place], [address], 09/17/2024 09:49:47 09/18/19 25 09/17/2024 urina lysis panel , auto Unknown Analyte Clean Catch Not Available [facility] [address], [place], [address], 09/17/2024 09:06:24 09/18/19 25 09/17/2024 urina lysis panel , auto Unknown Analyte Yellow Not Available [facility] [address], [place], [address], 09/17/2024 09:06:24 09/18/19 25 09/17/2024 urina lysis panel , auto Unknown Analyte Clear Not Available [facility] [address], [place], [address], 09/17/2024 09:06:24 09/18/19 25 09/17/2024 urina lysis panel , auto Unknown Analyte 1.025 Not Available [facility] [address], [place], [address], 09/17/2024 09:06:24 09/18/19 25 09/17/2024 urina lysis panel , auto Unknown Analyte 1.003 - 1.030 Not Available [facility] [address], [place], [address], 09/17/2024 09:06:24 09/18/19 25 09/17/2024 urina lysis panel , auto Unknown Analyte 5.0 Not Available [facility] [address], [place], [address], 09/17/2024 09:06:24 09/18/19 25 09/17/2024 urina lysis panel , auto Unknown Analyte 5.0 - 8.0 Not Available [facility] [address], [place], [address], 09/17/2024 09:06:24 09/18/19 25 09/17/2024 urina lysis panel , auto Unknown Analyte Negati ve Not Available [facility] [address], [place], [address], 09/17/2024 09:06:24 09/18/1909/17/2024 urina lysis panel , auto Unknown Analyte Negati ve Not Available [facility] [address], [place], [address], 09/17/2024 09:06:24 09/18/19 25 09/17/2024 urina lysis panel , auto Unknown Analyte Negati ve Not Available [facility] [address], [place], [address], 09/17/2024 09:06:24 09/18/1909/17/2024 urina lysis panel , auto Unknown Analyte Negati ve Not Available [facility] [address], [place], [address], 09/17/2024 09:06:24 09/18/1909/17/2024 urina lysis panel , auto Unknown Analyte Negati ve Not Available [facility] [address], [place], [address], 09/17/2024 09:06:24 09/18/19 25 09/17/2024 urina lysis panel , auto Unknown Analyte Negati ve Not Available [facility] [address], [place], [address], 09/17/2024 09:06:24 09/18/19 25 09/17/2024 urina lysis panel , auto Unknown Analyte 50 mg/dL Not Available [facility] [address], [place], [address], 09/17/2024 09:06:24 09/18/19 25 09/17/2024 urina lysis panel , auto Unknown Analyte Normal Not Available [facility] [address], [place], [address], 09/17/2024 09:06:24 09/18/19 25 09/17/2024 urina lysis panel , auto Unknown Analyte Negati ve Not Available [facility] [address], [place], [address], 09/17/2024 09:06:24 09/18/19 25 09/17/2024 urina lysis panel , auto Unknown Analyte Negati ve Not Available [facility] [address], [place], [address], 09/17/2024 09:06:24 09/18/19 25 09/17/2024 urina lysis panel , auto Unknown Analyte Normal Not Available [facility] [address], [place], [address], 09/17/2024 09:06:24 09/18/19 25 09/17/2024 urina lysis panel , auto Unknown Analyte Normal Not Available [facility] [address], [place], [address], 09/17/2024 09:06:24 09/18/19 25 09/17/2024 urina lysis panel , auto Unknown Analyte 1 mg/dL Not Available [facility] [address], [place], [address], 09/17/2024 09:06:24 09/18/19 25 09/17/2024 urina lysis panel , auto Unknown Analyte Negati ve Not Available [facility] [address] [facility] [address], [place], [address], 09/17/2024 09:06:24 09/18/19 25 09/17/2024 urina lysis panel , auto Unknown Analyte Negati ve Not Available [facility] [address] [facility] [address], [place], [address], 09/17/2024 09:06:24 09/18/19 25 09/17/2024 urina lysis panel , auto Unknown Analyte Negati ve Not Available [facility] [address] [facility] [address], [place], [address], 09/17/2024 09:06:24 10/30/19 25 10/29/2024 MAGNE SIUM magnesium 1.3 mg/dL 1.6-2. 6 low Not Available [facility] [address] [place], [address], 10/29/2024 12:02:11 10/30/19 25 10/29/2024 BASIC METAB OLIC PANEL glucose 222 mg/dL 74-100 high Not Available [facility] [address] [place], [address], 10/29/2024 12:02:13 10/30/19 25 10/29/2024 BASIC METAB OLIC PANEL blood urea nitrogen 20 mg/dL 6-20 normal Not Available [facility] [address] [place] [address], [address], 10/29/2024 12:02:13 10/30/19 25 10/29/2024 BASIC METAB OLIC PANEL creatinine 1.05 mg/dL 0.70-1 .20 normal Not Available [facility] [address] [place] [address], [address], 10/29/2024 12:02:13 10/30/19 25 10/29/2024 BASIC METAB OLIC PANEL BUN/creatini ne ratio 19 (calc ) 10-20 normal Not Available [facility] [address] [place] [address], [address], 10/29/2024 12:02:13 10/30/19 25 10/29/2024 BASIC METAB OLIC PANEL sodium 137 mmol/ L 136-14 5 normal Not Available [facility] [address] [place] [address], [address], 10/29/2024 12:02:13 10/30/19 25 10/29/2024 BASIC METAB OLIC PANEL potassium 4.1 mmol/ L 3.4-5. 0 normal Not Available [facility] [address] [place] [address], [address], 10/29/2024 12:02:13 10/30/19 25 10/29/2024 BASIC METAB OLIC PANEL chloride 101 mmol/ L 98-107 normal Not Available [facility] [address] [place] [address], [address], 10/29/2024 12:02:13 10/30/19 25 10/29/2024 BASIC METAB OLIC PANEL carbon dioxide 23 mmol/ L 22-31 normal Not Available [facility] [address] [place] [address], [address], 10/29/2024 12:02:13 10/30/19 25 10/29/2024 BASIC METAB OLIC PANEL anion gap 13 (calc ) 7-25 normal Not Available [facility] [address] [place], [address], 10/29/2024 12:02:13 10/30/19 25 10/29/2024 BASIC METAB OLIC PANEL calcium 9.7 mg/dL 8.6-10 .2 normal Not Available [facility] [address] [place], [address], 10/29/2024 12:02:13 10/30/19 25 10/29/2024 BASIC METAB [...] s/KDO QI/gf r_cal culat orPed Not Available [facility] [address] [place], [address], 10/29/2024 12:02:13 10/30/19 25 10/29/2024 PTH, INTAC [...] ===== ===== ===== ===== ==== Not Available [facility] [address] [place] [address], [address], 10/29/2024 12:37:04 10/30/19 25 10/29/2024 PTH, INTAC T WITH CA calcium 9.7 mg/dL 8.6-10 .2 normal Not Available [facility] [address] [place], [address], 10/29/2024 12:37:04 10/30/19 25 10/29/2024 VITAM IN D 25-OH vitamin D 25-oh, total 24 NG/mL >=30 NG/mL abnormal Not Available [facility] [address] [place], [address], 10/29/2024 12:37:06 07/02/19 25 02/03/2024 MRI, prost [...] Details Recorded Time Right bundle branch block [id number] Completed 201903/07/2020 RAUL SHERMAN DO [address] [place], [address] , [facility] 0 09:08:41 Dyslipide steven 089911080 Active 2019 Not Available [facility] 4 05:36:14 Right bundle branch block 63600360 Active 2019 Not Available [facility] 4 05:36:14 Hypertens jason disorder 11871733 Active 2019 Not Available [facility] 4 05:36:14 Type 2 diabetes mellitus without complicat ion 713540776 Completed 201906/07/2020 RAUL SHERMAN DO [facility] [place], [address] , [facility] 1 07:46:02 Gout 75861291 Active 2020 Not Available [facility] 4 05:36:14 Periphera l neuropath y due to type 2 diabetes mellitus 44963835050 07 Active 2020 Not Available [facility] 4 05:36:14 Restless legs 85906062 Active 2020 Not Available [facility] 4 05:36:14 Left inguinal hernia 723940604 Active 2021 Not Available [facility] 4 05:36:14 Overweigh t 640022012 Active 2021 Not Available [facility] 4 05:36:14 Multiple complicat ions due to type 2 diabetes mellitus Active 2022 Not Available [facility] 4 05:36:14 Chronic prostatit is 21320549 Active 2024 JOE GARIBAY JR, MD [address] [place] [address], [address] [place] [address] 5 11:17:43 Hypomagne semia 477964008 Active 2024 YURI NOLAN APRN [address] [place] [address], [address] [place] [address] 5 08:24:15 Notes:Some problems listed i n Documents: #[id number], #[id number], #[id number], #[id number], #[id number] could not be added to this patient's chart. Please review these documents and add these problems to the patient's chart manually as needed. Problem Notes Documentation Provider Name and Address Organization Details Recorded Time Urologist Consult Note : [facility] [address], [facility] [id number], David D (Legal name: Jeff Carson) (id #[id number], : 1960) [facility] [address] [place] [address] Date: 07/02/2024RE: Jeff Carson, : 1960, PT ID #[id number] Chappell MD, I would like to thank you for referring Jeff Carson to our practice for consultation and evaluation. I have enclosed a copy of the office evaluation for your records. Sincerely, Electronically Signed by: JOE GARIBAY JR, MDFulton County Health Centerer Reason/DateTransition of Care Encounter Elevated PSA 07/01/2024 - 10:15AM - [facility] History of Present IllnessThe patient [...] Residual; Ultrasound:Post Void Residual Source: Ultrasound Volume: 25mlAssessment/[id number] d male with a history of elevated [...] route. Qty: (42) capsule Refills: 0 Pharmacy: [id number] 3. Prostatitis- Consideration of antibiotic therapy based [...] JOE GARIBAY JR, MD for RECHECK at [facility] on 09/17/2024 at 09:00 AM QIANA CHAPPELL MD [address] [place] [address], [address], [facility] 07/02/2024 14:09:30 Urology Note : [facility] [address] [facility] [id number], David D (Legal name: Jeff Carson) (id #[id number], : 1960) [facility] [address] [place] [address] Encounter Summary - Progress Note Date Printed: [...] received this fax in error, please visit [email or web address] to notify the sender and confirm that the information will be destroyed. If you do not have internet access, please call to notify the sender and confirm that the information will be destroyed. Thank you for your attention and cooperation. [ID:[id number]] Patient Jeff Carson (64yo, M) #[id number] 1960 Patient Demographics: Address [address] [place] [address] [place] [address] Encounter Notes: Encounter Reason/Date 2-3 month fup w/ psa 09/17/2024 - 09:00AM - [facility] History of Present IllnessThe patient [...] Clean Catch Color Yellow Clarity Clear Specific [place] 1.025 1.003 - 1.030 pH 5.0 5.0 [...] no edema. Procedure DocumentationNone recorded Assessment and [id number] male with a history of chronic prostatitis [...] evaluation will guide further steps. 1. Chronic nfiuawplbliK63.1: Chronic prostatitis 2.High prostate specific antigen (PSA)Continued [...] Clean Catch Color Yellow Clarity Clear Specific [place] 1.025 1.003 - 1.030 pH 5.0 5.0 [...] JOE GARIBAY JR, MD for RECHECK at [facility] on 03/18/2025 at 09:15 AM Patient Medical History: Allergies List Allergies not reviewed (last reviewed 09/15/2024) MORPHINE: - Comment: FAMILY HISTORY;Created By: Kathleen Velasquez;Created Date: 10/30/2013 9:16:39 AM; [id number] REDUCTASE INHIBITORS: Myalgias (muscle pain) - Reaction: MYALGIA; Comment: MUSCLE ACHES;Created By: Kathleen Velasquez;Created Date: 10/30/2013 9:15:45 AM; Some allergies listed in Documents: #[id number], #[id number], #[id number], #[id number], #[id number] could not be added to this patient's [...] MD FreeStyle Lite Meter kitone meter04/06/20 entered Birthday Gorillaaustin FreeStyle Lite StripsUSE DIRECTED TO TEST ONCE [...] 07/01/2024) Vaccine Type Date Amt. Route Site [facility] Lot # Mfr. Exp. Date VIS VIS Given [employer]ist COVID-19 COVID-19 (SARS-COV-2) vaccine, unspecified 08/19/20 COVID-19 (SARS-COV-2) vaccine, unspecified 07/28/20 Diphtheria, Tetanus, Pertussis Tdap 01/25/19 Hepatitis A Hep A, adult 06/07/20 Intramuscular Deltoid, Left [id number] Glaxo[employer]line 11/10/21 Hepatitis A 12/22/2019 06/07/20 Hallie Richard Hep A, adult 10/25/18 Influenza influenza, injectable, quadrivalent, preservative free 03/07/20 0.5 mL Intramuscular Deltoid, Left [id number] Sanofi Pasteur 11/23/20 Inactivated Influenza 01/08/2019 03/07/20 Hallie Richard Pneumococcal pneumococcal polysaccharide PPV23 06/19/21 0.5 mL Intramuscular Deltoid, Left [id number] Merck and Co., Inc. 06/08/22 PPSV23 03/25/2019 06/19/21 Caryn Linares Zoster zoster recombinant 06/19/21 0.5 mL Intramuscular Deltoid, Right [id number] GlaxoSmithKline 10/12/22 Recombinant Zoster 03/25/2019 06/19/21 Caryn Linares zoster recombinant 06/07/20 Intramuscular Deltoid, Right [id number] Gl[employer]oSmithKline 03/09/22 Recombinant Zoster 03/25/2019 06/07/20 Hallie Richard completed covid booster ~03/2021 Electronically Signed by: JOE GARIBAY JR, MD QIANA CHAPPELL MD [address] [place], [address], [facility] 09/21/2024 08:13:17 Procedures Surgical History Date Name Laterality Status Provider Name and Address Organization Details Recorded Time 07/01/19 25 Post Void Residual; Ultrasound completed Jocelyne Toribio [facility] 07/01/2024 11:27:34 04/25/20 22 Echocardiogram completed BELKYS ESTRELLA MD [address] [place], [address], [facility] 04/25/2022 12:20:28 04/10/20 22 EKG completed Radha Salazar [facility] 04/10/2022 12:43:51 05/27/18 62 Removal of testis completed RAUL SHERMAN DO [address] [place], [address], [facility] 06/07/2020 08:37:41 Removal of tonsils completed Radha Salazar [facility] 02/25/2020 09:04:57 Other completed Radha [facility] 02/25/2020 09:05:20 repair of meniscus completed RAUL SHERMAN DO [address] [place], [address], [facility] 03/07/2020 09:24:32 Imaging Results None recorded. Procedure Notes None recorded. Medical Equipment None Reported. Allergies Allergen ID Allergen Name Allergen Category Reaction Reaction Severity Criticality Documentation Date Start Date Code Code System Note Provider Name and Address Organization Details Recorded Time 558634 Product containin g 3-hydroxy -3-methyl glutaryl- coenzyme A reductase inhibitor (product) medicatio n myalgias (muscle pain) Not available Not available 04/19/20162013 30223 009 SNOMED React ion: MYALG IA; Comme nt: MUSCL E ACHES ;Crea indio By: Cortez parr;C reate d Date: 9:15: 45 AM; Not Available [facility] 6 11:11:56 435503 morphine sulfate medicatio n Not available Not available Not available 04/19/20162013 38761 RxNorm Comme nt: FAMIL Y HISTO RY;Cr eated By: Cortez parr;C reate d Date: 9:16: 39 AM; Not Available [facility] 6 11:39:42 Medications Name Sig Start Date [...] BY MOUTH EVERY DAY IN THE MORNING active Not Available Not Available No t Available pioglitaz one 30 mg tablet Take [...] Available Not Available ezetimibe 10 mg tablet TAKE 1 TABLET BY MOUTH EVERY DAY AT BEDTIME active Not Available Not Available No t Available Ciprodex 0.3 %-0.1 % ear drops,amarilis [...] Body mass index (BMI) Body weight Systolic And Diastolic Provider Name and Address Organization Details Last Updated DateTime 06/25/2024 185.42 cm 27.8 kg/m2 24462.99 g 124/70 mm[Hg] Eva Rosario [facility] 06/25/2024 10:52:41 Date Recorded Body height Body mass index (BMI) Body weight Provider Name and Address Organization Details Last Updated DateTime 07/01/2024 185.42 cm 27.7 kg/m2 96020.4 g Jocelyne Toribio [facility] 07/01/2024 11:17:21 Date Recorded Body height Body mass index (BMI) Body weight Heart rate Systolic And Diastolic Provider Name and Address Organization Details Last Updated DateTime 09/15/2024 185.42 cm 27.7 kg/m2 00079.4 g 54 /min 118/64 mm[Hg] Ave Nolan [facility] 09/15/2024 11:56:32 Date Recorded Body height Body mass index (BMI) Body weight Provider Name and Address Organization Details Last Updated DateTime 09/17/2024 185.42 cm 27.7 kg/m2 16249.4 g Jocelyne Toribio [facility] 09/17/2024 08:59:02 Date Recorded Body height Body mass index (BMI) Body weight Heart rate Systolic And Diastolic Provider Name and Address Organization Details Last Updated DateTime 10/29/2024 185.42 cm 26.1 kg/m2 45727.29 g 87 /min 110/65 mm[Hg] Fransisca Mayers [facility] 10/29/2024 10:46:54 Social History Question Answer Notes LastModified by Organizat ion Details LastModified Time Tobacco Smoking Status Never Smoker Radha king [facility] 02/25/2020 07:45:19 What Is Your Level Of Caffeine Consumption? Moderate Information not available 02/01/2021 Marital Status [email or web address] Informatio n not available 02/25/2020 What Was The Date Of Your Most Recent Tobacco Screening? 07/01/2024 [email or web address] Information not available 07/01/2024 What Is Your Relationship Status? Information not available 04/25/2022 Do You Have Smoke And Carbon Monoxide Detectors In Your Home? Yes [email or web address] Information not available 02/01/2021 Has Tobacco Cessation Counseling Been Provided? No [email or web address] Information not available 04/10/2022 Have You Recently Traveled Abroad? No [email or web address] Information not available 04/25/2022 Sex: Male Functional Status Question Answer Note LastModified by Organizat ion Details LastModified Time Do you use any illicit or recreational drugs? No [email or web address] Information not available 02/01/2021 Do you or have you ever used any other forms of tobacco or nicotine? No [email or web address] Information not available 02/01/2021 What is your level of alcohol consumption? None [email or web address] Information not available 02/01/2021 Do you or have you ever used smokeless tobacco? Never used smokeless tobacco [email or web address] Information not available 02/25/2020 Are you currently employed? 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 Never used electronic cigarettes [email or web address] Information not available 02/25/2020 Mental Status None [...] quadrivalent, PF 0 completed RAUL SHERMAN, [address] [place], [address], [facility] 03/07/2020 09:47:38 Hep A, adult 1 completed Hallie Richard null, [facility] 06/07/2020 08:46:44 zoster recombinant 1 completed Hallie king, [facility] 06/07/2020 08:47:10 zoster recombinant 2 completed Caryn Linares null, [facility] 06/19/2021 11:38:33 pneumococcal polysaccharide PPV23 2 completed Caryn Linares null, [facility] 06/19/2021 11:38:33 Tdap 9 completed Not Available [facility] 06/23/2023 05:36:14 Hep A, adult 9 completed Not Available [facility] 06/23/2023 05:36:14 SARS-COV-2 (COVID-19) vaccine, UNSPECIFIED 1 completed Not Available [facility] 06/23/2023 05:36:14 SARS-COV-2 (COVID-19) vaccine, UNSPECIFIED 1 completed Not Available [facility] 06/23/2023 05:36:14 Past Encounters Encounter ID Performer Location Encounter Start Date Encounter Closed Date Diagnosis/Indication Diagnosis SNOMED-CT Code Diagnosis ICD10 Code Diagnosis Note [id number] GILMER PRATT MD CARDIOLOG [address] [place] [address] 02/25/2020 08:39:23 02/25/2020 13:48:24 Hypertensive disorder 70737354 I10 I discussed the importance of salt restrictio n. Per FDA recommenda tions, I advise limit of 2000 -2400 mg daily of sodium. Increase sodium intake is often associated with worsening of hypertensi on and or heart failure.DA SH diet given. 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 Normal echocardio gram no further testing indicated Dyslipidemia 407966112 E 78.5 Statin myalgia. I advised discontinu [...] was discussed in detail with the patient. [id number] RAUL SHERMAN DO [facility] [address] [place] [address] 03/07/2020 09:07:19 03/07/2020 09:43:43 Hypertensive disorder 06310291 I10 Remains borderline , patient previously advised to monitor BP nightly. On most checks running 130-140/70 -80 but admits he needs to be more regular about checking. Goal <140/90. Continue current regimen and monitoring . Weight loss to return to his pre-knee surgery weight will be helpful. Continue daily cardiovasc ular exercise. Type 2 juan carlos betes mellitus without complication 020181340 E11.9 Reports a1c last month 7.1. Continue current regimen and moderation of carbohydra abiodun. UTD on DM eye exam. Has been referred to Dr. Chappell. No hx of hypoglycem ia but would consider stopping combinatio n of glipizide + actos. Dyslipidemia 259600784 E 78.5 History of statin intoleranc e, continue follow-up with Dr. Pratt, we will be considerin g once weekly statin trial and if he remains intolerant alternativ es will be discussed. Administra tion of influenza vaccine 46036542 Z23 Risks and benefits of influenza vaccinatio n reviewed, patient agreeable to receiving. [id number] GILMER PRATT MD CARDIOLOG Y [address] ,[address] [place] [address] 03/28/2020 08:17:10 03/28/2020 09:01:20 Hypertensive disorder 75453808 I10 I discussed the importance of salt restrictio n. Per FDA recommenda tions, I advise limit of 2000 -2400 mg daily of sodium. Increase sodium intake is often associated with worsening of hypertensi on and or heart failure.DA SH diet given. Right bund le branch block 41142347 I45.0 Confirmed on electrocar diogram. Normal echocardio gram no further testing indicated Dyslipidemia 040406169 E 78.5 Statin myalgia. I advised discontinu ing pravastati n and we'll recheck lipids on follow-up. Patient has statin induced myalgia. Recommend ezetimibe 10 mg nightly with atorvastat in one night per week. [id number] QIANA CHAPPELL MD [facility] [address] [place] [address] 04/06/2020 10:27:54 04/06/2020 11:04:44 Multiple complications due to type 2 diabetes mellitus 342170090 E11.8 A1c 6.2 on 03/21/2020 Random point-of-c [...] neuropathy due to type 2 diabetes mellitus 6737485145 107 E11.42 Reported bilateral lower extremity aching [...] e in the care of this patient. [id number] RAUL SHERMAN DO [facility] [address] [place] [address] 06/07/2020 08:04:13 06/07/2020 08:55:01 Adult health examination 447101625 Z00.00 Reviewed healthy diet, lifestyle and exercise habits. Cologuard negative in 2019, due next year for follow-up Screening for malignant neoplasm of prostate 434516668 Z12.5 No personal or family history of prostate cancer, continue annual screening Hypertensive disorder 38 690457 I10 Goal <140/90. Continue current regimen and monitoring . Weight loss to return to his pre-knee surgery weight will be helpful. Continue daily cardiovasc ular exercise. Dyslipidemia 045147591 E 78.5 History of statin intoleranc e, now on once weekly lipitor and daily zetia and tolerating well Peripheral neuropathy due to type 2 diabetes mellitus 0589025915 107 E11.42 Continue current regimen and moderation of carbohydra abiodun. UTD on DM eye exam. Cont follow up with Dr Mojica Gout 76567297 M10.9 Stable Restless legs 15820850 G 25.81 Stable on 1 mg nightly Requires a hepatitis A vaccination 542683828 Z28.3 Completed series today Immunization due 1177639 08 Z28.3 First dose today Left inguinal hernia 236 893437 K40.90 Watching for several years, no pain, not enlarging. To f/u if worsening [id number] QIANA CHAPPELL MD [facility] [address] [place] [address] 09/14/2020 08:41:37 09/14/2020 09:25:52 Multiple complications due to type 2 diabetes mellitus 884673858 E11.8 A1c 6.2 unchanged from 6.2 on 03/21/2020 Random point-of-c are blood glucose 176 Goal A1c less than 7% I commended patient on achieving and maintainin g goal glycemic control Continue current diabetes regimen 10 g monofilame nt testing is bilaterall y intact in the office today Reschedule diabetic dilated eye exam from [facility]. In the office today he reported episodes [...] He will call our office back Hyperlipidemia 04565982 E78.5 LDL of 120 Continue current atorvastat in 10 mg every bedtime Currently on Zetia Essential hypertension 37841486 I10 Blood pressure at goal of less than 140/90 Continue current regimen Patient verbalized understand ing and agreed with the above mentioned plan of care. [id number] RAUL SHERMAN DO [address] [place] [address] 12/07/2020 07:59:32 12/07/2020 08:54:27 Hypertensive disorder 54601628 I10 Goal <140/90. Continue current regimen and monitoring . Weight loss to return to his pre-knee surgery weight will be helpful. Continue daily cardiovasc ular exercise. Peripheral neuropathy due to type 2 diabetes mellitus 8221095663 107 E11.42 Recent a1c 6.2. Continue current regimen and moderation of carbohydra abiodun. UTD on DM eye exam. Cont follow up with Dr Mojica Gout 50839614 M10.9 Stable Dyslipidemia 737030687 E 78.5 History of statin intoleranc e, now on once weekly lipitor and daily zetia and tolerating well Type 2 juan carlos betes mellitus without complication 429759432 E11.9 Continue current regimen and moderation of carbohydra abiodun. UTD on DM eye exam. Has been referred to Dr. Chappell. Restless legs 33409670 G 25.81 Will trial increase to 2mg nightly. Herpes labialis 2349892 B00.1 1-2 outbreaks annually, requests valtrex refill. Lesion of skin of left ear 6657909438 9992589 H93.8X2 Appears to be AK, would rec dermatolog y evaluation [id number] ANDERS HAZEL PA-C [address] [place] [address] 02/01/2021 08:05:13 02/01/2021 08:35:45 Acute otitis externa of right ear 6109034714 775057 H60.501 stop polymyxin Sulfa eardrops and start Ciprodex as directed in both the ears 7 days. Follow-up if symptoms persist or worsen. I think patient needs the addition of the steroid in this ear drop to help with swelling in the ear canal at present. No signs of inner ear infection on exam. Acute left otitis media 065860660 H66.92 see above instructio ns. [id number] [place] [address] [place] [address] 03/07/2021 14:42:47 03/07/2021 16:40:55 Dermatitis of external auditory canal 172724062 H60.593 Causing recurrent episodes of acute external otitis. Kenalog ointment and fluocinolo ne oil. f/u 3-4 weeks. [id number] BELKYS ESTRELLA MD CARDIOLOG Y [address] [place] [address] 04/05/2021 08:56:25 04/05/2021 09:33:19 Hypertensive disorder 28957757 I10 Right bund le branch block 24979313 I45.0 Dyslipidemia 032227058 E 78.5 [id number] QIANA CHAPPELL MD [facility] [address] [place] [address] 04/13/2021 14:49:16 04/13/2021 15:21:24 Multiple complications due to type 2 diabetes mellitus 853674414 E11.8 A1c in the office today of 6.4% from a prior A1c of 6.2 Random point-of-c are blood glucose of 171 Goal A1c less than 7% Commended patient on achieving and maintainin g goal glycemic control. Continue current diabetes regimen Up-to-date with diabetic dilated eye exam [facility] [place] in October. 10 g monofilame nt testing is bilaterall y intact [id number] RAUL SHERMAN DO [facility] [address] [place] [address] 06/19/2021 10:19:18 06/19/2021 11:57:10 Adult health examination 302602052 Z00.00 Reviewed healthy diet, lifestyle and exercise habits. Cologuard negative in 2019, due this year for follow-up. Elects to continue Cologuard screening Screening for malignant neoplasm of prostate 305638383 Z12.5 No personal or family history of prostate cancer, continue annual screening Hypertensive disorder 38 052338 I10 BP elevated of late, today in due to stress but typically better at home when checked.Go al <130/80 with DM.Recomme nd monitoring blood pressure at home. Healthy diet and cardiovasc ular exercise encouraged with goal 150 minutes weekly. Sodium moderation recommenda tions reviewed. Dyslipidemia 640963446 E 78.5 History of statin intoleranc e, now on once weekly lipitor and daily zetia and tolerating well Peripheral neuropathy due to type 2 diabetes mellitus 3786390980 107 E11.42 A1c stable at goal, continue follow-up with endocrinol ogy Gout 12581426 M10.9 Stable Restless legs 83326928 G 25.81 Stable on 1 mg nightly Immunization due 7921284 08 Z28.3 Completed today Left inguinal hernia 236 565680 K40.90 Watching for several years, no pain, not enlarging. To f/u if worsening Multiple complications due to type 2 diabetes mellitus 659542332 E11.8 Screening for malignant neoplasm of colon 240328398 Z12.11 His colonoscop y, Cologuard -2019, due follow-up. Elects to continue Cologuard screening, agreeable to colonoscop y if indicated Administra tion of pneumococcal vaccine 26134175 Z23 Pneumovax updated today [id number] QIANA CHAPPELL MD [facility] [address] [place] [address] 10/04/2021 08:34:14 10/04/2021 09:17:42 Multiple complications due to type 2 diabetes mellitus 398215929 E11.8 A1c in the office today of 6.6 from a prior A1c of 6.4% Random point-of-c are blood glucose of 152 Goal A1c less than 7% Commended patient on achieving and maintainin g goal glycemic control. Continue current diabetes regimen Changing metformin 500 mg twice daily to metformin extended release 500 mg 2 tablets every bedtime Up-to-date with diabetic dilated eye exam [facility] [place] in October. 10 g monofilame nt testing is bilaterall y intact. Instructed to schedule his diabetic dilated eye exam Essential hypertension 99985187 I10 Blood pressure elevated at 142/68 Further increase amantadine to 10 mg Check blood pressure once daily for 1 week and call our office back Patient verbalized understand ing and agreed with the above mentioned plan of care. [id number] BOBBI MUELLER PA-C [address] [place] [address] 02/06/2022 15:10:00 02/06/2022 15:33:58 COVID-19 350188188 U07.1 stable symptoms at present. Discussed natural [...] if below 90 go to ER. Guille 54940227 M6 2.831 most likely Secondary to dehydratio n. Increase intake of electrolyt e water, Pedialyte. Try to reach a goal of 64 to 80 ounces of clear liquids daily. [id number] BELKYS ESTRELLA MD CARDIOLOG Y [address] [place] [address] 04/10/2022 12:41:29 04/10/2022 14:39:32 Hypertensive disorder 36881336 I10 Right bund le branch block 13282472 I45.0 Dyslipidemia 326111507 E 78.5 Overweight 540580380 E66 .3 Premature atrial contraction 041660840 I49.1 [id number] QIANA CHAPPELL MD [facility] [address] [place] [address] 04/10/2022 12:42:02 04/10/2022 15:07:11 Multiple complications due to type 2 diabetes mellitus 314270569 E11.8 A1c in the office today of [...] diabetic dilated eye exam [facility] [place] in October. 10 g monofilame nt testing is bilaterall y intact. [id number] BELKYS ESTRELLA MD CARDIOLOG Y [place] [address] [place] [address] [address] [place] [address] 04/25/2022 10:37:31 04/25/2022 11:59:17 Hypertensive disorder 13034165 I10 Right bund le branch block 34490366 I45.0 Dyslipidemia 457764805 E 78.5 Overweight 622611389 E66 .3 Premature atrial contraction 152660432 I49.1 [id number] BELKYS ESTRELLA MD [facility] [address] [place] [address] [place] [address] 04/25/2022 10:36:52 04/25/2022 15:46:54 Ventricular premature complex 144606131 I49.3 [id number] MICHAEL MCLEAN APRN [facility] [address] [place] [address] 09/21/2022 10:46:38 09/21/2022 11:34:29 Multiple complications due to type 2 diabetes mellitus 175119221 E11.8 A1c 7.7% increased from 7Random Glucose: [...] your glucometer to every endocrinol ogy justina bell. Sign up for the patient portal: [email or web address]/ Increase Pioglitazo ne 30mg dayContinu e Glipizide 5mg dayContinu e Metformin 1000mg BIDf/u in 3 months [id number] QIANA CHAPPELL MD [facility] [address] [place] [address] 01/10/2023 10:59:42 01/10/2023 12:08:35 Uncontrolled type 2 diabetes mellitus 146096326 E11.65 A1c is down to 7.1 from [...] g of almond testing and urinary ACR. [id number] BELKYS ESTRELLA MD CARDIOLOG Y [address],[facility] FLO[address] [place] [address] 01/25/2023 09:50:44 01/25/2023 10:35:33 Hypertensive disorder 55522904 I10 Right bund le branch block 13277594 I45.0 Dyslipidemia 853437215 E 78.5 Overweight 666980867 E66 .3 Premature atrial contraction 602319265 I49.1 [id number] BELKYS ESTRELLA MD CARDIOLOG Y [address] ME[address],[facility] FLO[address] [place] [address] 04/29/2023 09:11:46 04/29/2023 10:11:14 Hypertensive disorder 48499851 I10 Right bund le branch block 50074459 I45.0 Dyslipidemia 829200418 E 78.5 Overweight 518625331 E66 .3 Premature atrial contraction 273297547 I49.1 Pain in bi lateral legs 6837147666 5469377 M79.605 M79.604 [id number] QIANA CHAPPELL MD [facility] [address] [place] [address] 05/10/2023 10:57:17 05/10/2023 11:36:53 Uncontrolled type 2 diabetes mellitus 704362111 E11.65 A1c in the office today of [...] exam on 05/09/2023 Dr. Regina Fischer OD [facility] [place] 10 g monofilame nt testing is bilaterall y intact. Hyperlipidemia 95706049 E78.5 LDL of 93 on 04/29/2023 Discontinu e atorvastat in 10 mg every bedtime Currently on Zetia Liver function test Essential hypertension 36430375 I10 Blood pressure 131/65Cont inue amlodipine 10 mg every a.m. Continue current benazepril 40 mgBMP and urinary ACR todayPatie nt verbalized understand ing and agreed with the above mentioned plan of care. [id number] QIANA CHAPPELL MD [facility] [address] [place] [address] 09/06/2023 12:55:42 09/06/2023 14:01:11 Uncontrolled type 2 diabetes mellitus 318870472 E11.65 A1c in the office today of [...] exam on 05/09/2023 Dr. Regina Fischer OD [facility] [place] Foot exam done in our office todayFootc are discussed with [id number] g monofilame nt testing is bilaterall y intact.Pat ient verbalized understand ing and agreed with the above mentioned plan of care. Hyperlipidemia 58882571 E78.5 LDL of 93 on 04/29/2023 iscontinue d atorvastat in 10 mg every bedtimeCon tinue current Zetia 10 mg daily Essential hypertension 64461371 I10 Blood pressure 128/76Cont inue amlodipine 10 mg every a.m.Contin ue current benazepril 40 mgBMP and urinary ACR are up-to-date Patient verbalized understand ing and agreed with the above mentioned plan of care. [id number] QIANA CHAPPELL MD [facility] [address] [place] [address] 12/20/2023 12:56:05 12/20/2023 14:45:44 Uncontrolled type 2 diabetes mellitus 265489129 E11.65 A1c in the office today of [...] exam on 05/09/2023 Dr. Regina Fischer OD [facility] [place] Foot exam is up-to-date [facility] discussed with [id number] g monofilame nt testing is bilaterall y intact. Essential hypertension 37152608 I10 Blood pressure 124/78Cont inue amlodipine 10 mg every a.m.Contin ue current benazepril 40 mgBMP and urinary ACR are up-to-date Hyperlipidemia 59733551 E78.5 LDL of 93 on 04/29/2023 iscontinue d atorvastat in 10 mg every bedtimeCon tinue current Zetia 10 mg daily Labs from outside facility reviewed on 12/16/2023 which showed creatinine of 0.7 and GFR of 114. Patient verbalized understand ing and agreed with the above mentioned plan of care. [id number] QIANA CHAPPELL MD ENDOCRINO LOGY [address] [place] [address] 03/25/2024 10:25:37 03/25/2024 11:17:22 Essential hypertension 36202818 I10 Blood pressure 124/76Cont inue amlodipine 10 mg every a.m.Contin ue current benazepril 40 mgBMP and urinary ACR Hyperlipidemia 48350341 E78.5 LDL of 93 on 04/29/2023 iscontinue d atorvastat in 10 mg every bedtimeCon tinue current Zetia 10 mg dailyLipid panel today Patient verbalized understand ing and agreed with the above mentioned plan of care. Type 2 juan carlos betes mellitus 53372744 E11.8 A1c in the office today of [...] eye exam on 05/09/2023 Dr. Regina Fischer [facility] doctors of optometry [place] exam is up-to-date Foot[facility] discussed with [id number] g monofilame nt testing is bilaterall y intact. [id number] QIANA CHAPPELL MD ENDOCRINO LOGY [address] [place] [address] 06/25/2024 10:44:14 06/25/2024 12:46:54 Uncontrolled type 2 diabetes mellitus 607039494 E11.65 A1c in the office today of [...] exam on 05/09/2023 Dr. Regina Fischer OD [place] doctors of opt[facility] [place] [facility] exam is up-to-date Footcare discussed with [id number] g monofilame nt testing is bilaterall y intact. Prostate s pecific antigen above reference range 145479731 R97.20 Reported having elevated PSA of uncertain etiology Seen by an outside urologist Requested referral to [facility] urology for further evaluation Patient verbalized understand ing and agreed with the above mentioned plan of care. [id number] JOE GARIBAY JR, MD [facility] [address] [place] [address] 07/01/2024 10:26:28 07/01/2024 11:21:27 Lower urinary tract symptoms due to benign prostatic hypertrophy [id number] 9101 N40.1 Continue monitoring urinary symptoms. Consider [...] surgical considerat ions might be warranted. Prostatitis 5303123 N41. 9 Considerat ion of antibiotic therapy based on symptomato logy and potential prostatiti s diagnosis. Empirical treatment with antibiotic s discussed as per clinical guidelines . Prostate s pecific antigen above reference range 913753282 R97.20 Continued monitoring of PSA levels due to previous elevated results and PI-RADS 3 lesion. Future PSA evaluation s recommende d to assess trend and potential rebiopsy if clinically indicated. [id number] QIANA CHAPPELL MD ENDOCRINO LOGY [address] [place] [address] 09/15/2024 11:23:22 09/15/2024 12:58:41 Type 2 diabetes mellitus 80563593 E11.8 Z79.84 A1c in the office today [...] exam on 05/09/2023 Dr. Regina Fischer OD [place] [facility] [place] [facility] exam is up-to-date Foot[facility] discussed with [id number] g monofilame nt testing is bilaterall y intact. [id number] JOE GARIBAY JR, MD [facility] S [address] [place] [address] 09/17/2024 08:51:40 09/17/2024 09:28:04 Chronic prostatitis 55825591 N41.1 Prostate s pecific antigen above reference range 078040528 R97.20 Continued monitoring of PSA levels due to previous elevated results and PI-RADS 3 lesion. Future PSA evaluation s recommende d to assess trend and potential rebiopsy if clinically indicated. [id number] YURI NOLAN APRN ENDOCRINO LOGY [address] [place] [address] 10/29/2024 10:30:52 10/29/2024 11:10:09 Hypomagnesemia 177713870 E83.42 -Last lab from 10/26/24Mag 1.1-Repeat labs [...] Alarcon Member ID Guarantor Name 06/24/2024 1 [facility] [id number] Jeff Carson [id number] Jeff Carson 10/27/2024 1 [place]IC[place] Jeff Carson [id number] Jeff Carson 11/07/2024 2 [facility] (MEDICARE SUPPLEMENT) Jeff Carson [id number] Jeff Carson Notes Date Note Type Note [...] of diabetes: 2004PCP currently Tani Carr APRN [[facility]]Current regimen: Metformin 1000 g twice a day. Glipizide extended release 2.5 mg ER 2 tablets twice daily before meal Pioglitazone 30 mg every Self monitoring of blood glucose readingsFreestyle lite7-day average 16535-zra average 99661-nkw average 151Blood glucose readings: 163, 159, 163, 167, 146, 155, 163, 127, 165, 134, 137, 131, 147, 122, 155, 127, 144, 167, 205, 156, 149, 142, 148, 138, 107 No hypoglycemia by history History of statin induced myalgia. Currently on Zetia Currently on amlodipine 10 mg and benazepril 40 mg. QIANA CHAPPELL MD [address] [place] [address], [phone], [facility] 06/25/2024 12:09:52 07/01/2024 text/html The patient [...] are reviewed today. JOE GARIBAY JR, MD [address] [place] [address], [phone], [facility] 07/02/2024 08:01:11 09/15/2024 text/html 64-year-old [facility] male patient with a past medical history as detailed in the prominent significant for hypertension, hyperlipidemia on statin therapy, type 2 diabetes on oral therapy seen in the office today for 6 months follow-up uncontrolled type 2 diabetes, hypertension/ Summary of history: Onset of diabetes: 2004PCP currently Tani Carr APRN [[facility]]Current regimen: Metformin 1000 g twice a [...] and benazepril 40 mg. QIANA CHAPPELL MD [address] [place] [address], [phone], [facility] 09/15/2024 12:56:51 09/17/2024 text/html The patient [...] and prostate health. JOE GARIBAY JR, MD [address] [place] [address], [phone], [facility] 09/20/2024 16:36:31 10/29/2024 text/html 64-year-old Cauc [...] colonoscopyNo new meds/supplements prior to event. YURI NOLAN, BOATSWAINS MATE [address] [place], [address], [facility] 10/29/2024 11:38:06
--- OUTSIDE RECORDS SUMMARY | 2024-11-30 07:53 | XMS_ITS | Encounter Summary ---
Author Organization [employer] ([place], [place], [place], [place]) Address [address] [address] Care Team Providers Care Harness Repairer Name Role Phone Unavailable Primary Care Provider Unavailabl e Encounter Details Date Type Department Care Team (Late st Contact Info) Description 12/02/2019 Transcribed Document [facility] Radiology 1 [place] [address] Provider, Rosas Naranjo MD Social History Tobacco Use Types Packs/Day Years Used Date Smoking Tobacco: Never Assessed Sex and Gender Information Value Date Recorded Sex Assigned at Not on file Legal Sex Male 7:33 PM CDT Gender Identity Not on file Sexual Orientation Not on file documented as of this encounter Miscellaneous Notes * Cerner Conversion Note - [facility] Jose A ProviderMD - 12/02/2019 12:08 PM EDT [facility] OR PreOp Summary Primary Physician: JACKELIN SELF JR, JR, MD-ORT Finalized Date/Time: 12/03/19 10:55:36 Pt. Name: ALLI JEFF SHANKAR Ruelas.O.B./Sex: 1960 Male Med Rec #: [id number] Physician: JACKELIN SELF JR, JR, MD-ORT Financial #: [id number] Pt. Type: O Room/Bed: Admit/Disch: 12/02/19 09:17:00 - 12/02/19 13:19:00 Institution: [facility] PreOp Case Times Entry 1 In Preop 12/02/19 09:30:00 Ready for Holding n/a Room Patient Ready for 12/02/19 10:14:00 Surgery Patient Out of Preop 12/02/19 10:50:00 Patient Out of n/a Holding Room Last Modified By: OLVIN SYED 12/03/19 10:55:35 ANTOINE PreOp Case Times Audit 12/03/19 10:55:35 Campaign Worker: [id number] Modifier: [email or web address] <+> 1 Patient Out of Preop Finalized By: OLVIN SYED Document Signatures Signed By: OLVIN SYED 12/03/19 10:55 Electronically signed by Juan Francisco Miller Conversion Licensing Services Clerk Cerner at 10/17/2022 12:36 PM CDT documented in this encounter Plan of Treatment Not on file documented as of this encounter Visit Diagnoses Not on filedocumented in this encounter
--- OUTSIDE RECORDS SUMMARY | 2024-11-30 07:53 | XMS_ITS | Encounter Summary ---
Author Organization [employer] ([place], [place], [place], [place]) Address [address] [address] Care Team Providers Care Automatic Brine Mixer Operator Name Role Phone Unavailable Primary Care Provider Unavailabl e Encounter Details Date Type Department Care Team (Late st Contact Info) Description 12/02/2019 Transcribed Document [facility] Radiology 1 [place] [address] Provider, Rosas Naranjo MD Social History Tobacco Use Types Packs/Day Years Used Date Smoking Tobacco: Never Assessed Sex and Gender Information Value Date Recorded Sex Assigned at Not on file Legal Sex Male 7:33 PM CDT Gender Identity Not on file Sexual Orientation Not on file documented as of this encounter Miscellaneous Notes * Cerner Conversion Note - [facility] Jose A ProviderMD - 12/02/2019 12:08 PM EDT [facility] Main OR PostOp Summary Primary Physician: JACKELIN SELF JR, JR, MD-ORT Finalized Date/Time: 12/02/19 13:24:35 Pt. Name: JEFF CARSON.O.B./Sex: 1960 Male Med Rec #: [id number] Physician: JACKELIN SELF JR, JR, MD-ORT Financial #: [id number] Pt. Type: O Room/Bed: Admit/Disch: 12/02/19 09:17:00 - Institution: [facility] OR PostOp Case Times Entry 1 In PACU II 12/02/19 12:50:00 Ready for PACU II 12/02/19 13:19:00 Discharge Discharge from PACU 12/02/19 13:19:00 II Last Modified By: Carli Palomo RN 12/02/19 13:24:26 [facility] OR PostOp Case Times Audit 12/02/19 13:24:26 Crystal Attacher: SXPOWERS Modifier: SXPOWERS <+> 1 Ready for PACU II Discharge <+> 1 Discharge from PACU II Finalized By: Carli Palomo, RN Document Signatures Signed By: Carli Palomo RN 12/02/19 13:24 documented in this encounter Plan of Treatment Not on file documented as of this encounter Visit Diagnoses Not on filedocumented in this encounter
--- OUTSIDE RECORDS SUMMARY | 2024-11-30 07:53 | XMS_ITS | Encounter Summary ---
Author Organization [employer] ([place], [place], [place], [place]) Address [address] [address] Care Team Providers Care Electric Hoist Operator Name Role Phone Unavailable Primary Care Provider Unavailabl e Encounter Details Date Type Department Care Team (Late st Contact Info) Description 12/02/2019 Transcribed Document [facility] Radiology 1 [place] [address] Provider, Rosas Naranjo MD Social History Tobacco Use Types Packs/Day Years Used Date Smoking Tobacco: Never Assessed Sex and Gender Information Value Date Recorded Sex Assigned at Not on file Legal Sex Male 7:33 PM CDT Gender Identity Not on file Sexual Orientation Not on file documented as of this encounter Miscellaneous Notes * Cerner Conversion Note - [facility] Jose A Reese MD - 12/02/2019 11:00 AM EDT Pre Procedure Adult Entered On: 12/02/2019 10:07 EDT Performed On: 12/02/2019 10:00 EDT by Juju Kirkland, RN Height and Weight, Clinical Dosing Height Source : Stated Height Entry Format : [place] Height, Feet : 6 ft(Converted to: 183 cm, 72 Inch) Height, Inches : 1 Inch(Converted to: 0 ft 1 Inch, 2.54 cm) Clinical Height : 185.42 cm Weight Source : Standing scale Weight Entry Format : [place] Clinical Dosing Weight : 89 kg Weight, Pounds : 195.8 lb Body Surface Area (BSA) : 2.13 m2 Body Mass Index : 25.9 kg/m2 (HI) [place] Body Weight : 79 kg Juju Kirkland [...] : Home Patient Lives With : Spouse SANTIAGO Hx Falls Immediate/Within 3 Months : No Current Home Treatments : Blood glucose monitoring Juju Kirkland RN - 12/02/2019 10:00 EDT [place] Suicide Severity Rating Scale (C-SSRS) CSSRS Past [...] denies history Currently in Unsafe Situation : Juju Baumann RN - 12/02/2019 10:00 EDT Advance Directive [...] #2 Relationship : . Primary Language : Chinese Communication Barrier : None Topology Teacher Needed : Juju Baumann RN - 12/02/2019 [...] IV Therapy or IV Access : Yes Santiago Gait/Transferring : Normal, bedrest, immobile Santiago Mental Status : Oriented to own ability Santiago Fall Risk Score : 20 SANTIAGO Fall Scale Risk Level : 0-24 Low Risk [place] Fall Interventions : Assistive devices within reach, [...] rendition version of the form. Shiraz Coma Shiraz Best Motor Response : Obey commands Shiraz Best Verbal Response : Oriented [place] Eye Opening Response : Spontaneous [place] Coma Score : 15 Juju Kirkland RN - 12/02/2019 10:00 EDT documented in this encounter Plan of Treatment Not on file documented as of this encounter Visit Diagnoses Not on filedocumented in this encounter
--- OUTSIDE RECORDS SUMMARY | 2024-11-30 07:53 | XMS_ITS | Continuity of Care Document ---
Author Organization [facility], ENDOCRINOLOGY SB Address [address] [place] [address] Care Team Providers Care Forest Fire Specialist Supervisor Name Role Phone BELKYS ESTRELLA Mine Car Repairer TANI CARR Primary Care Provider QIANA CHAPPELL [...] Chary arangoN, serum or plasma 2024 025 [facility], [address] [place] [address], [phone], 10/29/2024 12:02:11 BMP, serum or plasma 2024 025 [facility], [address] [place] [address], [phone], 10/29/2024 12:02:13 PTH (parathy roid hormone) , intact + calcium, serum or plasma 2024 025 [facility], [address] [place] [address], [phone], 10/29/2024 12:11:17 vitamin D, 25-hydro xy, total, serum 2024 025 [facility], [address] [place], [address], 10/29/2024 12:37:06 Referral None recorded . Procedures None recorded . Surgeries None recorded . Imaging None recorded . Medication Orders None recorded . Patient TargetsNo targets recorded. Patient InstructionsNo instructions recorded. Reason for Referral None Reported. Problems Name Problem SNOMED Code Status Onset Date Resolution Date Notes Provider Name and Address Organization Details Recorded Time Right bundle branch block 65135112 Completed 201903/07/2020 RAUL SHERMAN DO [address] [place], [address] , [facility] 0 09:08:41 Dyslipide steven 860461557 Active 2019 Not Available [facility] 4 05:36:14 Right bundle branch block 54525475 Active 2019 Not Available [facility] 4 05:36:14 Hypertens jason disorder 11474556 Active 2019 Not Available [facility] 4 05:36:14 Type 2 diabetes mellitus without complicat ion 690732940 Completed 201906/07/2020 RAUL SHERMAN DO [address] [place], [address] , [facility] 1 07:46:02 Gout 00251846 Active 2020 Not Available [facility] 4 05:36:14 Periphera l neuropath y due to type 2 diabetes mellitus 98299727719 07 Active 2020 Not Available [facility] 4 05:36:14 Restless legs 64696835 Active 2020 Not Available [facility] 4 05:36:14 Left inguinal hernia 064713804 Active 2021 Not Available [facility] 4 05:36:14 Overweigh t 945369064 Active 2021 Not Available [facility] 4 05:36:14 Multiple complicat ions due to type 2 diabetes mellitus Active 2022 Not Available [facility] 4 05:36:14 Chronic prostatit is 56213535 Active 2024 JOE GARIBAY JR, MD [address] [place] [address], [address] , [facility] 5 11:17:43 Yuli bravo 216887127 Active 2024 YUIR JACOB APRN [address] [place] [phone] [place] [address] 5 08:24:15 Notes:Some problems listed i n Documents: #[id number], #[id number], #[id number], #[id number], #[id number] could not be added to this patient's chart. Please review these documents and add these problems to the patient's chart manually as needed. Problem Notes None recorded. Procedures Surgical History Date Name Laterality Status Provider Name and Address Organization Details Recorded Time 07/01/19 25 Post Void Residual; Ultrasound completed Jocelyne Toribio [facility] 07/01/2024 11:27:34 04/25/20 22 Echocardiogram completed BELKYS ESTRELLA MD [address] [place] [address], [phone] [place] [address] 04/25/2022 12:20:28 04/10/20 22 EKG completed Radha Salazar [facility] 04/10/2022 12:43:51 05/27/18 62 Removal of testis completed RAUL SHERMAN DO [address] [place] [address], [phone] [place] [address] 06/07/2020 08:37:41 Removal of tonsils completed Radha Salazar [facility] 02/25/2020 09:04:57 Other [facility] 02/25/2020 09:05:20 repair of meniscus completed RAUL SHERMAN DO [address] [place] [address], [phone] 03/07/2020 09:24:32 Imaging Results None recorded. Procedure Notes None recorded. Medical Equipment None Reported. Allergies Allergen ID Allergen Name Allergen Category Reaction Reaction Severity Criticality Documentation Date Start Date Code Code System Note Provider Name and Address Organization Details Recorded Time 283604 Product containin g 3-hydroxy -3-methyl glutaryl- coenzyme A reductase inhibitor (product) medicatio n myalgias (muscle pain) Not available Not available 04/19/20162013 68370 009 SNOMED React ion: MYALG IA; Comme nt: MUSCL E ACHES ;Crea indio By: Cortez prar;C reate d Date: 9:15: 45 AM; Not Available [facility] 6 11:11:56 264370 morphine sulfate medicatio n Not available Not available Not available 04/19/20162013 87599 RxNorm Comme nt: FAMIL Y HISTO RY;Cr eated By: Cortez parr;C reate d Date: 9:16: 39 AM; Not Available [facility] 6 11:39:42 Medications Name Sig [...] Updated DateTime 10/29/2024 185.42 cm 26.1 kg/m2 27126.29 g 87 /min 110/65 mm[Hg] Fransisca Pennyhenry [facility] 10/29/2024 10:46:54 Social History Question Answer Notes LastModified by Organizat ion Details LastModified Time Tobacco Smoking Status Never Smoker [facility] 02/25/2020 07:45:19 What Is Your Level Of Caffeine Consumption? Moderate Information not available 02/01/2021 Marital Status [email or web address] Informatio n not available 02/25/2020 What Was The Date Of Your Most Recent Tobacco Screening? 07/01/2024 [email or web address] Information not available 07/01/2024 What Is Your Relationship Status? [email or web address] Information not available 04/25/2022 Do You Have Smoke And Carbon Monoxide Detectors In Your Home? Yes [email or web address] Information not available 02/01/2021 Has Tobacco Cessation Counseling Been Provided? No [email or web address] Information not available 04/10/2022 Have You Recently Traveled Abroad? No [email or web address] Information not available 04/25/2022 Sex: Male Functional Status Question Answer Note LastModified by Organizat ion Details LastModified Time Do you use any illicit or recreational drugs? No [email or web address] Information not available 02/01/2021 Do you or have you ever used any other forms of tobacco or nicotine? No [email or web address] Information not available 02/01/2021 What is your level of alcohol consumption? None [email or web address] Information not available 02/01/2021 Do you or have you ever used smokeless tobacco? Never used smokeless tobacco [email or web address] Information not available 02/25/2020 Are you currently employed? 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 Never used electronic cigarettes Information not available 02/25/2020 Mental Status None [...] quadrivalent, PF 0 completed RAUL SHERMAN DO [facility] [place], [address], [facility] 03/07/2020 09:47:38 Hep A, adult 1 completed Hallie Richard [facility] 06/07/2020 08:46:44 zoster recombinant 1 lilo Richard [facility] 06/07/2020 08:47:10 zoster recombinant 2 completed Caryn Linares [facility], [facility] 06/19/2021 11:38:33 pneumococcal polysaccharide PPV23 2 completed Caryn Linares [facility] 06/19/2021 11:38:33 Tdap 9 completed Not Available [facility] 06/23/2023 05:36:14 Hep A, adult 9 completed Not Available [facility] 06/23/2023 05:36:14 SARS-COV-2 (COVID-19) vaccine, UNSPECIFIED 1 completed Not Available [facility] 06/23/2023 05:36:14 SARS-COV-2 (COVID-19) vaccine, UNSPECIFIED 1 completed Not Available [facility] 06/23/2023 05:36:14 Past Encounters Encounter ID Performer Location Encounter Start Date Encounter Closed Date Diagnosis/Indication Diagnosis SNOMED-CT Code Diagnosis ICD10 Code Diagnosis Note [id number] YURI JACOB APRN ENDOCRINO LOGY [address] [place] [address] 10/29/2024 10:30:52 10/29/2024 11:10:09 Hypomagnesemia 859938000 E83.42 -Last lab from 10/26/24Mag 1.1-Repeat labs [...] Alarcon Member ID Guarantor Name 10/29/2024 1 [place] Jeff Ruelas Aneudy [id number] Q00 Jeff Amado 10/29/2024 2 [employer] (MEDICARE SUPPLEMENT) Jeff Suraj Aneudy [id number] Jeff Amado Notes Date Note Type Note [...] new meds/supplements prior to event. YURI JACOB, PITCH FLAKER [address] [place], [address], [facility] 10/29/2024 11:38:06
--- OUTSIDE RECORDS SUMMARY | 2024-11-30 07:53 | XMS_ITS | Encounter Summary ---
Author Organization [employer] ([place], [place], [place], [place]) Address [address] [address] Care Team Providers Care Clam Bed Laborer Name Role Phone Unavailable Primary Care Provider Unavailabl e Encounter Details Date Type Department Care Team (Late st Contact Info) Description 12/02/2019 Transcribed Document [facility] [address] [place] [address] Provider patel Naranjo MD Social History Tobacco Use Types Packs/Day Years Used Date Smoking Tobacco: Never Assessed Sex and Gender Information Value Date Recorded Sex Assigned at Not on file Legal Sex Male 7:33 PM CDT Gender Identity Not on file Sexual Orientation Not on file documented as of this encounter Miscellaneous Notes * Cerner Conversion Note - [facility] Jose A ProviderMD - 12/02/2019 2:04 PM EDT Event Note [...]
--- OUTSIDE RECORDS SUMMARY | 2024-11-30 07:53 | XMS_ITS | Clinical Summary ---
Author Organization [facility] Address [address] [place] [address] Phone Care Team Providers Care Latin Professor Name Role Phone Unavailable Primary Care [...] - 2023-2 5 season) 2024 Influenza Vaccine (#1) 2025 Hepatitis B Vaccine Aged Out No longe r eligible based on patient's age to complete this topic Meningococcal B Vaccine Aged Out No l onger eligible based on patient's age to complete this topic Insurance ANTHEM PPO [facility] [place], [place] [id number] GENERIC WORKERS[employer] COMP
--- OUTSIDE RECORDS SUMMARY | 2024-11-30 07:53 | XMS_ITS | Encounter Summary ---
Author Organization [employer] ([place], [place], [place], [place]) Address [address] [address] Care Team Providers Care Sugar Refinery Supervisor Name Role Phone Unavailable Primary Care Provider Unavailabl e Encounter Details Date Type Department Care Team (Late st Contact Info) Description 12/03/2019 Transcribed Document [facility] [address] [place] [address] Provider, Rosas Naranjo MD Social History Tobacco Use Types Packs/Day Years Used Date Smoking Tobacco: Never Assessed Sex and Gender Information Value Date Recorded Sex Assigned at Not on file Legal Sex Male 7:33 PM CDT Gender Identity Not on file Sexual Orientation Not on file documented as of this encounter Miscellaneous Notes * Cerner Conversion Note - [facility] Jose A Reese MD - 12/03/2019 8:56 [...] a week for the 1st week postop. /[id number] MD VANGIE Ríos Jr/DONNY / VANGIE / MODL /[id number] documented in this encounter Plan of Treatment Not on file documented as of this encounter Visit Diagnoses Not on filedocumented in this encounter
--- OUTSIDE RECORDS SUMMARY | 2024-11-30 07:53 | XMS_ITS | Encounter Summary ---
Author Organization [employer] ([place], [place], [place], [place]) Address [address] [place] [address] Care Team Providers Care Screw Eye Assembler Name Role Phone Unavailable Primary Care Provider Unavailabl e Encounter Details Date Type Department Care Team (Late st Contact Info) Description 12/02/2019 Transcribed Document [facility] Radiology [address] [place] [address] Provider, patel Naranjo MD Social History Tobacco Use Types Packs/Day Years Used Date Smoking Tobacco: Never Assessed Sex and Gender Information Value Date Recorded Sex Assigned at Not on file Legal Sex Male 7:33 PM CDT Gender Identity Not on file Sexual Orientation Not on file documented as of this encounter Miscellaneous Notes * Cerner Conversion Note - [facility] Jose A ProviderMD - 12/02/2019 12:08 PM EDT ANTOINE Main OR IntraOp Summary Primary Physician: JACKELIN SELF JR, JR, MD-ORT Finalized Date/Time: 12/02/19 11:36:58 Pt. Name: DANAE CARSON /Sex: 1960 Male Med Rec #: [id number] Physician: JACKELIN SELF JR, JR, MD-ORT Financial #: [id number] Pt. Type: O Room/Bed: Admit/Disch: 12/02/19 09:17:00 - Institution: [facility] [place] IntraOp Case Attendance Entry 1 Entry 2 Entry 3 Case Attendee JACKELIN SELF JR, JRLUIS KAREN KIM, SIGNALS ANALYST JACKSON CERRATO, RN MD-ORT Role Performed Surgeon/Proceduralist, SIGNALS ANALYST/Nurse Fourth Mate Medical Assisting Instructor, First First Time In 12/02/19 10:50:00 12/02/19 [...] CLAUDIA MIRANDA Role Performed Scrub, First Vendor Sterilization Specialist Time In 12/02/19 10:50:00 12/02/19 10:50:00 12/02/19 11:05:00 Time Out 12/02/19 11:36:00 12/02/19 11:36:00 12/02/19 11:36:00 Procedure Knee Arthroscopy Knee Arthroscopy Knee Arthroscopy Other Attendee TRINT UNDERWOOD Superficial Wound Closed By: Last Modified By: JACKSON CERRATO, JACKSON REARDON, JACKSON REARDON, CHARLIE 12/02/19 11:36:54 12/02/19 11:36:54 12/02/19 11:36:54 Entry 7 Entry 8 Case Attendee Jerry Cheek, GROCERY STORE BAGGER/MARCIE HACKETT, WAYNE, SIGNALS ANALYST-ANS Role Performed Hand Sewer Shoes, First SIGNALS ANALYST/Nurse Fourth Mate Time In 12/02/19 10:50:00 12/02/19 11:20:00 Time Out 12/02/19 11:36:00 12/02/19 11:36:00 Procedure Knee Arthroscopy Knee Arthroscopy Other Attendee Superficial Wound Closed By: Last Modified By: JACKSON CERRATO, JACKSON REARDON, CHARLIE 12/02/19 11:36:54 12/02/19 11:36:54 [facility] IntraOp Case Attendance Audit 12/02/19 11:36:54 International Student Counselor: LONGGA Modifier: LONGGA 1 <*> Procedure Knee [...] 8 <*> Procedure Knee Arthroscopy 12/02/19 11:27:18 International Student Counselor: LONGGA Modifier: LONGGA 1 <+> Time Out 1 <*> Procedure Knee Arthroscopy 12/02/19 11:23:46 International Student Counselor: LONGGA Modifier: LONGGA <+> 8 Case Attendee <+> 8 Role Performed <+> 8 Time In <+> 8 Procedure 12/02/19 11:17:15 International Student Counselor: LONGGA Modifier: LONGGA <+> 7 Case Attendee <+> 7 Role Performed <+> 7 Time In <+> 7 Procedure 12/02/19 11:15:35 International Student Counselor: LONGGA Modifier: LONGGA 1 <+> Time In [...] Time In <+> 6 Procedure 12/02/19 10:50:53 International Student Counselor: LONGGA Modifier: LONGGA <+> 5 Role Performed <+> 5 Procedure <+> 5 Other Attendee 12/02/19 10:40:53 International Student Counselor: LONGGA Modifier: LONGGA <+> 1 Procedure 2 [...] [facility] IntraOp Case Times Audit 12/02/19 11:36:53 International Student Counselor: LONGGA Modifier: LONGGA <+> 1 Out Room Time <+> 1 Stop Time 12/02/19 11:31:33 International Student Counselor: LONGGA Modifier: LONGGA <+> 1 Stop Time 12/02/19 11:12:41 International Student Counselor: LONGGA Modifier: LONGGA <+> 1 Start Time [...] Post-op Transport Stretcher/Gurney Via Patient Transport JACKSON CERRATO RN, Accompanied by MARCIE RUIZ, BAG REPAIRER, SIGNALS ANALYST-ANS Last Modified By: JACKSON CERRATO RN 12/02/19 11:27:33 [facility] IntraOp Dressing and Packing Entry 1 Type Dressing Location RIGHT KNEE Wound Dressing Item 4x4's, Xeroform, Chad, Webril Supplemental Cold pack Applications Applied By Jerry Cheek, SAL/CARE DIRECTOR Last Modified By: JCAKSON CERRATO RN 12/02/19 11:24:35 [facility] IntraOp Fire [...] RN 12/02/19 10:42:11 [facility] IntraOp General Case Senior Energy Analyst 1 Case Information OR OR 10 [facility] Case Level 1 Room Verified Yes Wound Class I - Clean Specialty SN Orthopedic Anesthesia Type General ASA Class 3 Diagnosis Preop Diagnosis MEDIAL FEMORAL CHONDYLE INSUFFICIENCY, RIGHT KNEE Postop Same As Preop No Postop Diagnosis DICTATED BY Ever Last Modified By: JACKSON CERRATO RN 12/02/19 11:23:53 [facility] IntraOp General Case Data Audit 12/02/19 11:23:53 International Student Counselor: LONGGA Modifier: LONGGA <+> 1 ASA Class 12/02/19 11:09:57 International Student Counselor: LONGGA Modifier: LONGGA <+> 1 Anesthesia Type <+> 1 Postop Same As Preop <+> 1 Preop Diagnosis <+> 1 Postop Diagnosis <+> 1 Room Verified [facility] IntraOp Implant Log Entry 1 Type Implant (Synthetic) Implant Log Implant Type Other Implant [facility] [id number] Identification Description Implant Quantity 1 Implant Site RIGHT KNEE Implant [id number] Identification Lot Number Implant Knee Creations Identification [employer] Sergeant Name: Implant [id number] Identification Catalog Number Implant [...] 1 Medication/Irrigant Marcaine 0.25% 10ml vial - [id number] Route of LOCAL Administration Dose Dose 10 Unit of Measure ml Administered By JACKELIN SELF JR, JR, MD-ORMackenzie Procedure Irrigation Last Modified By: JACKSON CERRATO [...] FOR RIGHT THIGH Positioned By JACKSON CERRATO, CHRALIE, SHERYL SMITH, FARHEEN, JACKELIN SELF JR, JR, MD-ORT, Jerry Cheek, GROCERY STORE BAGGER/CARE DIRECTOR Position Verified Positioning Yes Verified by Anesthesia [...] Intra Op Sign Out Audit 12/02/19 11:36:38 International Student Counselor: LONGGA Modifier: LONGGA <+> 1 RN Sign [...] [facility] IntraOp Surgical Procedures Audit 12/02/19 11:35:51 International Student Counselor: LONGGA Modifier: LONGGA <+> 1 Stop 12/02/19 11:12:47 International Student Counselor: LONGGA Modifier: LONGGA <+> 1 Start [facility] [...] Padded Under Cuff Applied By Jerry Cheek, GROCERY STORE BAGGER/CARE DIRECTOR Removed By Jerry Cheek GROCERY STORE BAGGER/CARE DIRECTOR Times Start Time 12/02/19 11:15:00 Stop Time 12/02/19 11:30:00 Last Modified By: JACKSON CERRATO RN 12/02/19 11:30:25 [facility] IntraOp Tourniquet Audit 12/02/19 11:30:25 International Student Counselor: ELEUTERIO Modifier: [email or web address] <+> 1 Stop Time [facility] IntraOp X-Ray and Images Entry 1 X-Ray/Imaging Type Fluoroscopy Site RIGHT KNEE Wire Straightener Name CLAUDIA MIRANDA Last Modified By: JACKSON CERRATO RN 12/02/19 11:14:42 Case Comments <None> Finalized By: JACKSON CERRATO, RN Document Signatures Signed By: JACKSON CERRATO RN 12/02/19 11:36 Electronically signed by Angela [facility] Conversion Configuration Manager Cerner at 10/17/2022 12:36 PM CDT documented in this encounter Plan of Treatment Not on file documented as of this encounter Visit Diagnoses Not on filedocumented in this encounter
--- OUTSIDE RECORDS SUMMARY | 2024-11-30 07:53 | XMS_ITS | Clinical Summary ---
Author Organization [employer] ([place], [place], [place], [place]) Address [address] [address] Care Team Providers Care Pile Operator Name Role Phone Unavailable Primary Care [...] Date Scott rded Speak language other than Macedonian at home Not on file 01/23/2024 Want [...] exists Falls Risk Screening 05/27/2024 Influenza Vaccine (#1) 2025 05/30/2022, 2016 DTAP/TDAP/TD VACCINES (4 - T d or Tdap) 01/25/2029 01/25/2019, 11/12/2018, 06/27/2011 Respiratory Syncytial Virus (RSV) Adult or (1 - 1-dose 75+ series) 2034 Shingles Vaccine (Zoster) Completed 06/19/2021, 04/2021 Insurance [facility] CHOICE PLUS
[2024-11-30 08:30] VITALS: PULSE 62; PULSE 66
[2024-11-30] MEDS: ALBUTEROL 0.083% 2.5 MG/3 ML NEB IH (08:30)
== END 2024-11-30 23:59 | disposition home or self-care (01) ==
LOC: RT 07:51
PROVIDERS: PCP Nurse Practitioner Family; Visit Provider Nurse Practitioner Family
DX: R94.2 Abnormal results of pulmonary function studies (principal); R06.02 Shortness of breath
CPT/HCPCS: 94060; 94640

== ENCOUNTER 2025-02-17 12:42 | Outpatient (CLI) | payer MEDICARE, SELFPAY ==
--- OUTSIDE RECORDS SUMMARY | 2025-02-17 12:45 | XMS_ITS | Clinical Summary ---
Author Organization [facility] Address [address] [place] [address] Phone Care Team Providers Care Shipping Agent Name Role Phone Unavailable Primary Care Provider [...] COVID-19 Vaccine (1 - 2023-2 5 season) 2025 Influenza Vaccine (#1) 2025 Hepatitis B Vaccine Aged Out No longe r eligible based on patient's age to complete this topic Meningococcal B Vaccine Aged Out No l onger eligible based on patient's age to complete this topic Insurance ANTHEM PPO [facility] [place], [place] [id number] [employer]
[2025-02-19 15:12] LABS: Pancreatic Elastase, Fecal 512 (>200)
== END 2025-02-17 23:59 | disposition home or self-care (01) ==
LOC: LAB 12:43
PROVIDERS: PCP Nurse Practitioner Family; Visit Provider Nurse Practitioner Family
DX: R14.0 Abdominal distension (gaseous) (principal)
CPT/HCPCS: 82653

== ENCOUNTER 2025-04-08 08:59 | Outpatient (CLI) | payer MEDICARE, SELFPAY ==
[2025-04-08 09:59] LABS: Cholesterol 164 mg/dl (140-200); HDL Cholesterol 47 mg/dl (40-60); Triglycerides 101 mg/dl (30-150)
[2025-04-08 17:10] LABS: Coronavirus 19, PCR Not Detected (NotDetected); Influenza A, PCR Not Detected (NotDetected); Influenza B, PCR Not Detected (NotDetected)
== END 2025-04-08 23:59 | disposition home or self-care (01) ==
PROVIDERS: PCP Nurse Practitioner Family; Visit Provider Internal Medicine
DX: E78.5 Hyperlipidemia, unspecified (principal); R06.02 Shortness of breath; R05.9 Cough, unspecified; J98.8 Other specified respiratory disorders; B97.89 Other viral agents as the cause of diseases classified elsewhere
CPT/HCPCS: 36415; 80061; 87631